=== PATIENT | male | born 1945 | race Caucasian/White ===

== ENCOUNTER 2025-05-03 19:25 | Inpatient (IN) | payer MEDICARE ==
--- NOTE | 2025-05-03 19:29 | ED ---
SOB HPI - General Stated Complaint: Respritory arrest Time Seen by Provider: 05/03/25 19:28 Source: RN notes reviewed, old records reviewed Mode of arrival: EMS Limitations: no limitations - History of Present Illness Initial Comments: This is a 79-year-old male to the ER for evaluation patient was today for evaluation of respiratory arrest, patient had cessation of respirations in the field comes in intubated, patient initially called EMS secondary to severe shortness of breath Long history of COPD with lung surgery as well MD Complaint: shortness of breath, cough, "asthma attack" (Respiratory arrest), anxiety -: hour(s) Severity: severe Severity scale (1-10): 10 Consistency: constant Improves With: nothing Worsens With: nothing Known History Of: COPD Context: anxiety, recent illness Associated Symptoms: chest pain, pain with inspiration, cough Treatments Prior to Arrival: none - Related Data Home Medications Medication Instructions Recorded Confirmed Anagrelide HCl [Agrylin] 1 mg PO BID 05/04/25 05/04/25 Escitalopram [Lexapro] 20 mg PO HS 05/04/25 05/04/25 Esomeprazole Magnesium 20 mg PO BID 05/04/25 05/04/25 Metoprolol Succinate (ER) [Toprol 100 mg PO HS 05/04/25 05/04/25 Xl] Multivitamin [Multivitamins Adult 1 tab PO DAILY 05/04/25 05/04/25 Gummies] Simvastatin 40 mg PO HS 05/04/25 05/04/25 amLODIPine [Norvasc] 5 mg PO HS 05/04/25 05/04/25 Allergies Allergy/AdvReac Type Severity Reaction Status Date / Time lisinopril Allergy Swelling Verified 05/04/25 12:19 Review of Systems ROS Statement: Those systems with pertinent positive or pertinent negative responses have been documented in the HPI. ROS Other: All systems not noted in ROS Statement are negative. General Exam Limitations: altered mental status, physical limitation General appearance: alert, lethargic, obtunded, in distress Head exam: Present: atraumatic, normocephalic, normal inspection Eye exam: Present: normal appearance, PERRL, EOMI. Absent: scleral icterus, conjunctival injection, periorbital swelling ENT exam: Present: normal exam, mucous membranes moist Neck exam: Present: normal inspection. Absent: tenderness, meningismus, lymphadenopathy Respiratory exam: Present: respiratory distress, wheezes, accessory muscle use, decreased breath sounds, prolonged expiratory. Absent: rales, rhonchi, stridor Cardiovascular Exam: Present: tachycardia, normal heart sounds. Absent: systolic murmur, diastolic murmur, rubs, gallop, clicks GI/Abdominal exam: Present: soft, normal bowel sounds. Absent: distended, tenderness, guarding, rebound, rigid Extremities exam: Present: normal inspection, full ROM, normal capillary refill. Absent: tenderness, pedal edema, joint swelling, calf tenderness Back exam: Present: normal inspection Neurological exam: Present: alert, oriented X3, CN II-XII intact Psychiatric exam: Present: normal affect, normal mood Skin exam: Present: warm, dry, intact, normal color. Absent: rash Course Vital Signs 05/03/25 05/03/25 05/03/25 19:34 19:39 19:44 Temperature 97.5 F L Pulse Rate 105 H 93 Respiratory 19 21 Rate Blood Pressure 168/95 113/83 O2 Sat by Pulse 98 100 Oximetry Fraction of 100 Inspired Oxygen (FIO2) 05/03/25 05/03/25 05/03/25 20:17 20:33 21:24 Temperature Pulse Rate 76 71 Respiratory 22 21 Rate Blood Pressure 88/65 109/70 O2 Sat by Pulse 100 98 Oximetry Fraction of 50 Inspired Oxygen (FIO2) 05/03/25 05/03/25 05/03/25 22:06 23:00 23:18 Temperature Pulse Rate 72 64 Respiratory 18 20 Rate Blood Pressure 113/75 90/58 O2 Sat by Pulse 96 100 Oximetry Fraction of 50 Inspired Oxygen (FIO2) 05/04/25 05/04/25 05/04/25 00:00 02:00 03:00 Temperature Pulse Rate 68 68 67 Respiratory 20 17 20 Rate Blood Pressure 102/70 109/71 101/66 O2 Sat by Pulse 100 100 98 Oximetry Fraction of Inspired Oxygen (FIO2) 05/04/25 05/04/25 05/04/25 03:22 04:36 05:00 Temperature Pulse Rate 74 65 Respiratory 20 20 Rate Blood Pressure 117/82 112/69 O2 Sat by Pulse 100 65 L Oximetry Fraction of 50 Inspired Oxygen (FIO2) 05/04/25 05/04/25 05/04/25 06:00 07:51 07:56 Temperature Pulse Rate 63 64 64 Respiratory 20 20 Rate Blood Pressure 104/63 108/66 O2 Sat by Pulse 98 99 Oximetry Fraction of 50 Inspired Oxygen (FIO2) 05/04/25 05/04/25 05/04/25 08:03 08:49 09:16 Temperature 97.9 F 96.8 F L Pulse Rate 72 73 78 Respiratory 20 20 Rate Blood Pressure 109/71 131/80 O2 Sat by Pulse 99 99 Oximetry Fraction of Inspired Oxygen (FIO2) - Reevaluation(s) Reevaluation #1: 05/03/25 22:35 Medical records reviewed Reevaluation #2: 05/03/25 22:35 Patient is significantly sedated vital signs improving Reevaluation #3: 05/03/25 22:35 Patient informed of results and questions answered Reevaluation #4: Was pt. sent in by a medical professional or institution (KADY Dudley, PROGRAMMING SPECIALIST, urgent care, hospital, or fci...) When possible be specific @ -no Did you speak to anyone other than the patient for history (EMS, parent, family, police, friend...)? What history was obtained from this source @ -no Did you review nursing and triage notes (agree or disagree)? Why? @ -agree Are old charts reviewed (outside hosp., previous admission, EMS record, old EKG, old radiological studies, urgent care reports/EKG's, fci records)? Report findings @ -yes Differential Diagnosis (chest pain, altered mental status, abdominal pain women, abdominal pain men, vaginal bleeding, weakness, fever, dyspnea, syncope, headache, dizziness, GI bleed, back pain, seizure, CVA, palpatations, mental health, musculoskeletal)? @ -prior EKG interpreted by me (3pts min.). @ -yes X-rays interpreted by me (1pt min.). @ -yes yes positive for pneumonia CT interpreted by me (1pt min.). @ -US negative for acute disease U/S interpreted by me (1pt. min.). @ -no What testing was considered but not performed or refused? (CT, X-rays, U/S, labs)? Why? @ -none What meds were considered but not given or refused? Why? @ -none Did you discuss the management of the patient with other professionals (professionals i.e. , PA, PROGRAMMING SPECIALIST, lab, RT, psych nurse, director social service, certified appliance service technician, teacher, airfield services officer, casey saw operator)? Give summary @ -no Was smoking cessation discussed for >3mins.? @ -no Was critical care preformed (if so, how long)? @ -yes31 Were there social determinants of health that impacted care today? How? (Homelessness, low income, unemployed, alcoholism, drug addiction, transportatio n, low edu. Level, literacy, decrease access to med. care, [place] [facility], rehab)? @ -none Was there de-escalation of care discussed even if they declined (Discuss DNR or withdrawal of care, Hospice)? DNR status @ -no What co-morbidities impacted this encounter? (DM, HTN, Smoking, COPD, CAD, Cancer, CVA, ARF, Chemo, Hep., AIDS, mental health diagnosis, sleep apnea, morbid obesity)? @ -none Was patient admitted / discharged? Hospital course, mention meds given and route, prescriptions, significant lab abnormalities, going to OR and other pertinent info. @ - 79 male will be admitted for respiratory arrest intubated pneumonia and admitted to the ICU Admitted Undiagnosed new problem with uncertain prognosis? @ -no Drug Therapy requiring intensive monitoring for toxicity (Heparin, Nitro, Insulin, Cardizem)? @ -no Were any procedures done? @ -no Diagnosis/symptom? @ -Respiratory arrest Acute, or Chronic, or Acute on Chronic? @ -Acute Uncomplicated (without systemic symptoms) or Complicated (systemic symptoms)? @ -Complicated Side effects of treatment? @ -no Exacerbation, Progression, or Severe Exacerbation? @ -exacerbation Poses a threat to life or bodily function? How? (Chest pain, [place], [place], pneumonia, PE, COPD, DKA, ARF, appy, cholecystitis, CVA, Diverticulitis, Homicidal, Suicidal, threat to staff... and all critical care pts) @ -yes with cardiorespiratory arrest Reevaluation #5: Differential Dyspnea: Coronary syndrome, arrhythmia, tamponade, asthma, COPD, pulmonary embolism, pneumonia, pneumothorax, pulmonary effusion, anaphylaxis, diabetic ketoacidosis, flailed chest, pulmonary contusion, diaphragmatic rupture, anemia, neuromuscular, this is not meant to be an all-inclusive list. - Consultations Consultation #1: Spoke with ICU they agreed to admit this patient to the ICU Consultation #2: Spoke with sound they agreed to admit this patient Medical Decision Making - Medical Decision Making 79 male will be admitted for respiratory arrest intubated pneumonia and admitted to the ICU - Lab Data Result diagrams: 05/10/25 05:02 05/10/25 05:02 Lab Results 05/03/25 05/03/25 05/03/25 Range/Units 19:38 19:38 19:38 WBC 19.15 H (4.50-10.00) 10*3/uL RBC 3.40 L (4.40-5.60) 10*6/uL Hgb 9.2 L (13.0-17.0) g/dL Hct 29.3 L (39.6-50.0) % MCV 86.2 (80.0-97.0) fL MCH 27.1 (27.0-32.0) pg MCHC 31.4 L (32.0-37.0) g/dL Plt Count 655 H (140-440) 10*3/uL MPV 9.6 (9.5-12.2) fL Immature Gran % (Auto) 0.8 % Neutrophils % 78.2 % Lymphocytes % 13.7 % Monocytes % 5.7 % Eosinophils % 1.3 % Basophils % 0.3 % Immature Gran # 0.15 H (0.00-0.04) 10*3/uL Neutrophils # 14.97 H (1.80-7.70) 10*3/uL Lymphocytes # 2.63 (0.90-5.00) 10*3/uL Monocytes # 1.10 H (0.20-1.00) 10*3/uL Eosinophils # 0.25 (0.04-0.35) 10*3/uL Basophils # 0.05 (0.00-0.10) 10*3/uL PT 13.5 H (10.0-12.5) sec INR 1.3 H (<1.2) APTT 22.4 (22.0-30.0) sec Sample Site ABG pH (7.35-7.45) ABG pCO2 (35-45) mmHg ABG pO2 (83-108) mmHg ABG HCO3 (21-25) mmol/L ABG Total CO2 (19-24) mmol/L ABG O2 Saturation (94-97) % ABG Base Excess mmol/L Hank Test Hemoglobin (13.0-17.5) gm/dL FiO2 % Sodium 142 (137-145) mmol/L Potassium 4.8 (3.5-5.1) mmol/L Chloride 107 (98-107) mmol/L Carbon Dioxide 20 L (22-30) mmol/L Anion Gap 15 mmol/L BUN 28 H (9-20) mg/dL Creatinine 1.88 H (0.66-1.25) mg/dL Est GFR (CKD-EPI)AfAm 39 (>60 ml/min/1.73 sqM) Est GFR (CKD-EPI)NonAf 34 (>60 ml/min/1.73 sqM) Glucose 256 H (74-99) mg/dL Lactic Ac Sepsis Rflx Plasma Lactic Acid Tk (0.7-2.0) mmol/L Calcium 9.0 (8.4-10.2) mg/dL Magnesium 2.2 (1.6-2.3) mg/dL Total Bilirubin 1.2 (0.2-1.3) mg/dL AST 22 (17-59) U/L ALT 12 (4-49) U/L Alkaline Phosphatase 91 (38-126) U/L Troponin I (0.000-0.034) ng/mL NT-Pro-B Natriuret Pep 14322 pg/mL Total Protein 6.8 (6.3-8.2) g/dL Albumin 3.6 (3.5-5.0) g/dL 05/03/25 05/03/25 05/03/25 Range/Units 19:38 19:38 20:08 WBC (4.50-10.00) 10*3/uL RBC (4.40-5.60) 10*6/uL Hgb (13.0-17.0) g/dL Hct (39.6-50.0) % MCV (80.0-97.0) fL MCH (27.0-32.0) pg MCHC (32.0-37.0) g/dL Plt Count (140-440) 10*3/uL MPV (9.5-12.2) fL Immature Gran % (Auto) % Neutrophils % % Lymphocytes % % Monocytes % % Eosinophils % % Basophils % % Immature Gran # (0.00-0.04) 10*3/uL Neutrophils # (1.80-7.70) 10*3/uL Lymphocytes # (0.90-5.00) 10*3/uL Monocytes # (0.20-1.00) 10*3/uL Eosinophils # (0.04-0.35) 10*3/uL Basophils # (0.00-0.10) 10*3/uL PT (10.0-12.5) sec INR (<1.2) APTT (22.0-30.0) sec Sample Site rbrac ABG pH 7.20 L (7.35-7.45) ABG pCO2 57 H (35-45) mmHg ABG pO2 315 H (83-108) mmHg ABG HCO3 22 (21-25) mmol/L ABG Total CO2 24 (19-24) mmol/L ABG O2 Saturation >100.0 H (94-97) % ABG Base Excess -5.8 mmol/L Hank Test Yes Hemoglobin 8.6 L (13.0-17.5) gm/dL FiO2 100 % Sodium (137-145) mmol/L Potassium (3.5-5.1) mmol/L Chloride (98-107) mmol/L Carbon Dioxide (22-30) mmol/L Anion Gap mmol/L BUN (9-20) mg/dL Creatinine (0.66-1.25) mg/dL Est GFR (CKD-EPI)AfAm (>60 ml/min/1.73 sqM) Est GFR (CKD-EPI)NonAf (>60 ml/min/1.73 sqM) Glucose (74-99) mg/dL Lactic Ac Sepsis Rflx Plasma Lactic Acid Tk 2.2 H* (0.7-2.0) mmol/L Calcium (8.4-10.2) mg/dL Magnesium (1.6-2.3) mg/dL Total Bilirubin (0.2-1.3) mg/dL AST (17-59) U/L ALT (4-49) U/L Alkaline Phosphatase (38-126) U/L Troponin I <0.012 (0.000-0.034) ng/mL NT-Pro-B Natriuret Pep pg/mL Total Protein (6.3-8.2) g/dL Albumin (3.5-5.0) g/dL 05/03/25 Range/Units 20:18 WBC (4.50-10.00) 10*3/uL RBC (4.40-5.60) 10*6/uL Hgb (13.0-17.0) g/dL Hct (39.6-50.0) % MCV (80.0-97.0) fL MCH (27.0-32.0) pg MCHC (32.0-37.0) g/dL Plt Count (140-440) 10*3/uL MPV (9.5-12.2) fL Immature Gran % (Auto) % Neutrophils % % Lymphocytes % % Monocytes % % Eosinophils % % Basophils % % Immature Gran # (0.00-0.04) 10*3/uL Neutrophils # (1.80-7.70) 10*3/uL Lymphocytes # (0.90-5.00) 10*3/uL Monocytes # (0.20-1.00) 10*3/uL Eosinophils # (0.04-0.35) 10*3/uL Basophils # (0.00-0.10) 10*3/uL PT (10.0-12.5) sec INR (<1.2) APTT (22.0-30.0) sec Sample Site ABG pH (7.35-7.45) ABG pCO2 (35-45) mmHg ABG pO2 (83-108) mmHg ABG HCO3 (21-25) mmol/L ABG Total CO2 (19-24) mmol/L ABG O2 Saturation (94-97) % ABG Base Excess mmol/L Hank Test Hemoglobin (13.0-17.5) gm/dL FiO2 % Sodium (137-145) mmol/L Potassium (3.5-5.1) mmol/L Chloride (98-107) mmol/L Carbon Dioxide (22-30) mmol/L Anion Gap mmol/L BUN (9-20) mg/dL Creatinine (0.66-1.25) mg/dL Est GFR (CKD-EPI)AfAm (>60 ml/min/1.73 sqM) Est GFR (CKD-EPI)NonAf (>60 ml/min/1.73 sqM) Glucose (74-99) mg/dL Lactic Ac Sepsis Rflx Y Plasma Lactic Acid Tk (0.7-2.0) mmol/L Calcium (8.4-10.2) mg/dL Magnesium (1.6-2.3) mg/dL Total Bilirubin (0.2-1.3) mg/dL AST (17-59) U/L ALT (4-49) U/L Alkaline Phosphatase (38-126) U/L Troponin I (0.000-0.034) ng/mL NT-Pro-B Natriuret Pep pg/mL Total Protein (6.3-8.2) g/dL Albumin (3.5-5.0) g/dL - EKG Data -: EKG Interpreted by Me (EKG is sinus tachycardia 104 [place] 158 QRS 103 QTc 437) - Radiology Data Radiology results: report reviewed (Chest x-ray positive for pneumonia), image reviewed Critical Care Time Critical Care Time: Yes Total Critical Care Time: 31 Disposition Clinical Impression: Acute exacerbation of chronic obstructive pulmonary disease, Acute pulmonary edema, Acute respiratory distress syndrome in adult, Respiratory failure Disposition: ADMITTED IP TO THIS HOSP Condition: Critical Is patient prescribed a controlled substance at d/c from ED?: No Time of Disposition: 21:25
[2025-05-03] MEDS: PROPOFOL 10 MG/ML 20 ML VIAL IV ONE (19:30)
[2025-05-03] MEDS: MIDAZOLAM 2 MG/2 ML VIAL IV ONE (19:34)
[2025-05-03 19:54] LABS: Basophils # (A) 0.05 10*3/uL (0.00-0.10); Basophils % (A) 0.3 %; Eosinophils # (A) 0.25 10*3/uL (0.04-0.35); Eosinophils % (A) 1.3 %; HCT 29.3 % (39.6-50.0); HGB 9.2 g/dL (13.0-17.0); Lymphocytes # (A) 2.63 10*3/uL (0.90-5.00); Lymphocytes % (A) 13.7 %; MCH 27.1 pg (27.0-32.0); MCHC 31.4 g/dL (32.0-37.0); MCV 86.2 fL (80.0-97.0); Monocytes # (A) 1.10 10*3/uL (0.20-1.00); Monocytes % (A) 5.7 %; Neutrophils # (A) 14.97 10*3/uL (1.80-7.70); Neutrophils % (A) 78.2 %; Platelet Count 655 10*3/uL (140-440); RBC 3.40 10*6/uL (4.40-5.60); RDW 19.3 % (11.5-14.5); WBC 19.15 10*3/uL (4.50-10.00)
--- NOTE | 2025-05-03 19:59 | XR ---
EXAMINATION TYPE: XR chest 1V portable DATE OF EXAM: 05/03/2025 7:54 PM COMPARISON: 05/03/2025 CLINICAL INDICATION: Male, 79 years old with history of sob, TECHNIQUE: XR chest 1V portable views of the chest are obtained. FINDINGS: Endotracheal tube is 6 cm from the yuni. NG tube is seen coursing into the stomach. Patchy basilar infiltrates and small effusions. No pneumothorax present. The heart is stable. Hilar and mediastinal structures are within normal limits. Degenerative changes are seen of the dorsal spine. IMPRESSION: Endotracheal tube is 6 cm from the yuni. NG tube is seen coursing into the stomach. Patchy basilar infiltrates and small effusions. [facility], , 05/03/2025 7:56 PM
[2025-05-03 20:10] LABS: INR 1.3 (<1.2); Partial Thromboplastin Time 22.4 sec (22.0-30.0); Prothrombin Time 13.5 sec (10.0-12.5)
[2025-05-03 20:11] LABS: ALT 12 U/L (4-49); AST 22 U/L (17-59); African American GFR (CKD) 39 (>60 ml/min/1.73 sqM); Albumin 3.6 g/dL (3.5-5.0); Alkaline Phosphatase 91 U/L (38-126); Anion Gap 15 mmol/L; Blood Urea Nitrogen 28 mg/dL (9-20); Calcium 9.0 mg/dL (8.4-10.2); Carbon Dioxide 20 mmol/L (22-30); Chloride 107 mmol/L (98-107); Glucose 256 mg/dL (74-99); Magnesium 2.2 mg/dL (1.6-2.3); Non-African American GFR(CKD) 34 (>60 ml/min/1.73 sqM); Potassium 4.8 mmol/L (3.5-5.1); Sodium 142 mmol/L (137-145); Total Protein 6.8 g/dL (6.3-8.2)
[2025-05-03 20:11] LABS: ABG HCO3 22 mmol/L (21-25); ABG PCO2 57 mmHg (35-45); ABG PH 7.20 (7.35-7.45); ABG PO2 315 mmHg (83-108); ABG TCO2 24 mmol/L (19-24); Allen Test Performed? Yes
[2025-05-03 20:19] LABS: NT-Pro-B-Type Natriuretic Pept 12100 pg/mL
[2025-05-03] MEDS: SODIUM CHLORIDE 0.9% 1,000 ML IV ONE ×2 (20:30→23:38)
[2025-05-03] MEDS ORDERED: NALOXONE 0.4 MG/ML 1 ML VIAL IV PRN (21:22)
[2025-05-03] MEDS: IPRATROPIUM-ALBUTEROL 3 ML NEB INHALATION STA (21:26)
[2025-05-03] MEDS ORDERED: PNEUMONIA PROTOCOL UTILIZED 1 EACH MISC PO PRN (21:27)
[2025-05-03] MEDS: AZITHROMYCIN 500 MG in SODIUM CHLORIDE 0.9% 250 ML IVPB STA (22:00)
[2025-05-03] MEDS: SODIUM CHLORIDE 0.9% 500 ML 500 ML IV ONE (23:39)
[2025-05-04] MEDS: SODIUM CHLORIDE 0.9% 1,000 ML IV SCH (00:32)
--- NOTE | 2025-05-04 03:52 | P.CNPUL ---
History of Present Illness Consult date: 05/04/25 Requesting physician: Judson Dunn Reason for consult: other (ICU management) History of present illness: Patient is a 79-year-old male, evaluated by EMS yesterday. Reportedly, having severe respiratory distress and apnea. He was intubated in the field. No previous records available to review from our facility. I did call the patient's , she states he was increasingly weak for the last several days. Associated shortness of breath with exertion. She thought it was related to his anemia. She was able to provide some past medical history including lung cancer and previous lung resection at [facility], essential thrombocythemia, and GAVE syndrome. Reportedly, requires frequent blood and iron infusions. He follows at [facility] for this. Reportedly, no history of COPD, asthma. No history of heart f ailure per the . His medication list is not available. Workup in the emergency department including a chest x-ray which shows endotracheal tube proximal, approximately 6 cm from the yuni. Orogastric tube coursing into the stomach. Patchy bibasilar infiltrates and small effusion on the right. Left costophrenic angle was excluded from the image. CBC including a WBC count of 19.15, hemoglobin 9.2, platelets 655. CMP included sodium 142, potassium 4.8, chloride 107, serum bicarb 20, BUN 28, creatinine 1.88, glucose 256. Lactic 2.6 and down to 1.6. EKG: Sinus tachycardia, rate 104 bpm, no acute ischemic changes. Troponin less than 0.012. NT proBNP significantly elevated at 12,100. Patient currently being evaluated in the emergency department, trauma bay 2. He is intubated to the mechanical ventilator. Previous ABGs including a PaO2 of 315, pCO2 57, pH of 7.2. Previous ventilator settings were assist-control, rate 16, tidal volume 450, FiO2 100%, PEEP of 5. Since then, his rate has been increased to 20 and his tidal volume dropped to 50%. The Peak pressure averaging 38 and static airway pressure measured at 17. His endotracheal tube is a size 7. There are thick tenacious white secretions coming from the endotracheal tube. Sputum sample to be collected. Currently, patient is synchronous with the mechanical ventilator. Sedated on propofol which is infusing at 45 mcg/kg/min. He was previously fluid resuscitated with a total of 2.5 L crystalloid fluid and LR continues at 150 mL/h. Blood pressure is normotensive. Not requiring any vasopressors. An indwelling urinary catheter was placed and there is small amount of concentrated yellow urine in the colle ction bag. Has remained afebrile. Previously started on empiric antibiotics in form azithromycin and Rocephin in the ED. Review of Systems ROS unobtainable: due to endotracheal tube Past Medical History Past Medical History: Unable to Obtain Past Surgical History: Unable to Obtain Smoking Status: Unknown if ever smoked Past Alcohol Use History: Unable to Obtain Past Drug Use History: Unable to Obtain Medications and Allergies Allergies Allergy/AdvReac Type Severity Reaction Status Date / Time lisinopril Allergy Swelling Verified 05/03/25 19:53 Physical Exam Vitals: Vital Signs Temp Pulse Resp BP Pulse Ox FiO2 05/04/25 02:00 68 17 109/71 100 05/04/25 00:00 68 20 102/70 100 05/03/25 23:18 50 05/03/25 23:00 64 20 90/58 100 05/03/25 22:06 72 18 113/75 96 05/03/25 21:24 71 21 109/70 98 05/03/25 20:33 76 22 88/65 100 05/03/25 20:17 50 05/03/25 19:44 93 21 113/83 100 05/03/25 19:39 100 05/03/25 19:34 97.5 F L 105 H 19 168/95 98 Intake and Output 05/03/25 05/03/25 05/04/25 14:59 22:59 06:59 Intake Total .707 29.212 Balance 707 . Intake: Intake, IV Titration .707 . Amount propofoL 1,000 mg In .7 .212 Empty Bag 1 bag @ 15 MCG/ KG/MIN 6.532 mls/hr IV . [id number] [facility] Rx#:[id number] Other: Weight 72.575 kg GENERAL EXAM: Sedated, 79-year-old male, does not follow commands, intubated to the mechanical ventilator. HEAD: Normocephalic and atraumatic EYES: Right pupil is round and reactive to light; left pupil misshapen and fixed. No nystagmus. Anicteric NOSE: Clear with pink turbinates. THROAT: No erythema or exudates. NECK: No masses, no JVD. CHEST: No chest wall deformity. LUNGS: Equal air entry with diffuse bilateral rhonchi. CVS: S1 and S2 normal with no audible murmur, regular rhythm. No extra heart sounds ABDOMEN: No hepatosplenomegaly, active bowel sounds, no guarding or rigidity. SPINE: No scoliosis or deformity SKIN: No rashes CENTRAL NERVOUS SYSTEM: Sedated, no obvious focal deficits, withdraws to pain in all 4 extremities. EXTREMITIES: There is no peripheral edema, clubbing, or cyanosis. Peripheral pulses are intact. Results - Laboratory Findings CBC and BMP: 05/03/25 19:38 05/03/25 19:38 ABG ABG pH 7.20 (7.35-7.45) L 05/03/25 20:08 ABG pCO2 57 mmHg (35-45) H 05/03/25 20:08 ABG pO2 315 mmHg (83-108) H 05/03/25 20:08 ABG O2 Saturation >100.0 % (94-97) H 05/03/25 20:08 PT/INR, D-dimer PT 13.5 sec (10.0-12.5) H 05/03/25 19:38 INR 1.3 (<1.2) H 05/03/25 19:38 Abnormal lab findings: Abnormal Labs 05/03/25 05/03/25 05/03/25 19:38 19:38 19:38 WBC 19.15 H RBC 3.40 L Hgb 9.2 L Hct 29.3 L MCHC 31.4 L Plt Count 655 H Immature Gran # 0.15 H Neutrophils # 14.97 H Monocytes # 1.10 H PT 13.5 H INR 1.3 H ABG pH ABG pCO2 ABG pO2 ABG O2 Saturation Hemoglobin Carbon Dioxide 20 L BUN 28 H Creatinine 1.88 H Glucose 256 H Plasma Lactic Acid Tk 05/03/25 05/03/25 19:38 20:08 WBC RBC Hgb Hct MCHC Plt Count Immature Gran # Neutrophils # Monocytes # PT INR ABG pH 7.20 L ABG pCO2 57 H ABG pO2 315 H ABG O2 Saturation >100.0 H Hemoglobin 8.6 L Carbon Dioxide BUN Creatinine Glucose Plasma Lactic Acid Tk 2.2 H* - Diagnostic Findings Chest x-ray: image reviewed Assessment and Plan Assessment: Acute hypoxemic and hypercapnic respiratory failure, patient was intubated in the field by EMS, chest x-ray showing bilateral patchy infiltrates, also small right-sided pleural effusion. NT-proBNP was elevated at 12,100. Suspect bilateral pneumonia/sepsis Possible exacerbation of congestive heart failure, with an unknown ejection fraction Acute leukocytosis Acute kidney injury versus chronic kidney disease History of GAVE syndrome and chronic anemia, reportedly receives outpatient PRBC and an iron infusions Essential thrombocythemia, reportedly on cytoreducative therapy History of lung cancer with previous lobectomy at outside facility Current tobacco smoker Plan: Medications, labs, chest x-ray reviewed Continue on mechanical ventilator with current ventilator settings Advance endotracheal tube 2 cm Continue propofol for sedation Repeat ABG in the morning Continue empiric antibiotics Obtain transthoracic echocardiogram Spent more than 10 minutes on the phone with patient and spouse and answered all her questions and updated her on his current condition. Update medication list once made available Case to be reviewed with my supervising physician, additional recommendations forthcoming. Patient will be admitted to the intensive care unit when bed available. I have personally seen and examined the patient, performed the documentation and the assessment and plan as written. Number of minutes spent on the visit:25 Time with Patient: Greater than 30
--- NOTE | 2025-05-04 04:30 | CT ---
EXAM: CT Head Without Intravenous Contrast CLINICAL HISTORY: ITS.REASON CT Reason: AMS TECHNIQUE: Axial computed tomography images of the head/brain without intravenous contrast. CTDI is 49.2 mGy and DLP is 1199.4 mGy-cm. This CT exam was performed using one or more of the following dose reduction techniques: automated exposure control, adjustment of the mA and/or kV according to patient size, and/or use of iterative reconstruction technique. COMPARISON: No relevant prior studies available. FINDINGS: Brain: No hemorrhage or mass effect. Ventricles: No hydrocephalus. Bones/joints: Unremarkable. Soft tissues: Unremarkable. Sinuses: No air fluid level. Mastoid air cells: Clear. IMPRESSION: No acute hemorrhage, hydrocephalus, or mass effect.
[2025-05-04 04:37] LABS: RSV Not Detected (Not Detectd)
[2025-05-04] MEDS: FUROSEMIDE 10 MG/ML 2 ML VIAL IV ONE (04:43)
[2025-05-04 05:25] LABS: ABG HCO3 19 mmol/L (21-25); ABG PCO2 37 mmHg (35-45); ABG PH 7.33 (7.35-7.45); ABG PO2 89 mmHg (83-108); ABG TCO2 21 mmol/L (19-24); Allen Test Performed? Yes
--- NOTE | 2025-05-04 06:21 | P.HPIM ---
History of Present Illness H&P Date: 05/03/25 Chief Complaint: Respiratory arrest Patient is a 79-year-old male with severe COPD and history of lung surgery who was brought to the hospital by EMS due to respiratory arrest. Patient was having severe shortness of breath and coughing, described as 'something like an asthma attack.' Patient notified EMS and subsequently had a respiratory arrest upon their arrival. Patient arrived at the hospital intubated. No further information is available about the onset or progression of symptoms prior to EMS arrival. Patient is currently sedated and on mechanical ventilation, unable to provide any meaningful history. review of systems Unable to obtain on exam General: Patient is sedated and intubated. Neurological: Right pupil 3 mm round, left pupil dilated. Otherwise unable to assess cardiovascular: Right radial pulse not detectable. Left radial artery palpable. Dorsalis pedis artery palpable bilaterally. Hands and legs warm to touch. Capillary refill immediate bilaterally. Respiratory: On mechanical ventilation. Audible breath sounds bilaterally with rhonchi and wheezing. Gastrointestinal: Abdomen soft. Positive bowel sounds. NG tube in place. No signs of bruising or trauma. Genitourinary: Hendrickson catheter in place. No leg edema bilaterally Past Medical History Past Medical History: Unable to Obtain Past Surgical History: Unable to Obtain Smoking Status: Unknown if ever smoked Past Alcohol Use History: Unable to Obtain Past Drug Use History: Unable to Obtain Medications and Allergies Allergies Allergy/AdvReac Type Severity Reaction Status Date / Time lisinopril Allergy Swelling Verified 05/03/25 19:53 Physical Exam Vitals: Vital Signs Temp Pulse Resp BP Pulse Ox FiO2 05/04/25 05:00 65 20 112/69 65 L 05/04/25 04:36 74 20 117/82 100 05/04/25 03:22 50 05/04/25 03:00 67 20 101/66 98 05/04/25 02:00 68 17 109/71 100 05/04/25 00:00 68 20 102/70 100 05/03/25 23:18 50 05/03/25 23:00 64 20 90/58 100 05/03/25 22:06 72 18 113/75 96 05/03/25 21:24 71 21 109/70 98 05/03/25 20:33 76 22 88/65 100 05/03/25 20:17 50 05/03/25 19:44 93 21 113/83 100 05/03/25 19:39 100 05/03/25 19:34 97.5 F L 105 H 19 168/95 98 Intake and Output 05/03/25 05/03/25 05/04/25 14:59 22:59 06:59 Intake Total 26.707 123.595 Balance 26.707 123.595 Intake: Intake, IV Titration 26.707 123.595 Amount propofoL 1,000 mg In 26.707 123.595 Empty Bag 1 bag @ 15 MCG/ KG/MIN 6.532 mls/hr IV . [id number] [facility] Rx#:[id number] Other: Weight 72.575 kg Results CBC & Chem 7: 05/03/25 19:38 05/03/25 19:38 Labs: Abnormal Lab Results - Last 24 Hours (Table) 05/03/25 05/03/25 05/03/25 Range/Units 19:38 19:38 19:38 WBC 19.15 H (4.50-10.00) 10*3/uL RBC 3.40 L (4.40-5.60) 10*6/uL Hgb 9.2 L (13.0-17.0) g/dL Hct 29.3 L (39.6-50.0) % MCHC 31.4 L (32.0-37.0) g/dL Plt Count 655 H (140-440) 10*3/uL Immature Gran # 0.15 H (0.00-0.04) 10*3/uL Neutrophils # 14.97 H (1.80-7.70) 10*3/uL Monocytes # 1.10 H (0.20-1.00) 10*3/uL PT 13.5 H (10.0-12.5) sec INR 1.3 H (<1.2) ABG pH (7.35-7.45) ABG pCO2 (35-45) mmHg ABG pO2 (83-108) mmHg ABG HCO3 (21-25) mmol/L ABG O2 Saturation (94-97) % Hemoglobin (13.0-17.5) gm/dL Carbon Dioxide 20 L (22-30) mmol/L BUN 28 H (9-20) mg/dL Creatinine 1.88 H (0.66-1.25) mg/dL Glucose 256 H (74-99) mg/dL Plasma Lactic Acid Tk (0.7-2.0) mmol/L 05/03/25 05/03/25 05/04/25 Range/Units 19:38 20:08 05:22 WBC (4.50-10.00) 10*3/uL RBC (4.40-5.60) 10*6/uL Hgb (13.0-17.0) g/dL Hct (39.6-50.0) % MCHC (32.0-37.0) g/dL Plt Count (140-440) 10*3/uL Immature Gran # (0.00-0.04) 10*3/uL Neutrophils # (1.80-7.70) 10*3/uL Monocytes # (0.20-1.00) 10*3/uL PT (10.0-12.5) sec INR (<1.2) ABG pH 7.20 L 7.33 L (7.35-7.45) ABG pCO2 57 H (35-45) mmHg ABG pO2 315 H (83-108) mmHg ABG HCO3 19 L (21-25) mmol/L ABG O2 Saturation >100.0 H 97.3 H (94-97) % Hemoglobin 8.6 L 7.8 L (13.0-17.5) gm/dL Carbon Dioxide (22-30) mmol/L BUN (9-20) mg/dL Creatinine (0.66-1.25) mg/dL Glucose (74-99) mg/dL Plasma Lactic Acid Tk 2.2 H* (0.7-2.0) mmol/L Assessment and Plan Assessment: Assessment: Patient presents with altered mental status requiring intubation and mechanical ventilation. Unequal pupils and absence of right radial pulse raise concern for possible neurological event or vascular compromise. 1. Acute hypoxic hypercapnic respiratory failure - Patient intubated and sedated, currently vent-dependent - Admitted to ICU - Plan: Vent care, monitor ABGs, pulmonary consult 2. Acute COPD exacerbation secondary to pneumonia - Plan: a) Follow up blood cultures b) Urine Legionella antigen c) Acute respiratory viral panel d) Start empiric antibiotics: Rocephin and azithromycin e) Breathing treatments around the clock and PRN 3. Fluid resuscitation - Plan: Maintain normal saline at 75 cc/hour 4. Anemia (Hemoglobin 9, unknown baseline) - Plan: Continue to monitor for any evidence of bleeding 5. Acute kidney injury (Creatinine 1.88, unknown baseline) - Plan: a) Avoid nephrotoxic medications b) Continue IV fluid hydration c) Monitor urine output 6. DVT prophylaxis - Plan: Heparin 5,000 units subcutaneously BID Plan: 1. Proceed with urgent CT brain without contrast to evaluate for intracranial bleeding or other acute pathology. 2. Continue current ventilator support and monitor respiratory status closely. 3. Obtain full set of vital signs and neurological checks q1h. 4. Once CT results are available, consider neurology and/or neurosurgery consultation based on findings. 5. Investigate cause of absent right radial pulse - consider vascular ultrasound if CT does not explain findings. 6. Attempt to obtain additional history from family or emergency medical services regarding onset of symptoms and past medical history. 7. Reassess sedation needs and consider weaning when appropriate, based on mata armstrong clinical picture and CT findings. 8. Monitor urine output via Hendrickson catheter and maintain fluid balance. 9. Continue NG tube for gastric decompression as needed. 10. Reassess after CT results for further management Blood work review Labs: - White blood cell count: 19 (elevated) - Hemoglobin: 9.2 anemia - Platelets: 655 - Arterial blood gas: pH 7.2, pCO2 57, pO2 315 - Sodium: 142 - Potassium: 4.8 - BUN: 28 - Creatinine: 1.88 - Lactic acid: 2.2 - Troponins: Negative - Liver enzymes: Unremarkable
--- NOTE | 2025-05-04 06:27 | XR ---
EXAMINATION TYPE: XR chest 1V DATE OF EXAM: 05/04/2025 4:32 AM COMPARISON: Chest radiographs from 05/03/2025 TECHNIQUE: XR chest 1V Portable AP radiograph of the chest. CLINICAL INDICATION:Male, 79 years old with history of intubation; FINDINGS: Lungs/Pleura: No pneumothorax. Small right pleural effusion.Diffuse interstitial prominence. Right ba silar airspace opacities. Heart/mediastinum: Cardiomediastinal silhouette is unremarkable. Atherosclerotic calcifications are seen in the aorta. Musculoskeletal: No acute osseous pathology. Other findings: None Lines/Tubes: Endotracheal tube with distal tip 8.4 cm above the yuni Nasogastric tube with its distal tip and side-port projecting under the diaphragm and projecting over the gastric lumen. IMPRESSION: 1. Overall similar examination with diffuse interstitial prominence and right basilar airspace opaci ties concerning for atelectasis versus pneumonia. 2. Similar small right pleural effusion. [facility], , 05/04/2025 6:25 AM
[2025-05-04 06:28] LABS: Basophils # (A) 0.04 10*3/uL (0.00-0.10); Basophils % (A) 0.2 %; Eosinophils # (A) 0.08 10*3/uL (0.04-0.35); Eosinophils % (A) 0.5 %; HCT 24.7 % (39.6-50.0); Lymphocytes # (A) 0.95 10*3/uL (0.90-5.00); Lymphocytes % (A) 5.6 %; MCH 26.5 pg (27.0-32.0); MCHC 30.8 g/dL (32.0-37.0); MCV 86.1 fL (80.0-97.0); Monocytes # (A) 1.67 10*3/uL (0.20-1.00); Monocytes % (A) 9.9 %; Neutrophils # (A) 14.05 10*3/uL (1.80-7.70); Neutrophils % (A) 83.3 %; Platelet Count 508 10*3/uL (140-440); RBC 2.87 10*6/uL (4.40-5.60); RDW 19.1 % (11.5-14.5); WBC 16.88 10*3/uL (4.50-10.00)
[2025-05-04 06:32] LABS: HGB 7.6 g/dL (13.0-17.0)
[2025-05-04 06:56] LABS: ALT 9 U/L (4-49); AST 20 U/L (17-59); African American GFR (CKD) 41 (>60 ml/min/1.73 sqM); Albumin 2.7 g/dL (3.5-5.0); Alkaline Phosphatase 80 U/L (38-126); Anion Gap 11 mmol/L; Blood Urea Nitrogen 27 mg/dL (9-20); Calcium 8.2 mg/dL (8.4-10.2); Carbon Dioxide 18 mmol/L (22-30); Chloride 114 mmol/L (98-107); Glucose 91 mg/dL (74-99); Magnesium 2.0 mg/dL (1.6-2.3); Non-African American GFR(CKD) 36 (>60 ml/min/1.73 sqM); Potassium 4.8 mmol/L (3.5-5.1); Sodium 143 mmol/L (137-145); Total Protein 5.5 g/dL (6.3-8.2)
[2025-05-04] MEDS: IPRATROPIUM-ALBUTEROL 3 ML NEB INHALATION SCH (07:52)
[2025-05-04] MEDS: PANTOPRAZOLE 40 MG/10 ML VIAL IV SCH ×2 (08:20→21:00)
[2025-05-04] MEDS: HEPARIN SODIUM,PORCINE 5,000 UNIT/ML 1 ML VIAL SQ SCH (08:23)
[2025-05-04 09:19] LABS: Glucose,Whole Blood 93 mg/dL (70-110)
[2025-05-04] MEDS: CISATRACURIUM 2 MG/ML 5 ML VIAL IV ONE (09:45)
--- NOTE | 2025-05-04 10:24 | XR ---
EXAMINATION TYPE: XR chest 1V portable DATE OF EXAM: 05/04/2025 10:15 AM COMPARISON: Chest radiographs from 05/04/2025 TECHNIQUE: XR chest 1V portable Portable AP radiograph of the chest. CLINICAL INDICATION:Male, 79 years old with history of ETT placement/line placement; FINDINGS: Lungs/Pleura: No pneumothorax or sizable pleural effusion. Diffuse interstitial prominence. Right bas ilar airspace opacities. Heart/mediastinum: Cardiomediastinal silhouette is unremarkable. Atherosclerotic calcifications are seen in the aorta. Musculoskeletal: No acute osseous pathology. Other findings: None Lines/Tubes: Endotracheal tube with distal tip 3.6 cm above the yuni Nasogastric tube with its distal tip and side-port projecting under the diaphragm and projecting over the gastric lumen. Interval placement of left subclavian approach central venous catheter with distal tip at the superio r cavoatrial junction. IMPRESSION: 1. Interval placement of left subclavian approach central venous catheter with distal tip at the sup erior cavoatrial junction. No pneumothorax. Remaining support tubes are stable. 2. Diffuse interstitial prominence and right basilar airspace opacities concerning for atelectasis v ersus pneumonia. [facility], , 05/04/2025 10:21 AM
--- NOTE | 2025-05-04 10:45 | OP ---
OPERATIVE REPORT DATE OF SERVICE : PROCEDURE: Re-intubation of the patient with an endotracheal tube that is too small. DESCRIPTION OF PROCEDURE: The patient was sedated with propofol and paralyzed with Nimbex, prior to the procedure. The patient was placed on 100% oxygen. The stylet was inserted through the old endotracheal tube to a distance of 40 cm. Next, with the stylet being held in place, the endotracheal tube was removed over the stylet. The new #8 endotracheal tube was inserted over the stylet. The stylet was then removed. The balloon on the new endotracheal tube was inflated. There were good return volumes on the ventilator. The tube was secured by respiratory therapy. There was no immediate complication and the patient tolerated the procedure well. We will get a chest x-ray to check placement of the central line and also the endotracheal tube. Again, the patient tolerated the procedure well, without difficulty. JORGE / RICA: [id number] / MTDD
--- NOTE | 2025-05-04 11:06 | OP ---
OPERATIVE REPORT DATE OF SERVICE : PROCEDURE: Right radial art line. PREOPERATIVE DIAGNOSIS: Frequent blood draws and blood gas monitoring. POSTOPERATIVE DIAGNOSIS: Frequent blood draws and blood gas monitoring. FIRST SECURE SOFTWARE ASSESSOR: Zenia Townsend There was informed consent and universal timeout. The patient's procedure took place in room 251. INDICATIONS: Hemodynamic monitoring. A time-out was completed verifying correct patient, procedure, site, positioning, and implant or special equipment if applicable. Hank's test was performed to ensure adequate perfusion. The patient's right wrist was prepped and draped in sterile fashion. 1% Lidocaine was used to anesthetize the area. An 18G Arrow arterial line was introduced into the radial artery. The catheter was threaded over the guide wire and the needle was removed with appropriate pulsatile blood return. Blood loss was minimal. The catheter was then sutured in place to the skin and a sterile dressing applied. Perfusion to the extremity distal to the point of catheter insertion was checked and found to be adequate. There was good blood return and waveform. The patient tolerated procedure well. The catheter was sutured in place and a sterile dressing was applied by the nurse. There was no immediate complication. MMODL / IJN: [id number] /
--- NOTE | 2025-05-04 11:06 | OP ---
OPERATIVE REPORT DATE OF SERVICE : PROCEDURE: Left subclavian triple-lumen catheter. PREOPERATIVE DIAGNOSIS: Administration of fluids and pressors. POSTOPERATIVE DIAGNOSIS: Administration of fluids and pressors. FIRST OIL HEATER INSTALLER: Zenia Townsend. There was informed consent and universal timeout. The patient's procedure took place in room 251. INDICATION: Hemodynamic monitoring/Intravenous access. DESCRIPTION OF PROCEDURE: A time-out was completed verifying correct patient, procedure, site, positioning, and implant or special equipment if applicable. The patient was placed in a dependent position appropriate for triple lumen catheter placement based on the vein to be cannulated. The patient's left shoulder was prepped and draped in sterile fashion. 1% Lidocaine was used to anesthetize the surrounding skin area. A triple lumen 9F Cordis catheter was introduced into the left subclavian vein using Seldinger technique. The catheter was threaded smoothly over the guide wire and appropriate blood return was obtained. Each lumen of the catheter was evacuated of air and flushed with sterile saline. The catheter was then sutured in place to the skin and a sterile dressing applied. Perfusion to the extremity distal to the point of catheter insertion was checked and found to be adequate. There was good blood return from all 3 ports. The catheter was sutured in place. Sterile dressing was applied by the nurse. The tip of the catheter was seen in the junction of superior vena cava, right atrium. There was no immediate complication. The patient tolerated the procedure well. MMODL / IJN: [id number] /
--- NOTE | 2025-05-04 11:59 | US ---
EXAMINATION TYPE: US kidneys/renal and bladder DATE OF EXAM: 05/04/2025 COMPARISON: NONE CLINICAL INDICATION: Male, 79 years old with history of meghna; TECHNIQUE: Grayscale imaging of the bilateral kidneys and urinary bladder: FINDINGS: EXAM MEASUREMENTS: Right Kidney: 10.2x4.8x4.3 cm Left Kidney: 9.0x4.4x3.4 cm slightly limited exam due to pt being vented Right Kidney: Multiple anechoic areas seen, Largest: 1. 2.4x2.8x2.8cm 2. 2.0x2.1x2.2cm Left Kidney: Multiple anechoic areas seen, Largest: 1. 2.7x2.7x2.6cm Bladder: wnl Bilateral Jets seen: not seen due to bladder not being full enough No hydronephrosis. No solid renal mass. Bilateral simple thin-walled cysts identified. Cortical medul yahaira differentiation is maintained bilaterally. No shadowing renal calculi identified. Urinary bladde r is underdistended. The visualized portions unremarkable. Bilateral ureteral jets are not identified . IMPRESSION: 1. No hydronephrosis or nephrolithiasis. 2. Simple bilateral renal cysts. [facility], , 05/04/2025 11:57 AM
[2025-05-04 12:18] LABS: Glucose,Whole Blood 97 mg/dL (70-110)
--- NOTE | 2025-05-04 14:03 | P.PN ---
Subjective Progress Note Date: 05/04/25 79 year old M with PMH of Lung CA status post lobectomy, GAVE syndrome requiring routine blood transfusions, heavy smoker presents to the ED intubated by EMS for respiratory distress. reports exertional SOB for the past few weeks prior to arrival. In the ED he underwent extensive evaluation. BP 168/95, HR 105, T 97.5F, RR 19, 98% mechanically ventilated. Labs significant for WBC 19.15, RBC 3.4, Hg 9.2, Hct 29.3, Plt 655, PT 13.5, INR 1.3, bicarb 20, BUN 28, Cr 1.88, glu 256. Trop < 0.012. BNP 06257. Mag 2.2. Lactic acid 2.2-1.6. COVID, RSV, Flu neg. EKG sinus tachycardia. CXR patchy basilar infiltrates and small effusions. Brain CT no acute process. Patient is admitted to ICU for further management. 05/04 Patient was seen and examined. Intubated. Antibiotics include Rocephin 2g IV QD + Azithromycin 500 mg IV QD. Sedated on Propofol at 45 mcg/kg/min. CBC, CMP significant for WBC 16.88, RBC 2.87, Hg 7.6, Hct 24.7, Plt 508, Cl 114, bicarb 18, BUN 27, Cr 1.79, Ca 8.2. Phos 4.9. Pro-jose elias 1.82. CXR shows diffuse interstitial prominence with right basilar airspace opacities. General: non toxic, no distress, Intubated Derm: warm, dry Head: atraumatic, normocephalic, symmetric Eyes: EOMI, no lid lag, anicteric sclera Mouth: no lip lesion, mucus membranes moist Cardiovascular: S1S2 reg, no murmur Lungs: Coarse BS bilateral, no rhonchi, no rales , no accessory muscle use Ext: no gross muscle atrophy, no edema, no contractures Neuro: Intubated Psych: Intubated Based on my assessment of this patient, this patient meets a high complexity level of care. Acute respiratory failure secondary to volume overload from blood transfusion +/- CHF +/- COPD exacerbation +/- PNA: Pro-jose elias elevated giving concerns for PNA. BNP elevated giving concerns for CHF possibly worsened with recent blood tr ansfusions. Pulmonary managing ventilator settings. Status post Lasix 20 mg IV. DuoNeb QID. Obtain Echo. Sepsis secondary to PNA: Rocephin 2g IV QD + Azithromycin 500 mg IV QD. Pro-jose elias 1.82. Obtain Sputum Cx + Legionella Ag + BCx. NS at 75 cc/hr. Aspiration precautions + elevate HOB. Normocytic anemia with thrombocytosis due to GAVE syndrome: Repeat CBC at 7PM. Transfuse if Hg < 7. Continue Anagrelide 1 mg PO BID. Protonix 40 mg IV QD to BID. Acute kidney injury: Renal US ordered. IV hydration as above. Nicotine dependence Dyslipidemia: Simvastatin 40 mg PO QHS. Depression: Lexapro 20 mg PO QHS. Hypertension: Hold Metoprolol and Amlodipine due to borderline hypotension. CODE STATUS: FULL CODE DVT Prophylaxis: Heparin SQ GI Prophylaxis: Protonix IV Designated medical POA if patient is not able to make medical decisions for themselves: . I have reviewed the following personal consultant notes: Pulmonary I have reviewed the results of the following tests: CBC, CMP, Phos, Pro-jose elias. I have ordered the following tests: CBC, CXR and BMP in the AM. CBC at 7PM. Renal US I have discussed the care of this patient with the following independent historian: Family. I have independently interpreted the following test below: CXR I have discussed the management of this patient with the following physician: Objective - Vital Signs Vital signs: Vital Signs Temp 96.8 F L 05/04/25 09:16 Pulse 76 05/04/25 12:04 Resp 20 05/04/25 11:00 BP 128/78 05/04/25 11:00 Pulse Ox 93 L 05/04/25 11:00 FiO2 50 05/04/25 12:03 Intake & Output 05/03/25 05/04/25 05/04/25 18:59 06:59 18:59 Intake Total 150.302 230.993 Output Total 650 Balance 150.302 -419.007 Weight 72.575 kg 72.575 kg Intake: Intake, IV Titration 150.302 230.993 Amount Sodium Chloride 0.9% 1, 150 000 ml @ 75 mls/hr IV . [id number] [facility] Rx#:[id number] propofoL 1,000 mg In 150.302 80.993 Empty Bag 1 bag @ 15 MCG/ KG/MIN 6.532 mls/hr IV . [id number] [facility] Rx#:[id number] Output: Urine 650 Uretheral (Hendrickson) 550 Other: Voiding Method Indwelling Catheter ABP, PAP, CO, CI - Last Documented Arterial Blood Pressure 128/58 - Labs CBC & Chem 7: 05/04/25 05:47 05/04/25 05:47 Labs: Abnormal Lab Results - Last 24 Hours (Table) 05/03/25 05/03/25 05/03/25 Range/Units 19:38 19:38 19:38 WBC 19.15 H (4.50-10.00) 10*3/uL RBC 3.40 L (4.40-5.60) 10*6/uL Hgb 9.2 L (13.0-17.0) g/dL Hct 29.3 L (39.6-50.0) % MCH (27.0-32.0) pg MCHC 31.4 L (32.0-37.0) g/dL Plt Count 655 H (140-440) 10*3/uL Immature Gran # 0.15 H (0.00-0.04) 10*3/uL Neutrophils # 14.97 H (1.80-7.70) 10*3/uL Monocytes # 1.10 H (0.20-1.00) 10*3/uL PT 13.5 H (10.0-12.5) sec INR 1.3 H (<1.2) ABG pH (7.35-7.45) ABG pCO2 (35-45) mmHg ABG pO2 (83-108) mmHg ABG HCO3 (21-25) mmol/L ABG O2 Saturation (94-97) % Hemoglobin (13.0-17.5) gm/dL Chloride (98-107) mmol/L Carbon Dioxide 20 L (22-30) mmol/L BUN 28 H (9-20) mg/dL Creatinine 1.88 H (0.66-1.25) mg/dL Glucose 256 H (74-99) mg/dL Plasma Lactic Acid Tk (0.7-2.0) mmol/L Calcium (8.4-10.2) mg/dL Phosphorus (2.5-4.5) mg/dL Total Protein (6.3-8.2) g/dL Albumin (3.5-5.0) g/dL Procalcitonin (0.02-0.50) ng/mL 05/03/25 05/03/25 05/04/25 Range/Units 19:38 20:08 05:22 WBC (4.50-10.00) 10*3/uL RBC (4.40-5.60) 10*6/uL Hgb (13.0-17.0) g/dL Hct (39.6-50.0) % MCH (27.0-32.0) pg MCHC (32.0-37.0) g/dL Plt Count (140-440) 10*3/uL Immature Gran # (0.00-0.04) 10*3/uL Neutrophils # (1.80-7.70) 10*3/uL Monocytes # (0.20-1.00) 10*3/uL PT (10.0-12.5) sec INR (<1.2) ABG pH 7.20 L 7.33 L (7.35-7.45) ABG pCO2 57 H (35-45) mmHg ABG pO2 315 H (83-108) mmHg ABG HCO3 19 L (21-25) mmol/L ABG O2 Saturation >100.0 H 97.3 H (94-97) % Hemoglobin 8.6 L 7.8 L (13.0-17.5) gm/dL Chloride (98-107) mmol/L Carbon Dioxide (22-30) mmol/L BUN (9-20) mg/dL Creatinine (0.66-1.25) mg/dL Glucose (74-99) mg/dL Plasma Lactic Acid Tk 2.2 H* (0.7-2.0) mmol/L Calcium (8.4-10.2) mg/dL Phosphorus (2.5-4.5) mg/dL Total Protein (6.3-8.2) g/dL Albumin (3.5-5.0) g/dL Procalcitonin (0.02-0.50) ng/mL 05/04/25 05/04/25 05/04/25 Range/Units 05:47 05:47 05:47 WBC 16.88 H (4.50-10.00) 10*3/uL RBC 2.87 L (4.40-5.60) 10*6/uL Hgb 7.6 L D (13.0-17.0) g/dL Hct 24.7 L (39.6-50.0) % MCH 26.5 L (27.0-32.0) pg MCHC 30.8 L (32.0-37.0) g/dL Plt Count 508 H (140-440) 10*3/uL Immature Gran # 0.09 H (0.00-0.04) 10*3/uL Neutrophils # 14.05 H (1.80-7.70) 10*3/uL Monocytes # 1.67 H (0.20-1.00) 10*3/uL PT (10.0-12.5) sec INR (<1.2) ABG pH (7.35-7.45) ABG pCO2 (35-45) mmHg ABG pO2 (83-108) mmHg ABG HCO3 (21-25) mmol/L ABG O2 Saturation (94-97) % Hemoglobin (13.0-17.5) gm/dL Chloride 114 H (98-107) mmol/L Carbon Dioxide 18 L (22-30) mmol/L BUN 27 H (9-20) mg/dL Creatinine 1.79 H (0.66-1.25) mg/dL Glucose (74-99) mg/dL Plasma Lactic Acid Tk (0.7-2.0) mmol/L Calcium 8.2 L (8.4-10.2) mg/dL Phosphorus 4.9 H (2.5-4.5) mg/dL Total Protein 5.5 L (6.3-8.2) g/dL Albumin 2.7 L (3.5-5.0) g/dL Procalcitonin 1.82 H (0.02-0.50) ng/mL
[2025-05-04] MEDS ORDERED: DEXTROSE 50% SYRINGE 50 ML IVP PRN ×2 (18:18)
[2025-05-04 18:30] LABS: Glucose,Whole Blood 101 mg/dL (70-110)
[2025-05-04 19:13] LABS: HCT 23.0 % (39.6-50.0); HGB 7.4 g/dL (13.0-17.0); MCH 27.6 pg (27.0-32.0); MCHC 32.2 g/dL (32.0-37.0); MCV 85.8 fL (80.0-97.0); Platelet Count 511 10*3/uL (140-440); RBC 2.68 10*6/uL (4.40-5.60); RDW 19.1 % (11.5-14.5); WBC 12.56 10*3/uL (4.50-10.00)
[2025-05-04] MEDS: ATORVASTATIN 20 MG TAB PO SCH (21:00)
[2025-05-04] MEDS: ANAGRELIDE 0.5 MG CAP PO SCH (21:00)
[2025-05-04] MEDS: ESCITALOPRAM 20 MG TAB PO SCH (21:00)
[2025-05-04] MEDS: AZITHROMYCIN 500 MG in SODIUM CHLORIDE 0.9% 250 ML IVPB SCH (21:00)
[2025-05-04 23:45] LABS: Glucose,Whole Blood 122 mg/dL (70-110)
[2025-05-05] MEDS: NOREPINEPHRINE 8 MG in SODIUM CHLORIDE 0.9% 250 ML IV SCH (01:00)
[2025-05-05] MEDS: SODIUM CHLORIDE 0.9% 500 ML 500 ML IV ONE (01:11)
[2025-05-05 04:12] LABS: Basophils # (A) 0.06 10*3/uL (0.00-0.10); Basophils % (A) 0.4 %; Eosinophils # (A) 0.32 10*3/uL (0.04-0.35); Eosinophils % (A) 2.2 %; HCT 24.2 % (39.6-50.0); HGB 7.6 g/dL (13.0-17.0); Lymphocytes # (A) 1.16 10*3/uL (0.90-5.00); Lymphocytes % (A) 7.9 %; MCH 27.1 pg (27.0-32.0); MCHC 31.4 g/dL (32.0-37.0); MCV 86.4 fL (80.0-97.0); Monocytes # (A) 1.61 10*3/uL (0.20-1.00); Monocytes % (A) 10.9 %; Neutrophils # (A) 11.51 10*3/uL (1.80-7.70); Neutrophils % (A) 78.0 %; Platelet Count 570 10*3/uL (140-440); RBC 2.80 10*6/uL (4.40-5.60); RDW 19.9 % (11.5-14.5); WBC 14.75 10*3/uL (4.50-10.00)
[2025-05-05 04:27] LABS: African American GFR (CKD) 42 (>60 ml/min/1.73 sqM); Anion Gap 14 mmol/L; Blood Urea Nitrogen 27 mg/dL (9-20); Calcium 8.1 mg/dL (8.4-10.2); Carbon Dioxide 16 mmol/L (22-30); Chloride 111 mmol/L (98-107); Glucose 124 mg/dL (74-99); Non-African American GFR(CKD) 36 (>60 ml/min/1.73 sqM); Potassium 4.2 mmol/L (3.5-5.1); Sodium 141 mmol/L (137-145)
[2025-05-05 05:03] LABS: ABG HCO3 19 mmol/L (21-25); ABG PCO2 38 mmHg (35-45); ABG PH 7.30 (7.35-7.45); ABG PO2 118 mmHg (83-108); ABG TCO2 20 mmol/L (19-24)
[2025-05-05 05:04] LABS: Allen Test Performed? no
[2025-05-05 05:29] LABS: Glucose,Whole Blood 135 mg/dL (70-110)
--- NOTE | 2025-05-05 07:08 | XR ---
EXAMINATION TYPE: XR chest 1V portable DATE OF EXAM: 05/05/2025 5:43 AM COMPARISON: Multiple radiographs, with the most recent on 05/04/2025 TECHNIQUE: XR chest 1V portable Portable AP radiograph of the chest. CLINICAL INDICATION:Male, 79 years old with history of mechanical ventilation; FINDINGS: Lungs/Pleura: No pneumothorax. Small right pleural effusion. Bibasilar patchy airspace opacities with left basilar linear atelectasis. Heart/mediastinum: Cardiomediastinal silhouette is unremarkable. Atherosclerotic calcifications are seen in the aorta. Musculoskeletal: No acute osseous pathology. Other findings: None Lines/Tubes: Endotracheal tube with distal tip 3.7 cm above the yuni Nasogastric tube with its distal tip and side-port projecting under the diaphragm and projecting over the gastric lumen. Interval placement of left subclavian approach central venous catheter with distal tip at the superio r cavoatrial junction. IMPRESSION: 1. Small right pleural effusion with bibasilar patchy airspace opacities concerning for pneumonia. 2. Stable support lines and tubes. [facility], , 05/05/2025 7:05 AM
--- NOTE | 2025-05-05 10:34 | CA ---
Transthoracic Echo Report Name: Calvin Borja Age: 79 Gender: M : 1945 Exam Date: 05/04/2025 13:37 Exam Location: [place] [address] [place] Echo Ht (in): 68 Wt (lb): 160 Ordering Physician: Manish Gooden Attending/Referring Phys: Creative Services Manager Racquel Bardales RDCS Procedure CPT: Indications: evaluate LV function Cardiac Hx: Technical Quality: Good Contrast 1: Total Dose (mL): Contrast 2: Total Dose (mL): MEASUREMENTS (Male / Female) Normal Values 2D ECHO LV Diastolic Diameter PLAX 5.4 cm 4.2 - 5.9 / 3.9 - 5.3 cm LV Systolic Diameter PLAX 3.8 cm IVS Diastolic Thickness 1.2 cm 0.6 - 1.0 / 0.6 - 0.9 cm LVPW Diastolic Thickness 1.1 cm 0.6 - 1.0 / 0.6 - 0.9 cm LV Relative Wall Thickness 0.4 RV Internal Dim ED PLAX 4.0 cm LA Systolic Diameter LX 3.6 cm 3.0 - 4.0 / 2.7 - 3.8 cm LV Diastolic Volume MOD 4C 101.0 cm??? LV Systolic Volume MOD 4C 38.9 cm??? LV Ejection Fraction MOD 4C 61.5 % LV Cardiac Index MOD 4C 2656.1 cm???/min???m??? LV Diastolic Length 4C 7.6 cm LV Systolic Length 4C 6.2 cm LV Diastolic Volume MOD 2C 85.0 cm??? LV Systolic Volume MOD 2C 40.9 cm??? LV Ejection Fraction MOD 2C 51.9 % LV Cardiac Index MOD 2C 1884.2 cm???/min???m??? LV Diastolic Length 2C 8.5 cm LV Systolic Length 2C 7.4 cm M-MODE Aortic Root Diameter MM 3.3 cm AV Cusp Separation MM 2.1 cm DOPPLER AV Peak Velocity 130.1 cm/s AV Peak Gradient 6.8 mmHg MV Peak Velocity 151.4 cm/s MV Peak Gradient 9.2 mmHg MV Mean Velocity 93.8 cm/s MV Mean Gradient 3.9 mmHg MV Velocity Time Integral 34.2 cm Mitral E Point Velocity 104.9 cm/s Mitral A Point Velocity 91.1 cm/s Mitral E to A Ratio 1.2 MV Deceleration Time 214.7 ms TR Peak Velocity 354.8 cm/s TR Peak Gradient 50.4 mmHg Right Ventricular Systolic Press 65.4 mmHg FINDINGS Left Ventricle Left ventricular ejection fraction is estimated at 50-55 %. Mildly increased septal wall thickness. Left ventricular cavity size normal. No obvious regional wall motion abnormalities. Right Ventricle Mild right ventricular dilatation. Severe pulmonary hypertension. Right ventricular systolic pressure estimated at 65 mm hg. Right Atrium Normal right atrial size. No right atrial thrombus or mass seen. Left Atrium Normal left atrial size. No left atrial thrombus or mass present. Mitral Valve Structurally normal mitral valve. Moderate mitral regurgitation. Aortic Valve Trileaflet aortic valve. No aortic valve stenosis or regurgitation. Tricuspid Valve Structurally normal tricuspid valve. [id number] tricuspid regurgitation. Pulmonic Valve Pulmonic valve not well visualized. Pericardium No pericardial effusion. Aorta Normal size aortic root and proximal ascending aorta. CONCLUSIONS Diagnosis: Shortness of breath, evaluate LV function LVH with preserved systolic function ejection fraction 55% RV enlargement with pulmonary hypertension elevated RVSP Moderate MR Mild to moderate TR Previewed by: Dr. Jayjay Gibbons MD (Electronically Signed) Final Date: 05 May 2025 10:33
[2025-05-05] MEDS: LACTATED RINGERS 1,000 ML IV SCH (11:13)
[2025-05-05 11:19] LABS: Glucose,Whole Blood 120 mg/dL (70-110)
[2025-05-05] MEDS: IPRATROPIUM-ALBUTEROL 3 ML NEB INHALATION SCH (11:22)
--- NOTE | 2025-05-05 11:50 | P.PN ---
Subjective Progress Note Date: 05/05/25 Principal diagnosis: Respiratory failure. Patient is a 79-year-old male, evaluated by EMS yesterday. Reportedly, having severe respiratory distress and apnea. He was intubated in the field. No previous records available to review from our facility. I did call the patient's , she states he was increasingly weak for the last several days. Associated shortness of breath with exertion. She thought it was related to his anemia. She was able to provide some past medical history including lung cancer and previous lung resection at [facility], essential thrombocythemia, and GAVE syndrome. Reportedly, requires frequent blood and iron infusions. He follows at [facility] for this. Reportedly, no history of COPD, asthma. No history of heart failure per the . His medication list is not available. Workup in the emergency department including a chest x-ray which shows endotracheal tube proximal, approximately 6 cm from the yuni. Orogastric tube coursing into the stomach. Patchy bibasilar infiltrates and small effusion on the right. Left costophrenic angle was excluded from the image. CBC including a WBC count of 19.15, hemoglobin 9.2, platelets 655. CMP included sodium 142, potassium 4.8, chloride 107, serum bicarb 20, BUN 28, creatinine 1.88, glucose 256. Lactic 2.6 and down to 1.6. EKG: Sinus tachycardia, rate 104 bpm, no acute ischemic changes. Troponin less than 0.012. NT proBNP significantly elevated at 12,100. Patient currently being evaluated in the emergency department, trauma bay 2. He is intubated to the mechanical ventilator. Previous ABGs including a PaO2 of 315, pCO2 57, pH of 7.2. Previous ventilator settings were assist-control, rate 16, tidal volume 450, FiO2 100%, PEEP of 5. Since then, his rate has been increased to 20 and his tidal volume dropped to 50%. The Peak pressure averaging 38 and static airway pressure measured at 17. His endotracheal tube is a size 7. There are thick tenacious white secretions coming from the endotracheal tube. Sputum sample to be collected. Currently, patient is synchronous with the mechanical ventilator. Sedated on propofol which is infusing at 45 mcg/kg/min. He was previously fluid resuscitated with a total of 2.5 L crystalloid fluid and LR continues at 150 mL/h. Blood pressure is normotensive. Not requiring any vasopressors. An indwelling urinary catheter was placed and there is small amount of concentrated yellow urine in the collection bag. Has remained afebrile. Previously started on empiric antibiotics in form azithromycin and Rocephin in the ED. Progress note dated May 05, 2025. This is a 79-year-old gentleman who was seen by my nurse practitioner yesterday. The patient came into the hospital with respiratory failure, thought to be secondary to pneumonia. The patient remains on volume assist-control, rate 20, tidal line 450, FiO2 40%, PEEP of 5. Blood gases this morning show pO2 118, pCO2 38, pH is 7.30. Both blood gases are consistent with mild metabolic acidosis. The patient is getting saline at 75 cc an hour, propofol at 50 mcg/kg/min, and norepinephrine at 3.7 mcg/min. The patient continues on azithromycin and Rocephin. We will attempt a daily interruption of sedation today, plus or minus a spontaneous breathing trial. The patient's saline IV, will be converted to lactated Ringer's at 75 cc an hour. Current laboratory data includes a white count of 14.8, hemoglobin 7.6, hematocrit 24.2, and a platelet count of 570,000. Sodium 141, potassium 4.2, chloride 111, CO2 16, anion gap 14, glucose 120, BUN and creatinine were 27 and 1.76. Calcium 8.1. Blood and sputum sampling is thus far negative. X-ray shows small right-sided pleural effusion, with some bibasilar patchy airspace opacities, concerning for possible pneumonia. Objective - Vital Signs Vital signs: Vital Signs Temp 98.0 F 05/05/25 08:00 Pulse 94 05/05/25 11:30 Resp 23 05/05/25 11:30 BP 132/70 05/05/25 11:30 Pulse Ox 97 05/05/25 11:30 FiO2 40 05/05/25 11:23 Intake & Output 05/04/25 05/05/25 05/05/25 18:59 06:59 18:59 Intake Total 176.267 5586.903 575.309 Output Total 980 340 195 Balance -38.729 1114.903 380.309 Weight 72.575 kg 83.6 kg 83.6 kg Intake: IV 1106 455 Arterial Line and CVP 51 30 Line Azithromycin 500 mg In 250 Sodium Chloride 0.9% 250 ml @ 250 mls/hr IVPB HS WHIT Rx#:[id number] Sodium Chloride 0.9% 1, 805 375 000 ml @ 75 mls/hr IV . [id number] WHIT Rx#:[id number] cefTRIAXone 2 gm In 50 Sodium Chloride 0.9% 50 ml @ 100 mls/hr IVPB Q24HR WHIT Rx#:[id number] Intake, IV Titration 941.271 348.903 120.309 Amount Norepinephrine 8 mg In 12.990 64.788 Sodium Chloride 0.9% 250 ml @ 0.03 MCG/KG/MIN 4. 213 mls/hr IV .Q24H HWIT Rx#:[id number] Sodium Chloride 0.9% 1, 675 75 000 ml @ 75 mls/hr IV . [id number] WHIT Rx#:[id number] propofoL 1,000 mg In 266.271 260.913 55.521 Empty Bag 1 bag @ 15 MCG/ KG/MIN 6.532 mls/hr IV . [id number] WHIT Rx#:[id number] Output: Urine 980 340 195 Uretheral (Hendrickson) 550 Other: Voiding Method Indwelling Catheter Indwelling Catheter ABP, PAP, CO, CI - Last Documented Arterial Blood Pressure 144/59 - Exam No acute distress, patient is sedated, with an orally placed endotracheal tube, and NG tube noted. HEENT examination is grossly unremarkable. Mucous membranes are moist. No oral lesions. Neck supple. Full range of motion. No adenopathy thyromegaly or neck vein distention. Cardiovascular examination reveals regular rhythm rate. S1-S2 normal. No S3 or S4. No discernible murmur noted. Lungs reveal scattered bilateral expiratory rhonchi. No wheezes. No crackles. Breath sounds are equal bilaterally. Abdomen soft bowel sounds are heard. No masses or tenderness. Extremities are intact. No cyanosis clubbing or edema. Skin is without rash or lesion. Neurologic examination cannot be adequately assessed at this time. - Labs CBC & Chem 7: 05/05/25 03:47 05/05/25 03:47 Labs: Abnormal Lab Results - Last 24 Hours (Table) 05/04/25 05/04/25 05/05/25 Range/Units 19:05 23:43 03:47 WBC 12.56 H 14.75 H (4.50-10.00) 10*3/uL RBC 2.68 L 2.80 L (4.40-5.60) 10*6/uL Hgb 7.4 L 7.6 L (13.0-17.0) g/dL Hct 23.0 L 24.2 L (39.6-50.0) % MCHC 31.4 L (32.0-37.0) g/dL Plt Count 511 H 570 H (140-440) 10*3/uL Immature Gran # 0.09 H (0.00-0.04) 10*3/uL Neutrophils # 11.51 H (1.80-7.70) 10*3/uL Monocytes # 1.61 H (0.20-1.00) 10*3/uL ABG pH (7.35-7.45) ABG pO2 (83-108) mmHg ABG HCO3 (21-25) mmol/L ABG O2 Saturation (94-97) % Hemoglobin (13.0-17.5) gm/dL Chloride (98-107) mmol/L Carbon Dioxide (22-30) mmol/L BUN (9-20) mg/dL Creatinine (0.66-1.25) mg/dL Glucose (74-99) mg/dL POC Glucose (mg/dL) 122 H (70-110) mg/dL Calcium (8.4-10.2) mg/dL 05/05/25 05/05/25 05/05/25 Range/Units 03:47 04:59 05:28 WBC (4.50-10.00) 10*3/uL RBC (4.40-5.60) 10*6/uL Hgb (13.0-17.0) g/dL Hct (39.6-50.0) % MCHC (32.0-37.0) g/dL Plt Count (140-440) 10*3/uL Immature Gran # (0.00-0.04) 10*3/uL Neutrophils # (1.80-7.70) 10*3/uL Monocytes # (0.20-1.00) 10*3/uL ABG pH 7.30 L (7.35-7.45) ABG pO2 118 H (83-108) mmHg ABG HCO3 19 L (21-25) mmol/L ABG O2 Saturation 99.0 H (94-97) % Hemoglobin 7.5 L (13.0-17.5) gm/dL Chloride 111 H (98-107) mmol/L Carbon Dioxide 16 L (22-30) mmol/L BUN 27 H (9-20) mg/dL Creatinine 1.76 H (0.66-1.25) mg/dL Glucose 124 H (74-99) mg/dL POC Glucose (mg/dL) 135 H (70-110) mg/dL Calcium 8.1 L (8.4-10.2) mg/dL 05/05/25 Range/Units 11:17 WBC (4.50-10.00) 10*3/uL RBC (4.40-5.60) 10*6/uL Hgb (13.0-17.0) g/dL Hct (39.6-50.0) % MCHC (32.0-37.0) g/dL Plt Count (140-440) 10*3/uL Immature Gran # (0.00-0.04) 10*3/uL Neutrophils # (1.80-7.70) 10*3/uL Monocytes # (0.20-1.00) 10*3/uL ABG pH (7.35-7.45) ABG pO2 (83-108) mmHg ABG HCO3 (21-25) mmol/L ABG O2 Saturation (94-97) % Hemoglobin (13.0-17.5) gm/dL Chloride (98-107) mmol/L Carbon Dioxide (22-30) mmol/L BUN (9-20) mg/dL Creatinine (0.66-1.25) mg/dL Glucose (74-99) mg/dL POC Glucose (mg/dL) 120 H (70-110) mg/dL Calcium (8.4-10.2) mg/dL Microbiology - Last 24 Hours (Table) 05/03/25 20:30 Blood Culture - Preliminary Blood 05/04/25 03:25 Gram Stain - Preliminary Sputum Assessment and Plan Assessment: Acute hypoxemic and hypercapnic respiratory failure, intubated by EMS in the field, and admitted with a diagnosis of either heart failure, and/or pneumonia. Suspect bilateral pneumonia/sepsis. Possible exacerbation of congestive heart failure. Acute leukocytosis. Acute kidney injury versus chronic kidney disease. History of GAVE syndrome and chronic anemia, reportedly receives outpatient PRBC and an iron infusions. Essential thrombocythemia, reportedly on cytoreducative therapy. History of lung cancer with previous lobectomy at outside facility. Current tobacco smoker. Plan: Plan dated May 05, 2025. The patient is seen today in room 251. The patient remains on the mechanical ventilator. He was intubated in the field by EMS. Blood gases show PO2 of 118, PCO2 of 38, pH of 7.30. His blood gases are consistent with a mild metabolic a cidosis. The patient sedated with propofol at 50 mcg/kg/min. He is receiving norepinephrine at 3.7 mcg/min, saline at 75 cc an hour. The patient continues on azithromycin and Rocephin. The patient will have a daily interruption of sedation. He may or may not benefit from a spontaneous breathing trial. The saline IV is converted to lactated Ringer's at the same rate. All labs, x-rays, and medications are reviewed. We will continue to follow with the patient, make recommendations. Prognosis is guarded. Dictation was produced using [employer] software. Please excuse any grammatical, word or spelling errors. Time with Patient: Greater than 30
--- NOTE | 2025-05-05 13:41 | P.PN ---
Subjective Progress Note Date: 05/05/25 79 year old M with PMH of Lung CA status post lobectomy, GAVE syndrome requiring routine blood transfusions, heavy smoker presents to the ED intubated by EMS for respiratory distress. reports exertional SOB for the past few weeks prior to arrival. In the ED he underwent extensive evaluation. BP 168/95, HR 105, T 97.5F, RR 19, 98% mechanically ventilated. Labs significant for WBC 19.15, RBC 3.4, Hg 9.2, Hct 29.3, Plt 655, PT 13.5, INR 1.3, bicarb 20, BUN 28, Cr 1.88, glu 256. Trop < 0.012. BNP 43593. Mag 2.2. Lactic acid 2.2-1.6. COVID, RSV, Flu neg. EKG sinus tachycardia. CXR patchy basilar infiltrates and small effusions. Brain CT no acute process. Patient is admitted to ICU for further management. 05/04 Patient was seen and examined. Intubated. Antibiotics include Rocephin 2g IV QD + Azithromycin 500 mg IV QD. Sedated on Propofol at 45 mcg/kg/min. CBC, CMP significant for WBC 16.88, RBC 2.87, Hg 7.6, Hct 24.7, Plt 508, Cl 114, bicarb 18, BUN 27, Cr 1.79, Ca 8.2. Phos 4.9. Pro-jose elias 1.82. CXR shows diffuse interstitial prominence with right basilar airspace opacities. 05/05 Patient was seen and examined. Intubated. Antibiotics include Rocephin 2g IV QD + Azithromycin 500 mg IV QD (D2). Sedated on Propofol at 50 mcg/kg/min. Requiring Levophed this morning currently at 0.05 mcg/kg/min. CBC, CMP significant for WBC 14.75, RBC 2.8, Hg 7.6, Hct 24.2, Plt 570, Cl 111, bicarb 16, BUN 27, Cr 1.76, Ca 8.1. A1c 5.7. CXR shows diffuse interstitial prominence with right basilar airspace opacities. Echo showed EF 50-55% severe pulmonary HTN, mod MR, mild-mod TR. Renal US shows no hydro. General: non toxic, no distress, Intubated Derm: warm, dry Head: atraumatic, normocephalic, symmetric Eyes: EOMI, no lid lag, anicteric sclera Mouth: no lip lesion, mucus membranes moist Cardiovascular: S1S2 tachy, no murmur Lungs: Coarse BS bilateral, no rhonchi, no rales , no accessory muscle use Ext: no gross muscle atrophy, no edema, no contractures Neuro: Intubated Psych: Intubated Based on my assessment of this patient, this patient meets a high complexity level of care. Acute respiratory failure secondary to volume overload from blood transfusion +/- CHF +/- COPD exacerbation +/- PNA: Pro-jose elias elevated giving concerns for PNA. BNP elevated giving concerns for volume overload with recent blood transfusions. Pulmonary managing ventilator settings. DuoNeb QID. Echo as above. Sepsis secondary to PNA: Rocephin 2g IV QD + Azithromycin 500 mg IV QD (D2). Pro-jose elias 1.82. Follow Sputum Cx + Legionella Ag + BCx. NS switched to LR at 75 cc/hr. Aspiration precautions + elevate HOB. Normocytic anemia with thrombocytosis due to GAVE syndrome: Transfuse if Hg < 7. Continue Anagrelide 1 mg PO BID. Protonix 40 mg IV QD to BID. Acute kidney injury: Renal US no hydro. IV hydration as above. Nicotine dependence Dyslipidemia: Simvastatin 40 mg PO QHS. Depression: Lexapro 20 mg PO QHS. Hypertension: Hold Metoprolol and Amlodipine due to borderline hypotension. CODE STATUS: FULL CODE DVT Prophylaxis: Heparin SQ GI Prophylaxis: Protonix IV Designated medical POA if patient is not able to make medical decisions for themselves: . I have reviewed the following change management consultant notes: Pulmonary I have reviewed the results of the following tests: CBC, CMP, A1c, Echo, renal US. I have ordered the following tests: CBC, CXR and BMP in the AM. I have discussed the care of this patient with the following independent historian: Family. I have independently interpreted the following test below: CXR I have discussed the management of this patient with the following physician: Objective - Vital Signs Vital signs: Vital Signs Temp 98.0 F 05/05/25 08:00 Pulse 96 05/05/25 11:47 Resp 23 05/05/25 11:30 BP 132/70 05/05/25 11:30 Pulse Ox 97 05/05/25 11:30 FiO2 40 05/05/25 11:23 Intake & Output 05/04/25 05/05/25 05/05/25 18:59 06:59 18:59 Intake Total 809.815 8092.903 575.309 Output Total 980 340 195 Balance -38.729 1114.903 380.309 Weight 72.575 kg 83.6 kg 83.6 kg Intake: IV 1106 455 Arterial Line and CVP 51 30 Line Azithromycin 500 mg In 250 Sodium Chloride 0.9% 250 ml @ 250 mls/hr IVPB HS WHIT Rx#:[id number] Sodium Chloride 0.9% 1, 805 375 000 ml @ 75 mls/hr IV . [id number] WHIT Rx#:[id number] cefTRIAXone 2 gm In 50 Sodium Chloride 0.9% 50 ml @ 100 mls/hr IVPB Q24HR WHIT Rx#:[id number] Intake, IV Titration 941.271 348.903 120.309 Amount Norepinephrine 8 mg In 12.990 64.788 Sodium Chloride 0.9% 250 ml @ 0.03 MCG/KG/MIN 4. 213 mls/hr IV .Q24H WHIT Rx#:[id number] Sodium Chloride 0.9% 1, 675 75 000 ml @ 75 mls/hr IV . [id number] WHIT Rx#:[id number] propofoL 1,000 mg In 266.271 260.913 55.521 Empty Bag 1 bag @ 15 MCG/ KG/MIN 6.532 mls/hr IV . [id number] WHIT Rx#:[id number] Output: Urine 980 340 195 Uretheral (Hendrickson) 550 Other: Voiding Method Indwelling Catheter Indwelling Catheter ABP, PAP, CO, CI - Last Documented Arterial Blood Pressure 144/59 - Labs CBC & Chem 7: 05/05/25 03:47 05/05/25 03:47 Labs: Abnormal Lab Results - Last 24 Hours (Table) 05/04/25 05/04/25 05/05/25 Range/Units 19:05 23:43 03:47 WBC 12.56 H 14.75 H (4.50-10.00) 10*3/uL RBC 2.68 L 2.80 L (4.40-5.60) 10*6/uL Hgb 7.4 L 7.6 L (13.0-17.0) g/dL Hct 23.0 L 24.2 L (39.6-50.0) % MCHC 31.4 L (32.0-37.0) g/dL Plt Count 511 H 570 H (140-440) 10*3/uL Immature Gran # 0.09 H (0.00-0.04) 10*3/uL Neutrophils # 11.51 H (1.80-7.70) 10*3/uL Monocytes # 1.61 H (0.20-1.00) 10*3/uL ABG pH (7.35-7.45) ABG pO2 (83-108) mmHg ABG HCO3 (21-25) mmol/L ABG O2 Saturation (94-97) % Hemoglobin (13.0-17.5) gm/dL Chloride (98-107) mmol/L Carbon Dioxide (22-30) mmol/L BUN (9-20) mg/dL Creatinine (0.66-1.25) mg/dL Glucose (74-99) mg/dL POC Glucose (mg/dL) 122 H (70-110) mg/dL Calcium (8.4-10.2) mg/dL 05/05/25 05/05/25 05/05/25 Range/Units 03:47 04:59 05:28 WBC (4.50-10.00) 10*3/uL RBC (4.40-5.60) 10*6/uL Hgb (13.0-17.0) g/dL Hct (39.6-50.0) % MCHC (32.0-37.0) g/dL Plt Count (140-440) 10*3/uL Immature Gran # (0.00-0.04) 10*3/uL Neutrophils # (1.80-7.70) 10*3/uL Monocytes # (0.20-1.00) 10*3/uL ABG pH 7.30 L (7.35-7.45) ABG pO2 118 H (83-108) mmHg ABG HCO3 19 L (21-25) mmol/L ABG O2 Saturation 99.0 H (94-97) % Hemoglobin 7.5 L (13.0-17.5) gm/dL Chloride 111 H (98-107) mmol/L Carbon Dioxide 16 L (22-30) mmol/L BUN 27 H (9-20) mg/dL Creatinine 1.76 H (0.66-1.25) mg/dL Glucose 124 H (74-99) mg/dL POC Glucose (mg/dL) 135 H (70-110) mg/dL Calcium 8.1 L (8.4-10.2) mg/dL 05/05/25 Range/Units 11:17 WBC (4.50-10.00) 10*3/uL RBC (4.40-5.60) 10*6/uL Hgb (13.0-17.0) g/dL Hct (39.6-50.0) % MCHC (32.0-37.0) g/dL Plt Count (140-440) 10*3/uL Immature Gran # (0.00-0.04) 10*3/uL Neutrophils # (1.80-7.70) 10*3/uL Monocytes # (0.20-1.00) 10*3/uL ABG pH (7.35-7.45) ABG pO2 (83-108) mmHg ABG HCO3 (21-25) mmol/L ABG O2 Saturation (94-97) % Hemoglobin (13.0-17.5) gm/dL Chloride (98-107) mmol/L Carbon Dioxide (22-30) mmol/L BUN (9-20) mg/dL Creatinine (0.66-1.25) mg/dL Glucose (74-99) mg/dL POC Glucose (mg/dL) 120 H (70-110) mg/dL Calcium (8.4-10.2) mg/dL Microbiology - Last 24 Hours (Table) 05/03/25 20:30 Blood Culture - Preliminary Blood 05/04/25 03:25 Gram Stain - Preliminary Sputum
[2025-05-05 18:13] LABS: Glucose,Whole Blood 99 mg/dL (70-110)
[2025-05-05] MEDS: CHLORHEXIDINE GLUCONATE 15 ML CUP MUCOUS MEM SCH (20:02)
[2025-05-06 00:29] LABS: Glucose,Whole Blood 116 mg/dL (70-110)
[2025-05-06] MEDS: HYDROmorphone 0.5 MG/0.5 ML SYRINGE IVP STA (00:43)
[2025-05-06 04:49] LABS: HCT 22.8 % (39.6-50.0); HGB 7.0 g/dL (13.0-17.0); MCH 27.0 pg (27.0-32.0); MCHC 30.7 g/dL (32.0-37.0); MCV 88.0 fL (80.0-97.0); Platelet Count 563 10*3/uL (140-440); RBC 2.59 10*6/uL (4.40-5.60); RDW 21.2 % (11.5-14.5); WBC 12.90 10*3/uL (4.50-10.00)
[2025-05-06 05:11] LABS: ABG HCO3 19 mmol/L (21-25); ABG PCO2 39 mmHg (35-45); ABG PH 7.30 (7.35-7.45); ABG PO2 97 mmHg (83-108); ABG TCO2 21 mmol/L (19-24)
[2025-05-06 05:12] LABS: Allen Test Performed? no
[2025-05-06 05:14] LABS: African American GFR (CKD) 50 (>60 ml/min/1.73 sqM); Anion Gap 12 mmol/L; Blood Urea Nitrogen 23 mg/dL (9-20); Calcium 8.4 mg/dL (8.4-10.2); Carbon Dioxide 17 mmol/L (22-30); Chloride 113 mmol/L (98-107); Glucose 98 mg/dL (74-99); Non-African American GFR(CKD) 44 (>60 ml/min/1.73 sqM); Potassium 4.1 mmol/L (3.5-5.1); Sodium 142 mmol/L (137-145)
[2025-05-06 06:05] LABS: Glucose,Whole Blood 125 mg/dL (70-110)
--- NOTE | 2025-05-06 07:15 | XR ---
EXAMINATION TYPE: XR chest 1V portable DATE OF EXAM: 05/06/2025 3:57 AM COMPARISON: Chest radiographs from 05/05/2025 TECHNIQUE: XR chest 1V portable Portable AP radiograph of the chest. CLINICAL INDICATION:Male, 79 years old with history of mechanical ventilation; FINDINGS: Lungs/Pleura: No definitive pneumothorax. The right scapula border appears to overlie the lateral asp ect of the right upper lung. Small right pleural effusion. Bibasilar patchy airspace opacities with l eft basilar linear atelectasis. Pulmonary vascular congestion. Heart/mediastinum: Cardiomediastinal silhouette is unremarkable. Atherosclerotic calcifications are seen in the aorta. Musculoskeletal: No acute osseous pathology. Other findings: None Lines/Tubes: Endotracheal tube with distal tip 2.2 cm above the yuni Nasogastric tube with its distal tip and side-port projecting under the diaphragm and projecting over the gastric lumen. Left subclavian approach central venous catheter with distal tip at the superior cavoatrial junction. IMPRESSION: 1. Small right pleural effusion with bibasilar patchy airspace opacities concerning for pneumonia. 2. Pulmonary vascular congestion. 3. Stable support lines and tubes. [facility], , 05/06/2025 7:13 AM
[2025-05-06 07:24] LABS: Anisocytosis (M) Present; Eosinophils # (M) 1.55 k/uL (0-0.7); Lymphocytes # (M) 0.90 k/uL (1.0-4.8); Monocytes # (M) 1.16 k/uL (0-1.0); Neutrophils # (M) 9.29 k/uL (1.3-7.7); Neutrophils % (M) 72 %; Total Cells Counted 100
[2025-05-06 07:25] LABS: Hypochromasia (M) Present; Polychromasia Present
[2025-05-06] MEDS: HYDROmorphone 0.5 MG/0.5 ML SYRINGE IVP PRN (09:22)
--- NOTE | 2025-05-06 11:29 | P.PN ---
Subjective Progress Note Date: 05/06/25 79 year old M with PMH of Lung CA status post lobectomy, GAVE syndrome requiring routine blood transfusions, heavy smoker presents to the ED intubated by EMS for respiratory distress. reports exertional SOB for the past few weeks prior to arrival. In the ED he underwent extensive evaluation. BP 168/95, HR 105, T 97.5F, RR 19, 98% mechanically ventilated. Labs significant for WBC 19.15, RBC 3.4, Hg 9.2, Hct 29.3, Plt 655, PT 13.5, INR 1.3, bicarb 20, BUN 28, Cr 1.88, glu 256. Trop < 0.012. BNP 67572. Mag 2.2. Lactic acid 2.2-1.6. COVID, RSV, Flu neg. EKG sinus tachycardia. CXR patchy basilar infiltrates and small effusions. Brain CT no acute process. Patient is admitted to ICU for further management. 05/04 Patient was seen and examined. Intubated. Antibiotics include Rocephin 2g IV QD + Azithromycin 500 mg IV QD. Sedated on Propofol at 45 mcg/kg/min. CBC, CMP significant for WBC 16.88, RBC 2.87, Hg 7.6, Hct 24.7, Plt 508, Cl 114, bicarb 18, BUN 27, Cr 1.79, Ca 8.2. Phos 4.9. Pro-jose elias 1.82. CXR shows diffuse interstitial prominence with right basilar airspace opacities. 05/05 Patient was seen and examined. Intubated. Antibiotics include Rocephin 2g IV QD + Azithromycin 500 mg IV QD (D2). Sedated on Propofol at 50 mcg/kg/min. Requiring Levophed this morning currently at 0.05 mcg/kg/min. CBC, CMP significant for WBC 14.75, RBC 2.8, Hg 7.6, Hct 24.2, Plt 570, Cl 111, bicarb 16, BUN 27, Cr 1.76, Ca 8.1. A1c 5.7. CXR shows diffuse interstitial prominence with right basilar airspace opacities. Echo showed EF 50-55% severe pulmonary HTN, mod MR, mild-mod TR. Renal US shows no hydro. 05/06 Patient was seen and examined. Intubated. Antibiotics include Rocephin 2g IV QD + Azithromycin 500 mg IV QD (D3). Sedated on Propofol at 50 mcg/kg/min. Weaned off Levophed. CBC, CMP significant for WBC 12.9, RBC 2.59, Hg 7, Hct 22.8, Plt 563, Cl 113, bicarb 17, BUN 23, Cr 1.52. CXR shows diffuse in terstitial prominence with right basilar airspace opacities. Sputum Cx many PMN with no organisms. BCx prelim neg at 48H. General: non toxic, no distress, Intubated Derm: warm, dry Head: atraumatic, normocephalic, symmetric Eyes: EOMI, no lid lag, anicteric sclera Mouth: no lip lesion, mucus membranes moist Cardiovascular: S1S2 tachy, no murmur Lungs: Coarse BS bilateral, no rhonchi, no rales , no accessory muscle use Ext: no gross muscle atrophy, no edema, no contractures Neuro: Intubated Psych: Intubated Based on my assessment of this patient, this patient meets a high complexity level of care. Acute respiratory failure secondary to volume overload from blood transfusion +/- CHF +/- COPD exacerbation +/- PNA: Pro-jose elias elevated giving concerns for PNA. BNP elevated giving concerns for volume overload with recent blood transfusions. Pulmonary managing ventilator settings. DuoNeb QID. Echo as above. Sepsis secondary to PNA: Rocephin 2g IV QD + Azithromycin 500 mg IV QD (D3). Pro-jose elias 1.82. Follow Sputum Cx + Legionella Ag + BCx. LR at 75 cc/hr. Aspiration precautions + elevate HOB. Normocytic anemia with thrombocytosis due to GAVE syndrome: Transfuse if Hg < 7. Continue Anagrelide 1 mg PO BID. Protonix 40 mg IV QD to BID. Repeat CBC at 5PM and in the AM. Acute kidney injury: Possible component of CKD. Renal US no hydro. IV hydration as above. Nicotine dependence Dyslipidemia: Simvastatin 40 mg PO QHS. Depression: Lexapro 20 mg PO QHS. Hypertension: Hold Metoprolol and Amlodipine due to hypotension. CODE STATUS: FULL CODE DVT Prophylaxis: Heparin SQ GI Prophylaxis: Protonix IV Designated medical POA if patient is not able to make medical decisions for themselves: . I have reviewed the following software consultant notes: Pulmonary I have reviewed the results of the following tests: CBC, BMP. I have ordered the following tests: CBC, CXR and BMP in the AM. CBC at 5PM. I have discussed the care of this patient with the following independent historian: I have independently interpreted the following test below: CXR I have discussed the management of this patient with the following physician: Objective - Vital Signs Vital signs: Vital Signs Temp 99.3 F 05/06/25 08:00 Pulse 112 H 05/06/25 08:33 Resp 20 05/06/25 08:00 BP 132/71 05/06/25 08:00 Pulse Ox 99 05/06/25 08:00 FiO2 40 05/06/25 08:17 Intake & Output 05/05/25 05/06/25 05/06/25 18:59 06:59 18:59 Intake Total 2562.280 2262.024 161 Output Total 590 555 30 Balance 218.989 0769.024 131 Weight 83.6 kg 85.4 kg Intake: IV 1022 1463 101 0.9 KVO x2 160 20 Arterial Line and CVP 72 78 6 Line Azithromycin 500 mg In 250 Sodium Chloride 0.9% 250 ml @ 250 mls/hr IVPB HS WHIT Rx#:[id number] Lactated Ringers 1,000 ml 525 975 75 @ 75 mls/hr IV .[id number] HWIT Rx#:[id number] Sodium Chloride 0.9% 1, 375 000 ml @ 75 mls/hr IV . [id number] WHIT Rx#:[id number] cefTRIAXone 2 gm In 50 Sodium Chloride 0.9% 50 ml @ 100 mls/hr IVPB Q24HR WHIT Rx#:[id number] Intake, IV Titration 353.686 164.024 Amount Norepinephrine 8 mg In 98.165 Sodium Chloride 0.9% 250 ml @ 0.03 MCG/KG/MIN 4. 213 mls/hr IV .Q24H WHIT Rx#:[id number] propofoL 1,000 mg In 255.521 164.024 Empty Bag 1 bag @ 15 MCG/ KG/MIN 6.532 mls/hr IV . [id number] WHIT Rx#:[id number] Tube Feeding 100 340 30 Other 30 90 30 Output: Urine 590 555 30 Other: Voiding Method Indwelling Catheter Indwelling Catheter ABP, PAP, CO, CI - Last Documented Arterial Blood Pressure 145/59 - Labs CBC & Chem 7: 05/06/25 04:30 05/06/25 04:30 Labs: Abnormal Lab Results - Last 24 Hours (Table) 05/05/25 05/06/25 05/06/25 Range/Units 11:17 00:27 04:30 WBC 12.90 H (4.50-10.00) 10*3/uL RBC 2.59 L (4.40-5.60) 10*6/uL Hgb 7.0 L (13.0-17.0) g/dL Hct 22.8 L (39.6-50.0) % MCHC 30.7 L (32.0-37.0) g/dL Plt Count 563 H (140-440) 10*3/uL Immature Gran # 0.15 H (0.00-0.04) 10*3/uL Neutrophils # (Manual) 9.29 H (1.3-7.7) k/uL Lymphocytes # (Manual) 0.90 L (1.0-4.8) k/uL Monocytes # (Manual) 1.16 H (0-1.0) k/uL Eosinophils # (Manual) 1.55 H (0-0.7) k/uL ABG pH (7.35-7.45) ABG HCO3 (21-25) mmol/L ABG O2 Saturation (94-97) % Hemoglobin (13.0-17.5) gm/dL Chloride (98-107) mmol/L Carbon Dioxide (22-30) mmol/L BUN (9-20) mg/dL Creatinine (0.66-1.25) mg/dL POC Glucose (mg/dL) 120 H 116 H (70-110) mg/dL 05/06/25 05/06/25 05/06/25 Range/Units 04:30 05:10 06:03 WBC (4.50-10.00) 10*3/uL RBC (4.40-5.60) 10*6/uL Hgb (13.0-17.0) g/dL Hct (39.6-50.0) % MCHC (32.0-37.0) g/dL Plt Count (140-440) 10*3/uL Immature Gran # (0.00-0.04) 10*3/uL Neutrophils # (Manual) (1.3-7.7) k/uL Lymphocytes # (Manual) (1.0-4.8) k/uL Monocytes # (Manual) (0-1.0) k/uL Eosinophils # (Manual) (0-0.7) k/uL ABG pH 7.30 L (7.35-7.45) ABG HCO3 19 L (21-25) mmol/L ABG O2 Saturation 98.0 H (94-97) % Hemoglobin 7.3 L (13.0-17.5) gm/dL Chloride 113 H (98-107) mmol/L Carbon Dioxide 17 L (22-30) mmol/L BUN 23 H (9-20) mg/dL Creatinine 1.52 H (0.66-1.25) mg/dL POC Glucose (mg/dL) 125 H (70-110) mg/dL Microbiology - Last 24 Hours (Table) 05/05/25 11:30 Gram Stain - Preliminary Sputum 05/03/25 20:30 Blood Culture - Preliminary Blood 05/04/25 03:25 Gram Stain - Preliminary Sputum Sputum Culture - Preliminary
--- NOTE | 2025-05-06 11:34 | P.PN ---
Subjective Progress Note Date: 05/06/25 Principal diagnosis: Respiratory failure. Patient is a 79-year-old male, evaluated by EMS yesterday. Reportedly, having severe respiratory distress and apnea. He was intubated in the field. No previous records available to review from our facility. I did call the patient's , she states he was increasingly weak for the last several days. Associated shortness of breath with exertion. She thought it was related to his anemia. She was able to provide some past medical history including lung cancer and previous lung resection at [facility], essential thrombocythemia, and GAVE syndrome. Reportedly, requires frequent blood and iron infusions. He follows at [facility] for this. Reportedly, no history of COPD, asthma. No history of heart failure per the . His medication list is not available. Workup in the emergency department including a chest x-ray which shows endotracheal tube proximal, approximately 6 cm from the yuni. Orogastric tube coursing into the stomach. Patchy bibasilar infiltrates and small effusion on the right. Left costophrenic angle was excluded from the image. CBC including a WBC count of 19.15, hemoglobin 9.2, platelets 655. CMP included sodium 142, potassium 4.8, chloride 107, serum bicarb 20, BUN 28, creatinine 1.88, glucose 256. Lactic 2.6 and down to 1.6. EKG: Sinus tachycardia, rate 104 bpm, no acute ischemic changes. Troponin less than 0.012. NT proBNP significantly elevated at 12,100. Patient currently being evaluated in the emergency department, trauma bay 2. He is intubated to the mechanical ventilator. Previous ABGs including a PaO2 of 315, pCO2 57, pH of 7.2. Previous ventilator settings were assist-control, rate 16, tidal volume 450, FiO2 100%, PEEP of 5. Since then, his rate has been increased to 20 and his tidal volume dropped to 50%. The Peak pressure averaging 38 and static airway pressure measured at 17. His endotracheal tube is a size 7. There are thick tenacious white secretions coming from the endotracheal tube. Sputum sample to be collected. Currently, patient is synchronous with the mechanical ventilator. Sedated on propofol which is infusing at 45 mcg/kg/min. He was previously fluid resuscitated with a total of 2.5 L crystalloid fluid and LR continues at 150 mL/h. Blood pressure is normotensive. Not requiring any vasopressors. An indwelling urinary catheter was placed and there is small amount of concentrated yellow urine in the collection bag. Has remained afebrile. Previously started on empiric antibiotics in form azithromycin and Rocephin in the ED. Progress note dated May 05, 2025. This is a 79-year-old gentleman who was seen by my nurse practitioner yesterday. The patient came into the hospital with respiratory failure, thought to be secondary to pneumonia. The patient remains on volume assist-control, rate 20, tidal line 450, FiO2 40%, PEEP of 5. Blood gases this morning show pO2 118, pCO2 38, pH is 7.30. Both blood gases are consistent with mild metabolic acidosis. The patient is getting saline at 75 cc an hour, propofol at 50 mcg/kg/min, and norepinephrine at 3.7 mcg/min. The patient continues on azithromycin and Rocephin. We will attempt a daily interruption of sedation today, plus or minus a spontaneous breathing trial. The patient's saline IV, will be converted to lactated Ringer's at 75 cc an hour. Current laboratory data includes a white count of 14.8, hemoglobin 7.6, hematocrit 24.2, and a platelet count of 570,000. Sodium 141, potassium 4.2, chloride 111, CO2 16, anion gap 14, glucose 120, BUN and creatinine were 27 and 1.76. Calcium 8.1. Blood and sputum sampling is thus far negative. X-ray shows small right-sided pleural effusion, with some bibasilar patchy airspace opacities, concerning for possible pneumonia. Progress note dated May 06, 2025. 79-year-old male seen in the intensive care unit. The patient was admitted with respiratory failure, and pneumonia. He remains on mechanical ventilation. He is on volume assist-control, rate 20, tidal volume 450, FiO2 40%, PEEP of 5. Blood gases show PO297, QYF911, pH is 7.30. The blood gas is consistent with a mild metabolic acidosis. He is on propofol at 50 mcg/kg/min, norepinephrine has been weaned off. He is on lactated Ringer's at 75 cc an hour, and saline at KVO. He is receiving vital high-protein at 40, with a goal of 45 cc an hour. He continues on azithromycin and Rocephin empirically. Will add some Solu- Medrol to his regimen. We also had some Dilaudid for pain control. White count 12.9, hemoglobin 7, hematocrit 22.8, platelet count 563,000. Sodium 142, potassium 4.1, chlorides 113, CO2 17, anion gap 12, BUN 23, creatinine 1.52. Glucose is 125. Calcium is 8.4. Sputum and blood sampling has been negative thus far. Chest x-ray shows small right pleural effusion with bibasilar patchy airspace opacities. There is evidence of pulmonary vascular congestion. Objective - Vital Signs Vital signs: Vital Signs Temp 99.3 F 05/06/25 08:00 Pulse 107 H 05/06/25 11:00 Resp 20 05/06/25 11:00 BP 109/52 05/06/25 11:00 Pulse Ox 95 05/06/25 11:00 FiO2 40 05/06/25 08:17 Intake & Output 05/05/25 05/06/25 05/06/25 18:59 06:59 18:59 Intake Total 6152.639 5204.024 744.56 Output Total 590 555 150 Balance 137.819 1270.024 594.56 Weight 83.6 kg 85.4 kg Intake: IV 1022 1463 404 0.9 KVO x2 160 80 Arterial Line and CVP 72 78 24 Line Azithromycin 500 mg In 250 Sodium Chloride 0.9% 250 ml @ 250 mls/hr IVPB HS WHIT Rx#:[id number] Lactated Ringers 1,000 ml 525 975 300 @ 75 mls/hr IV .[id number] WHIT Rx#:[id number] Sodium Chloride 0.9% 1, 375 000 ml @ 75 mls/hr IV . [id number] WHIT Rx#:[id number] cefTRIAXone 2 gm In 50 Sodium Chloride 0.9% 50 ml @ 100 mls/hr IVPB Q24HR WHIT Rx#:[id number] Intake, IV Titration 353.686 164.024 130.56 Amount Norepinephrine 8 mg In 98.165 Sodium Chloride 0.9% 250 ml @ 0.03 MCG/KG/MIN 4. 213 mls/hr IV .Q24H WHIT Rx#:[id number] cefTRIAXone 2 gm In 50 Sodium Chloride 0.9% 50 ml @ 100 mls/hr IVPB Q24HR WHIT Rx#:[id number] propofoL 1,000 mg In 255.521 164.024 80.56 Empty Bag 1 bag @ 15 MCG/ KG/MIN 6.532 mls/hr IV . [id number] WHIT Rx#:[id number] Tube Feeding 100 340 150 Other 30 90 60 Output: Urine 590 555 150 Other: Voiding Method Indwelling Catheter Indwelling Catheter Indwelling Catheter ABP, PAP, CO, CI - Last Documented Arterial Blood Pressure 117/45 - Exam No acute distress, patient is sedated, with an orally placed endotracheal tube, and NG tube noted. HEENT examination is grossly unremarkable. Mucous membranes are moist. No oral lesions. Neck supple. Full range of motion. No adenopathy thyromegaly or neck vein distention. Cardiovascular examination reveals regular rhythm rate. S1-S2 normal. No S3 or S4. No discernible murmur noted. Lungs reveal scattered bilateral expiratory rhonchi. No wheezes. No crackles. Breath sounds are equal bilaterally. Abdomen soft bowel sounds are heard. No masses or tenderness. Extremities are intact. No cyanosis clubbing or edema. Skin is without rash or lesion. Neurologic examination cannot be adequately assessed at this time. - Labs CBC & Chem 7: 05/06/25 04:30 05/06/25 04:30 Labs: Abnormal Lab Results - Last 24 Hours (Table) 05/06/25 05/06/25 05/06/25 Range/Units 00:27 04:30 04:30 WBC 12.90 H (4.50-10.00) 10*3/uL RBC 2.59 L (4.40-5.60) 10*6/uL Hgb 7.0 L (13.0-17.0) g/dL Hct 22.8 L (39.6-50.0) % MCHC 30.7 L (32.0-37.0) g/dL Plt Count 563 H (140-440) 10*3/uL Immature Gran # 0.15 H (0.00-0.04) 10*3/uL Neutrophils # (Manual) 9.29 H (1.3-7.7) k/uL Lymphocytes # (Manual) 0.90 L (1.0-4.8) k/uL Monocytes # (Manual) 1.16 H (0-1.0) k/uL Eosinophils # (Manual) 1.55 H (0-0.7) k/uL ABG pH (7.35-7.45) ABG HCO3 (21-25) mmol/L ABG O2 Saturation (94-97) % Hemoglobin (13.0-17.5) gm/dL Chloride 113 H (98-107) mmol/L Carbon Dioxide 17 L (22-30) mmol/L BUN 23 H (9-20) mg/dL Creatinine 1.52 H (0.66-1.25) mg/dL POC Glucose (mg/dL) 116 H (70-110) mg/dL 05/06/25 05/06/25 Range/Units 05:10 06:03 WBC (4.50-10.00) 10*3/uL RBC (4.40-5.60) 10*6/uL Hgb (13.0-17.0) g/dL Hct (39.6-50.0) % MCHC (32.0-37.0) g/dL Plt Count (140-440) 10*3/uL Immature Gran # (0.00-0.04) 10*3/uL Neutrophils # (Manual) (1.3-7.7) k/uL Lymphocytes # (Manual) (1.0-4.8) k/uL Monocytes # (Manual) (0-1.0) k/uL Eosinophils # (Manual) (0-0.7) k/uL ABG pH 7.30 L (7.35-7.45) ABG HCO3 19 L (21-25) mmol/L ABG O2 Saturation 98.0 H (94-97) % Hemoglobin 7.3 L (13.0-17.5) gm/dL Chloride (98-107) mmol/L Carbon Dioxide (22-30) mmol/L BUN (9-20) mg/dL Creatinine (0.66-1.25) mg/dL POC Glucose (mg/dL) 125 H (70-110) mg/dL Microbiology - Last 24 Hours (Table) 05/05/25 11:30 Gram Stain - Preliminary Sputum 05/03/25 20:30 Blood Culture - Preliminary Blood 05/04/25 03:25 Gram Stain - Preliminary Sputum Sputum Culture - Preliminary Assessment and Plan Assessment: Acute hypoxemic and hypercapnic respiratory failure, intubated by EMS in the field, and admitted with a diagnosis of either heart failure, and/or pneumonia. Suspect bilateral pneumonia/sepsis. Possible exacerbation of congestive heart failure. Acute leukocytosis. Acute kidney injury versus chronic kidney disease. History of GAVE syndrome and chronic anemia, reportedly receives outpatient PRBC and an iron infusions. Essential thrombocythemia, reportedly on cytoreducative therapy. History of lung cancer with previous lobectomy at outside facility. Current tobacco smoker. Plan: Plan dated May 05, 2025. The patient is seen today in room 251. The patient remains on the mechanical ventilator. He was intubated in the field by EMS. Blood gases show PO2 of 118, PCO2 of 38, pH of 7.30. His blood gases are consistent with a mild metabolic acidosis. The patient sedated with propofol at 50 mcg/kg/min. He is receiving norepinephrine at 3.7 mcg/min, saline at 75 cc an hour. The patient continues on azithromycin and Rocephin. The patient will have a daily interruption of sedation. He may or may not benefit from a spontaneous breathing trial. The saline IV is converted to lactated Ringer's at the same rate. All labs, x-rays, and medications are reviewed. We will continue to follow with the patient, make recommendations. Prognosis is guarded. Dictation was produced using [employer] software. Please excuse any grammatical, word or spelling errors. Plan dated May 06, 2025. The patient is seen today in room 251. The patient remains on mechanical ventilation. He was intubated in the field by EMS. He was admitted with a diagnosis of respiratory failure, multifactorial, part related to possible pneumonia, and also CHF. The patient's procalcitonin level was elevated at 1.82. He continues on azithromycin and Rocephin. Labs, x-rays, and medications are reviewed. Norepinephrine has been weaned off. He continues on propofol for sedation at 50 mcg/kg/min. The patient is getting lactated Ringer's at 75 cc an hour. We add Solu-Medrol because he is bronchospastic, and his airways resist ance is elevated. We also had some Dilaudid for pain control. We will continue to follow make recommendations along the way. Overall prognosis remains guarded. Dictation was produced using [employer] software. Please excuse any grammatical, word or spelling errors. Time with Patient: Greater than 30
[2025-05-06] MEDS: methylPREDNISolone SOD SUCCI 125 MG/2 ML VIAL IV SCH (12:17)
[2025-05-06 12:25] LABS: Glucose,Whole Blood 116 mg/dL (70-110)
[2025-05-06 18:00] LABS: Glucose,Whole Blood 173 mg/dL (70-110)
[2025-05-06 18:06] LABS: HCT 24.2 % (39.6-50.0); HGB 7.3 g/dL (13.0-17.0); MCH 26.9 pg (27.0-32.0); MCHC 30.2 g/dL (32.0-37.0); MCV 89.3 fL (80.0-97.0); Platelet Count 618 10*3/uL (140-440); RBC 2.71 10*6/uL (4.40-5.60); RDW 21.7 % (11.5-14.5); WBC 13.65 10*3/uL (4.50-10.00)
[2025-05-06 23:05] LABS: Glucose,Whole Blood 215 mg/dL (70-110)
[2025-05-07 05:00] LABS: Basophils # (A) 0.02 10*3/uL (0.00-0.10); Basophils % (A) 0.2 %; Eosinophils # (A) 0.00 10*3/uL (0.04-0.35); Eosinophils % (A) 0.0 %; HCT 23.6 % (39.6-50.0); HGB 7.1 g/dL (13.0-17.0); Lymphocytes # (A) 0.32 10*3/uL (0.90-5.00); Lymphocytes % (A) 3.0 %; MCH 26.5 pg (27.0-32.0); MCHC 30.1 g/dL (32.0-37.0); MCV 88.1 fL (80.0-97.0); Monocytes # (A) 0.10 10*3/uL (0.20-1.00); Monocytes % (A) 0.9 %; Neutrophils # (A) 10.04 10*3/uL (1.80-7.70); Neutrophils % (A) 95.2 %; Platelet Count 629 10*3/uL (140-440); RBC 2.68 10*6/uL (4.40-5.60); RDW 21.8 % (11.5-14.5); WBC 10.55 10*3/uL (4.50-10.00)
[2025-05-07 05:14] LABS: ABG HCO3 20 mmol/L (21-25); ABG PCO2 41 mmHg (35-45); ABG PH 7.30 (7.35-7.45); ABG PO2 114 mmHg (83-108); ABG TCO2 21 mmol/L (19-24); Allen Test Performed? Yes
[2025-05-07 05:19] LABS: African American GFR (CKD) 48 (>60 ml/min/1.73 sqM); Anion Gap 12 mmol/L; Blood Urea Nitrogen 28 mg/dL (9-20); Calcium 8.8 mg/dL (8.4-10.2); Carbon Dioxide 18 mmol/L (22-30); Chloride 111 mmol/L (98-107); Glucose 162 mg/dL (74-99); Non-African American GFR(CKD) 41 (>60 ml/min/1.73 sqM); Potassium 4.5 mmol/L (3.5-5.1); Sodium 141 mmol/L (137-145)
[2025-05-07 05:41] LABS: Glucose,Whole Blood 198 mg/dL (70-110)
[2025-05-07 06:37] LABS: RBC Morphology Normal
--- NOTE | 2025-05-07 07:09 | XR ---
EXAMINATION TYPE: XR chest 1V portable DATE OF EXAM: 05/07/2025 5:37 AM COMPARISON: Multiple radiographs, with the most recent on 05/06/2025 TECHNIQUE: XR chest 1V portable Portable AP radiograph of the chest. CLINICAL INDICATION:Male, 79 years old with history of mechanical ventilation; FINDINGS: Lungs/Pleura: No definitive pneumothorax. Small right pleural effusion. Similar right basilar opaciti es. Heart/mediastinum: Cardiomediastinal silhouette is unremarkable. Atherosclerotic calcifications are seen in the aorta. Musculoskeletal: No acute osseous pathology. Other findings: None Lines/Tubes: Endotracheal tube with distal tip 3.1 cm above the yuni Nasogastric tube with its distal tip and side-port projecting under the diaphragm. Left subclavian approach central venous catheter with distal tip at the superior cavoatrial junction. IMPRESSION: 1. Small right pleural effusion with similar right basilar opacities. 2. Stable support lines and tubes. [facility], , 05/07/2025 7:06 AM
[2025-05-07] MEDS: METOCLOPRAMIDE 5 MG/ML 2 ML VIAL IVP SCH (08:37)
--- NOTE | 2025-05-07 10:00 | P.PN ---
Subjective Progress Note Date: 05/07/25 Principal diagnosis: Respiratory failure. Patient is a 79-year-old male, evaluated by EMS yesterday. Reportedly, having severe respiratory distress and apnea. He was intubated in the field. No previous records available to review from our facility. I did call the patient's , she states he was increasingly weak for the last several days. Associated shortness of breath with exertion. She thought it was related to his anemia. She was able to provide some past medical history including lung cancer and previous lung resection at [facility], essential thrombocythemia, and GAVE syndrome. Reportedly, requires frequent blood and iron infusions. He follows at [facility] for this. Reportedly, no history of COPD, asthma. No history of heart failure per the . His medication list is not available. Workup in the emergency department including a chest x-ray which shows endotracheal tube proximal, approximately 6 cm from the yuni. Orogastric tube coursing into the stomach. Patchy bibasilar infiltrates and small effusion on the right. Left costophrenic angle was excluded from the image. CBC including a WBC count of 19.15, hemoglobin 9.2, platelets 655. CMP included sodium 142, potassium 4.8, chloride 107, serum bicarb 20, BUN 28, creatinine 1.88, glucose 256. Lactic 2.6 and down to 1.6. EKG: Sinus tachycardia, rate 104 bpm, no acute ischemic changes. Troponin less than 0.012. NT proBNP significantly elevated at 12,100. Patient currently being evaluated in the emergency department, trauma bay 2. He is intubated to the mechanical ventilator. Previous ABGs including a PaO2 of 315, pCO2 57, pH of 7.2. Previous ventilator settings were assist-control, rate 16, tidal volume 450, FiO2 100%, PEEP of 5. Since then, his rate has been increased to 20 and his tidal volume dropped to 50%. The Peak pressure averaging 38 and static airway pressure measured at 17. His endotracheal tube is a size 7. There are thick tenacious white secretions coming from the endotracheal tube. Sputum sample to be collected. Currently, patient is synchronous with the mechanical ventilator. Sedated on propofol which is infusing at 45 mcg/kg/min. He was previously fluid resuscitated with a total of 2.5 L crystalloid fluid and LR continues at 150 mL/h. Blood pressure is normotensive. Not requiring any vasopressors. An indwelling urinary catheter was placed and there is small amount of concentrated yellow urine in the collection bag. Has remained afebrile. Previously started on empiric antibiotics in form azithromycin and Rocephin in the ED. Progress note dated May 05, 2025. This is a 79-year-old gentleman who was seen by my nurse practitioner yesterday. The patient came into the hospital with respiratory failure, thought to be secondary to pneumonia. The patient remains on volume assist-control, rate 20, tidal line 450, FiO2 40%, PEEP of 5. Blood gases this morning show pO2 118, pCO2 38, pH is 7.30. Both blood gases are consistent with mild metabolic acidosis. The patient is getting saline at 75 cc an hour, propofol at 50 mcg/kg/min, and norepinephrine at 3.7 mcg/min. The patient continues on azithromycin and Rocephin. We will attempt a daily interruption of sedation today, plus or minus a spontaneous breathing trial. The patient's saline IV, will be converted to lactated Ringer's at 75 cc an hour. Current laboratory data includes a white count of 14.8, hemoglobin 7.6, hematocrit 24.2, and a platelet count of 570,000. Sodium 141, potassium 4.2, chloride 111, CO2 16, anion gap 14, glucose 120, BUN and creatinine were 27 and 1.76. Calcium 8.1. Blood and sputum sampling is thus far negative. X-ray shows small right-sided pleural effusion, with some bibasilar patchy airspace opacities, concerning for possible pneumonia. Progress note dated May 06, 2025. 79-year-old male seen in the intensive care unit. The patient was admitted with respiratory failure, and pneumonia. He remains on mechanical ventilation. He is on volume assist-control, rate 20, tidal volume 450, FiO2 40%, PEEP of 5. Blood gases show PO297, BGJ355, pH is 7.30. The blood gas is consistent with a mild metabolic acidosis. He is on propofol at 50 mcg/kg/min, norepinephrine has been weaned off. He is on lactated Ringer's at 75 cc an hour, and saline at KVO. He is receiving vital high-protein at 40, with a goal of 45 cc an hour. He continues on azithromycin and Rocephin empirically. Will add some Solu- Medrol to his regimen. We also had some Dilaudid for pain control. White count 12.9, hemoglobin 7, hematocrit 22.8, platelet count 563,000. Sodium 142, potassium 4.1, chlorides 113, CO2 17, anion gap 12, BUN 23, creatinine 1.52. Glucose is 125. Calcium is 8.4. Sputum and blood sampling has been negative thus far. Chest x-ray shows small right pleural effusion with bibasilar patchy airspace opacities. There is evidence of pulmonary vascular congestion. Progress note dated May 07, 2025. 79-year-old male seen in the intensive care unit, room 251. The patient has a history of respiratory failure, and pneumonia, he remains on mechanical ventilator. Current vent settings include volume assist-control, rate 20, tidal volume 450, FiO2 40%, PEEP of 5. Arterial blood gases show PO2 114, PCO2 of 41, pH is 7.30. The patient is getting lactated Ringer's at 75 cc an hour, propofol at 50 mcg/kg/min. The patient is also getting saline at 10 cc an hour, and vital high-protein at 10 cc an hour. Residuals are high, so we added Reglan 10 mg every 6. He continues on azithromycin and Rocephin, and microbiologic nisha pling, thus far is negative. In addition, his peak airway pressures 29, with a plateau pressure of 13. His airways resistance is 13 cm water per liter per second. We will attempt a daily interruption of sedation. White count was 10.6, hemoglobin 7.1, hematocrit 23.6, platelet count 629,000. Sodium 141, potassium 4.5, chlorides 111, CO2 18, anion gap 12, BUN 28, creatinine 1.59. These electrolyte profile is consistent with a nonanion gap metabolic acidosis. Glucose is 162. Calcium is 8.8. Chest x-ray is largely unchanged, with small right-sided pleural effusion, and right basilar infiltrate. Objective - Vital Signs Vital signs: Vital Signs Temp 98.4 F 05/07/25 04:00 Pulse 100 05/07/25 09:00 Resp 20 05/07/25 09:00 BP 140/76 05/07/25 09:00 Pulse Ox 98 05/07/25 09:00 FiO2 40 05/07/25 08:00 Intake & Output 05/06/25 05/07/25 05/07/25 18:59 06:59 18:59 Intake Total 5606.351 8828.120 311.694 Output Total 415 460 60 Balance 3458.090 3540.120 251.694 Weight 87.6 kg Intake: IV 1111 1563 202 0.9 KVO x2 220 260 40 Arterial Line and CVP 66 78 12 Line Azithromycin 500 mg In 250 Sodium Chloride 0.9% 250 ml @ 250 mls/hr IVPB HS WHIT Rx#:[id number] Lactated Ringers 1,000 ml 825 975 150 @ 75 mls/hr IV .[id number] WHIT Rx#:[id number] Intake, IV Titration 292.043 261.120 59.694 Amount cefTRIAXone 2 gm In 50 Sodium Chloride 0.9% 50 ml @ 100 mls/hr IVPB Q24HR WHIT Rx#:[id number] propofoL 1,000 mg In 242.043 261.120 59.694 Empty Bag 1 bag @ 15 MCG/ KG/MIN 6.532 mls/hr IV . [id number] WHIT Rx#:[id number] Tube Feeding 440 130 20 Other 120 120 30 Output: Urine 415 460 60 Other: Voiding Method Indwelling Catheter Indwelling Catheter ABP, PAP, CO, CI - Last Documented Arterial Blood Pressure 169/59 - Exam No acute distress, patient is sedated, with an orally placed endotracheal tube, and NG tube noted. HEENT examination is grossly unremarkable. Mucous membranes are moist. No oral lesions. Neck supple. Full range of motion. No adenopathy thyromegaly or neck vein distention. Cardiovascular examination reveals regular rhythm rate. S1-S2 normal. No S3 or S4. No discernible murmur noted. Lungs reveal scattered bilateral expiratory rhonchi. No wheezes. No crackles. Breath sounds are equal bilaterally. Abdomen soft bowel sounds are heard. No masses or tenderness. Extremities are intact. No cyanosis clubbing or edema. Skin is without rash or lesion. Neurologic examination cannot be adequately assessed at this time. - Labs CBC & Chem 7: 05/07/25 06:00 05/07/25 06:00 Labs: Abnormal Lab Results - Last 24 Hours (Table) 05/06/25 05/06/25 05/06/25 Range/Units 12:23 17:58 18:00 WBC 13.65 H (4.50-10.00) 10*3/uL RBC 2.71 L (4.40-5.60) 10*6/uL Hgb 7.3 L (13.0-17.0) g/dL Hct 24.2 L (39.6-50.0) % MCH 26.9 L (27.0-32.0) pg MCHC 30.2 L (32.0-37.0) g/dL Plt Count 618 H (140-440) 10*3/uL Immature Gran # (0.00-0.04) 10*3/uL Neutrophils # (1.80-7.70) 10*3/uL Lymphocytes # (0.90-5.00) 10*3/uL Monocytes # (0.20-1.00) 10*3/uL Eosinophils # (0.04-0.35) 10*3/uL ABG pH (7.35-7.45) ABG pO2 (83-108) mmHg ABG HCO3 (21-25) mmol/L ABG O2 Saturation (94-97) % Hemoglobin (13.0-17.5) gm/dL Chloride (98-107) mmol/L Carbon Dioxide (22-30) mmol/L BUN (9-20) mg/dL Creatinine (0.66-1.25) mg/dL Glucose (74-99) mg/dL POC Glucose (mg/dL) 116 H 173 H (70-110) mg/dL 05/06/25 05/07/25 05/07/25 Range/Units 23:04 05:10 05:39 WBC (4.50-10.00) 10*3/uL RBC (4.40-5.60) 10*6/uL Hgb (13.0-17.0) g/dL Hct (39.6-50.0) % MCH (27.0-32.0) pg MCHC (32.0-37.0) g/dL Plt Count (140-440) 10*3/uL Immature Gran # (0.00-0.04) 10*3/uL Neutrophils # (1.80-7.70) 10*3/uL Lymphocytes # (0.90-5.00) 10*3/uL Monocytes # (0.20-1.00) 10*3/uL Eosinophils # (0.04-0.35) 10*3/uL ABG pH 7.30 L (7.35-7.45) ABG pO2 114 H (83-108) mmHg ABG HCO3 20 L (21-25) mmol/L ABG O2 Saturation 98.8 H (94-97) % Hemoglobin 7.4 L (13.0-17.5) gm/dL Chloride (98-107) mmol/L Carbon Dioxide (22-30) mmol/L BUN (9-20) mg/dL Creatinine (0.66-1.25) mg/dL Glucose (74-99) mg/dL POC Glucose (mg/dL) 215 H 198 H (70-110) mg/dL 05/07/25 05/07/25 Range/Units 06:00 06:00 WBC 10.55 H (4.50-10.00) 10*3/uL RBC 2.68 L (4.40-5.60) 10*6/uL Hgb 7.1 L (13.0-17.0) g/dL Hct 23.6 L (39.6-50.0) % MCH 26.5 L (27.0-32.0) pg MCHC 30.1 L (32.0-37.0) g/dL Plt Count 629 H (140-440) 10*3/uL Immature Gran # 0.07 H (0.00-0.04) 10*3/uL Neutrophils # 10.04 H (1.80-7.70) 10*3/uL Lymphocytes # 0.32 L (0.90-5.00) 10*3/uL Monocytes # 0.10 L (0.20-1.00) 10*3/uL Eosinophils # 0.00 L (0.04-0.35) 10*3/uL ABG pH (7.35-7.45) ABG pO2 (83-108) mmHg ABG HCO3 (21-25) mmol/L ABG O2 Saturation (94-97) % Hemoglobin (13.0-17.5) gm/dL Chloride 111 H (98-107) mmol/L Carbon Dioxide 18 L (22-30) mmol/L BUN 28 H (9-20) mg/dL Creatinine 1.59 H (0.66-1.25) mg/dL Glucose 162 H (74-99) mg/dL POC Glucose (mg/dL) (70-110) mg/dL Microbiology - Last 24 Hours (Table) 05/03/25 20:30 Blood Culture - Preliminary Blood 05/05/25 11:30 Gram Stain - Preliminary Sputum Sputum Culture - Preliminary Assessment and Plan Assessment: Acute hypoxemic and hypercapnic respiratory failure, intubated by EMS in the field, and admitted with a diagnosis of either heart failure, and/or pneumonia. Suspect bilateral pneumonia/sepsis. Possible exacerbation of congestive heart failure. Acute leukocytosis. Acute kidney injury versus chronic kidney disease. 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 Essential thrombocythemia, reportedly on cytoreducative therapy. History of lung cancer with previous lobectomy at outside facility. Current tobacco smoker. Plan: Plan dated May 05, 2025. The patient is seen today in room 251. The patient remains on the mechanical ventilator. He was intubated in the field by EMS. Blood gases show PO2 of 118, PCO2 of 38, pH of 7.30. His blood gases are consistent with a mild metabolic acidosis. The patient sedated with propofol at 50 mcg/kg/min. He is receiving norepinephrine at 3.7 mcg/min, saline at 75 cc an hour. The patient continues on azithromycin and Rocephin. The patient will have a daily interruption of sedation. He may or may not benefit from a spontaneous breathing trial. The saline IV is converted to lactated Ringer's at the same rate. All labs, x-rays, and medications are reviewed. We will continue to follow with the patient, make recommendations. Prognosis is guarded. Dictation was produced using [employer] dictation software. Please excuse any grammatical, word or spelling errors. Plan dated May 06, 2025. The patient is seen today in room 251. The patient remains on mechanical ventilation. He was intubated in the field by EMS. He was admitted with a diagnosis of respiratory failure, multifactorial, part related to possible pneumonia, and also CHF. The patient's procalcitonin level was elevated at 1.82. He continues on azithromycin and Rocephin. Labs, x-rays, and medications are reviewed. Norepinephrine has been weaned off. He continues on propofol for sedation at 50 mcg/kg/min. The patient is getting lactated Ringer's at 75 cc an hour. We add Solu-Medrol because he is bronchospastic, and his airways resistance is elevated. We also had some Dilaudid for pain control. We will continue to follow make recommendations along the way. Overall prognosis remains guarded. Dictation was produced using [employer] software. Please excuse any grammatical, word or spelling errors. Plan dated May 07, 2025. The patient is seen today in room 251. Blood gases are reasonable. The patient continues on propofol at 50 mcg/kg/min. Did not tolerate the daily interruption of sedation yesterday. The patient will get Reglan 10 mg every 6 because of high residuals. After 2 doses, we will start increasing the tube feedings. The patient continues on azithromycin and Rocephin for right lower lobe pneumonia. Microbiologic sampling is thus far negative. The patient's peak lower pressures 29, with a plateau pressure of 13. Flow rate on the ventilator 60 L/min. Airways resistance is elevated at 16 cm water per liter per second. Labs, x- rays, and medications are reviewed. We will continue to follow make recommendations along the way. Overall prognosis remains guarded. We will attempt another daily interruption of sedation today. The patient candidate for weaning. Dictation was produced using [employer] software. Please excuse any grammatical, word or spelling errors. Time with Patient: Greater than 30
[2025-05-07 11:33] LABS: Glucose,Whole Blood 179 mg/dL (70-110)
--- NOTE | 2025-05-07 12:06 | P.PN ---
Subjective Progress Note Date: 05/07/25 Hospital course 79 year old M with PMH of Lung CA status post lobectomy, GAVE syndrome requiring routine blood transfusions, heavy smoker presents to the ED intubated by EMS for respiratory distress. reports exertional SOB for the past few weeks prior to arrival. In the ED he underwent extensive evaluation. BP 168/95, HR 105, T 97.5F, RR 19, 98% mechanically ventilated. Labs significant for WBC 19.15, RBC 3.4, Hg 9.2, Hct 29.3, Plt 655, PT 13.5, INR 1.3, bicarb 20, BUN 28, Cr 1.88, glu 256. Trop < 0.012. BNP 01739. Mag 2.2. Lactic acid 2.2-1.6. COVID, RSV, Flu neg. EKG sinus tachycardia. CXR patchy basilar infiltrates and small effusions. Brain CT no acute process. Patient is admitted to ICU for further management. Subjective Patient seen in the ICU. He remains intubated and sedated. Yesterday patient did not tolerate and off sedation. Having high residuals and was started on IV Reglan. 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 Patient started on regaln for high residuals. Normocytic anemia with thrombocytosis due to GAVE syndrome: Transfuse if Hg < 7. Continue Anagrelide 1 mg PO BID. Acute kidney injury: Possible component of CKD. Renal US no hydro. Creatinine today is stable at 1.59. Dyslipidemia: Simvastatin 40 mg PO QHS. Depression: Lexapro 20 mg PO QHS. Hypertension: Hold Metoprolol and Amlodipine due to hypotension. CODE STATUS: FULL CODE DVT Prophylaxis: Heparin SQ GI Prophylaxis: Protonix IV Designated medical POA if patient is not able to make medical decisions for themselves: . Poor prognosis Objective - Vital Signs Vital signs: Vital Signs Temp 98.4 F 05/07/25 04:00 Pulse 96 05/07/25 12:04 Resp 20 05/07/25 11:30 BP 107/58 05/07/25 11:00 Pulse Ox 98 05/07/25 11:30 FiO2 40 05/07/25 11:35 Intake & Output 05/06/25 05/07/25 05/07/25 18:59 06:59 18:59 Intake Total 1642.154 5987.120 661.112 Output Total 415 460 120 Balance 4560.560 4802.120 541.112 Weight 87.6 kg Intake: IV 1111 1563 384 0.9 KVO x2 220 260 60 Arterial Line and CVP 66 78 24 Line Azithromycin 500 mg In 250 Sodium Chloride 0.9% 250 ml @ 250 mls/hr IVPB HS WHIT Rx#:[id number] Lactated Ringers 1,000 ml 825 975 300 @ 75 mls/hr IV .[id number] WHIT Rx#:[id number] Intake, IV Titration 292.043 261.120 127.112 Amount cefTRIAXone 2 gm In 50 50 Sodium Chloride 0.9% 50 ml @ 100 mls/hr IVPB Q24HR WHIT Rx#:[id number] propofoL 1,000 mg In 242.043 261.120 77.112 Empty Bag 1 bag @ 15 MCG/ KG/MIN 6.532 mls/hr IV . [id number] WHIT Rx#:[id number] Tube Feeding 440 130 40 Other 120 120 110 Output: Urine 415 460 120 Other: Voiding Method Indwelling Catheter Indwelling Catheter Indwelling Catheter ABP, PAP, CO, CI - Last Documented Arterial Blood Pressure 143/51 - Labs CBC & Chem 7: 05/07/25 06:00 05/07/25 06:00 Labs: Abnormal Lab Results - Last 24 Hours (Table) 05/06/25 05/06/25 05/06/25 Range/Units 12:23 17:58 18:00 WBC 13.65 H (4.50-10.00) 10*3/uL RBC 2.71 L (4.40-5.60) 10*6/uL Hgb 7.3 L (13.0-17.0) g/dL Hct 24.2 L (39.6-50.0) % MCH 26.9 L (27.0-32.0) pg MCHC 30.2 L (32.0-37.0) g/dL Plt Count 618 H (140-440) 10*3/uL Immature Gran # (0.00-0.04) 10*3/uL Neutrophils # (1.80-7.70) 10*3/uL Lymphocytes # (0.90-5.00) 10*3/uL Monocytes # (0.20-1.00) 10*3/uL Eosinophils # (0.04-0.35) 10*3/uL ABG pH (7.35-7.45) ABG pO2 (83-108) mmHg ABG HCO3 (21-25) mmol/L ABG O2 Saturation (94-97) % Hemoglobin (13.0-17.5) gm/dL Chloride (98-107) mmol/L Carbon Dioxide (22-30) mmol/L BUN (9-20) mg/dL Creatinine (0.66-1.25) mg/dL Glucose (74-99) mg/dL POC Glucose (mg/dL) 116 H 173 H (70-110) mg/dL 05/06/25 05/07/25 05/07/25 Range/Units 23:04 05:10 05:39 WBC (4.50-10.00) 10*3/uL RBC (4.40-5.60) 10*6/uL Hgb (13.0-17.0) g/dL Hct (39.6-50.0) % MCH (27.0-32.0) pg MCHC (32.0-37.0) g/dL Plt Count (140-440) 10*3/uL Immature Gran # (0.00-0.04) 10*3/uL Neutrophils # (1.80-7.70) 10*3/uL Lymphocytes # (0.90-5.00) 10*3/uL Monocytes # (0.20-1.00) 10*3/uL Eosinophils # (0.04-0.35) 10*3/uL ABG pH 7.30 L (7.35-7.45) ABG pO2 114 H (83-108) mmHg ABG HCO3 20 L (21-25) mmol/L ABG O2 Saturation 98.8 H (94-97) % Hemoglobin 7.4 L (13.0-17.5) gm/dL Chloride (98-107) mmol/L Carbon Dioxide (22-30) mmol/L BUN (9-20) mg/dL Creatinine (0.66-1.25) mg/dL Glucose (74-99) mg/dL POC Glucose (mg/dL) 215 H 198 H (70-110) mg/dL 05/07/25 05/07/25 05/07/25 Range/Units 06:00 06:00 11:31 WBC 10.55 H (4.50-10.00) 10*3/uL RBC 2.68 L (4.40-5.60) 10*6/uL Hgb 7.1 L (13.0-17.0) g/dL Hct 23.6 L (39.6-50.0) % MCH 26.5 L (27.0-32.0) pg MCHC 30.1 L (32.0-37.0) g/dL Plt Count 629 H (140-440) 10*3/uL Immature Gran # 0.07 H (0.00-0.04) 10*3/uL Neutrophils # 10.04 H (1.80-7.70) 10*3/uL Lymphocytes # 0.32 L (0.90-5.00) 10*3/uL Monocytes # 0.10 L (0.20-1.00) 10*3/uL Eosinophils # 0.00 L (0.04-0.35) 10*3/uL ABG pH (7.35-7.45) ABG pO2 (83-108) mmHg ABG HCO3 (21-25) mmol/L ABG O2 Saturation (94-97) % Hemoglobin (13.0-17.5) gm/dL Chloride 111 H (98-107) mmol/L Carbon Dioxide 18 L (22-30) mmol/L BUN 28 H (9-20) mg/dL Creatinine 1.59 H (0.66-1.25) mg/dL Glucose 162 H (74-99) mg/dL POC Glucose (mg/dL) 179 H (70-110) mg/dL Microbiology - Last 24 Hours (Table) 05/04/25 03:25 Gram Stain - Final Sputum Sputum Culture - Final 05/05/25 11:30 Gram Stain - Final Sputum Sputum Culture - Final 05/03/25 20:30 Blood Culture - Preliminary Blood
[2025-05-07 17:12] LABS: Glucose,Whole Blood 148 mg/dL (70-110)
[2025-05-07] MEDS: FORMOTEROL FUMARATE 20 MCG/2 ML NEBU INHALATION SCH (19:55)
[2025-05-07] MEDS: BUDESONIDE 1 MG/2 ML NEBU INHALATION SCH (19:55)
[2025-05-08 01:20] LABS: Glucose,Whole Blood 150 mg/dL (70-110)
[2025-05-08 04:40] LABS: African American GFR (CKD) 46 (>60 ml/min/1.73 sqM); Anion Gap 10 mmol/L; Blood Urea Nitrogen 37 mg/dL (9-20); Calcium 8.8 mg/dL (8.4-10.2); Carbon Dioxide 18 mmol/L (22-30); Chloride 111 mmol/L (98-107); Glucose 154 mg/dL (74-99); Magnesium 2.2 mg/dL (1.6-2.3); Non-African American GFR(CKD) 40 (>60 ml/min/1.73 sqM); Potassium 4.9 mmol/L (3.5-5.1); Sodium 139 mmol/L (137-145)
[2025-05-08 04:47] LABS: Basophils # (A) 0.01 10*3/uL (0.00-0.10); Basophils % (A) 0.1 %; Eosinophils # (A) 0.00 10*3/uL (0.04-0.35); Eosinophils % (A) 0.0 %; HCT 23.1 % (39.6-50.0); HGB 7.0 g/dL (13.0-17.0); Lymphocytes # (A) 0.23 10*3/uL (0.90-5.00); Lymphocytes % (A) 1.5 %; MCH 26.7 pg (27.0-32.0); MCHC 30.3 g/dL (32.0-37.0); MCV 88.2 fL (80.0-97.0); Monocytes # (A) 0.31 10*3/uL (0.20-1.00); Monocytes % (A) 2.0 %; Neutrophils # (A) 14.88 10*3/uL (1.80-7.70); Neutrophils % (A) 95.8 %; Platelet Count 775 10*3/uL (140-440); RBC 2.62 10*6/uL (4.40-5.60); RDW 22.1 % (11.5-14.5); WBC 15.53 10*3/uL (4.50-10.00)
[2025-05-08 05:33] LABS: ABG HCO3 19 mmol/L (21-25); ABG PCO2 40 mmHg (35-45); ABG PH 7.28 (7.35-7.45); ABG PO2 102 mmHg (83-108); ABG TCO2 20 mmol/L (19-24)
[2025-05-08 05:36] LABS: Allen Test Performed? No
[2025-05-08 06:30] LABS: Glucose,Whole Blood 177 mg/dL (70-110)
--- NOTE | 2025-05-08 06:56 | XR ---
EXAMINATION TYPE: XR chest 1V portable DATE OF EXAM: 05/08/2025 5:59 AM COMPARISON: Multiple radiographs, with the most recent on 05/07/2025 TECHNIQUE: XR chest 1V portable Portable AP radiograph of the chest. CLINICAL INDICATION:Male, 79 years old with history of mechanical ventilated; FINDINGS: Lungs/Pleura: No sizable pneumothorax. Bibasilar patchy opacities with small right pleural effusion. Heart/mediastinum: Cardiomediastinal silhouette is unremarkable. Atherosclerotic calcifications are seen in the aorta. Musculoskeletal: No acute osseous pathology. Other findings: None Lines/Tubes: Endotracheal tube with distal tip 4.2 cm above the yuni Nasogastric tube with its distal tip and side-port projecting under the diaphragm and projecting over the gastric lumen. Left subclavian approach central venous catheter with distal tip at the superior cavoatrial junction. IMPRESSION: 1. Small right pleural effusion with bibasilar opacities which may represent atelectasis versus infi ltrates 2. Stable support lines and tubes. [facility], , 05/08/2025 6:54 AM
--- NOTE | 2025-05-08 10:28 | P.PN ---
Subjective Progress Note Date: 05/08/25 Hospital course 79 year old M with PMH of Lung CA status post lobectomy, GAVE syndrome requiring routine blood transfusions, heavy smoker presents to the ED intubated by EMS for respiratory distress. reports exertional SOB for the past few weeks prior to arrival. In the ED he underwent extensive evaluation. BP 168/95, HR 105, T 97.5F, RR 19, 98% mechanically ventilated. Labs significant for WBC 19.15, RBC 3.4, Hg 9.2, Hct 29.3, Plt 655, PT 13.5, INR 1.3, bicarb 20, BUN 28, Cr 1.88, glu 256. Trop < 0.012. BNP 60527. Mag 2.2. Lactic acid 2.2-1.6. COVID, RSV, Flu neg. EKG sinus tachycardia. CXR patchy basilar infiltrates and small effusions. Brain CT no acute process. Patient is admitted to ICU for further management. Subjective Patient seen in the ICU. He remains intubated and sedated. 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 Patient started on regaln for high residuals. This morning pH is 7.28. Normocytic anemia with thrombocytosis due to GAVE syndrome: Transfuse if Hg < 7. Continue Anagrelide 1 mg PO BID. Today hemoglobin is 7.0. Acute kidney injury: Possible component of CKD. Renal US no hydro. Creatinine today is stable at 1.62. Slightly worse today. Dyslipidemia: Simvastatin 40 mg PO QHS. Depression: Lexapro 20 mg PO QHS. Hypertension: Hold Metoprolol and Amlodipine due to hypotension. CODE STATUS: FULL CODE DVT Prophylaxis: Heparin SQ GI Prophylaxis: Protonix IV Designated medical POA if patient is not able to make medical decisions for themselves: . Poor prognosis Objective - Vital Signs Vital signs: Vital Signs Temp 97.8 F 05/08/25 08:15 Pulse 118 H 05/08/25 09:15 Resp 21 05/08/25 09:15 BP 158/93 05/08/25 09:15 Pulse Ox 96 05/08/25 09:15 FiO2 30 05/08/25 08:14 Intake & Output 05/07/25 05/08/25 05/08/25 18:59 06:59 18:59 Intake Total 9826.599 1570.774 310.766 Output Total 330 375 115 Balance 2985.187 9807.774 195.766 Weight 87.8 kg Intake: IV 1021 1092 182 0.9 KVO 130 120 20 Arterial Line and CVP 66 72 12 Line Lactated Ringers 1,000 ml 825 900 150 @ 75 mls/hr IV .[id number] WHIT Rx#:[id number] Intake, IV Titration 285.692 252.774 68.766 Amount cefTRIAXone 2 gm In 50 Sodium Chloride 0.9% 50 ml @ 100 mls/hr IVPB Q24HR WHIT Rx#:[id number] propofoL 1,000 mg In 235.692 252.774 68.766 Empty Bag 1 bag @ 15 MCG/ KG/MIN 6.532 mls/hr IV . [id number] WHIT Rx#:[id number] Tube Feeding 150 300 60 Other 140 150 Output: Urine 330 375 115 Other: Voiding Method Indwelling Catheter Indwelling Catheter ABP, PAP, CO, CI - Last Documented Arterial Blood Pressure 203/73 - Labs CBC & Chem 7: 05/08/25 04:00 05/08/25 04:00 Labs: Abnormal Lab Results - Last 24 Hours (Table) 05/07/25 05/07/25 05/08/25 Range/Units 11:31 17:11 01:18 WBC (4.50-10.00) 10*3/uL RBC (4.40-5.60) 10*6/uL Hgb (13.0-17.0) g/dL Hct (39.6-50.0) % MCH (27.0-32.0) pg MCHC (32.0-37.0) g/dL Plt Count (140-440) 10*3/uL Immature Gran # (0.00-0.04) 10*3/uL Neutrophils # (1.80-7.70) 10*3/uL Lymphocytes # (0.90-5.00) 10*3/uL Eosinophils # (0.04-0.35) 10*3/uL ABG pH (7.35-7.45) ABG HCO3 (21-25) mmol/L ABG O2 Saturation (94-97) % Hemoglobin (13.0-17.5) gm/dL Chloride (98-107) mmol/L Carbon Dioxide (22-30) mmol/L BUN (9-20) mg/dL Creatinine (0.66-1.25) mg/dL Glucose (74-99) mg/dL POC Glucose (mg/dL) 179 H 148 H 150 H (70-110) mg/dL 05/08/25 05/08/25 05/08/25 Range/Units 04:00 04:00 05:18 WBC 15.53 H (4.50-10.00) 10*3/uL RBC 2.62 L (4.40-5.60) 10*6/uL Hgb 7.0 L (13.0-17.0) g/dL Hct 23.1 L (39.6-50.0) % MCH 26.7 L (27.0-32.0) pg MCHC 30.3 L (32.0-37.0) g/dL Plt Count 775 H (140-440) 10*3/uL Immature Gran # 0.10 H (0.00-0.04) 10*3/uL Neutrophils # 14.88 H (1.80-7.70) 10*3/uL Lymphocytes # 0.23 L (0.90-5.00) 10*3/uL Eosinophils # 0.00 L (0.04-0.35) 10*3/uL ABG pH 7.28 L (7.35-7.45) ABG HCO3 19 L (21-25) mmol/L ABG O2 Saturation 98.3 H (94-97) % Hemoglobin 7.4 L (13.0-17.5) gm/dL Chloride 111 H (98-107) mmol/L Carbon Dioxide 18 L (22-30) mmol/L BUN 37 H (9-20) mg/dL Creatinine 1.62 H (0.66-1.25) mg/dL Glucose 154 H (74-99) mg/dL POC Glucose (mg/dL) (70-110) mg/dL 05/08/25 Range/Units 06:28 WBC (4.50-10.00) 10*3/uL RBC (4.40-5.60) 10*6/uL Hgb (13.0-17.0) g/dL Hct (39.6-50.0) % MCH (27.0-32.0) pg MCHC (32.0-37.0) g/dL Plt Count (140-440) 10*3/uL Immature Gran # (0.00-0.04) 10*3/uL Neutrophils # (1.80-7.70) 10*3/uL Lymphocytes # (0.90-5.00) 10*3/uL Eosinophils # (0.04-0.35) 10*3/uL ABG pH (7.35-7.45) ABG HCO3 (21-25) mmol/L ABG O2 Saturation (94-97) % Hemoglobin (13.0-17.5) gm/dL Chloride (98-107) mmol/L Carbon Dioxide (22-30) mmol/L BUN (9-20) mg/dL Creatinine (0.66-1.25) mg/dL Glucose (74-99) mg/dL POC Glucose (mg/dL) 177 H (70-110) mg/dL Microbiology - Last 24 Hours (Table) 05/04/25 03:25 Gram Stain - Final Sputum Sputum Culture - Final 05/05/25 11:30 Gram Stain - Final Sputum Sputum Culture - Final
--- NOTE | 2025-05-08 11:22 | P.PN ---
Subjective Progress Note Date: 05/08/25 Principal diagnosis: Respiratory failure. Patient is a 79-year-old male, evaluated by EMS yesterday. Reportedly, having severe respiratory distress and apnea. He was intubated in the field. No previous records available to review from our facility. I did call the patient's , she states he was increasingly weak for the last several days. Associated shortness of breath with exertion. She thought it was related to his anemia. She was able to provide some past medical history including lung cancer and previous lung resection at [facility], essential thrombocythemia, and GAVE syndrome. Reportedly, requires frequent blood and iron infusions. He follows at [facility] for this. Reportedly, no history of COPD, asthma. No history of heart failure per the . His medication list is not available. Workup in the emergency department including a chest x-ray which shows endotracheal tube proximal, approximately 6 cm from the yuni. Orogastric tube coursing into the stomach. Patchy bibasilar infiltrates and small effusion on the right. Left costophrenic angle was excluded from the image. CBC including a WBC count of 19.15, hemoglobin 9.2, platelets 655. CMP included sodium 142, potassium 4.8, chloride 107, serum bicarb 20, BUN 28, creatinine 1.88, glucose 256. Lactic 2.6 and down to 1.6. EKG: Sinus tachycardia, rate 104 bpm, no acute ischemic changes. Troponin less than 0.012. NT proBNP significantly elevated at 12,100. Patient currently being evaluated in the emergency department, trauma bay 2. He is intubated to the mechanical ventilator. Previous ABGs including a PaO2 of 315, pCO2 57, pH of 7.2. Previous ventilator settings were assist-control, rate 16, tidal volume 450, FiO2 100%, PEEP of 5. Since then, his rate has been increased to 20 and his tidal volume dropped to 50%. The Peak pressure averaging 38 and static airway pressure measured at 17. His endotracheal tube is a size 7. There are thick tenacious white secretions coming from the endotracheal tube. Sputum sample to be collected. Currently, patient is synchronous with the mechanical ventilator. Sedated on propofol which is infusing at 45 mcg/kg/min. He was previously fluid resuscitated with a total of 2.5 L crystalloid fluid and LR continues at 150 mL/h. Blood pressure is normotensive. Not requiring any vasopressors. An indwelling urinary catheter was placed and there is small amount of concentrated yellow urine in the collection bag. Has remained afebrile. Previously started on empiric antibiotics in form azithromycin and Rocephin in the ED. Progress note dated May 05, 2025. This is a 79-year-old gentleman who was seen by my nurse practitioner yesterday. The patient came into the hospital with respiratory failure, thought to be secondary to pneumonia. The patient remains on volume assist-control, rate 20, tidal line 450, FiO2 40%, PEEP of 5. Blood gases this morning show pO2 118, pCO2 38, pH is 7.30. Both blood gases are consistent with mild metabolic acidosis. The patient is getting saline at 75 cc an hour, propofol at 50 mcg/kg/min, and norepinephrine at 3.7 mcg/min. The patient continues on azithromycin and Rocephin. We will attempt a daily interruption of sedation today, plus or minus a spontaneous breathing trial. The patient's saline IV, will be converted to lactated Ringer's at 75 cc an hour. Current laboratory data includes a white count of 14.8, hemoglobin 7.6, hematocrit 24.2, and a platelet count of 570,000. Sodium 141, potassium 4.2, chloride 111, CO2 16, anion gap 14, glucose 120, BUN and creatinine were 27 and 1.76. Calcium 8.1. Blood and sputum sampling is thus far negative. X-ray shows small right-sided pleural effusion, with some bibasilar patchy airspace opacities, concerning for possible pneumonia. Progress note dated May 06, 2025. 79-year-old male seen in the intensive care unit. The patient was admitted with respiratory failure, and pneumonia. He remains on mechanical ventilation. He is on volume assist-control, rate 20, tidal volume 450, FiO2 40%, PEEP of 5. Blood gases show PO297, AML352, pH is 7.30. The blood gas is consistent with a mild metabolic acidosis. He is on propofol at 50 mcg/kg/min, norepinephrine has been weaned off. He is on lactated Ringer's at 75 cc an hour, and saline at KVO. He is receiving vital high-protein at 40, with a goal of 45 cc an hour. He continues on azithromycin and Rocephin empirically. Will add some Solu- Medrol to his regimen. We also had some Dilaudid for pain control. White count 12.9, hemoglobin 7, hematocrit 22.8, platelet count 563,000. Sodium 142, potassium 4.1, chlorides 113, CO2 17, anion gap 12, BUN 23, creatinine 1.52. Glucose is 125. Calcium is 8.4. Sputum and blood sampling has been negative thus far. Chest x-ray shows small right pleural effusion with bibasilar patchy airspace opacities. There is evidence of pulmonary vascular congestion. Progress note dated May 07, 2025. 79-year-old male seen in the intensive care unit, room 251. The patient has a history of respiratory failure, and pneumonia, he remains on mechanical ventilator. Current vent settings include volume assist-control, rate 20, tidal volume 450, FiO2 40%, PEEP of 5. Arterial blood gases show PO2 114, PCO2 of 41, pH is 7.30. The patient is getting lactated Ringer's at 75 cc an hour, propofol at 50 mcg/kg/min. The patient is also getting saline at 10 cc an hour, and vital high-protein at 10 cc an hour. Residuals are high, so we added Reglan 10 mg every 6. He continues on azithromycin and Rocephin, and microbiologic nisha pling, thus far is negative. In addition, his peak airway pressures 29, with a plateau pressure of 13. His airways resistance is 13 cm water per liter per second. We will attempt a daily interruption of sedation. White count was 10.6, hemoglobin 7.1, hematocrit 23.6, platelet count 629,000. Sodium 141, potassium 4.5, chlorides 111, CO2 18, anion gap 12, BUN 28, creatinine 1.59. These electrolyte profile is consistent with a nonanion gap metabolic acidosis. Glucose is 162. Calcium is 8.8. Chest x-ray is largely unchanged, with small right-sided pleural effusion, and right basilar infiltrate. Progress note dated May 08, 2025. 79-year-old male seen today in room 251. The patient has done poorly with his daily interruptions of sedation. He is on volume assist-control, rate 20, tidal volume 450, FiO2 30%, PEEP of 5. Blood gases show PO2 102, pCO2 40, pH is 7.28. The patient is getting LR at 75 cc an hour, propofol is currently off, saline at 10 cc an hour, and vital high-protein at 40, with a goal of 45 cc an hour. Because of his agitated state, and his poor response, the patient will have an EEG, and a neurology consultation. He is currently not on any antibiotics. W bay count is 15.5, hemoglobin 7, hematocrit 23.1, platelet count 775,000. Sodium 139, potassium 4.9, chlorides 111, CO2 is 18, anion gap 10, BUN 37, creatinine 1.62. Glucose of 177. Calcium 8.8. Magnesium 2.2. Blood and sputum analysis is negative. Chest x-ray shows a small right-sided pleural effusion, and some mild bibasilar opacities. Objective - Vital Signs Vital signs: Vital Signs Temp 97.8 F 05/08/25 08:15 Pulse 118 H 05/08/25 09:15 Resp 21 05/08/25 09:15 BP 158/93 05/08/25 09:15 Pulse Ox 96 05/08/25 09:15 FiO2 30 05/08/25 11:10 Intake & Output 05/07/25 05/08/25 05/08/25 18:59 06:59 18:59 Intake Total 3361.870 2033.774 310.766 Output Total 330 375 115 Balance 8881.552 3422.774 195.766 Weight 87.8 kg Intake: IV 1021 1092 182 0.9 KVO 130 120 20 Arterial Line and CVP 66 72 12 Line Lactated Ringers 1,000 ml 825 900 150 @ 75 mls/hr IV .[id number] WHIT Rx#:[id number] Intake, IV Titration 285.692 252.774 68.766 Amount cefTRIAXone 2 gm In 50 Sodium Chloride 0.9% 50 ml @ 100 mls/hr IVPB Q24HR WHIT Rx#:[id number] propofoL 1,000 mg In 235.692 252.774 68.766 Empty Bag 1 bag @ 15 MCG/ KG/MIN 6.532 mls/hr IV . [id number] WHIT Rx#:[id number] Tube Feeding 150 300 60 Other 140 150 Output: Urine 330 375 115 Other: Voiding Method Indwelling Catheter Indwelling Catheter ABP, PAP, CO, CI - Last Documented Arterial Blood Pressure 203/73 - Exam No acute distress, patient is sedated, with an orally placed endotracheal tube, and NG tube noted. HEENT examination is grossly unremarkable. Mucous membranes are moist. No oral lesions. Neck supple. Full range of motion. No adenopathy thyromegaly or neck vein distention. Cardiovascular examination reveals regular rhythm rate. S1-S2 normal. No S3 or S4. No discernible murmur noted. Lungs reveal scattered bilateral expiratory rhonchi. No wheezes. No crackles. Breath sounds are equal bilaterally. Abdomen soft bowel sounds are heard. No masses or tenderness. Extremities are intact. No cyanosis clubbing or edema. Skin is without rash or lesion. Neurologic examination reveals a poorly responsive patient, who was off of all sedation. - Labs CBC & Chem 7: 05/08/25 04:00 05/08/25 04:00 Labs: Abnormal Lab Results - Last 24 Hours (Table) 05/07/25 05/07/25 05/08/25 Range/Units 11:31 17:11 01:18 WBC (4.50-10.00) 10*3/uL RBC (4.40-5.60) 10*6/uL Hgb (13.0-17.0) g/dL Hct (39.6-50.0) % MCH (27.0-32.0) pg MCHC (32.0-37.0) g/dL Plt Count (140-440) 10*3/uL Immature Gran # (0.00-0.04) 10*3/uL Neutrophils # (1.80-7.70) 10*3/uL Lymphocytes # (0.90-5.00) 10*3/uL Eosinophils # (0.04-0.35) 10*3/uL ABG pH (7.35-7.45) ABG HCO3 (21-25) mmol/L ABG O2 Saturation (94-97) % Hemoglobin (13.0-17.5) gm/dL Chloride (98-107) mmol/L Carbon Dioxide (22-30) mmol/L BUN (9-20) mg/dL Creatinine (0.66-1.25) mg/dL Glucose (74-99) mg/dL POC Glucose (mg/dL) 179 H 148 H 150 H (70-110) mg/dL 05/08/25 05/08/25 05/08/25 Range/Units 04:00 04:00 05:18 WBC 15.53 H (4.50-10.00) 10*3/uL RBC 2.62 L (4.40-5.60) 10*6/uL Hgb 7.0 L (13.0-17.0) g/dL Hct 23.1 L (39.6-50.0) % MCH 26.7 L (27.0-32.0) pg MCHC 30.3 L (32.0-37.0) g/dL Plt Count 775 H (140-440) 10*3/uL Immature Gran # 0.10 H (0.00-0.04) 10*3/uL Neutrophils # 14.88 H (1.80-7.70) 10*3/uL Lymphocytes # 0.23 L (0.90-5.00) 10*3/uL Eosinophils # 0.00 L (0.04-0.35) 10*3/uL ABG pH 7.28 L (7.35-7.45) ABG HCO3 19 L (21-25) mmol/L ABG O2 Saturation 98.3 H (94-97) % Hemoglobin 7.4 L (13.0-17.5) gm/dL Chloride 111 H (98-107) mmol/L Carbon Dioxide 18 L (22-30) mmol/L BUN 37 H (9-20) mg/dL Creatinine 1.62 H (0.66-1.25) mg/dL Glucose 154 H (74-99) mg/dL POC Glucose (mg/dL) (70-110) mg/dL 05/08/25 Range/Units 06:28 WBC (4.50-10.00) 10*3/uL RBC (4.40-5.60) 10*6/uL Hgb (13.0-17.0) g/dL Hct (39.6-50.0) % MCH (27.0-32.0) pg MCHC (32.0-37.0) g/dL Plt Count (140-440) 10*3/uL Immature Gran # (0.00-0.04) 10*3/uL Neutrophils # (1.80-7.70) 10*3/uL Lymphocytes # (0.90-5.00) 10*3/uL Eosinophils # (0.04-0.35) 10*3/uL ABG pH (7.35-7.45) ABG HCO3 (21-25) mmol/L ABG O2 Saturation (94-97) % Hemoglobin (13.0-17.5) gm/dL Chloride (98-107) mmol/L Carbon Dioxide (22-30) mmol/L BUN (9-20) mg/dL Creatinine (0.66-1.25) mg/dL Glucose (74-99) mg/dL POC Glucose (mg/dL) 177 H (70-110) mg/dL Microbiology - Last 24 Hours (Table) 05/04/25 03:25 Gram Stain - Final Sputum Sputum Culture - Final 05/05/25 11:30 Gram Stain - Final Sputum Sputum Culture - Final Assessment and Plan Assessment: Acute hypoxemic and hypercapnic respiratory failure, intubated by EMS in the field, and admitted with a diagnosis of either heart failure, and/or pneumonia. Rule out anoxic brain injury. Suspect bilateral pneumonia/sepsis. Possible exacerbation of congestive heart failure. Acute leukocytosis. Acute kidney injury versus chronic kidney disease. 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 Essential thrombocythemia, reportedly on cytoreducative therapy. History of lung cancer with previous lobectomy at outside facility. Current tobacco smoker. Plan: Plan dated May 05, 2025. The patient is seen today in room 251. The patient remains on the mechanical ventilator. He was intubated in the field by EMS. Blood gases show PO2 of 118, PCO2 of 38, pH of 7.30. His blood gases are consistent with a mild metabolic acidosis. The patient sedated with propofol at 50 mcg/kg/min. He is receiving norepinephrine at 3.7 mcg/min, saline at 75 cc an hour. The patient continues on azithromycin and Rocephin. The patient will have a daily interruption of sedation. He may or may not benefit from a spontaneous breathing trial. The saline IV is converted to lactated Ringer's at the same rate. All labs, x-rays, and medications are reviewed. We will continue to follow with the patient, make recommendations. Prognosis is guarded. Dictation was produced using [email or web address] software. Please excuse any grammatical, word or spelling errors. Plan dated May 06, 2025. The patient is seen today in room 251. The patient remains on mechanical ventilation. He was intubated in the field by EMS. He was admitted with a diagnosis of respiratory failure, multifactorial, part related to possible pneumonia, and also CHF. The patient's procalcitonin level was elevated at 1.82. He continues on azithromycin and Rocephin. Labs, x-rays, and medications are reviewed. Norepinephrine has been weaned off. He continues on propofol for sedation at 50 mcg/kg/min. The patient is getting lactated Ringer's at 75 cc an hour. We add Solu-Medrol because he is bronchospastic, and his airways resis tance is elevated. We also had some Dilaudid for pain control. We will continue to follow make recommendations along the way. Overall prognosis remains guarded. Dictation was produced using [employer] software. Please excuse any grammatical, word or spelling errors. Plan dated May 07, 2025. The patient is seen today in room 251. Blood gases are reasonable. The patient continues on propofol at 50 mcg/kg/min. Did not tolerate the daily interruption of sedation yesterday. The patient will get Reglan 10 mg every 6 because of high residuals. After 2 doses, we will start increasing the tube feedings. The patient continues on azithromycin and Rocephin for right lower lobe pneumonia. Microbiologic sampling is thus far negative. The patient's peak lower pressures 29, with a plateau pressure of 13. Flow rate on the ventilator 60 L/min. Airways resistance is elevated at 16 cm water per liter per second. Labs, x- rays, and medications are reviewed. We will continue to follow make recommendations along the way. Overall prognosis remains guarded. We will attempt another daily interruption of sedation today. The patient candidate for weaning. Dictation was produced using [email or web address] software. Please excuse any grammatical, word or spelling errors. Plan dated May 08, 2025. The patient's procalcitonin level was normal. Antibiotics were discontinued. The patient was off of propofol, but was poorly responsive, so we will have neurology take a peek at the patient, and we will also go ahead and order an EEG. The patient is getting lactated Ringer's at 75 cc an hour, and vital high- protein at 40, with a goal of 45 cc an hour. Blood gases show pO2 of 102, pCO2 of 40, pH is 7.28. We will continue to follow the patient, make recommendations. Labs, x-rays, and all medications have been reviewed. Prognosis is guarded. Dictation was produced using [email or web address] software. Please excuse any grammatical, word or spelling errors. Time with Patient: Greater than 30
[2025-05-08 12:00] LABS: Glucose,Whole Blood 172 mg/dL (70-110)
[2025-05-08] MEDS ORDERED: DEXTROSE 50% SYRINGE 50 ML IVP PRN ×2 (12:35)
[2025-05-08] MEDS: INSULIN LISPRO (HumaLOG) 100 UNIT/ML 10 mL VL SQ SCH ×2 (13:40→17:37)
[2025-05-08 17:37] LABS: Glucose,Whole Blood 141 mg/dL (70-110)
[2025-05-09 00:46] LABS: Glucose,Whole Blood 163 mg/dL (70-110)
--- NOTE | 2025-05-09 01:18 | EEG ---
DATE OF SERVICE: 05/08/2025 ELECTROENCEPHALOGRAM REPORT PREAMBLE: This is a 79-year-old male, who has history of acute respiratory failure, requiring intubation and mechanical ventilation at the scene. The patient currently is on ventilator and on propofol 50 mcg/kg per minute. EEG FINDINGS: This is a 21-channel digital EEG recorded with video component, utilizing 10/20 international system with referential and bipolar montages. The background consists of moderate amplitude 4-6 hertz with moderate amplitude theta activity intermixed with some delta slowing, and some periods of generalized suppression lasting for a few seconds. Background does not seem to be reactive to eye opening or closing. Photic driving response was not seen. Different stages of sleep were not seen. No focal or generalized epileptiform activity was seen. IMPRESSION: This is an abnormal EEG due to background slowing of [id number] degree, along with some periods of generalized suppression. This is suggestive of generalized cerebral dysfunction as can be seen with toxic metabolic encephalopathy or due to diffuse structural brain abnormality or medication effect as well. Clinical correlation is recommended. Followup EEG recommended, as clinically indicated. No focal or generalized epileptiform activity was seen. MMODL / IJN: [id number] / MTDD
[2025-05-09 05:01] LABS: Glucose,Whole Blood 163 mg/dL (70-110)
[2025-05-09 05:29] LABS: Basophils # (A) 0.01 10*3/uL (0.00-0.10); Basophils % (A) 0.1 %; Eosinophils # (A) 0.00 10*3/uL (0.04-0.35); Eosinophils % (A) 0.0 %; HCT 24.7 % (39.6-50.0); HGB 7.4 g/dL (13.0-17.0); Lymphocytes # (A) 0.24 10*3/uL (0.90-5.00); Lymphocytes % (A) 1.6 %; MCH 26.4 pg (27.0-32.0); MCHC 30.0 g/dL (32.0-37.0); MCV 88.2 fL (80.0-97.0); Monocytes # (A) 0.21 10*3/uL (0.20-1.00); Monocytes % (A) 1.4 %; Neutrophils # (A) 14.39 10*3/uL (1.80-7.70); Neutrophils % (A) 94.8 %; Platelet Count 833 10*3/uL (140-440); RBC 2.80 10*6/uL (4.40-5.60); RDW 22.7 % (11.5-14.5); WBC 15.17 10*3/uL (4.50-10.00)
[2025-05-09 05:46] LABS: African American GFR (CKD) 41 (>60 ml/min/1.73 sqM); Anion Gap 11 mmol/L; Blood Urea Nitrogen 45 mg/dL (9-20); Calcium 8.7 mg/dL (8.4-10.2); Carbon Dioxide 16 mmol/L (22-30); Chloride 113 mmol/L (98-107); Glucose 148 mg/dL (74-99); Non-African American GFR(CKD) 36 (>60 ml/min/1.73 sqM); Potassium 5.4 mmol/L (3.5-5.1); Sodium 140 mmol/L (137-145)
[2025-05-09 05:51] LABS: Allen Test Performed? No
[2025-05-09 05:52] LABS: ABG HCO3 19 mmol/L (21-25); ABG PCO2 39 mmHg (35-45); ABG PH 7.31 (7.35-7.45); ABG PO2 90 mmHg (83-108); ABG TCO2 21 mmol/L (19-24)
--- NOTE | 2025-05-09 06:50 | P.CNNES ---
History of Present Illness Consult date: 05/08/25 Requesting physician: Walker Buitrago Reason for Consult: not appropriate during sedation holiday History of Present Illness: Patient is a 79-year-old male came to the hospital by ambulance on 05/03/2025 for respiratory distress. When EMS arrived patient was in respiratory distress, struggling to breathe with pulse oximeter of 60% and respiratory rate 30-40. Patient was spilled diaphoretic. Patient developed respiratory failure became cyanotic and developed sinus bradycardia in the 50s. Patient became unr esponsive with a mild gag reflex. Patient was intubated at the scene. His vitals at the scene was blood pressure 1:15/66, pulse rate 80 respiration 40 saturation 84%. Patient was diagnosed with acute hypoxemic and hypercapnic respiratory failure, suspected bilateral pneumonia/sepsis and possible exacerbation of CHF. There was also acute kidney injury. Patient has history of gave syndrome and requires repeated transfusions. Patient has received 4 doses of antibiotics, and he has been sedated with propofol. Apparently with sedation holiday, for one hour, patient becomes awake, looks around, but does not make any connection and does not follow directions. This prompted neurology consultation. Patient has had computed tomography scan of head done on 05/04/2025 which revealed no acute process. I personally reviewed CT and agree with the findings. Patient's most recent chest x-ray from today revealed small right pleural effusion with bibasilar opacities, which may represent atelectasis versus infiltrate. Patient currently not on any antibiotics. Patient's blood tests shows WBC 15.53, hemoglobin 7.0, platelets 775. ABG with pH 7.28, pCO2 40, saturation 98%. Electrolytes are normal, BUN 37 and creatinine 1.62. Patient's family members were present at this time. They mentioned that patient walks without any assistive device. Mentation is at baseline normal. 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 From Oct 2023 to present 43 PC transfusions and 10 Iron infusions. Bone marrow biopsy negative. Colonoscopy. diarrhea, possible copd/chf. Lung cancer with Rt upper lobe resection 2021, Prostate cancer and surgery 2009, anemia History of Any Multi-Drug Resistant Organisms: None Reported Past Surgical History: Ablation Additional Past Surgical History / Comment(s): EGD ablations Past Anesthesia/Blood Transfusion Reactions: No Reported Reaction Past Psychological History: Anxiety Smoking Status: Current every day smoker Past Alcohol Use History: None Reported Past Drug Use History: None Reported Medications and Allergies Home Medications Medication Instructions Recorded Confirmed Type Anagrelide HCl [Agrylin] 1 mg PO BID 05/04/25 05/04/25 History Escitalopram [Lexapro] 20 mg PO HS 05/04/25 05/04/25 History Esomeprazole Magnesium 20 mg PO BID 05/04/25 05/04/25 History Metoprolol Succinate (ER) [Toprol 100 mg PO HS 05/04/25 05/04/25 History Xl] Multivitamin [Multivitamins Adult 1 tab PO DAILY 05/04/25 05/04/25 History Gummies] Simvastatin 40 mg PO HS 05/04/25 05/04/25 History amLODIPine [Norvasc] 5 mg PO HS 05/04/25 05/04/25 History Allergies Allergy/AdvReac Type Severity Reaction Status Date / Time lisinopril Allergy Swelling Verified 05/04/25 12:19 Physical Examination - Vital Signs Vital Signs: Vital Signs Temp Pulse Resp BP Pulse Ox FiO2 05/08/25 13:30 93 20 108/49 97 05/08/25 13:00 89 20 96 30 05/08/25 12:30 93 20 96 05/08/25 12:15 96 20 120/58 96 05/08/25 12:00 104 H 20 96 05/08/25 11:45 105 H 20 97 05/08/25 11:30 101 H 20 95 05/08/25 11:15 98 20 96 05/08/25 11:10 30 05/08/25 11:00 99 20 115/56 96 30 05/08/25 10:45 100 20 95 05/08/25 10:30 100 20 97 05/08/25 10:15 102 H 20 115/56 96 05/08/25 10:00 102 H 20 96 30 05/08/25 09:45 104 H 20 96 05/08/25 09:30 102 H 20 97 05/08/25 09:15 118 H 21 158/93 96 05/08/25 09:00 111 H 28 H 96 05/08/25 08:45 103 H 26 H 97 05/08/25 08:37 102 H 05/08/25 08:30 99 21 96 05/08/25 08:26 100 05/08/25 08:15 97.8 F 95 20 98 05/08/25 08:14 30 05/08/25 08:13 95 05/08/25 08:00 90 20 114/73 98 05/08/25 07:30 94 20 114/73 96 05/08/25 07:00 105 H 20 123/59 05/08/25 06:30 101 H 20 123/59 98 05/08/25 06:00 102 H 20 107/51 98 05/08/25 05:30 101 H 20 107/51 97 05/08/25 05:00 93 20 114/55 97 05/08/25 04:30 96 20 114/55 97 05/08/25 04:11 95 05/08/25 04:05 30 05/08/25 04:01 100 05/08/25 04:00 98.5 F 92 20 104/48 95 30 05/08/25 03:30 93 20 104/48 96 05/08/25 03:00 94 20 113/52 97 05/08/25 02:30 98 0 L 113/52 96 05/08/25 02:00 100 20 96 05/08/25 01:30 101 H 6 L 114/56 98 05/08/25 01:00 97 20 97/47 94 L 05/08/25 00:30 92 2 L 102/47 95 05/08/25 00:28 94 05/08/25 00:19 30 05/08/25 00:18 96 05/08/25 00:00 94 20 102/48 94 L 30 05/07/25 23:30 100 20 102/48 95 05/07/25 23:00 98.4 F 100 20 132/62 96 30 05/07/25 22:30 109 H 20 132/62 99 05/07/25 22:00 96 20 107/56 95 05/07/25 21:41 93 20 107/56 96 05/07/25 21:30 93 20 107/56 97 05/07/25 21:00 89 20 120/63 96 05/07/25 20:30 90 20 120/63 96 05/07/25 20:19 95 05/07/25 20:07 95 05/07/25 20:06 95 05/07/25 20:00 97.8 F 93 20 110/55 98 30 05/07/25 19:59 30 05/07/25 19:56 93 30 05/07/25 19:30 86 20 110/55 96 05/07/25 19:00 86 20 96 05/07/25 18:30 87 20 96 05/07/25 18:00 87 20 97 05/07/25 17:30 87 20 102/50 96 05/07/25 17:00 88 20 95 05/07/25 16:30 91 20 107/50 95 05/07/25 16:00 97.4 F L 94 20 95 30 05/07/25 15:33 101 H 05/07/25 15:30 100 20 96 Intake and Output 05/08/25 05/08/25 05/08/25 06:59 14:59 22:59 Intake Total 1819.867 1378.725 Output Total 240 255 Balance 934.408 828.725 Intake: IV 728 637 0.9 KVO 80 70 Arterial Line and CVP 48 42 Line Lactated Ringers 1,000 ml 600 525 @ 75 mls/hr IV .[id number] WHIT Rx#:[id number] Intake, IV Titration 166.408 131.725 Amount propofoL 1,000 mg In 166.408 131.725 Empty Bag 1 bag @ 15 MCG/ KG/MIN 6.532 mls/hr IV . [id number] WHIT Rx#:[id number] Tube Feeding 220 285 Other 60 30 Output: Urine 240 255 Other: Voiding Method Indwelling Catheter Indwelling Catheter Weight 87.8 kg 87.8 kg ABP, PAP, CO, CI - Last 8 Hours Arterial Blood Pressure 120/44 Arterial Blood Pressure 103/41 Arterial Blood Pressure 99/40 Arterial Blood Pressure 101/40 Arterial Blood Pressure 127/48 Arterial Blood Pressure 141/48 Arterial Blood Pressure 132/47 Arterial Blood Pressure 117/44 Arterial Blood Pressure 117/39 Arterial Blood Pressure 120/44 Arterial Blood Pressure 110/42 Arterial Blood Pressure 116/43 Arterial Blood Pressure 115/44 Arterial Blood Pressure 127/46 Arterial Blood Pressure 132/48 Arterial Blood Pressure 203/73 Arterial Blood Pressure 179/62 Arterial Blood Pressure 152/52 Arterial Blood Pressure 143/55 Arterial Blood Pressure 129/50 Arterial Blood Pressure 105/45 Arterial Blood Pressure 110/45 Patient is an elderly male, who is intubated, sedated on propofol 50 mcg/kg/min. He also just received Dilaudid 0.5 mg IV half an hour ago. Patient did open his eyes to calling his name, but his gaze was somewhat upwards, and appeared severely encephalopathic. He was turning his head [id number] and did make slightly eye contact, but did not follow directions. Appears severely encephalopathic, medicated. No obvious seizure-like activity was noted. On cranial nerve examination, pupils are equal, round and reacting to light, vis ual moseley cannot be assessed. Patient not clearly blinking to visual threat. Oculocephalics are inhibited. Patient is moving head [id number]. Patient has a weak gag and cough. Other cranial nerves could not be assessed. On muscle strength testing, patient is not following any directions. He is not withdrawing to painful similar, however he is on heavy-duty sedation with propofol 50 g/kg/min and has just received Dilaudid. Per nursing report, with sedation holiday, he does slightly withdraw all reacts with grimacing. Does not follow commands. Deep tendon reflexes are symmetric 2+ at the biceps, 1 at the brachioradialis, absent in the lower limbs, and plantars are upgoing bilaterally. Sensory to touch cannot be assessed. Cerebellar function cannot be assessed. Tone and bulk of muscles normal. Gait deferred.. On general examination, there is no carotid bruit or murmur, S1-S2 audible. Chest is clear on consultation. Abdomen is soft nontender. No organomegaly, bowel sounds present. Peripheral pulses are present. There is mild peripheral edema. Results - Laboratory Findings CBC and BMP: 05/09/25 05:00 05/09/25 05:00 Abnormal Lab Findings: Abnormal Labs 05/03/25 05/03/25 05/03/25 19:38 19:38 19:38 WBC 19.15 H RBC 3.40 L Hgb 9.2 L Hct 29.3 L MCH MCHC 31.4 L Plt Count 655 H Immature Gran # 0.15 H Neutrophils # 14.97 H Neutrophils # (Manual) Lymphocytes # Lymphocytes # (Manual) Monocytes # 1.10 H Monocytes # (Manual) Eosinophils # Eosinophils # (Manual) PT 13.5 H INR 1.3 H ABG pH ABG pCO2 ABG pO2 ABG HCO3 ABG O2 Saturation Hemoglobin Chloride Carbon Dioxide 20 L BUN 28 H Creatinine 1.88 H Glucose 256 H POC Glucose (mg/dL) Plasma Lactic Acid Tk Calcium Phosphorus Total Protein Albumin Procalcitonin 05/03/25 05/03/25 05/04/25 19:38 20:08 05:22 WBC RBC Hgb Hct MCH MCHC Plt Count Immature Gran # Neutrophils # Neutrophils # (Manual) Lymphocytes # Lymphocytes # (Manual) Monocytes # Monocytes # (Manual) Eosinophils # Eosinophils # (Manual) PT INR ABG pH 7.20 L 7.33 L ABG pCO2 57 H ABG pO2 315 H ABG HCO3 19 L ABG O2 Saturation >100.0 H 97.3 H Hemoglobin 8.6 L 7.8 L Chloride Carbon Dioxide BUN Creatinine Glucose POC Glucose (mg/dL) Plasma Lactic Acid Tk 2.2 H* Calcium Phosphorus Total Protein Albumin Procalcitonin 05/04/25 05/04/25 05/04/25 05:47 05:47 05:47 WBC 16.88 H RBC 2.87 L Hgb 7.6 L D Hct 24.7 L MCH 26.5 L MCHC 30.8 L Plt Count 508 H Immature Gran # 0.09 H Neutrophils # 14.05 H Neutrophils # (Manual) Lymphocytes # Lymphocytes # (Manual) Monocytes # 1.67 H Monocytes # (Manual) Eosinophils # Eosinophils # (Manual) PT INR ABG pH ABG pCO2 ABG pO2 ABG HCO3 ABG O2 Saturation Hemoglobin Chloride 114 H Carbon Dioxide 18 L BUN 27 H Creatinine 1.79 H Glucose POC Glucose (mg/dL) Plasma Lactic Acid Tk Calcium 8.2 L Phosphorus 4.9 H Total Protein 5.5 L Albumin 2.7 L Procalcitonin 1.82 H 05/04/25 05/04/25 05/05/25 19:05 23:43 03:47 WBC 12.56 H 14.75 H RBC 2.68 L 2.80 L Hgb 7.4 L 7.6 L Hct 23.0 L 24.2 L MCH MCHC 31.4 L Plt Count 511 H 570 H Immature Gran # 0.09 H Neutrophils # 11.51 H Neutrophils # (Manual) Lymphocytes # Lymphocytes # (Manual) Monocytes # 1.61 H Monocytes # (Manual) Eosinophils # Eosinophils # (Manual) PT INR ABG pH ABG pCO2 ABG pO2 ABG HCO3 ABG O2 Saturation Hemoglobin Chloride Carbon Dioxide BUN Creatinine Glucose POC Glucose (mg/dL) 122 H Plasma Lactic Acid Tk Calcium Phosphorus Total Protein Albumin Procalcitonin 05/05/25 05/05/25 05/05/25 03:47 04:59 05:28 WBC RBC Hgb Hct MCH MCHC Plt Count Immature Gran # Neutrophils # Neutrophils # (Manual) Lymphocytes # Lymphocytes # (Manual) Monocytes # Monocytes # (Manual) Eosinophils # Eosinophils # (Manual) PT INR ABG pH 7.30 L ABG pCO2 ABG pO2 118 H ABG HCO3 19 L ABG O2 Saturation 99.0 H Hemoglobin 7.5 L Chloride 111 H Carbon Dioxide 16 L BUN 27 H Creatinine 1.76 H Glucose 124 H POC Glucose (mg/dL) 135 H Plasma Lactic Acid Tk Calcium 8.1 L Phosphorus Total Protein Albumin Procalcitonin 05/05/25 05/06/25 05/06/25 11:17 00:27 04:30 WBC 12.90 H RBC 2.59 L Hgb 7.0 L Hct 22.8 L MCH MCHC 30.7 L Plt Count 563 H Immature Gran # 0.15 H Neutrophils # Neutrophils # (Manual) 9.29 H Lymphocytes # Lymphocytes # (Manual) 0.90 L Monocytes # Monocytes # (Manual) 1.16 H Eosinophils # Eosinophils # (Manual) 1.55 H PT INR ABG pH ABG pCO2 ABG pO2 ABG HCO3 ABG O2 Saturation Hemoglobin Chloride Carbon Dioxide BUN Creatinine Glucose POC Glucose (mg/dL) 120 H 116 H Plasma Lactic Acid Tk Calcium Phosphorus Total Protein Albumin Procalcitonin 05/06/25 05/06/25 05/06/25 04:30 05:10 06:03 WBC RBC Hgb Hct MCH MCHC Plt Count Immature Gran # Neutrophils # Neutrophils # (Manual) Lymphocytes # Lymphocytes # (Manual) Monocytes # Monocytes # (Manual) Eosinophils # Eosinophils # (Manual) PT INR ABG pH 7.30 L ABG pCO2 ABG pO2 ABG HCO3 19 L ABG O2 Saturation 98.0 H Hemoglobin 7.3 L Chloride 113 H Carbon Dioxide 17 L BUN 23 H Creatinine 1.52 H Glucose POC Glucose (mg/dL) 125 H Plasma Lactic Acid Tk Calcium Phosphorus Total Protein Albumin Procalcitonin 05/06/25 05/06/25 05/06/25 12:23 17:58 18:00 WBC 13.65 H RBC 2.71 L Hgb 7.3 L Hct 24.2 L MCH 26.9 L MCHC 30.2 L Plt Count 618 H Immature Gran # Neutrophils # Neutrophils # (Manual) Lymphocytes # Lymphocytes # (Manual) Monocytes # Monocytes # (Manual) Eosinophils # Eosinophils # (Manual) PT INR ABG pH ABG pCO2 ABG pO2 ABG HCO3 ABG O2 Saturation Hemoglobin Chloride Carbon Dioxide BUN Creatinine Glucose POC Glucose (mg/dL) 116 H 173 H Plasma Lactic Acid Tk Calcium Phosphorus Total Protein Albumin Procalcitonin 05/06/25 05/07/25 05/07/25 23:04 05:10 05:39 WBC RBC Hgb Hct MCH MCHC Plt Count Immature Gran # Neutrophils # Neutrophils # (Manual) Lymphocytes # Lymphocytes # (Manual) Monocytes # Monocytes # (Manual) Eosinophils # Eosinophils # (Manual) PT INR ABG pH 7.30 L ABG pCO2 ABG pO2 114 H ABG HCO3 20 L ABG O2 Saturation 98.8 H Hemoglobin 7.4 L Chloride Carbon Dioxide BUN Creatinine Glucose POC Glucose (mg/dL) 215 H 198 H Plasma Lactic Acid Tk Calcium Phosphorus Total Protein Albumin Procalcitonin 05/07/25 05/07/25 05/07/25 06:00 06:00 11:31 WBC 10.55 H RBC 2.68 L Hgb 7.1 L Hct 23.6 L MCH 26.5 L MCHC 30.1 L Plt Count 629 H Immature Gran # 0.07 H Neutrophils # 10.04 H Neutrophils # (Manual) Lymphocytes # 0.32 L Lymphocytes # (Manual) Monocytes # 0.10 L Monocytes # (Manual) Eosinophils # 0.00 L Eosinophils # (Manual) PT INR ABG pH ABG pCO2 ABG pO2 ABG HCO3 ABG O2 Saturation Hemoglobin Chloride 111 H Carbon Dioxide 18 L BUN 28 H Creatinine 1.59 H Glucose 162 H POC Glucose (mg/dL) 179 H Plasma Lactic Acid Tk Calcium Phosphorus Total Protein Albumin Procalcitonin 05/07/25 05/08/25 05/08/25 17:11 01:18 04:00 WBC 15.53 H RBC 2.62 L Hgb 7.0 L Hct 23.1 L MCH 26.7 L MCHC 30.3 L Plt Count 775 H Immature Gran # 0.10 H Neutrophils # 14.88 H Neutrophils # (Manual) Lymphocytes # 0.23 L Lymphocytes # (Manual) Monocytes # Monocytes # (Manual) Eosinophils # 0.00 L Eosinophils # (Manual) PT INR ABG pH ABG pCO2 ABG pO2 ABG HCO3 ABG O2 Saturation Hemoglobin Chloride Carbon Dioxide BUN Creatinine Glucose POC Glucose (mg/dL) 148 H 150 H Plasma Lactic Acid Tk Calcium Phosphorus Total Protein Albumin Procalcitonin 05/08/25 05/08/25 05/08/25 04:00 05:18 06:28 WBC RBC Hgb Hct MCH MCHC Plt Count Immature Gran # Neutrophils # Neutrophils # (Manual) Lymphocytes # Lymphocytes # (Manual) Monocytes # Monocytes # (Manual) Eosinophils # Eosinophils # (Manual) PT INR ABG pH 7.28 L ABG pCO2 ABG pO2 ABG HCO3 19 L ABG O2 Saturation 98.3 H Hemoglobin 7.4 L Chloride 111 H Carbon Dioxide 18 L BUN 37 H Creatinine 1.62 H Glucose 154 H POC Glucose (mg/dL) 177 H Plasma Lactic Acid Tk Calcium Phosphorus Total Protein Albumin Procalcitonin 05/08/25 11:58 WBC RBC Hgb Hct MCH MCHC Plt Count Immature Gran # Neutrophils # Neutrophils # (Manual) Lymphocytes # Lymphocytes # (Manual) Monocytes # Monocytes # (Manual) Eosinophils # Eosinophils # (Manual) PT INR ABG pH ABG pCO2 ABG pO2 ABG HCO3 ABG O2 Saturation Hemoglobin Chloride Carbon Dioxide BUN Creatinine Glucose POC Glucose (mg/dL) 172 H Plasma Lactic Acid Tk Calcium Phosphorus Total Protein Albumin Procalcitonin Assessment and Plan Assessment: * Altered mental status, likely due to toxic metabolic encephalopathy. Probably additional effect of propofol/other sedative medications. 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 This is suggestive of generalized cerebral dysfunction as can be seen with toxic metabolic encephalopathy or due to diffuse structural brain abnormality or medication effect as well. Clinical correlation is recommended. This EEG was performed while patient was on propofol 50 mcg/kg per minute. * Suspect his mentation is probably due to toxic metabolic encephalopathy and medication effect. Patient never had a cardiac arrest. Hopefully mentation will improve once sedation is decreased, and other medical conditions comes under control. * Other management as per IM, critical care and other specialties. * 2-D echo revealed LVH with preserved systolic function with EF 55%. No obvious regional wall motion abnormalities. Moderate MR, [id number] TR normal left atrial size. * Neurology will follow. * Discussed with nursing staff and family members. * Thank you for the consult.
--- NOTE | 2025-05-09 07:41 | XR ---
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 FINDINGS: ET tube is unchanged in position and is 4.4 cm above the yuni. There is an NG tube within the stomach. There is no change in the left central venous catheter tip. There is no change in the bibasilar opacities and small effusions. There is no pneumothorax. IMPRESSION: 1. Stable acute cardiopulmonary process involving the lung bases. 2. No change in the ET tube, NG tube and left central venous catheter. [facility], , 05/09/2025 7:39 AM
[2025-05-09 08:33] LABS: Rouleaux Present
[2025-05-09 08:35] LABS: Anisocytosis (M) Present
[2025-05-09] MEDS: amLODIPine 10 MG TAB PO SCH (09:19)
--- NOTE | 2025-05-09 09:49 | P.PN ---
Subjective Progress Note Date: 05/09/25 Principal diagnosis: Respiratory failure. Patient is a 79-year-old male, evaluated by EMS yesterday. Reportedly, having severe respiratory distress and apnea. He was intubated in the field. No previous records available to review from our facility. I did call the patient's , she states he was increasingly weak for the last several days. Associated shortness of breath with exertion. She thought it was related to his anemia. She was able to provide some past medical history including lung cancer and previous lung resection at [facility], essential thrombocythemia, and GAVE syndrome. Reportedly, requires frequent blood and iron infusions. He follows at [facility] for this. Reportedly, no history of COPD, asthma. No history of heart failure per the . His medication list is not available. Workup in the emergency department including a chest x-ray which shows endotracheal tube proximal, approximately 6 cm from the yuni. Orogastric tube coursing into the stomach. Patchy bibasilar infiltrates and small effusion on the right. Left costophrenic angle was excluded from the image. CBC including a WBC count of 19.15, hemoglobin 9.2, platelets 655. CMP included sodium 142, potassium 4.8, chloride 107, serum bicarb 20, BUN 28, creatinine 1.88, glucose 256. Lactic 2.6 and down to 1.6. EKG: Sinus tachycardia, rate 104 bpm, no acute ischemic changes. Troponin less than 0.012. NT proBNP significantly elevated at 12,100. Patient currently being evaluated in the emergency department, trauma bay 2. He is intubated to the mechanical ventilator. Previous ABGs including a PaO2 of 315, pCO2 57, pH of 7.2. Previous ventilator settings were assist-control, rate 16, tidal volume 450, FiO2 100%, PEEP of 5. Since then, his rate has been increased to 20 and his tidal volume dropped to 50%. The Peak pressure averaging 38 and static airway pressure measured at 17. His endotracheal tube is a size 7. There are thick tenacious white secretions coming from the endotracheal tube. Sputum sample to be collected. Currently, patient is synchronous with the mechanical ventilator. Sedated on propofol which is infusing at 45 mcg/kg/min. He was previously fluid resuscitated with a total of 2.5 L crystalloid fluid and LR continues at 150 mL/h. Blood pressure is normotensive. Not requiring any vasopressors. An indwelling urinary catheter was placed and there is small amount of concentrated yellow urine in the collection bag. Has remained afebrile. Previously started on empiric antibiotics in form azithromycin and Rocephin in the ED. Progress note dated May 05, 2025. This is a 79-year-old gentleman who was seen by my nurse practitioner yesterday. The patient came into the hospital with respiratory failure, thought to be secondary to pneumonia. The patient remains on volume assist-control, rate 20, tidal line 450, FiO2 40%, PEEP of 5. Blood gases this morning show pO2 118, pCO2 38, pH is 7.30. Both blood gases are consistent with mild metabolic acidosis. The patient is getting saline at 75 cc an hour, propofol at 50 mcg/kg/min, and norepinephrine at 3.7 mcg/min. The patient continues on azithromycin and Rocephin. We will attempt a daily interruption of sedation today, plus or minus a spontaneous breathing trial. The patient's saline IV, will be converted to lactated Ringer's at 75 cc an hour. Current laboratory data includes a white count of 14.8, hemoglobin 7.6, hematocrit 24.2, and a platelet count of 570,000. Sodium 141, potassium 4.2, chloride 111, CO2 16, anion gap 14, glucose 120, BUN and creatinine were 27 and 1.76. Calcium 8.1. Blood and sputum sampling is thus far negative. X-ray shows small right-sided pleural effusion, with some bibasilar patchy airspace opacities, concerning for possible pneumonia. Progress note dated May 06, 2025. 79-year-old male seen in the intensive care unit. The patient was admitted with respiratory failure, and pneumonia. He remains on mechanical ventilation. He is on volume assist-control, rate 20, tidal volume 450, FiO2 40%, PEEP of 5. Blood gases show PO297, DHL625, pH is 7.30. The blood gas is consistent with a mild metabolic acidosis. He is on propofol at 50 mcg/kg/min, norepinephrine has been weaned off. He is on lactated Ringer's at 75 cc an hour, and saline at KVO. He is receiving vital high-protein at 40, with a goal of 45 cc an hour. He continues on azithromycin and Rocephin empirically. Will add some Solu- Medrol to his regimen. We also had some Dilaudid for pain control. White count 12.9, hemoglobin 7, hematocrit 22.8, platelet count 563,000. Sodium 142, potassium 4.1, chlorides 113, CO2 17, anion gap 12, BUN 23, creatinine 1.52. Glucose is 125. Calcium is 8.4. Sputum and blood sampling has been negative thus far. Chest x-ray shows small right pleural effusion with bibasilar patchy airspace opacities. There is evidence of pulmonary vascular congestion. Progress note dated May 07, 2025. 79-year-old male seen in the intensive care unit, room 251. The patient has a history of respiratory failure, and pneumonia, he remains on mechanical ventilator. Current vent settings include volume assist-control, rate 20, tidal volume 450, FiO2 40%, PEEP of 5. Arterial blood gases show PO2 114, PCO2 of 41, pH is 7.30. The patient is getting lactated Ringer's at 75 cc an hour, propofol at 50 mcg/kg/min. The patient is also getting saline at 10 cc an hour, and vital high-protein at 10 cc an hour. Residuals are high, so we added Reglan 10 mg every 6. He continues on azithromycin and Rocephin, and microbiologic nisha pling, thus far is negative. In addition, his peak airway pressures 29, with a plateau pressure of 13. His airways resistance is 13 cm water per liter per second. We will attempt a daily interruption of sedation. White count was 10.6, hemoglobin 7.1, hematocrit 23.6, platelet count 629,000. Sodium 141, potassium 4.5, chlorides 111, CO2 18, anion gap 12, BUN 28, creatinine 1.59. These electrolyte profile is consistent with a nonanion gap metabolic acidosis. Glucose is 162. Calcium is 8.8. Chest x-ray is largely unchanged, with small right-sided pleural effusion, and right basilar infiltrate. Progress note dated May 08, 2025. 79-year-old male seen today in room 251. The patient has done poorly with his daily interruptions of sedation. He is on volume assist-control, rate 20, tidal volume 450, FiO2 30%, PEEP of 5. Blood gases show PO2 102, pCO2 40, pH is 7.28. The patient is getting LR at 75 cc an hour, propofol is currently off, saline at 10 cc an hour, and vital high-protein at 40, with a goal of 45 cc an hour. Because of his agitated state, and his poor response, the patient will have an EEG, and a neurology consultation. He is currently not on any antibiotics. W bay count is 15.5, hemoglobin 7, hematocrit 23.1, platelet count 775,000. Sodium 139, potassium 4.9, chlorides 111, CO2 is 18, anion gap 10, BUN 37, creatinine 1.62. Glucose of 177. Calcium 8.8. Magnesium 2.2. Blood and sputum analysis is negative. Chest x-ray shows a small right-sided pleural effusion, and some mild bibasilar opacities. Progress note dated May 09, 2025. 79-year-old male seen today in room 251. He remains on the mechanical ventilator. He is on volume assist-control, rate 20, tidal volume 450, FiO2 30%, PEEP of 5. Blood gases show pO2 of 90, pCO2 of 39, pH is 7.31. The patient is getting lactated Ringer's at 75 cc an hour, propofol at 50 mcg/kg/min, vital high-protein at goal, which is 35 cc an hour. We asked neurology to see the patient yesterday. An EEG showed diffuse slowing consistent with metabolic/toxic encephalopathy. We also add some amlodipine to his regimen, for blood pressure control, at 10 mg. The patient may benefit from tracheostomy and PEG tube, if he does not improve neurologically. Will see how things go over the next few days. White count is 15.2, hemoglobin 7.4, hematocrit 24.7, platelet count 833,000. Sodium 140, potassium 5.4, chlorides 113, CO2 16, anion gap 11, BUN 45, creatinine 1.79. Glucose is 163. Calcium is 8.7. Microbiology is thus far negative. Chest x-ray is largely unchanged. Objective - Vital Signs Vital signs: Vital Signs Temp 97.8 F 05/09/25 08:00 Pulse 85 05/09/25 09:00 Resp 20 05/09/25 09:00 BP 114/53 05/09/25 06:00 Pulse Ox 97 05/09/25 09:00 FiO2 30 05/09/25 08:00 Intake & Output 05/08/25 05/09/25 05/09/25 18:59 06:59 18:59 Intake Total 2523.849 9308.680 438 Output Total 375 390 115 Balance 4799.544 5726.680 323 Weight 87.8 kg 90.7 kg Intake: IV 1001 1092 273 0.9 KVO 110 120 30 Arterial Line and CVP 66 72 18 Line Lactated Ringers 1,000 ml 825 900 225 @ 75 mls/hr IV .[id number] WHIT Rx#:[id number] Intake, IV Titration 195.955 241.680 Amount propofoL 1,000 mg In 195.955 241.680 Empty Bag 1 bag @ 15 MCG/ KG/MIN 6.532 mls/hr IV . [id number] WHIT Rx#:[id number] Tube Feeding 465 540 135 Other 33 120 30 Output: Urine 375 390 115 Other: Voiding Method Indwelling Catheter Indwelling Catheter Indwelling Catheter ABP, PAP, CO, CI - Last Documented Arterial Blood Pressure 170/59 - Exam No acute distress, patient is sedated, with an orally placed endotracheal tube, and NG tube noted. HEENT examination is grossly unremarkable. Mucous membranes are moist. No oral lesions. Neck supple. Full range of motion. No adenopathy thyromegaly or neck vein distention. Cardiovascular examination reveals regular rhythm rate. S1-S2 normal. No S3 or S4. No discernible murmur noted. Lungs reveal scattered bilateral expiratory rhonchi. No wheezes. No crackles. Breath sounds are equal bilaterally. Abdomen soft bowel sounds are heard. No masses or tenderness. Extremities are intact. No cyanosis clubbing or edema. Skin is without rash or lesion. Neurologic examination reveals a poorly responsive patient, who was off of all sedation. - Labs CBC & Chem 7: 05/09/25 05:00 05/09/25 05:00 Labs: Abnormal Lab Results - Last 24 Hours (Table) 05/08/25 05/08/25 05/09/25 Range/Units 11:58 17:36 00:44 WBC (4.50-10.00) 10*3/uL RBC (4.40-5.60) 10*6/uL Hgb (13.0-17.0) g/dL Hct (39.6-50.0) % MCH (27.0-32.0) pg MCHC (32.0-37.0) g/dL Plt Count (140-440) 10*3/uL Immature Gran # (0.00-0.04) 10*3/uL Neutrophils # (1.80-7.70) 10*3/uL Lymphocytes # (0.90-5.00) 10*3/uL Eosinophils # (0.04-0.35) 10*3/uL ABG pH (7.35-7.45) ABG HCO3 (21-25) mmol/L Potassium (3.5-5.1) mmol/L Chloride (98-107) mmol/L Carbon Dioxide (22-30) mmol/L BUN (9-20) mg/dL Creatinine (0.66-1.25) mg/dL Glucose (74-99) mg/dL POC Glucose (mg/dL) 172 H 141 H 163 H (70-110) mg/dL 05/09/25 05/09/25 05/09/25 Range/Units 05:00 05:00 05:00 WBC 15.17 H (4.50-10.00) 10*3/uL RBC 2.80 L (4.40-5.60) 10*6/uL Hgb 7.4 L (13.0-17.0) g/dL Hct 24.7 L (39.6-50.0) % MCH 26.4 L (27.0-32.0) pg MCHC 30.0 L (32.0-37.0) g/dL Plt Count 833 H (140-440) 10*3/uL Immature Gran # 0.32 H (0.00-0.04) 10*3/uL Neutrophils # 14.39 H (1.80-7.70) 10*3/uL Lymphocytes # 0.24 L (0.90-5.00) 10*3/uL Eosinophils # 0.00 L (0.04-0.35) 10*3/uL ABG pH (7.35-7.45) ABG HCO3 (21-25) mmol/L Potassium 5.4 H (3.5-5.1) mmol/L Chloride 113 H (98-107) mmol/L Carbon Dioxide 16 L (22-30) mmol/L BUN 45 H (9-20) mg/dL Creatinine 1.79 H (0.66-1.25) mg/dL Glucose 148 H (74-99) mg/dL POC Glucose (mg/dL) 163 H (70-110) mg/dL 05/09/25 Range/Units 05:18 WBC (4.50-10.00) 10*3/uL RBC (4.40-5.60) 10*6/uL Hgb (13.0-17.0) g/dL Hct (39.6-50.0) % MCH (27.0-32.0) pg MCHC (32.0-37.0) g/dL Plt Count (140-440) 10*3/uL Immature Gran # (0.00-0.04) 10*3/uL Neutrophils # (1.80-7.70) 10*3/uL Lymphocytes # (0.90-5.00) 10*3/uL Eosinophils # (0.04-0.35) 10*3/uL ABG pH 7.31 L (7.35-7.45) ABG HCO3 19 L (21-25) mmol/L Potassium (3.5-5.1) mmol/L Chloride (98-107) mmol/L Carbon Dioxide (22-30) mmol/L BUN (9-20) mg/dL Creatinine (0.66-1.25) mg/dL Glucose (74-99) mg/dL POC Glucose (mg/dL) (70-110) mg/dL Microbiology - Last 24 Hours (Table) 05/03/25 20:30 Blood Culture - Final Blood Assessment and Plan Assessment: Acute hypoxemic and hypercapnic respiratory failure, intubated by EMS in the field, and admitted with a diagnosis of either heart failure, and/or pneumonia. Rule out anoxic brain injury. Suspect bilateral pneumonia/sepsis. Possible exacerbation of congestive heart failure. Nonanion gap metabolic acidosis, secondary to renal failure. Acute leukocytosis. Acute kidney injury versus chronic kidney disease. 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 Essential thrombocythemia, reportedly on cytoreducative therapy. History of lung cancer with previous lobectomy at outside facility. Current tobacco smoker. Plan: Plan dated May 05, 2025. The patient is seen today in room 251. The patient remains on the mechanical ventilator. He was intubated in the field by EMS. Blood gases show PO2 of 118, PCO2 of 38, pH of 7.30. His blood gases are consistent with a mild metabolic acidosis. The patient sedated with propofol at 50 mcg/kg/min. He is receiving norepinephrine at 3.7 mcg/min, saline at 75 cc an hour. The patient continues on azithromycin and Rocephin. The patient will have a daily interruption of sedation. He may or may not benefit from a spontaneous breathing trial. The sa line IV is converted to lactated Ringer's at the same rate. All labs, x-rays, and medications are reviewed. We will continue to follow with the patient, make recommendations. Prognosis is guarded. Dictation was produced using [employer] software. Please excuse any grammatical, word or spelling errors. Plan dated May 06, 2025. The patient is seen today in room 251. The patient remains on mechanical ventilation. He was intubated in the field by EMS. He was admitted with a diagnosis of respiratory failure, multifactorial, part related to possible pneumonia, and also CHF. The patient's procalcitonin level was elevated at 1.82. He continues on azithromycin and Rocephin. Labs, x-rays, and medications are reviewed. Norepinephrine has been weaned off. He continues on propofol for sedation at 50 mcg/kg/min. The patient is getting lactated Ringer's at 75 cc an hour. We add Solu-Medrol because he is bronchospastic, and his airways resistance is elevated. We also had some Dilaudid for pain control. We will continue to follow make recommendations along the way. Overall prognosis remains guarded. Dictation was produced using [employer] software. Please excuse any grammatical, word or spelling errors. Plan dated May 07, 2025. The patient is seen today in room 251. Blood gases are reasonable. The patient continues on propofol at 50 mcg/kg/min. Did not tolerate the daily interruption of sedation yesterday. The patient will get Reglan 10 mg every 6 because of high residuals. After 2 doses, we will start increasing the tube feedings. The patient continues on azithromycin and Rocephin for right lower lobe pneumonia. Microbiologic sampling is thus far negative. The patient's peak lower pressures 29, with a plateau pressure of 13. Flow rate on the ventilator 60 L/min. Airways resistance is elevated at 16 cm water per liter per second. Labs, x- rays, and medications are reviewed. We will continue to follow make recommendations along the way. Overall prognosis remains guarded. We will attempt another daily interruption of sedation today. The patient candidate for weaning. Dictation was produced using [employer] software. Please excuse any grammatical, word or spelling errors. Plan dated May 08, 2025. The patient's procalcitonin level was normal. Antibiotics were discontinued. The patient was off of propofol, but was poorly responsive, so we will have neurology take a peek at the patient, and we will also go ahead and order an EEG. The patient is getting lactated Ringer's at 75 cc an hour, and vital high- protein at 40, with a goal of 45 cc an hour. Blood gases show pO2 of 102, pCO2 of 40, pH is 7.28. We will continue to follow the patient, make recommendations. Labs, x-rays, and all medications have been reviewed. Prognosis is guarded. Dictation was produced using [employer] software. Please excuse any grammatical, word or spelling errors. Plan dated May 09, 2025. The patient is seen today in room 251. The patient had an EEG done yesterday, showing diffuse slowing, consistent with toxic/metabolic/anoxic brain injury. The patient was seen by neurology. We appreciate their input. The patient continues on propofol at 50 mcg/kg/min. We will do a daily interruption of sedation. The patient is getting tube feedings at goal, i.e. vital high-protein at 35 cc an hour. PO2 was 90, PCO2 of 39, pH is 7.31. The patient does have a non-anion gap metabolic acidosis secondary to renal failure. We do add amlodipine 10 mg to his regimen, for better blood pressure control. We will continue to follow make recommendations were appropriate. All labs, x-rays, medications are reviewed. Prognosis is guarded. Dictation was produced using [employer] software. Please excuse any grammatical, word or spelling errors. Time with Patient: Greater than 30
--- NOTE | 2025-05-09 10:58 | P.PN ---
Subjective Progress Note Date: 05/09/25 Hospital course 79 year old M with PMH of Lung CA status post lobectomy, GAVE syndrome requiring routine blood transfusions, heavy smoker presents to the ED intubated by EMS for respiratory distress. reports exertional SOB for the past few weeks prior to arrival. In the ED he underwent extensive evaluation. BP 168/95, HR 105, T 97.5F, RR 19, 98% mechanically ventilated. Labs significant for WBC 19.15, RBC 3.4, Hg 9.2, Hct 29.3, Plt 655, PT 13.5, INR 1.3, bicarb 20, BUN 28, Cr 1.88, glu 256. Trop < 0.012. BNP 62584. Mag 2.2. Lactic acid 2.2-1.6. COVID, RSV, Flu neg. EKG sinus tachycardia. CXR patchy basilar infiltrates and small effusions. Brain CT no acute process. Patient is admitted to ICU for further management. Subjective Patient seen in the ICU. He remains intubated and sedated. 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 Patient started on regaln for high residuals. Acute toxic metabolic encephalopathy Plan sedation is weaned down patient is still not making purposeful neurological activity Patient had an EEG that was consistent with metabolic encephalopathy -> patient was on propofol drip. EEG Neurology following Will continue with sedation vacation trials. Normocytic anemia with thrombocytosis due to GAVE syndrome: Transfuse if Hg < 7. Continue Anagrelide 1 mg PO BID. Today hemoglobin is 7.4. Acute kidney injury: Possible component of CKD. Renal US no hydro. Creatinine today is stable at 1.79. Worsening Dyslipidemia: Simvastatin 40 mg PO QHS. Depression: Lexapro 20 mg PO QHS. Hypertension: Hold Metoprolol and Amlodipine due to hypotension. CODE STATUS: FULL CODE DVT Prophylaxis: Heparin SQ GI Prophylaxis: Protonix IV Designated medical POA if patient is not able to make medical decisions for themselves: . Poor prognosis Objective - Vital Signs Vital signs: Vital Signs Temp 97.8 F 05/09/25 08:00 Pulse 96 05/09/25 10:00 Resp 20 05/09/25 10:00 BP 114/53 05/09/25 06:00 Pulse Ox 98 05/09/25 10:00 FiO2 30 05/09/25 08:00 Intake & Output 05/08/25 05/09/25 05/09/25 18:59 06:59 18:59 Intake Total 3851.768 1951.680 634 Output Total 375 390 155 Balance 8898.239 3714.680 479 Weight 87.8 kg 90.7 kg Intake: IV 1001 1092 364 0.9 KVO 110 120 40 Arterial Line and CVP 66 72 24 Line Lactated Ringers 1,000 ml 825 900 300 @ 75 mls/hr IV .[id number] WHIT Rx#:[id number] Intake, IV Titration 195.955 241.680 Amount propofoL 1,000 mg In 195.955 241.680 Empty Bag 1 bag @ 15 MCG/ KG/MIN 6.532 mls/hr IV . [id number] WHIT Rx#:[id number] Oral 60 Tube Feeding 465 540 180 Other 33 120 30 Output: Urine 375 390 155 Other: Voiding Method Indwelling Catheter Indwelling Catheter Indwelling Catheter ABP, PAP, CO, CI - Last Documented Arterial Blood Pressure 182/60 - Labs CBC & Chem 7: 05/09/25 05:00 05/09/25 05:00 Labs: Abnormal Lab Results - Last 24 Hours (Table) 05/08/25 05/08/25 05/09/25 Range/Units 11:58 17:36 00:44 WBC (4.50-10.00) 10*3/uL RBC (4.40-5.60) 10*6/uL Hgb (13.0-17.0) g/dL Hct (39.6-50.0) % MCH (27.0-32.0) pg MCHC (32.0-37.0) g/dL Plt Count (140-440) 10*3/uL Immature Gran # (0.00-0.04) 10*3/uL Neutrophils # (1.80-7.70) 10*3/uL Lymphocytes # (0.90-5.00) 10*3/uL Eosinophils # (0.04-0.35) 10*3/uL ABG pH (7.35-7.45) ABG HCO3 (21-25) mmol/L Potassium (3.5-5.1) mmol/L Chloride (98-107) mmol/L Carbon Dioxide (22-30) mmol/L BUN (9-20) mg/dL Creatinine (0.66-1.25) mg/dL Glucose (74-99) mg/dL POC Glucose (mg/dL) 172 H 141 H 163 H (70-110) mg/dL 05/09/25 05/09/25 05/09/25 Range/Units 05:00 05:00 05:00 WBC 15.17 H (4.50-10.00) 10*3/uL RBC 2.80 L (4.40-5.60) 10*6/uL Hgb 7.4 L (13.0-17.0) g/dL Hct 24.7 L (39.6-50.0) % MCH 26.4 L (27.0-32.0) pg MCHC 30.0 L (32.0-37.0) g/dL Plt Count 833 H (140-440) 10*3/uL Immature Gran # 0.32 H (0.00-0.04) 10*3/uL Neutrophils # 14.39 H (1.80-7.70) 10*3/uL Lymphocytes # 0.24 L (0.90-5.00) 10*3/uL Eosinophils # 0.00 L (0.04-0.35) 10*3/uL ABG pH (7.35-7.45) ABG HCO3 (21-25) mmol/L Potassium 5.4 H (3.5-5.1) mmol/L Chloride 113 H (98-107) mmol/L Carbon Dioxide 16 L (22-30) mmol/L BUN 45 H (9-20) mg/dL Creatinine 1.79 H (0.66-1.25) mg/dL Glucose 148 H (74-99) mg/dL POC Glucose (mg/dL) 163 H (70-110) mg/dL 05/09/25 Range/Units 05:18 WBC (4.50-10.00) 10*3/uL RBC (4.40-5.60) 10*6/uL Hgb (13.0-17.0) g/dL Hct (39.6-50.0) % MCH (27.0-32.0) pg MCHC (32.0-37.0) g/dL Plt Count (140-440) 10*3/uL Immature Gran # (0.00-0.04) 10*3/uL Neutrophils # (1.80-7.70) 10*3/uL Lymphocytes # (0.90-5.00) 10*3/uL Eosinophils # (0.04-0.35) 10*3/uL ABG pH 7.31 L (7.35-7.45) ABG HCO3 19 L (21-25) mmol/L Potassium (3.5-5.1) mmol/L Chloride (98-107) mmol/L Carbon Dioxide (22-30) mmol/L BUN (9-20) mg/dL Creatinine (0.66-1.25) mg/dL Glucose (74-99) mg/dL POC Glucose (mg/dL) (70-110) mg/dL Microbiology - Last 24 Hours (Table) 05/03/25 20:30 Blood Culture - Final Blood
[2025-05-09 11:38] LABS: Glucose,Whole Blood 148 mg/dL (70-110)
[2025-05-09 12:42] LABS: Glucose,Whole Blood 173 mg/dL (70-110)
[2025-05-09] MEDS: DEXMEDETOMIDINE/0.9% NACL(PMX) 400 MCG in EMPTY BAG 1 BAG IV SCH (12:46)
[2025-05-09 17:26] LABS: Glucose,Whole Blood 150 mg/dL (70-110)
--- NOTE | 2025-05-09 17:42 | P.PN ---
Subjective Progress Note Date: 05/09/25 Patient was seen for follow-up. Patient's , and son were present by the bedside. Patient continues to be intubated on mechanical ventilation. Patient has been off propofol for last 15 to 20 minutes for my examination. Please refer to examination below. Objective - Vital Signs Vital signs: Vital Signs Temp 97.9 F 05/09/25 12:00 Pulse 86 05/09/25 12:00 Resp 20 05/09/25 12:00 BP 114/53 05/09/25 06:00 Pulse Ox 95 05/09/25 12:00 FiO2 30 05/09/25 12:00 Intake & Output 05/08/25 05/09/25 05/09/25 18:59 06:59 18:59 Intake Total 5645.681 5320.680 1043.766 Output Total 375 390 250 Balance 0342.587 6339.680 793.766 Weight 87.8 kg 90.7 kg Intake: IV 1001 1092 546 0.9 KVO 110 120 60 Arterial Line and CVP 66 72 36 Line Lactated Ringers 1,000 ml 825 900 450 @ 75 mls/hr IV .[id number] WHIT Rx#:[id number] Intake, IV Titration 195.955 241.680 107.766 Amount propofoL 1,000 mg In 195.955 241.680 107.766 Empty Bag 1 bag @ 15 MCG/ KG/MIN 6.532 mls/hr IV . [id number] WHIT Rx#:[id number] Oral 60 Tube Feeding 465 540 270 Other 33 120 60 Output: Urine 375 390 250 Other: Voiding Method Indwelling Catheter Indwelling Catheter Indwelling Catheter ABP, PAP, CO, CI - Last Documented Arterial Blood Pressure 150/46 - Exam Patient is very encephalopathic. His eyes are open quite widely, but he does not make any eye contact. Does not follow any directions. His pupils are equal, round and reacting to light. He is breathing over the ventilator. No obvious seizure-like activity noted. Patient is slightly withdrawing his arms and legs to noxious stimulus, equal bilaterally. He does not squeeze hands. Patient has bilateral Babinski. With holding sedation, patient became more restless, and his blood pressure starting going high as well as his pulse. He is already breathing rapid. Therefore he was put back on propofol 25 mcg/kg/min. - Labs CBC & Chem 7: 05/09/25 05:00 05/09/25 05:00 Labs: Abnormal Lab Results - Last 24 Hours (Table) 05/08/25 05/09/25 05/09/25 Range/Units 17:36 00:44 05:00 WBC 15.17 H (4.50-10.00) 10*3/uL RBC 2.80 L (4.40-5.60) 10*6/uL Hgb 7.4 L (13.0-17.0) g/dL Hct 24.7 L (39.6-50.0) % MCH 26.4 L (27.0-32.0) pg MCHC 30.0 L (32.0-37.0) g/dL Plt Count 833 H (140-440) 10*3/uL Immature Gran # 0.32 H (0.00-0.04) 10*3/uL Neutrophils # 14.39 H (1.80-7.70) 10*3/uL Lymphocytes # 0.24 L (0.90-5.00) 10*3/uL Eosinophils # 0.00 L (0.04-0.35) 10*3/uL ABG pH (7.35-7.45) ABG HCO3 (21-25) mmol/L Potassium (3.5-5.1) mmol/L Chloride (98-107) mmol/L Carbon Dioxide (22-30) mmol/L BUN (9-20) mg/dL Creatinine (0.66-1.25) mg/dL Glucose (74-99) mg/dL POC Glucose (mg/dL) 141 H 163 H (70-110) mg/dL 05/09/25 05/09/25 05/09/25 Range/Units 05:00 05:00 05:18 WBC (4.50-10.00) 10*3/uL RBC (4.40-5.60) 10*6/uL Hgb (13.0-17.0) g/dL Hct (39.6-50.0) % MCH (27.0-32.0) pg MCHC (32.0-37.0) g/dL Plt Count (140-440) 10*3/uL Immature Gran # (0.00-0.04) 10*3/uL Neutrophils # (1.80-7.70) 10*3/uL Lymphocytes # (0.90-5.00) 10*3/uL Eosinophils # (0.04-0.35) 10*3/uL ABG pH 7.31 L (7.35-7.45) ABG HCO3 19 L (21-25) mmol/L Potassium 5.4 H (3.5-5.1) mmol/L Chloride 113 H (98-107) mmol/L Carbon Dioxide 16 L (22-30) mmol/L BUN 45 H (9-20) mg/dL Creatinine 1.79 H (0.66-1.25) mg/dL Glucose 148 H (74-99) mg/dL POC Glucose (mg/dL) 163 H (70-110) mg/dL 05/09/25 Range/Units 11:36 WBC (4.50-10.00) 10*3/uL RBC (4.40-5.60) 10*6/uL Hgb (13.0-17.0) g/dL Hct (39.6-50.0) % MCH (27.0-32.0) pg MCHC (32.0-37.0) g/dL Plt Count (140-440) 10*3/uL Immature Gran # (0.00-0.04) 10*3/uL Neutrophils # (1.80-7.70) 10*3/uL Lymphocytes # (0.90-5.00) 10*3/uL Eosinophils # (0.04-0.35) 10*3/uL ABG pH (7.35-7.45) ABG HCO3 (21-25) mmol/L Potassium (3.5-5.1) mmol/L Chloride (98-107) mmol/L Carbon Dioxide (22-30) mmol/L BUN (9-20) mg/dL Creatinine (0.66-1.25) mg/dL Glucose (74-99) mg/dL POC Glucose (mg/dL) 148 H (70-110) mg/dL Microbiology - Last 24 Hours (Table) 05/03/25 20:30 Blood Culture - Final Blood Assessment and Plan Assessment: * Altered mental status, likely due to toxic metabolic encephalopathy. Probably additional effect of propofol/other sedative medications. 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 He appeared to be quite awake with eyes open more widely, but he does not make eye contact or follows directions. He probably still has quite metabolic encephalopathy and perhaps still effect of propofol. He was on propofol 50 mcg/kg/min prior to holding it on. * EEG was abnormal due to background slowing of moderate to severe degree, along with some periods of generalized suppression. This is suggestive of generalized cerebral dysfunction as can be seen with toxic metabolic ence phalopathy or due to diffuse structural brain abnormality or medication effect as well. Clinical correlation is recommended. This EEG was performed while patient was on propofol 50 mcg/kg per minute. * Suspect his mentation is probably due to toxic metabolic encephalopathy and medication effect. Patient never had a cardiac arrest. Hopefully mentation will improve once sedation is decreased, and other medical conditions comes under control. * Other management as per IM, critical care and other specialties. * 2-D echo revealed LVH with preserved systolic function with EF 55%. No obvious regional wall motion abnormalities. Moderate MR, [id number] TR normal left atrial size. * Repeat CT head, rule out any focal abnormalities. * Discussed with patient's family and nursing staff. May need a repeat EEG on Sunday, if mentation does not improve.
[2025-05-09 23:17] LABS: Glucose,Whole Blood 150 mg/dL (70-110)
[2025-05-10] MEDS: CLEVIDIPINE BUTYRATE 25 MG in EMPTY BAG 1 BAG IV SCH (00:35)
[2025-05-10 05:02] LABS: Glucose,Whole Blood 150 mg/dL (70-110)
[2025-05-10 05:15] LABS: HCT 26.5 % (39.6-50.0); HGB 8.2 g/dL (13.0-17.0); MCH 26.5 pg (27.0-32.0); MCHC 30.9 g/dL (32.0-37.0); MCV 85.5 fL (80.0-97.0); Platelet Count 925 10*3/uL (140-440); RBC 3.10 10*6/uL (4.40-5.60); RDW 22.5 % (11.5-14.5); WBC 13.25 10*3/uL (4.50-10.00)
[2025-05-10 05:25] LABS: African American GFR (CKD) 41 (>60 ml/min/1.73 sqM); Anion Gap 11 mmol/L; Blood Urea Nitrogen 54 mg/dL (9-20); Calcium 9.0 mg/dL (8.4-10.2); Carbon Dioxide 19 mmol/L (22-30); Chloride 110 mmol/L (98-107); Glucose 144 mg/dL (74-99); Non-African American GFR(CKD) 35 (>60 ml/min/1.73 sqM); Potassium 5.4 mmol/L (3.5-5.1); Sodium 140 mmol/L (137-145)
[2025-05-10 05:33] LABS: ABG HCO3 20 mmol/L (21-25); ABG PCO2 37 mmHg (35-45); ABG PH 7.35 (7.35-7.45); ABG PO2 72 mmHg (83-108); ABG TCO2 21 mmol/L (19-24)
[2025-05-10 06:00] LABS: Allen Test Performed? No
--- NOTE | 2025-05-10 06:51 | CT ---
EXAMINATION TYPE: CT brain wo con DATE OF EXAM: 05/10/2025 COMPARISON: 05/04/2025 CLINICAL INDICATION: Male, 79 years old with history of Mental Status Changes; PHH, Poor neuro evalua tion CT DLP: 77413.4 mGycm Automated exposure control for dose reduction was used. Findings: The ventricles, basal cisterns and sulci over convexities are mildly enlarged consistent with moderat e generalized atrophy. There is no mass effect or shift of midline structures. There is no acute intra or extra-axial hemorrhage. The posterior fossa including the brainstem, fourth ventricle and cerebellopontine angles appear philippe sly normal. The intraorbital contents appear normal symmetric There is a mucous retention cyst or polyp in the right maxillary sinus.. Calvarium is intact. IMPRESSION: 1. No acute bleed or mass effect. 2. Mild atrophy. 3. No interval change. [facility], Workstation: [email or web address], 05/10/2025 6:49 AM
--- NOTE | 2025-05-10 07:12 | XR ---
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 FINDINGS: The ET tube is 4.6 cm above the yuni. There is no change in the NG tube or left central venous cath eter tip position. Essentially no change in the bilateral pleural effusions and retrocardiac opacity. The heart size is normal and the pulmonary vasculature is not congested. There is no pneumothorax. IMPRESSION: 1. ET tube 4.6 cm above the yuni. No change in the central venous catheter or NG tube. 2. No change in the bilateral acute cardiopulmonary process. [facility], , 05/10/2025 7:09 AM
[2025-05-10 07:26] LABS: Anisocytosis (M) Present; Hypochromasia (M) Present; Lymphocytes # (M) 0.27 k/uL (1.0-4.8); Neutrophils # (M) 12.98 k/uL (1.3-7.7); Neutrophils % (M) 93 %; Poikilocytosis (M) Present; Polychromasia Present; Total Cells Counted 100
[2025-05-10] MEDS: FUROSEMIDE 10 MG/ML 4 ML VIAL IV STA (09:12)
--- NOTE | 2025-05-10 09:53 | P.PN ---
Subjective Progress Note Date: 05/10/25 Principal diagnosis: Respiratory failure. Patient is a 79-year-old male, evaluated by EMS yesterday. Reportedly, having severe respiratory distress and apnea. He was intubated in the field. No previous records available to review from our facility. I did call the patient's , she states he was increasingly weak for the last several days. Associated shortness of breath with exertion. She thought it was related to his anemia. She was able to provide some past medical history including lung cancer and previous lung resection at [facility], essential thrombocythemia, and GAVE syndrome. Reportedly, requires frequent blood and iron infusions. He follows at [facility] for this. Reportedly, no history of COPD, asthma. No history of heart failure per the . His medication list is not available. Workup in the emergency department including a chest x-ray which shows endotracheal tube proximal, approximately 6 cm from the yuni. Orogastric tube coursing into the stomach. Patchy bibasilar infiltrates and small effusion on the right. Left costophrenic angle was excluded from the image. CBC including a WBC count of 19.15, hemoglobin 9.2, platelets 655. CMP included sodium 142, potassium 4.8, chloride 107, serum bicarb 20, BUN 28, creatinine 1.88, glucose 256. Lactic 2.6 and down to 1.6. EKG: Sinus tachycardia, rate 104 bpm, no acute ischemic changes. Troponin less than 0.012. NT proBNP significantly elevated at 12,100. Patient currently being evaluated in the emergency department, trauma bay 2. He is intubated to the mechanical ventilator. Previous ABGs including a PaO2 of 315, pCO2 57, pH of 7.2. Previous ventilator settings were assist-control, rate 16, tidal volume 450, FiO2 100%, PEEP of 5. Since then, his rate has been increased to 20 and his tidal volume dropped to 50%. The Peak pressure averaging 38 and static airway pressure measured at 17. His endotracheal tube is a size 7. There are thick tenacious white secretions coming from the endotracheal tube. Sputum sample to be collected. Currently, patient is synchronous with the mechanical ventilator. Sedated on propofol which is infusing at 45 mcg/kg/min. He was previously fluid resuscitated with a total of 2.5 L crystalloid fluid and LR continues at 150 mL/h. Blood pressure is normotensive. Not requiring any vasopressors. An indwelling urinary catheter was placed and there is small amount of concentrated yellow urine in the collection bag. Has remained afebrile. Previously started on empiric antibiotics in form azithromycin and Rocephin in the ED. Progress note dated May 05, 2025. This is a 79-year-old gentleman who was seen by my nurse practitioner yesterday. The patient came into the hospital with respiratory failure, thought to be secondary to pneumonia. The patient remains on volume assist-control, rate 20, tidal line 450, FiO2 40%, PEEP of 5. Blood gases this morning show pO2 118, pCO2 38, pH is 7.30. Both blood gases are consistent with mild metabolic acidosis. The patient is getting saline at 75 cc an hour, propofol at 50 mcg/kg/min, and norepinephrine at 3.7 mcg/min. The patient continues on azithromycin and Rocephin. We will attempt a daily interruption of sedation today, plus or minus a spontaneous breathing trial. The patient's saline IV, will be converted to lactated Ringer's at 75 cc an hour. Current laboratory data includes a white count of 14.8, hemoglobin 7.6, hematocrit 24.2, and a platelet count of 570,000. Sodium 141, potassium 4.2, chloride 111, CO2 16, anion gap 14, glucose 120, BUN and creatinine were 27 and 1.76. Calcium 8.1. Blood and sputum sampling is thus far negative. X-ray shows small right-sided pleural effusion, with some bibasilar patchy airspace opacities, concerning for possible pneumonia. Progress note dated May 06, 2025. 79-year-old male seen in the intensive care unit. The patient was admitted with respiratory failure, and pneumonia. He remains on mechanical ventilation. He is on volume assist-control, rate 20, tidal volume 450, FiO2 40%, PEEP of 5. Blood gases show PO297, HRT395, pH is 7.30. The blood gas is consistent with a mild metabolic acidosis. He is on propofol at 50 mcg/kg/min, norepinephrine has been weaned off. He is on lactated Ringer's at 75 cc an hour, and saline at KVO. He is receiving vital high-protein at 40, with a goal of 45 cc an hour. He continues on azithromycin and Rocephin empirically. Will add some Solu- Medrol to his regimen. We also had some Dilaudid for pain control. White count 12.9, hemoglobin 7, hematocrit 22.8, platelet count 563,000. Sodium 142, potassium 4.1, chlorides 113, CO2 17, anion gap 12, BUN 23, creatinine 1.52. Glucose is 125. Calcium is 8.4. Sputum and blood sampling has been negative thus far. Chest x-ray shows small right pleural effusion with bibasilar patchy airspace opacities. There is evidence of pulmonary vascular congestion. Progress note dated May 07, 2025. 79-year-old male seen in the intensive care unit, room 251. The patient has a history of respiratory failure, and pneumonia, he remains on mechanical ventilator. Current vent settings include volume assist-control, rate 20, tidal volume 450, FiO2 40%, PEEP of 5. Arterial blood gases show PO2 114, PCO2 of 41, pH is 7.30. The patient is getting lactated Ringer's at 75 cc an hour, propofol at 50 mcg/kg/min. The patient is also getting saline at 10 cc an hour, and vital high-protein at 10 cc an hour. Residuals are high, so we added Reglan 10 mg every 6. He continues on azithromycin and Rocephin, and microbiologic nisha pling, thus far is negative. In addition, his peak airway pressures 29, with a plateau pressure of 13. His airways resistance is 13 cm water per liter per second. We will attempt a daily interruption of sedation. White count was 10.6, hemoglobin 7.1, hematocrit 23.6, platelet count 629,000. Sodium 141, potassium 4.5, chlorides 111, CO2 18, anion gap 12, BUN 28, creatinine 1.59. These electrolyte profile is consistent with a nonanion gap metabolic acidosis. Glucose is 162. Calcium is 8.8. Chest x-ray is largely unchanged, with small right-sided pleural effusion, and right basilar infiltrate. Progress note dated May 08, 2025. 79-year-old male seen today in room 251. The patient has done poorly with his daily interruptions of sedation. He is on volume assist-control, rate 20, tidal volume 450, FiO2 30%, PEEP of 5. Blood gases show PO2 102, pCO2 40, pH is 7.28. The patient is getting LR at 75 cc an hour, propofol is currently off, saline at 10 cc an hour, and vital high-protein at 40, with a goal of 45 cc an hour. Because of his agitated state, and his poor response, the patient will have an EEG, and a neurology consultation. He is currently not on any antibiotics. W bay count is 15.5, hemoglobin 7, hematocrit 23.1, platelet count 775,000. Sodium 139, potassium 4.9, chlorides 111, CO2 is 18, anion gap 10, BUN 37, creatinine 1.62. Glucose of 177. Calcium 8.8. Magnesium 2.2. Blood and sputum analysis is negative. Chest x-ray shows a small right-sided pleural effusion, and some mild bibasilar opacities. Progress note dated May 09, 2025. 79-year-old male seen today in room 251. He remains on the mechanical ventilator. He is on volume assist-control, rate 20, tidal volume 450, FiO2 30%, PEEP of 5. Blood gases show pO2 of 90, pCO2 of 39, pH is 7.31. The patient is getting lactated Ringer's at 75 cc an hour, propofol at 50 mcg/kg/min, vital high-protein at goal, which is 35 cc an hour. We asked neurology to see the patient yesterday. An EEG showed diffuse slowing consistent with metabolic/toxic encephalopathy. We also add some amlodipine to his regimen, for blood pressure control, at 10 mg. The patient may benefit from tracheostomy and PEG tube, if he does not improve neurologically. Will see how things go over the next few days. White count is 15.2, hemoglobin 7.4, hematocrit 24.7, platelet count 833,000. Sodium 140, potassium 5.4, chlorides 113, CO2 16, anion gap 11, BUN 45, creatinine 1.79. Glucose is 163. Calcium is 8.7. Microbiology is thus far negative. Chest x-ray is largely unchanged. Progress note dated May 10, 2025. 79-year-old male seen again in room 251. He remains on volume assist-control, rate 20, tidal volume 450, FiO2 30%, PEEP of 5. Blood gases show pO2 72, pCO2 37, pH is 7.35. He is currently on propofol at 10 mcg/kg/min, LR at 75 cc an hour, Precedex at 1.4 mcg/kg/h, Cleviprex at 3 mg an hour. The patient is also receiving vital high-protein, at goal. Current laboratory data includes a white count of 13.3, hemoglobin 8.2, hematocrit 26.5, and a platelet count of 925,000. Sodium 140, potassium 5.4, chloride 110, CO2 19, anion gap 11, BUN 54, creatinine 1.80. Calcium is 9.0. Microbiologic studies have all been negative. Chest x-ray is largely unchanged. The brain CT shows no acute bleed or mass effect, mild atrophy, and no interval change. The patient has been seen by neurology. The patient also had an EEG. Objective - Vital Signs Vital signs: Vital Signs Temp 97.6 F 05/10/25 08:00 Pulse 77 05/10/25 09:00 Resp 20 05/10/25 09:00 BP 114/53 05/09/25 06:00 Pulse Ox 94 L 05/10/25 09:00 FiO2 30 05/10/25 08:00 Intake & Output 05/09/25 05/10/25 05/10/25 18:59 06:59 18:59 Intake Total 2109.868 1751.114 319.786 Output Total 590 370 85 Balance 6129.844 1318.114 234.786 Weight 90.9 kg Intake: IV 1183 911 243 0.9 KVO 130 50 Arterial Line and CVP 78 36 18 Line Lactated Ringers 1,000 ml 975 825 225 @ 75 mls/hr IV .[id number] WHIT Rx#:[id number] Intake, IV Titration 191.868 555.114 6.786 Amount Clevidipine Butyrate 25 26.901 mg In Empty Bag 1 bag @ 1 MG/HR 2 mls/hr IV .Q24H WHIT Rx#:[id number] Dexmedetomidine/0.9% NaCl 64.325 390.473 (Pmx) 400 mcg In Empty Bag 1 bag @ 0.2 MCG/KG/HR 4.535 mls/hr IV .[id number] WHIT Rx#:[id number] propofoL 1,000 mg In 127.543 137.740 6.786 Empty Bag 1 bag @ 15 MCG/ KG/MIN 6.532 mls/hr IV . [id number] WHIT Rx#:[id number] Oral 60 70 Tube Feeding 585 225 Other 90 60 Output: Urine 590 370 85 Other: Voiding Method Indwelling Catheter Indwelling Catheter Indwelling Catheter ABP, PAP, CO, CI - Last Documented Arterial Blood Pressure 134/51 - Exam No acute distress, patient is sedated, with an orally placed endotracheal tube, and NG tube noted. HEENT examination is grossly unremarkable. Mucous membranes are moist. No oral lesions. Neck supple. Full range of motion. No adenopathy thyromegaly or neck vein distention. Cardiovascular examination reveals regular rhythm rate. S1-S2 normal. No S3 or S4. No discernible murmur noted. Lungs reveal scattered bilateral expiratory rhonchi. No wheezes. No crackles. Breath sounds are equal bilaterally. Abdomen soft bowel sounds are heard. No masses or tenderness. Extremities are intact. No cyanosis clubbing or edema. Skin is without rash or lesion. Neurologic examination reveals a poorly responsive patient, who was off of all sedation. - Labs CBC & Chem 7: 05/10/25 05:02 05/10/25 05:02 Labs: Abnormal Lab Results - Last 24 Hours (Table) 05/09/25 05/09/25 05/09/25 Range/Units 11:36 12:40 17:25 WBC (4.50-10.00) 10*3/uL RBC (4.40-5.60) 10*6/uL Hgb (13.0-17.0) g/dL Hct (39.6-50.0) % MCH (27.0-32.0) pg MCHC (32.0-37.0) g/dL Plt Count (140-440) 10*3/uL Immature Gran # (0.00-0.04) 10*3/uL Neutrophils # (Manual) (1.3-7.7) k/uL Lymphocytes # (Manual) (1.0-4.8) k/uL ABG pO2 (83-108) mmHg ABG HCO3 (21-25) mmol/L Hemoglobin (13.0-17.5) gm/dL Potassium (3.5-5.1) mmol/L Chloride (98-107) mmol/L Carbon Dioxide (22-30) mmol/L BUN (9-20) mg/dL Creatinine (0.66-1.25) mg/dL Glucose (74-99) mg/dL POC Glucose (mg/dL) 148 H 173 H 150 H (70-110) mg/dL 05/09/25 05/10/25 05/10/25 Range/Units 23:15 05:01 05:02 WBC 13.25 H (4.50-10.00) 10*3/uL RBC 3.10 L (4.40-5.60) 10*6/uL Hgb 8.2 L (13.0-17.0) g/dL Hct 26.5 L (39.6-50.0) % MCH 26.5 L (27.0-32.0) pg MCHC 30.9 L (32.0-37.0) g/dL Plt Count 925 H (140-440) 10*3/uL Immature Gran # 0.32 H (0.00-0.04) 10*3/uL Neutrophils # (Manual) 12.98 H (1.3-7.7) k/uL Lymphocytes # (Manual) 0.27 L (1.0-4.8) k/uL ABG pO2 (83-108) mmHg ABG HCO3 (21-25) mmol/L Hemoglobin (13.0-17.5) gm/dL Potassium (3.5-5.1) mmol/L Chloride (98-107) mmol/L Carbon Dioxide (22-30) mmol/L BUN (9-20) mg/dL Creatinine (0.66-1.25) mg/dL Glucose (74-99) mg/dL POC Glucose (mg/dL) 150 H 150 H (70-110) mg/dL 05/10/25 05/10/25 Range/Units 05:02 05:30 WBC (4.50-10.00) 10*3/uL RBC (4.40-5.60) 10*6/uL Hgb (13.0-17.0) g/dL Hct (39.6-50.0) % MCH (27.0-32.0) pg MCHC (32.0-37.0) g/dL Plt Count (140-440) 10*3/uL Immature Gran # (0.00-0.04) 10*3/uL Neutrophils # (Manual) (1.3-7.7) k/uL Lymphocytes # (Manual) (1.0-4.8) k/uL ABG pO2 72 L (83-108) mmHg ABG HCO3 20 L (21-25) mmol/L Hemoglobin 8.5 L (13.0-17.5) gm/dL Potassium 5.4 H (3.5-5.1) mmol/L Chloride 110 H (98-107) mmol/L Carbon Dioxide 19 L (22-30) mmol/L BUN 54 H (9-20) mg/dL Creatinine 1.80 H (0.66-1.25) mg/dL Glucose 144 H (74-99) mg/dL POC Glucose (mg/dL) (70-110) mg/dL Assessment and Plan Assessment: Acute hypoxemic and hypercapnic respiratory failure, intubated by EMS in the field, and admitted with a diagnosis of either heart failure, and/or pneumonia. Rule out anoxic brain injury, versus toxic/metabolic encephalopathy. Suspect bilateral pneumonia/sepsis, cultures negative, procalcitonin level was normal. Possible exacerbation of congestive heart failure. Nonanion gap metabolic acidosis, secondary to renal failure. Acute leukocytosis. Acute kidney injury versus chronic kidney disease. 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 Essential thrombocythemia, reportedly on cytoreducative therapy. History of lung cancer with previous lobectomy at outside facility. Current tobacco smoker. Plan: Plan dated May 05, 2025. The patient is seen today in room 251. The patient remains on the mechanical ventilator. He was intubated in the field by EMS. Blood gases show PO2 of 118, PCO2 of 38, pH of 7.30. His blood gases are consistent with a mild metabolic acidosis. The patient sedated with propofol at 50 mcg/kg/min. He is receiving norepinephrine at 3.7 mcg/min, saline at 75 cc an hour. The patient continues on azithromycin and Rocephin. The patient will have a daily interruption of sedation. He may or may not benefit from a spontaneous breathing trial. The saline IV is converted to lactated Ringer's at the same rate. All labs, x-rays, and medications are reviewed. We will continue to follow with the patient, make recommendations. Prognosis is guarded. Dictation was produced using [employer] software. Please excuse any grammatical, word or spelling errors. Plan dated May 06, 2025. The patient is seen today in room 251. The patient remains on mechanical ventilation. He was intubated in the field by EMS. He was admitted with a diagnosis of respiratory failure, multifactorial, part related to possible pneumonia, and also CHF. The patient's procalcitonin level was elevated at 1.82. He continues on azithromycin and Rocephin. Labs, x-rays, and medications are reviewed. Norepinephrine has been weaned off. He continues on propofol for sedation at 50 mcg/kg/min. The patient is getting lactated Ringer's at 75 cc an hour. We add Solu-Medrol because he is bronchospastic, and his airways resistance is elevated. We also had some Dilaudid for pain control. We will continue to follow make recommendations along the way. Overall prognosis remains guarded. Dictation was produced using [employer] software. Please excuse any grammatical, word or spelling errors. Plan dated May 07, 2025. The patient is seen today in room 251. Blood gases are reasonable. The patient continues on propofol at 50 mcg/kg/min. Did not tolerate the daily interruption of sedation yesterday. The patient will get Reglan 10 mg every 6 because of high residuals. After 2 doses, we will start increasing the tube feedings. The patient continues on azithromycin and Rocephin for right lower lobe pneumonia. Microbiologic sampling is thus far negative. The patient's peak lower pressures 29, with a plateau pressure of 13. Flow rate on the ventilator 60 L/min. Airways resistance is elevated at 16 cm water per liter per second. Labs, x- rays, and medications are reviewed. We will continue to follow make recommendations along the way. Overall prognosis remains guarded. We will attempt another daily interruption of sedation today. The patient candidate for weaning. Dictation was produced using [employer] software. Please excuse any grammatical, word or spelling errors. Plan dated May 08, 2025. The patient's procalcitonin level was normal. Antibiotics were discontinued. The patient was off of propofol, but was poorly responsive, so we will have neurology take a peek at the patient, and we will also go ahead and order an EEG. The patient is getting lactated Ringer's at 75 cc an hour, and vital high-protein at 40, with a goal of 45 cc an hour. Blood gases show pO2 of 102, pCO2 of 40, pH is 7.28. We will continue to follow the patient, make recommendations. Labs, x-rays, and all medications have been reviewed. Prognosis is guarded. Dictation was produced using [employer] software. Please excuse any grammatical, word or spelling errors. Plan dated May 09, 2025. The patient is seen today in room 251. The patient had an EEG done yesterday, showing diffuse slowing, consistent with toxic/metabolic/anoxic brain injury. The patient was seen by neurology. We appreciate their input. The patient continues on propofol at 50 mcg/kg/min. We will do a daily interruption of sedation. The patient is getting tube feedings at goal, i.e. vital high-protein at 35 cc an hour. PO2 was 90, PCO2 of 39, pH is 7.31. The patient does have a non-anion gap metabolic acidosis secondary to renal failure. We do add amlodipine 10 mg to his regimen, for better blood pressure control. We will continue to follow make recommendations were appropriate. All labs, x-rays, medications are reviewed. Prognosis is guarded. Dictation was produced using [employer] software. Please excuse any grammatical, word or spelling errors. Plan dated May 10, 2025. The patient is seen again in room 251. He had a pretty uneventful night. He did need Cleviprex for blood pressure control. The patient continues on tube feeds. He is on a small dose of propofol, at 10 mcg/kg/min, and Precedex, at 1.4 mcg/kg/h. He is getting LR at 75 cc an hour. Blood gases are reasonable with a PO272, pCO2 37, pH of 7.35. Neurology is seeing the patient for his poor mentation. EEG was consistent with diffuse slowing, either from anoxic, metabolic, or toxic encephalopathy. I had a long conversation with the Kizzy, the son Lewis today. I explained to them that I am not sure whether or not his neurologic issues, are transient, or more permanent. Time will tell. He may need a tracheostomy and feeding tube. I did discuss that with them. I told him that would be decided maybe mid to end of next week. All labs, x-rays, and medications are reviewed. All questions were answered. We will continue to follow the patient, make recommendations along the way. Dictation was produced using [employer] software. Please excuse any grammatical, word or spelling errors. Time with Patient: Greater than 30
--- NOTE | 2025-05-10 10:23 | P.PN ---
Subjective Progress Note Date: 05/10/25 Hospital course 79 year old M with PMH of Lung CA status post lobectomy, GAVE syndrome requiring routine blood transfusions, heavy smoker presents to the ED intubated by EMS for respiratory distress. reports exertional SOB for the past few weeks prior to arrival. In the ED he underwent extensive evaluation. BP 168/95, HR 105, T 97.5F, RR 19, 98% mechanically ventilated. Labs significant for WBC 19.15, RBC 3.4, Hg 9.2, Hct 29.3, Plt 655, PT 13.5, INR 1.3, bicarb 20, BUN 28, Cr 1.88, glu 256. Trop < 0.012. BNP 45037. Mag 2.2. Lactic acid 2.2-1.6. COVID, RSV, Flu neg. EKG sinus tachycardia. CXR patchy basilar infiltrates and small effusions. Brain CT no acute process. Patient is admitted to ICU for further management. Subjective Patient seen this morning. He is on Precedex drip. Patient still not making any purposeful neurological movements. Physical exam General examination -intubated and sedated Heart - + S1S2 no murmurs Lungs -diminished breath sounds sounds Abdomen soft NT ND +ve BS Extremities - No edema ELECTRICIAN SHIP - Moving all 4 extremities spontaneously Psych - Calm and cooperative Acute respiratory failure Ventilator dependent respiratory failure Acute on chronic heart failure exacerbated by blood transfusion COPD exacerbation Sepsis on admission Continue with IV Rocephin and azithromycin Defer diuretics to relay checker setting of acute kidney injury Continue with IV Solu-Medrol and DuoNeb Echocardiogram showed preserved ejection fraction Thermal Cutter Helper to manage the vent If patient's mentation does not improve he will likely need PEG and trach Acute toxic metabolic encephalopathy Patient is still not making purposeful neurological activity Patient had an EEG that was consistent with metabolic encephalopathy -> patient was on propofol drip. EEG Neurology following Will continue with sedation vacation trials. Normocytic anemia with thrombocytosis due to GAVE syndrome: Transfuse if Hg < 7. Continue Anagrelide 1 mg PO BID. Today hemoglobin is 8.2. Thrombocytosis Today platelets are 925. I suspect this is reactive to his acute illness. Continue to monitor [facility] Acute kidney injury: Possible component of CKD. Renal US no hydro. Creatinine today is stable at 1.80. Worsening Dyslipidemia: Simvastatin 40 mg PO QHS. Depression: Lexapro 20 mg PO QHS. Hypertension: Hold Metoprolol and Amlodipine due to hypotension. CODE STATUS: FULL CODE DVT Prophylaxis: Heparin SQ GI Prophylaxis: Protonix IV Designated medical POA if patient is not able to make medical decisions for themselves: . Poor prognosis Objective - Vital Signs Vital signs: Vital Signs Temp 97.6 F 05/10/25 08:00 Pulse 77 05/10/25 10:00 Resp 20 05/10/25 10:00 BP 114/53 05/09/25 06:00 Pulse Ox 91 L 05/10/25 10:00 FiO2 30 05/10/25 08:00 Intake & Output 05/09/25 05/10/25 05/10/25 18:59 06:59 18:59 Intake Total 2109.868 1751.114 400.786 Output Total 590 370 210 Balance 9018.971 1800.114 190.786 Weight 90.9 kg Intake: IV 1183 911 324 0.9 KVO 130 50 Arterial Line and CVP 78 36 24 Line Lactated Ringers 1,000 ml 975 825 300 @ 75 mls/hr IV .[id number] WHIT Rx#:[id number] Intake, IV Titration 191.868 555.114 6.786 Amount Clevidipine Butyrate 25 26.901 mg In Empty Bag 1 bag @ 1 MG/HR 2 mls/hr IV .Q24H WHIT Rx#:[id number] Dexmedetomidine/0.9% NaCl 64.325 390.473 (Pmx) 400 mcg In Empty Bag 1 bag @ 0.2 MCG/KG/HR 4.535 mls/hr IV .Q22H4M WHIT Rx#:[id number] propofoL 1,000 mg In 127.543 137.740 6.786 Empty Bag 1 bag @ 15 MCG/ KG/MIN 6.532 mls/hr IV . [id number] WHIT Rx#:[id number] Oral 60 70 Tube Feeding 585 225 Other 90 60 Output: Urine 590 370 210 Other: Voiding Method Indwelling Catheter Indwelling Catheter Indwelling Catheter ABP, PAP, CO, CI - Last Documented Arterial Blood Pressure 136/50 - Labs CBC & Chem 7: 05/10/25 05:02 05/10/25 05:02 Labs: Abnormal Lab Results - Last 24 Hours (Table) 05/09/25 05/09/25 05/09/25 Range/Units 11:36 12:40 17:25 WBC (4.50-10.00) 10*3/uL RBC (4.40-5.60) 10*6/uL Hgb (13.0-17.0) g/dL Hct (39.6-50.0) % MCH (27.0-32.0) pg MCHC (32.0-37.0) g/dL Plt Count (140-440) 10*3/uL Immature Gran # (0.00-0.04) 10*3/uL Neutrophils # (Manual) (1.3-7.7) k/uL Lymphocytes # (Manual) (1.0-4.8) k/uL ABG pO2 (83-108) mmHg ABG HCO3 (21-25) mmol/L Hemoglobin (13.0-17.5) gm/dL Potassium (3.5-5.1) mmol/L Chloride (98-107) mmol/L Carbon Dioxide (22-30) mmol/L BUN (9-20) mg/dL Creatinine (0.66-1.25) mg/dL Glucose (74-99) mg/dL POC Glucose (mg/dL) 148 H 173 H 150 H (70-110) mg/dL 05/09/25 05/10/25 05/10/25 Range/Units 23:15 05:01 05:02 WBC 13.25 H (4.50-10.00) 10*3/uL RBC 3.10 L (4.40-5.60) 10*6/uL Hgb 8.2 L (13.0-17.0) g/dL Hct 26.5 L (39.6-50.0) % MCH 26.5 L (27.0-32.0) pg MCHC 30.9 L (32.0-37.0) g/dL Plt Count 925 H (140-440) 10*3/uL Immature Gran # 0.32 H (0.00-0.04) 10*3/uL Neutrophils # (Manual) 12.98 H (1.3-7.7) k/uL Lymphocytes # (Manual) 0.27 L (1.0-4.8) k/uL ABG pO2 (83-108) mmHg ABG HCO3 (21-25) mmol/L Hemoglobin (13.0-17.5) gm/dL Potassium (3.5-5.1) mmol/L Chloride (98-107) mmol/L Carbon Dioxide (22-30) mmol/L BUN (9-20) mg/dL Creatinine (0.66-1.25) mg/dL Glucose (74-99) mg/dL POC Glucose (mg/dL) 150 H 150 H (70-110) mg/dL 05/10/25 05/10/25 Range/Units 05:02 05:30 WBC (4.50-10.00) 10*3/uL RBC (4.40-5.60) 10*6/uL Hgb (13.0-17.0) g/dL Hct (39.6-50.0) % MCH (27.0-32.0) pg MCHC (32.0-37.0) g/dL Plt Count (140-440) 10*3/uL Immature Gran # (0.00-0.04) 10*3/uL Neutrophils # (Manual) (1.3-7.7) k/uL Lymphocytes # (Manual) (1.0-4.8) k/uL ABG pO2 72 L (83-108) mmHg ABG HCO3 20 L (21-25) mmol/L Hemoglobin 8.5 L (13.0-17.5) gm/dL Potassium 5.4 H (3.5-5.1) mmol/L Chloride 110 H (98-107) mmol/L Carbon Dioxide 19 L (22-30) mmol/L BUN 54 H (9-20) mg/dL Creatinine 1.80 H (0.66-1.25) mg/dL Glucose 144 H (74-99) mg/dL POC Glucose (mg/dL) (70-110) mg/dL
[2025-05-10 11:29] LABS: Glucose,Whole Blood 145 mg/dL (70-110)
[2025-05-10] MEDS: methylPREDNISolone SOD SUCCI 40 MG/ML 1 ML VIAL IV SCH (16:19)
[2025-05-10 17:46] LABS: Glucose,Whole Blood 154 mg/dL (70-110)
[2025-05-10 23:06] LABS: Glucose,Whole Blood 123 mg/dL (70-110)
--- NOTE | 2025-05-11 00:11 | P.PN ---
Subjective Progress Note Date: 05/10/25 Patient was seen for follow-up. Patient's was present by the bedside. Patient continues to be intubated on mechanical ventilation. patient currently on propofol 30 mcg/kg per minute, Claviprex 3 mg per hour and Precedex 1.4 mcg/kg per hour. Patient is sedated. No seizure-like activity. Objective - Vital Signs Vital signs: Vital Signs Temp 97.9 F 05/10/25 12:00 Pulse 84 05/10/25 15:23 Resp 20 05/10/25 15:00 BP 114/53 05/09/25 06:00 Pulse Ox 94 L 05/10/25 15:00 FiO2 30 05/10/25 15:13 Intake & Output 05/09/25 05/10/25 05/10/25 18:59 06:59 18:59 Intake Total 2109.868 1751.114 772.597 Output Total 413 305 4544 Balance 2680.476 4970.114 -372.403 Weight 90.9 kg Intake: IV 1183 911 404 0.9 KVO 130 50 50 Arterial Line and CVP 78 36 54 Line Lactated Ringers 1,000 ml 975 825 300 @ 75 mls/hr IV .[id number] WHIT Rx#:[id number] Intake, IV Titration 191.868 555.114 298.597 Amount Clevidipine Butyrate 25 26.901 44.7 mg In Empty Bag 1 bag @ 1 MG/HR 2 mls/hr IV .Q24H WHIT Rx#:[id number] Dexmedetomidine/0.9% NaCl 64.325 390.473 195.764 (Pmx) 400 mcg In Empty Bag 1 bag @ 0.2 MCG/KG/HR 4.535 mls/hr IV .Q22H4M WHIT Rx#:[id number] propofoL 1,000 mg In 127.543 137.740 58.133 Empty Bag 1 bag @ 15 MCG/ KG/MIN 6.532 mls/hr IV . [id number] WHIT Rx#:[id number] Oral 60 70 Tube Feeding 585 225 Other 90 60 Output: Urine 168 334 3828 Other: Voiding Method Indwelling Catheter Indwelling Catheter Indwelling Catheter ABP, PAP, CO, CI - Last Documented Arterial Blood Pressure 142/53 - Exam Patient is sedated at this time with medications as mentioned above. examination deferred because patient on sedation. Per nursing report, with sedation holiday down to propofol 20 g/kg/min, patient starts waking up, but continues to be encephalopathic and becomes very restless and heart rate and blood pressure goes up. Therefore back on sedation. - Labs CBC & Chem 7: 05/10/25 05:02 05/10/25 05:02 Labs: Abnormal Lab Results - Last 24 Hours (Table) 05/09/25 05/09/25 05/10/25 Range/Units 17:25 23:15 05:01 WBC (4.50-10.00) 10*3/uL RBC (4.40-5.60) 10*6/uL Hgb (13.0-17.0) g/dL Hct (39.6-50.0) % MCH (27.0-32.0) pg MCHC (32.0-37.0) g/dL Plt Count (140-440) 10*3/uL Immature Gran # (0.00-0.04) 10*3/uL Neutrophils # (Manual) (1.3-7.7) k/uL Lymphocytes # (Manual) (1.0-4.8) k/uL ABG pO2 (83-108) mmHg ABG HCO3 (21-25) mmol/L Hemoglobin (13.0-17.5) gm/dL Potassium (3.5-5.1) mmol/L Chloride (98-107) mmol/L Carbon Dioxide (22-30) mmol/L BUN (9-20) mg/dL Creatinine (0.66-1.25) mg/dL Glucose (74-99) mg/dL POC Glucose (mg/dL) 150 H 150 H 150 H (70-110) mg/dL 05/10/25 05/10/25 05/10/25 Range/Units 05:02 05:02 05:30 WBC 13.25 H (4.50-10.00) 10*3/uL RBC 3.10 L (4.40-5.60) 10*6/uL Hgb 8.2 L (13.0-17.0) g/dL Hct 26.5 L (39.6-50.0) % MCH 26.5 L (27.0-32.0) pg MCHC 30.9 L (32.0-37.0) g/dL Plt Count 925 H (140-440) 10*3/uL Immature Gran # 0.32 H (0.00-0.04) 10*3/uL Neutrophils # (Manual) 12.98 H (1.3-7.7) k/uL Lymphocytes # (Manual) 0.27 L (1.0-4.8) k/uL ABG pO2 72 L (83-108) mmHg ABG HCO3 20 L (21-25) mmol/L Hemoglobin 8.5 L (13.0-17.5) gm/dL Potassium 5.4 H (3.5-5.1) mmol/L Chloride 110 H (98-107) mmol/L Carbon Dioxide 19 L (22-30) mmol/L BUN 54 H (9-20) mg/dL Creatinine 1.80 H (0.66-1.25) mg/dL Glucose 144 H (74-99) mg/dL POC Glucose (mg/dL) (70-110) mg/dL 05/10/25 Range/Units 11:26 WBC (4.50-10.00) 10*3/uL RBC (4.40-5.60) 10*6/uL Hgb (13.0-17.0) g/dL Hct (39.6-50.0) % MCH (27.0-32.0) pg MCHC (32.0-37.0) g/dL Plt Count (140-440) 10*3/uL Immature Gran # (0.00-0.04) 10*3/uL Neutrophils # (Manual) (1.3-7.7) k/uL Lymphocytes # (Manual) (1.0-4.8) k/uL ABG pO2 (83-108) mmHg ABG HCO3 (21-25) mmol/L Hemoglobin (13.0-17.5) gm/dL Potassium (3.5-5.1) mmol/L Chloride (98-107) mmol/L Carbon Dioxide (22-30) mmol/L BUN (9-20) mg/dL Creatinine (0.66-1.25) mg/dL Glucose (74-99) mg/dL POC Glucose (mg/dL) 145 H (70-110) mg/dL Assessment and Plan Assessment: * Altered mental status, likely due to toxic metabolic encephalopathy. Probably additional effect of propofol/other sedative medications. 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 Patient currently on propofol 30 mcg/kg/min. Also on Precedex. * Repeat EEG in the morning. We will try to hold off on sedation prior to the EEG. * EEG was abnormal due to background slowing of moderate to severe degree, along with some periods of generalized suppression. This is suggestive of generalized cerebral dysfunction as can be seen with toxic metabolic encephalopathy or due to diffuse structural brain abnormality or medication effect as well. Clinical correlation is recommended. This EEG was performed while patient was on propofol 50 mcg/kg per minute. * Suspect his mentation is probably due to toxic metabolic encephalopathy and medication effect. Patient never had a cardiac arrest. Hopefully mentation will improve once sedation is decreased, and other medical conditions comes under control. * Other management as per IM, critical care and other specialties. * 2-D echo revealed LVH with preserved systolic function with EF 55%. No obvious regional wall motion abnormalities. Moderate MR, [id number] TR normal left atrial size. * Repeat CT head, 05/10/2025 showed no acute bleed or mass effect. Mild atrophy. No interval change. I personally reviewed CT head again with the findings. * Discussed with patient's family and nursing staff. * Dr. Lexa Buitrago to start neurology service on the morning.
[2025-05-11] MEDS: LORazepam 1 MG/0.5 ML VIAL IV STA (02:01)
[2025-05-11 05:07] LABS: ABG HCO3 22 mmol/L (21-25); ABG PCO2 38 mmHg (35-45); ABG PH 7.37 (7.35-7.45); ABG TCO2 23 mmol/L (19-24)
[2025-05-11 05:09] LABS: ABG PO2 53 mmHg (83-108); Allen Test Performed? no
[2025-05-11 05:10] LABS: Glucose,Whole Blood 131 mg/dL (70-110)
[2025-05-11 05:58] LABS: African American GFR (CKD) 40 (>60 ml/min/1.73 sqM); Anion Gap 10 mmol/L; Blood Urea Nitrogen 58 mg/dL (9-20); Calcium 8.8 mg/dL (8.4-10.2); Carbon Dioxide 19 mmol/L (22-30); Chloride 113 mmol/L (98-107); Glucose 115 mg/dL (74-99); Non-African American GFR(CKD) 35 (>60 ml/min/1.73 sqM); Potassium 5.1 mmol/L (3.5-5.1); Sodium 142 mmol/L (137-145)
[2025-05-11 06:10] LABS: Basophils # (A) 0.01 10*3/uL (0.00-0.10); Basophils % (A) 0.1 %; Eosinophils # (A) 0.00 10*3/uL (0.04-0.35); Eosinophils % (A) 0.0 %; HCT 27.3 % (39.6-50.0); HGB 8.5 g/dL (13.0-17.0); Lymphocytes # (A) 0.26 10*3/uL (0.90-5.00); Lymphocytes % (A) 1.9 %; MCH 26.5 pg (27.0-32.0); MCHC 31.1 g/dL (32.0-37.0); MCV 85.0 fL (80.0-97.0); Monocytes # (A) 0.66 10*3/uL (0.20-1.00); Monocytes % (A) 4.9 %; Neutrophils # (A) 12.28 10*3/uL (1.80-7.70); Neutrophils % (A) 90.9 %; Platelet Count 872 10*3/uL (140-440); RBC 3.21 10*6/uL (4.40-5.60); RDW 22.6 % (11.5-14.5); WBC 13.51 10*3/uL (4.50-10.00)
--- NOTE | 2025-05-11 06:58 | XR ---
EXAMINATION TYPE: XR chest 1V portable DATE OF EXAM: 05/11/2025 5:34 AM COMPARISON: Chest radiographs from 05/10/2025 CLINICAL INDICATION: Male, 79 years old with history of Tube Placement; [facility] TECHNIQUE: XR chest 1V portable Frontal view of the chest. FINDINGS: Lungs/Pleura: Blunting of the right costophrenic angle. There is no evidence of left pleural effusio n, focal consolidation, or pneumothorax Pulmonary vascularity: Unremarkable. Heart/mediastinum: Cardiomediastinal silhouette is unremarkable. Musculoskeletal: No acute osseous pathology. Other findings: None Lines/Tubes: Endotracheal tube with distal tip 4.5 cm above the yuni. Nasogastric tube with its distal tip and side-port projecting under the diaphragm. Left central venous catheter with distal tip at the cavoatrial junction. IMPRESSION: Stable exam with moderate right pleural effusion. [facility], , 05/11/2025 6:55 AM
[2025-05-11 09:02] LABS: Anisocytosis (M) Present; Polychromasia Present
--- NOTE | 2025-05-11 12:03 | P.PN ---
Subjective Progress Note Date: 05/11/25 Hospital course 79 year old M with PMH of Lung CA status post lobectomy, GAVE syndrome requiring routine blood transfusions, heavy smoker presents to the ED intubated by EMS for respiratory distress. reports exertional SOB for the past few weeks prior to arrival. In the ED he underwent extensive evaluation. BP 168/95, HR 105, T 97.5F, RR 19, 98% mechanically ventilated. Labs significant for WBC 19.15, RBC 3.4, Hg 9.2, Hct 29.3, Plt 655, PT 13.5, INR 1.3, bicarb 20, BUN 28, Cr 1.88, glu 256. Trop < 0.012. BNP 21729. Mag 2.2. Lactic acid 2.2-1.6. COVID, RSV, Flu neg. EKG sinus tachycardia. CXR patchy basilar infiltrates and small effusions. Brain CT no acute process. Patient is admitted to ICU for further management. Subjective Last night when patient was being weaned off of the Precedex and propofol he became anxious and started desaturating. Patient still has no meaningful neurological activity. Physical exam General examination -intubated and sedated Heart - + S1S2 no murmurs Lungs -diminished breath sounds sounds Abdomen soft NT ND +ve BS Extremities - No edema MANAGER NEONATAL - Moving all 4 extremities spontaneously Psych - Calm and cooperative Acute respiratory failure Ventilator dependent respiratory failure Acute on chronic heart failure exacerbated by blood transfusion COPD exacerbation Sepsis on admission Patient completed antibiotic course Continue with IV Solu-Medrol and DuoNeb Echocardiogram showed preserved ejection fraction Defer diuretics to batch room technician setting of acute kidney injury Patient given one-time dose of IV Lasix 40 mg yesterday by batch room technician. Supersonic Engineer to manage the vent If patient's mentation does not improve he will likely need PEG and trach History of lung cancer status post lobectomy Supersonic Engineer ordered CT chest and abdomen to rule out possible metastasis Acute toxic metabolic encephalopathy Patient is still not making purposeful neurological activity Patient had an EEG that was consistent with metabolic encephalopathy -> patient was on propofol drip. Neurology recommending repeat EEG once patient is off sedation Will continue with sedation vacation trials. Normocytic anemia with thrombocytosis due to GAVE syndrome: Transfuse if Hg < 7. Continue Anagrelide 1 mg PO BID. Today hemoglobin is 8.5. Stable Will consult hematology Thrombocytosis likely due to acute illness This morning platelets are 872. Improving Acute kidney injury: Possible component of CKD. Renal US no hydro. Creatinine today is stable at 1.83. Worsening Dyslipidemia: Simvastatin 40 mg PO QHS. Depression: Lexapro 20 mg PO QHS. Hypertension: Hold Metoprolol and Amlodipine due to hypotension. CODE STATUS: FULL CODE DVT Prophylaxis: Heparin SQ GI Prophylaxis: Protonix IV Designated medical POA if patient is not able to make medical decisions for them selves: . Poor prognosis Objective - Vital Signs Vital signs: Vital Signs Temp 97.9 F 05/11/25 00:00 Pulse 112 H 05/11/25 11:30 Resp 20 05/11/25 11:30 BP 155/68 05/11/25 11:30 Pulse Ox 99 05/11/25 11:30 FiO2 40 05/11/25 11:30 Intake & Output 05/10/25 05/11/25 05/11/25 18:59 06:59 18:59 Intake Total 980.322 626.975 213.533 Output Total 2095 825 210 Balance -1114.678 -198.025 3.533 Weight 92.5 kg 92.5 kg Intake: IV 468 176 64 0.9 KVO 90 110 40 Arterial Line and CVP 78 66 24 Line Lactated Ringers 1,000 ml 300 @ 75 mls/hr IV .[id number] WHIT Rx#:[id number] Intake, IV Titration 442.322 450.975 149.533 Amount Clevidipine Butyrate 25 44.7 78.233 mg In Empty Bag 1 bag @ 1 MG/HR 2 mls/hr IV .Q24H WHIT Rx#:[id number] Dexmedetomidine/0.9% NaCl 295.764 178.794 (Pmx) 400 mcg In Empty Bag 1 bag @ 0.2 MCG/KG/HR 4.535 mls/hr IV .Q22H4M WHIT Rx#:[id number] propofoL 1,000 mg In 101.858 193.948 149.533 Empty Bag 1 bag @ 15 MCG/ KG/MIN 6.532 mls/hr IV . [id number] WHIT Rx#:[id number] Oral 70 Output: Urine 2095 825 210 Other: Voiding Method Indwelling Catheter Indwelling Catheter Indwelling Catheter ABP, PAP, CO, CI - Last Documented Arterial Blood Pressure 131/55 - Labs CBC & Chem 7: 05/11/25 05:12 05/11/25 05:12 Labs: Abnormal Lab Results - Last 24 Hours (Table) 05/10/25 05/10/25 05/11/25 Range/Units 17:44 23:04 05:03 WBC (4.50-10.00) 10*3/uL RBC (4.40-5.60) 10*6/uL Hgb (13.0-17.0) g/dL Hct (39.6-50.0) % MCH (27.0-32.0) pg MCHC (32.0-37.0) g/dL Plt Count (140-440) 10*3/uL Immature Gran # (0.00-0.04) 10*3/uL Neutrophils # (1.80-7.70) 10*3/uL Lymphocytes # (0.90-5.00) 10*3/uL Eosinophils # (0.04-0.35) 10*3/uL ABG pO2 53 L* (83-108) mmHg ABG O2 Saturation 85.2 L (94-97) % Hemoglobin 8.5 L (13.0-17.5) gm/dL Chloride (98-107) mmol/L Carbon Dioxide (22-30) mmol/L BUN (9-20) mg/dL Creatinine (0.66-1.25) mg/dL Glucose (74-99) mg/dL POC Glucose (mg/dL) 154 H 123 H (70-110) mg/dL 05/11/25 05/11/25 05/11/25 Range/Units 05:09 05:12 05:12 WBC 13.51 H (4.50-10.00) 10*3/uL RBC 3.21 L (4.40-5.60) 10*6/uL Hgb 8.5 L (13.0-17.0) g/dL Hct 27.3 L (39.6-50.0) % MCH 26.5 L (27.0-32.0) pg MCHC 31.1 L (32.0-37.0) g/dL Plt Count 872 H (140-440) 10*3/uL Immature Gran # 0.30 H (0.00-0.04) 10*3/uL Neutrophils # 12.28 H (1.80-7.70) 10*3/uL Lymphocytes # 0.26 L (0.90-5.00) 10*3/uL Eosinophils # 0.00 L (0.04-0.35) 10*3/uL ABG pO2 (83-108) mmHg ABG O2 Saturation (94-97) % Hemoglobin (13.0-17.5) gm/dL Chloride 113 H (98-107) mmol/L Carbon Dioxide 19 L (22-30) mmol/L BUN 58 H (9-20) mg/dL Creatinine 1.83 H (0.66-1.25) mg/dL Glucose 115 H (74-99) mg/dL POC Glucose (mg/dL) 131 H (70-110) mg/dL
[2025-05-11 12:53] LABS: Glucose,Whole Blood 145 mg/dL (70-110)
[2025-05-11] MEDS: LORazepam 1 MG/0.5 ML VIAL IV PRN ×2 (13:01→21:28)
[2025-05-11] MEDS: IOPAMIDOL CONTRAST (ORAL USE) VIAL PO PRN (14:55)
--- NOTE | 2025-05-11 15:00 | P.PN ---
Subjective Progress Note Date: 05/11/25 Patient is a 79-year-old male, evaluated by EMS yesterday. Reportedly, having severe respiratory distress and apnea. He was intubated in the field. No previous records available to review from our facility. I did call the patient's , she states he was increasingly weak for the last several days. Associated shortness of breath with exertion. She thought it was related to his anemia. She was able to provide some past medical history including lung cancer and previous lung resection at [facility], essential thrombocythemia, and GAVE syndrome. Reportedly, requires frequent blood and iron infusions. He follows at [facility] for this. Reportedly, no history of COPD, asthma. No history of heart failure per the . His medication list is not available. Workup in the emergency department including a chest x-ray which shows endotracheal tube proximal, approximately 6 cm from the yuni. Orogastric tube coursing into the stomach. Patchy bibasilar infiltrates and small effusion on the right. Left costophrenic angle was excluded from the image. CBC including a WBC count of 19.15, hemoglobin 9.2, platelets 655. CMP included sodium 142, potassium 4.8, chloride 107, serum bicarb 20, BUN 28, creatinine 1.88, glucose 256. Lactic 2.6 and down to 1.6. EKG: Sinus tachycardia, rate 104 bpm, no acute ischemic changes. Troponin less than 0.012. NT proBNP significantly elevated at 12,100. Patient currently being evaluated in the emergency department, trauma bay 2. He is intubated to the mechanical ventilator. Previous ABGs including a PaO2 of 315, pCO2 57, pH of 7.2. Previous ventilator settings were assist-control, rate 16, tidal volume 450, FiO2 100%, PEEP of 5. Since then, his rate has been increased to 20 and his tidal volume dropped to 50%. The Peak pressure averaging 38 and static airway pressure measured at 17. His endotracheal tube is a size 7. There are thick tenacious white secretions coming from the endotracheal tube. Sputum sample to be collected. Currently, patient is synchronous with the mechanical ventilator. Sedated on propofol which is infusing at 45 mcg/kg/min. He was previously fluid resuscitated with a total of 2.5 L crystalloid fluid and LR continues at 150 mL/h. Blood pressure is normotensive. Not requiring any vasopressors. An indwelling urinary catheter was placed and there is small amount of concentrated yellow urine in the col lection bag. Has remained afebrile. Previously started on empiric antibiotics in form azithromycin and Rocephin in the ED. Progress note dated May 05, 2025. This is a 79-year-old gentleman who was seen by my nurse practitioner yesterday. The patient came into the hospital with respiratory failure, thought to be secondary to pneumonia. The patient remains on volume assist-control, rate 20, tidal line 450, FiO2 40%, PEEP of 5. Blood gases this morning show pO2 118, pCO2 38, pH is 7.30. Both blood gases are consistent with mild metabolic acidosis. The patient is getting saline at 75 cc an hour, propofol at 50 mcg/kg/min, and norepinephrine at 3.7 mcg/min. The patient continues on azit hromycin and Rocephin. We will attempt a daily interruption of sedation today, plus or minus a spontaneous breathing trial. The patient's saline IV, will be converted to lactated Ringer's at 75 cc an hour. Current laboratory data includes a white count of 14.8, hemoglobin 7.6, hematocrit 24.2, and a platelet count of 570,000. Sodium 141, potassium 4.2, chloride 111, CO2 16, anion gap 14, glucose 120, BUN and creatinine were 27 and 1.76. Calcium 8.1. Blood and sputum sampling is thus far negative. X-ray shows small right-sided pleural effusion, with some bibasilar patchy airspace opacities, concerning for possible pneumonia. Progress note dated May 06, 2025. 79-year-old male seen in the intensive care unit. The patient was admitted with respiratory failure, and pneumonia. He remains on mechanical ventilation. He is on volume assist-control, rate 20, tidal volume 450, FiO2 40%, PEEP of 5. Blood gases show PO297, WXM585, pH is 7.30. The blood gas is consistent with a mild metabolic acidosis. He is on propofol at 50 mcg/kg/min, norepinephrine has been weaned off. He is on lactated Ringer's at 75 cc an hour, and saline at KVO. He is receiving vital high-protein at 40, with a goal of 45 cc an hour. He continues on azithromycin and Rocephin empirically. Will add some Solu- Medrol to his regimen. We also had some Dilaudid for pain control. White count 12.9, hemoglobin 7, hematocrit 22.8, platelet count 563,000. Sodium 142, potassium 4.1, chlorides 113, CO2 17, anion gap 12, BUN 23, creatinine 1.52. Glucose is 125. Calcium is 8.4. Sputum and blood sampling has been negative thus far. Chest x-ray shows small right pleural effusion with bibasilar patchy airspace opacities. There is evidence of pulmonary vascular congestion. Progress note dated May 07, 2025. 79-year-old male seen in the intensive care unit, room 251. The patient has a history of respiratory failure, and pneumonia, he remains on mechanical ventilator. Current vent settings include volume assist-control, rate 20, tidal volume 450, FiO2 40%, PEEP of 5. Arterial blood gases show PO2 114, PCO2 of 41, pH is 7.30. The patient is getting lactated Ringer's at 75 cc an hour, propofol at 50 mcg/kg/min. The patient is also getting saline at 10 cc an hour, and vital high-protein at 10 cc an hour. Residuals are high, so we added Reglan 10 mg every 6. He continues on azithromycin and Rocephin, and microbiologic sampling, thus far is negative. In addition, his peak airway pressures 29, with a plateau pressure of 13. His airways resistance is 13 cm water per liter per second. We will attempt a daily interruption of sedation. White count was 10.6, hemoglobin 7.1, hematocrit 23.6, platelet count 629,000. Sodium 141, potassium 4.5, chlorides 111, CO2 18, anion gap 12, BUN 28, creatinine 1.59. These electrolyte profile is consistent with a nonanion gap metabolic acidosis. Glucose is 162. Calcium is 8.8. Chest x-ray is largely unchanged, with small right-sided pleural effusion, and right basilar infiltrate. Progress note dated May 08, 2025. 79-year-old male seen today in room 251. The patient has done poorly with his daily interruptions of sedation. He is on volume assist-control, rate 20, tidal volume 450, FiO2 30%, PEEP of 5. Blood gases show PO2 102, pCO2 40, pH is 7.28. The patient is getting LR at 75 cc an hour, propofol is currently off, saline at 10 cc an hour, and vital high-protein at 40, with a goal of 45 cc an hour. Because of his agitated state, and his poor response, the patient will have an EEG, and a neurology consultation. He is currently not on any antibiotics. White count is 15.5, hemoglobin 7, hematocrit 23.1, platelet count 775,000. Sodium 139, potassium 4.9, chlorides 111, CO2 is 18, anion gap 10, BUN 37, creatinine 1.62. Glucose of 177. Calcium 8.8. Magnesium 2.2. Blood and sputum analysis is negative. Chest x-ray shows a small right-sided pleural effusion, and some mild bibasilar opacities. Progress note dated May 09, 2025. 79-year-old male seen today in room 251. He remains on the mechanical ventilator. He is on volume assist-control, rate 20, tidal volume 450, FiO2 30%, PEEP of 5. Blood gases show pO2 of 90, pCO2 of 39, pH is 7.31. The patient is getting lactated Ringer's at 75 cc an hour, propofol at 50 mcg/kg/min, vital high-protein at goal, which is 35 cc an hour. We asked neurology to see the patient yesterday. An EEG showed diffuse slowing consistent with metabolic/toxic encephalopathy. We also add some amlodipine to his regimen, for blood pressure control, at 10 mg. The patient may benefit from tracheostomy and PEG tube, if he does not improve neurologically. Will see how things go over the next few days. White count is 15.2, hemoglobin 7.4, hematocrit 24.7, platelet count 833,000. Sodium 140, potassium 5.4, chlorides 113, CO2 16, anion gap 11, BUN 45, creatinine 1.79. Glucose is 163. Calcium is 8.7. Microbiology is thus far negative. Chest x-ray is largely unchanged. Progress note dated May 10, 2025. 79-year-old male seen again in room 251. He remains on volume assist-control, rate 20, tidal volume 450, FiO2 30%, PEEP of 5. Blood gases show pO2 72, pCO2 37, pH is 7.35. He is currently on propofol at 10 mcg/kg/min, LR at 75 cc an hour, Precedex at 1.4 mcg/kg/h, Cleviprex at 3 mg an hour. The patient is also receiving vital high-protein, at goal. Current laboratory data includes a white count of 13.3, hemoglobin 8.2, hematocrit 26.5, and a platelet count of 925,000. Sodium 140, potassium 5.4, chloride 110, CO2 19, anion gap 11, BUN 54, creatinine 1.80. Calcium is 9.0. Microbiologic studies have all been negative. Chest x-ray is largely unchanged. The brain CT shows no acute bleed or mass effect, mild atrophy, and no interval change. The patient has been seen by neurology. The patient also had an EEG. On 05/11/2025, the patient is being seen in follow-up. Remains intubated and on mechanical ventilator. This morning, he is on propofol running at 75 mcg/kg/min and Precedex running at 1 mcg/kg/h. He is on assist-control mode of mechanical ventilation at rate of 20, tidal volume of 450, FiO2 40% with a PEEP of 5. Blood gas showed a pH of 7.37 and the patient has a PCO2 of 38 and PO2 of 53. Chest x-ray from today showing bilateral pleural effusion right more than left. Orotracheal tube with distal tip being at 4.5 cm above the yuni. The patient has also areas of consolidation bilaterally. Note that, the sputum sample that was collected at time of admission was negative. The patient has no fever or chills. He is not receiving any antibiotic coverage at this point. He remains on bronchodilators. He remains on IV Solu-Medrol. IV fluids are currently at KVO. Fluid balance is -1.3 L over the past 24 hours. The patient is at the subclavian left sided triple-lumen catheter. The white seconds at 13.5 with a heme of 8.5 and a platelet count of 872. BUN is 15 with a creatinine of 1.8 and a sodium levels at 142 and a potassium level is at 5.1. Serum bicarb is at 19. Anion gap is at 10. Hemodynamically stable. No pressors for now. Is known to have COPD. He is also known to haveThe patient is known to have COPD. 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 He has been treated through [facility]. Furthermore, he has undergone a lobectomy on the right for a non-small cell lung cancer and this was done approximately 2 years ago at [facility] in [place]. He has required transfusions almost every 3 we eks. He was having increased residuals. The patient will was started on IV Reglan and the patient will be started back on vital HP at a low rate. Will monitor his residuals. Objective - Vital Signs Vital signs: Vital Signs Temp 97.9 F 05/11/25 00:00 Pulse 92 05/11/25 08:13 Resp 20 05/11/25 07:00 BP 134/65 05/11/25 07:00 Pulse Ox 98 05/11/25 07:00 FiO2 40 05/11/25 07:46 Intake & Output 05/10/25 05/11/25 05/11/25 18:59 06:59 18:59 Intake Total 980.322 626.975 16 Output Total 2095 825 35 Balance -1114.678 -198.025 -19 Weight 92.5 kg Intake: IV 468 176 16 0.9 KVO 90 110 10 Arterial Line and CVP 78 66 6 Line Lactated Ringers 1,000 ml 300 @ 75 mls/hr IV .[id number] WHIT Rx#:[id number] Intake, IV Titration 442.322 450.975 Amount Clevidipine Butyrate 25 44.7 78.233 mg In Empty Bag 1 bag @ 1 MG/HR 2 mls/hr IV .Q24H WHIT Rx#:[id number] Dexmedetomidine/0.9% NaCl 295.764 178.794 (Pmx) 400 mcg In Empty Bag 1 bag @ 0.2 MCG/KG/HR 4.535 mls/hr IV .Q22H4M WHIT Rx#:[id number] propofoL 1,000 mg In 101.858 193.948 Empty Bag 1 bag @ 15 MCG/ KG/MIN 6.532 mls/hr IV . [id number] WHIT Rx#:[id number] Oral 70 Output: Urine 2095 825 35 Other: Voiding Method Indwelling Catheter Indwelling Catheter ABP, PAP, CO, CI - Last Documented Arterial Blood Pressure 125/51 - Exam Intubated, calm and comfortable, currently on sedation with a combination of propofol and Precedex. Orotracheal and gastric tube are both in place. HEENT examination is grossly unremarkable. Mucous membranes are moist. No oral lesions. The patient has a subclavian left-sided triple-lumen catheter. Neck supple. Full range of motion. No adenopathy thyromegaly or neck vein distention. Cardiovascular examination reveals regular rhythm rate. S1-S2 normal. No S3 or S4. No discernible murmur noted. Lungs reveal scattered bilateral expiratory rhonchi. No wheezes. No crackles. Breath sounds are equal bilaterally. There is diminished breath sound the lung bases bilaterally. Abdomen soft bowel sounds are heard. No masses or tenderness. Extremities are intact. No cyanosis clubbing or edema. Skin is without rash or lesion. Neurologic examination reveals a grimaces to painful stimulation in all 4 extremities. A sedation holiday was done during the past few days and the patient was not appropriate and he was not following any commands. - Labs CBC & Chem 7: 05/11/25 05:12 05/11/25 05:12 Labs: Abnormal Lab Results - Last 24 Hours (Table) 05/10/25 05/10/25 05/10/25 Range/Units 11:26 17:44 23:04 WBC (4.50-10.00) 10*3/uL RBC (4.40-5.60) 10*6/uL Hgb (13.0-17.0) g/dL Hct (39.6-50.0) % MCH (27.0-32.0) pg MCHC (32.0-37.0) g/dL Plt Count (140-440) 10*3/uL Immature Gran # (0.00-0.04) 10*3/uL ABG pO2 (83-108) mmHg ABG O2 Saturation (94-97) % Hemoglobin (13.0-17.5) gm/dL Chloride (98-107) mmol/L Carbon Dioxide (22-30) mmol/L BUN (9-20) mg/dL Creatinine (0.66-1.25) mg/dL Glucose (74-99) mg/dL POC Glucose (mg/dL) 145 H 154 H 123 H (70-110) mg/dL 05/11/25 05/11/25 05/11/25 Range/Units 05:03 05:09 05:12 WBC 13.51 H (4.50-10.00) 10*3/uL RBC 3.21 L (4.40-5.60) 10*6/uL Hgb 8.5 L (13.0-17.0) g/dL Hct 27.3 L (39.6-50.0) % MCH 26.5 L (27.0-32.0) pg MCHC 31.1 L (32.0-37.0) g/dL Plt Count 872 H (140-440) 10*3/uL Immature Gran # 0.30 H (0.00-0.04) 10*3/uL ABG pO2 53 L* (83-108) mmHg ABG O2 Saturation 85.2 L (94-97) % Hemoglobin 8.5 L (13.0-17.5) gm/dL Chloride (98-107) mmol/L Carbon Dioxide (22-30) mmol/L BUN (9-20) mg/dL Creatinine (0.66-1.25) mg/dL Glucose (74-99) mg/dL POC Glucose (mg/dL) 131 H (70-110) mg/dL 05/11/25 Range/Units 05:12 WBC (4.50-10.00) 10*3/uL RBC (4.40-5.60) 10*6/uL Hgb (13.0-17.0) g/dL Hct (39.6-50.0) % MCH (27.0-32.0) pg MCHC (32.0-37.0) g/dL Plt Count (140-440) 10*3/uL Immature Gran # (0.00-0.04) 10*3/uL ABG pO2 (83-108) mmHg ABG O2 Saturation (94-97) % Hemoglobin (13.0-17.5) gm/dL Chloride 113 H (98-107) mmol/L Carbon Dioxide 19 L (22-30) mmol/L BUN 58 H (9-20) mg/dL Creatinine 1.83 H (0.66-1.25) mg/dL Glucose 115 H (74-99) mg/dL POC Glucose (mg/dL) (70-110) mg/dL Assessment and Plan Plan: Acute hypoxemic and hypercapnic respiratory failure, remains intubated on mechanical ventilator. Reviewed the chest x-ray and the patient has bilateral consolidation and bilateral pleural effusions right more than left. Echocardiogram done on 05/04/2025 showed preserved LV function with an ejection fraction of 55% and the patient has a moderate degree of mitral regurgitation. No significant respiratory secretions. Underlying pneumonia cannot be completely ruled out. Hemodynamically stable at this point. Encephalopathy, suboptimal recovery from sedation the patient was not following any commands upon receiving sedation holiday. Neurologic exam remains nonfocal. Meanwhile, CAT scan of the brain that was done on 05/10/2025 showed mild cerebral atrophy without any acute abnormalities. CAT scan of the brain that was done at time of admission on 05/04/2025 showed no acute abnormalities. EEG done on 05/08/2025 showed moderate to severe degree of slowing in the background. No evidence of any seizure activity. Chronic kidney disease, stage III Preserved LV function with a normal ejection fraction and moderate mitral regurgitation and mild to moderate tricuspid regurgitation, based on echo on . Nonanion gap metabolic acidosis, secondary to renal failure. 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 Essential thrombocythemia, reportedly on cytoreducative therapy. lung cancer with previous lobectomy at outside facility. The patient underwent a right-sided lobectomy, probably the right upper lobe and this was done 2 years ago at [facility]. Current tobacco smoker. Plan: Continue ventilator support No change in mechanical ventilator for today Obtain a CAT scan of the chest and abdomen with p.o. contrast. No IV contrast will be given based on his underlying renal failure. Continue bronchodilators Continue steroids The patient is on no antibiotics for now Restart vital high-protein at rate of 10 cc an hour and continue the Reglan Will give a sedation holiday at a later stage today and assess his underlying mental status Rest of the medications are essentially unchanged. Will continue the treatment and will make further recommendations based on his progress. Case was discussed with the family and the was at the bedside. Evaluation was done more than 30 minutes. Working progress. Time with Patient: Greater than 30
--- NOTE | 2025-05-11 16:25 | P.PN ---
Subjective Progress Note Date: 05/11/25 I am seeing the patient for the first time during this hospital admission. Please refer to Dr. Kerr's note for further details. It seems that the patient has altered mental status due to multifactorial toxic metabolic encephalopathy additional due to sedation. Yesterday the patient was on Precedex and he desat so therefore was started on IV Propofol and is on 75mcg/kg/min. Continues to be intubated on a ventilator. He is moving the head [id number] and moving upper extremities spontaneously. Objective - Vital Signs Vital signs: Vital Signs Temp 97.9 F 05/11/25 00:00 Pulse 97 05/11/25 15:08 Resp 20 05/11/25 15:00 BP 112/52 05/11/25 15:00 Pulse Ox 98 05/11/25 15:00 FiO2 40 05/11/25 15:00 Intake & Output 05/10/25 05/11/25 05/11/25 18:59 06:59 18:59 Intake Total 980.322 626.975 493.764 Output Total 2095 825 370 Balance -1114.678 -198.025 123.764 Weight 92.5 kg 92.5 kg Intake: IV 468 176 144 0.9 KVO 90 110 90 Arterial Line and CVP 78 66 54 Line Lactated Ringers 1,000 ml 300 @ 75 mls/hr IV .[id number] WHIT Rx#:[id number] Intake, IV Titration 442.322 450.975 349.764 Amount Clevidipine Butyrate 25 44.7 78.233 50.000 mg In Empty Bag 1 bag @ 1 MG/HR 2 mls/hr IV .Q24H WHIT Rx#:[id number] Dexmedetomidine/0.9% NaCl 295.764 178.794 (Pmx) 400 mcg In Empty Bag 1 bag @ 0.2 MCG/KG/HR 4.535 mls/hr IV .Q22H4M WHIT Rx#:[id number] propofoL 1,000 mg In 101.858 193.948 299.764 Empty Bag 1 bag @ 15 MCG/ KG/MIN 6.532 mls/hr IV . [id number] WHIT Rx#:[id number] Oral 70 Output: Urine 2095 825 370 Other: Voiding Method Indwelling Catheter Indwelling Catheter Indwelling Catheter ABP, PAP, CO, CI - Last Documented Arterial Blood Pressure 135/51 - Exam General: Laying in bed and does not appear in acute distress. Lung: Intubated on a ventilator. Neuro: Limited is on Sedation (IV Propofol 75mcg/kg/min). Would move head side to side and lifts bilateral arms spontaneously. Upon opening eyes, initially was resisting. The primary gaze is midline, pupils are 3mm and reactive to light. - Labs CBC & Chem 7: 05/11/25 05:12 05/11/25 05:12 Labs: Abnormal Lab Results - Last 24 Hours (Table) 05/10/25 05/10/25 05/11/25 Range/Units 17:44 23:04 05:03 WBC (4.50-10.00) 10*3/uL RBC (4.40-5.60) 10*6/uL Hgb (13.0-17.0) g/dL Hct (39.6-50.0) % MCH (27.0-32.0) pg MCHC (32.0-37.0) g/dL Plt Count (140-440) 10*3/uL Immature Gran # (0.00-0.04) 10*3/uL Neutrophils # (1.80-7.70) 10*3/uL Lymphocytes # (0.90-5.00) 10*3/uL Eosinophils # (0.04-0.35) 10*3/uL ABG pO2 53 L* (83-108) mmHg ABG O2 Saturation 85.2 L (94-97) % Hemoglobin 8.5 L (13.0-17.5) gm/dL Chloride (98-107) mmol/L Carbon Dioxide (22-30) mmol/L BUN (9-20) mg/dL Creatinine (0.66-1.25) mg/dL Glucose (74-99) mg/dL POC Glucose (mg/dL) 154 H 123 H (70-110) mg/dL 05/11/25 05/11/25 05/11/25 Range/Units 05:09 05:12 05:12 WBC 13.51 H (4.50-10.00) 10*3/uL RBC 3.21 L (4.40-5.60) 10*6/uL Hgb 8.5 L (13.0-17.0) g/dL Hct 27.3 L (39.6-50.0) % MCH 26.5 L (27.0-32.0) pg MCHC 31.1 L (32.0-37.0) g/dL Plt Count 872 H (140-440) 10*3/uL Immature Gran # 0.30 H (0.00-0.04) 10*3/uL Neutrophils # 12.28 H (1.80-7.70) 10*3/uL Lymphocytes # 0.26 L (0.90-5.00) 10*3/uL Eosinophils # 0.00 L (0.04-0.35) 10*3/uL ABG pO2 (83-108) mmHg ABG O2 Saturation (94-97) % Hemoglobin (13.0-17.5) gm/dL Chloride 113 H (98-107) mmol/L Carbon Dioxide 19 L (22-30) mmol/L BUN 58 H (9-20) mg/dL Creatinine 1.83 H (0.66-1.25) mg/dL Glucose 115 H (74-99) mg/dL POC Glucose (mg/dL) 131 H (70-110) mg/dL 05/11/25 Range/Units 12:51 WBC (4.50-10.00) 10*3/uL RBC (4.40-5.60) 10*6/uL Hgb (13.0-17.0) g/dL Hct (39.6-50.0) % MCH (27.0-32.0) pg MCHC (32.0-37.0) g/dL Plt Count (140-440) 10*3/uL Immature Gran # (0.00-0.04) 10*3/uL Neutrophils # (1.80-7.70) 10*3/uL Lymphocytes # (0.90-5.00) 10*3/uL Eosinophils # (0.04-0.35) 10*3/uL ABG pO2 (83-108) mmHg ABG O2 Saturation (94-97) % Hemoglobin (13.0-17.5) gm/dL Chloride (98-107) mmol/L Carbon Dioxide (22-30) mmol/L BUN (9-20) mg/dL Creatinine (0.66-1.25) mg/dL Glucose (74-99) mg/dL POC Glucose (mg/dL) 145 H (70-110) mg/dL Assessment and Plan Assessment: * Altered mental status, likely due to toxic metabolic encephalopathy. Probably additional effect of propofol. Had two CT head which is negative for acute process. * Acute respiratory failure, on mechanical ventilation * Suspected bilateral Pneumonia, but patient is not on antibiotics at this time * Possible exacerbation of CHF * acute kidney injury * History of GAVE syndrome with chronic anemia and thrombocythemia * history of lung cancer with previous lobectomy * Tobacco use Plan: * Preliminary EEG is negative for seizure * EEG was abnormal due to background slowing of moderate to severe degree, along with some periods of generalized suppression. This is suggestive of generalized cerebral dysfunction as can be seen with toxic metabolic en cephalopathy or due to diffuse structural brain abnormality or medication effect as well. Clinical correlation is recommended. This EEG was performed while patient was on propofol 50 mcg/kg per minute. * Recommend holding sedation for at least 24 hours for better neurological exam once patient is more stable. * Other management as per IM, critical care and other specialties. * 2-D echo revealed LVH with preserved systolic function with EF 55%. No obvious regional wall motion abnormalities. Moderate MR, [id number] TR normal left atrial size. * Repeat CT head, 05/10/2025 showed no acute bleed or mass effect. Mild atrophy. No interval change. I personally reviewed CT head again with the findings. * Discussed with patient's family and nursing staff. Time with Patient: Less than 30
--- NOTE | 2025-05-11 16:41 | CT ---
EXAMINATION TYPE: CT chest abdomen wo con CT DLP: 709.3 mGycm, Automated exposure control for dose reduction was used. DATE OF EXAM: 05/11/2025 4:23 PM COMPARISON: Chest radiograph 05/11/2025, renal ultrasound 05/04/2025 CLINICAL INDICATION:Male, 79 years old with history of R/O mass; PHH, r/o mass, pain Technique: Multiple axial images of the chest and abdomen were obtained without intravenous contrast. Oral contrast was administered. Evaluation is limited due to lack of intravenous contrast. Two-dimen sional coronal and sagittal reconstructions were obtained. Findings: CHEST: LUNGS/ PLEURA: No pneumothorax. Moderate right and small left pleural effusions with complete atelect asis of the bilateral lower lobes. Fluid is identified tracking within the right minor fissure. No fo jose elias consolidation, or suspicious pulmonary nodule/mass. AIRWAY: Endotracheal tube identified terminating approximately 3 cm above the yuni. HEART: Mildly enlarged. . No pericardial effusion. Minimal coronary artery calcifications present. MEDIASTINUM: Multiple mildly prominent mediastinal lymph nodes. Evaluation is limited due to lack of intravenous contrast. VASCULATURE: No aortic aneurysm. Left subclavian approach central venous catheter with distal tip te rminating at the superior cavoatrial junction. Mildly dilated main pulmonary artery suggesting pulmon freddy arterial hypertension. MUSCULOSKELETAL: No acute osseous abnormalities.. No aggressive osseous lesion. SOFT TISSUES/LYMPH NODES: Mild bilateral gynecomastia. Mild anasarca. LOWER NECK: No significant findings. ABDOMEN: ABDOMEN LIVER: Unremarkable noncontrast appearance. GALLBLADDER AND BILE DUCTS: Gallstones are identified measuring 0.8 cm. No biliary duct dilatation. PANCREAS: Unremarkable noncontrast appearance. SPLEEN: Unremarkable noncontrast appearance. ADRENAL GLANDS: Thickening of the left adrenal gland without nodularity. Probably represents hyperpla cheryl. KIDNEYS AND URETERS: No evidence of hydronephrosis or renal calculus. Right renal simple appearing cy sts measuring up to 2.6 cm with additional left renal cysts within an exophytic 3 cm cyst. These appe ars simple. No follow up recommended. STOMACH AND BOWEL: Enteric tube terminates within the stomach in appropriate position.Contrast reache s the proximal small bowel. No distinct focal bowel wall thickening. No evidence of bowel obstruction . PERITONEUM: No evidence of pneumoperitoneum or free fluid. VASCULATURE: Mild atherosclerotic calcifications are present throughout the abdominal aorta and its b ranches. No visualized abdominal aortic aneurysm. MUSCULOSKELETAL: No acute osseous abnormalities. No aggressive osseous lesion. Multilevel degenerativ e disc disease of the lower lumbar spine. LYMPH NODES: No gross evidence for lymphadenopathy. SOFT TISSUE/ABDOMINAL WALL: Diffuse anasarca. IMPRESSION: Evaluation is limited due to lack of intravenous contrast. 1. Moderate right and small left pleural effusions with compressive atelectasis of the bilateral low er lobes. 2. Mildly prominent mediastinal lymph nodes which are probably reactive. 3. Cholelithiasis. 4. Diffuse anasarca. 5. Appropriate position of support lines and tubes. [facility], , 05/11/2025 4:39 PM
[2025-05-11 17:49] LABS: Glucose,Whole Blood 161 mg/dL (70-110)
--- NOTE | 2025-05-11 18:23 | P.CONS ---
History of Present Illness - Reason for Consult Consult date: 05/11/25 thrombocythemia Requesting physician: Radha Ervin - Chief Complaint elevated platelets - History of Present Illness We are consulted for essential thrombocythemia. Patient was admitted 8 days ago for respiratory arrest, EMS contacted for severe SOB at home, he was intubated prior to arrival. Family reports blood transfusion prior to this episode. Patient has been sedated and mechanically ventilated since that time. There are discussions regarding tracheostomy and PEG tube placement. Patient has a history of GAVE syndrome, requiring transfusions and essential thrombocythemia for which he follows with clinical informatics manager, on Agrylin. 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 From Oct 2023 to present 43 PC transfusions and 10 Iron infusions. Bone marrow biopsy negative. Colonoscopy. diarrhea, possible copd/chf. Lung cancer with Rt upper lobe resection 2021, Prostate cancer and surgery 2009, anemia History of Any Multi-Drug Resistant Organisms: None Reported Past Surgical History: Ablation Additional Past Surgical History / Comment(s): EGD ablations Past Anesthesia/Blood Transfusion Reactions: No Reported Reaction Past Psychological History: Anxiety Smoking Status: Current every day smoker Past Alcohol Use History: None Reported Past Drug Use History: None Reported Medications and Allergies Home Medications Medication Instructions Recorded Confirmed Type Anagrelide HCl [Agrylin] 1 mg PO BID 05/04/25 05/04/25 History Escitalopram [Lexapro] 20 mg PO HS 05/04/25 05/04/25 History Esomeprazole Magnesium 20 mg PO BID 05/04/25 05/04/25 History Metoprolol Succinate (ER) [Toprol 100 mg PO HS 05/04/25 05/04/25 History Xl] Multivitamin [Multivitamins Adult 1 tab PO DAILY 05/04/25 05/04/25 History Gummies] Simvastatin 40 mg PO HS 05/04/25 05/04/25 History amLODIPine [Norvasc] 5 mg PO HS 05/04/25 05/04/25 History Allergies Allergy/AdvReac Type Severity Reaction Status Date / Time lisinopril Allergy Swelling Verified 05/04/25 12:19 Physical Exam Vitals: Vital Signs Temp Pulse Resp BP Pulse Ox FiO2 05/11/25 11:30 112 H 20 155/68 99 40 05/11/25 11:26 113 H 05/11/25 11:17 116 H 40 05/11/25 11:15 121 H 20 150/67 99 40 05/11/25 11:00 113 H 21 152/68 97 40 05/11/25 10:45 108 H 20 137/84 98 40 05/11/25 10:30 107 H 20 150/70 98 40 05/11/25 10:15 106 H 8 L 152/68 99 05/11/25 10:00 101 H 10 L 145/66 100 05/11/25 09:45 93 7 L 143/68 100 05/11/25 09:30 93 0 L 144/70 100 05/11/25 09:15 95 17 145/67 100 05/11/25 09:00 91 5 L 144/68 100 05/11/25 08:45 91 0 L 148/71 100 05/11/25 08:30 93 20 144/71 100 40 05/11/25 08:15 91 20 146/69 100 40 05/11/25 08:13 92 05/11/25 08:03 90 05/11/25 08:00 92 20 146/77 100 40 05/11/25 07:53 92 05/11/25 07:46 40 05/11/25 07:45 93 20 140/63 99 40 05/11/25 07:30 80 20 140/62 99 40 05/11/25 07:15 80 20 135/61 99 40 05/11/25 07:00 83 20 134/65 98 05/11/25 06:45 85 20 138/60 98 05/11/25 06:30 84 20 138/63 99 05/11/25 06:15 86 20 158/71 99 05/11/25 06:00 100 20 148/71 87 L 05/11/25 05:45 96 20 148/68 94 L 05/11/25 05:30 98 20 153/76 95 05/11/25 05:20 40 05/11/25 05:15 96 20 140/66 96 05/11/25 05:00 100 20 124/57 100 05/11/25 04:45 86 20 125/54 98 07/14/25 04:30 85 20 123/54 98 05/11/25 04:22 30 05/11/25 04:21 86 20 05/11/25 04:15 84 20 124/59 100 05/11/25 04:00 87 20 144/69 100 30 05/11/25 03:45 91 20 133/61 99 05/11/25 03:30 96 18 138/68 99 05/11/25 03:15 103 H 20 159/90 93 L 05/11/25 03:00 106 H 16 146/67 05/11/25 02:45 99 20 146/67 86 L 05/11/25 02:30 98 20 145/68 05/11/25 02:15 20 139/67 96 05/11/25 02:00 94 20 137/69 96 05/11/25 01:45 94 20 140/67 94 L 05/11/25 01:30 94 20 139/67 05/11/25 01:15 96 20 140/71 94 L 05/11/25 01:00 88 20 137/65 96 05/11/25 00:45 93 20 131/66 05/11/25 00:30 85 20 134/68 94 L 05/11/25 00:15 81 20 128/60 97 05/11/25 00:08 30 05/11/25 00:07 86 20 05/11/25 00:00 97.9 F 83 20 135/66 95 30 05/10/25 23:45 89 20 126/61 95 05/10/25 23:30 79 20 123/59 96 05/10/25 23:15 79 20 126/61 91 L 05/10/25 23:00 78 20 129/62 94 L 05/10/25 22:45 79 20 131/65 93 L 05/10/25 22:30 78 20 138/67 94 L 05/10/25 22:15 80 20 140/69 95 05/10/25 22:00 80 20 137/69 94 L 05/10/25 21:45 79 20 142/91 94 L 05/10/25 21:30 81 20 138/69 92 L 05/10/25 21:15 75 20 95 05/10/25 21:00 83 11 L 135/67 93 L 05/10/25 20:45 82 0 L 93 L 05/10/25 20:30 83 20 92 L 05/10/25 20:15 77 20 95 05/10/25 20:01 80 20 05/10/25 20:00 98.0 F 77 20 95 30 05/10/25 19:53 78 20 05/10/25 19:48 30 05/10/25 19:47 78 20 05/10/25 19:45 75 20 93 L 05/10/25 19:40 30 05/10/25 19:30 77 20 94 L 05/10/25 19:15 79 20 93 L 05/10/25 19:00 77 20 94 L 05/10/25 18:45 84 20 93 L 05/10/25 18:30 84 20 92 L 05/10/25 18:15 82 20 94 L 05/10/25 18:00 79 20 94 L 05/10/25 17:45 80 20 93 L 05/10/25 17:30 78 20 93 L 05/10/25 17:15 80 20 94 L 05/10/25 17:00 81 20 94 L 05/10/25 16:45 85 20 94 L 05/10/25 16:30 84 21 93 L 05/10/25 16:15 78 20 94 L 05/10/25 16:00 97.8 F 78 20 94 L 30 05/10/25 15:45 78 20 94 L 05/10/25 15:30 78 20 94 L 05/10/25 15:23 84 05/10/25 15:15 79 20 93 L 05/10/25 15:13 80 30 05/10/25 15:00 79 20 94 L 05/10/25 14:45 80 20 94 L 05/10/25 14:30 84 20 94 L 05/10/25 14:15 84 20 94 L 05/10/25 14:00 87 20 93 L 05/10/25 13:45 81 20 93 L 05/10/25 13:30 80 20 94 L Intake and Output 05/10/25 05/11/25 05/11/25 22:59 06:59 14:59 Intake Total 440.889 409.811 312.237 Output Total 1245 730 210 Balance -804.111 -320.189 102.237 Intake: IV 128 128 64 0.9 KVO 80 80 40 Arterial Line and CVP 48 48 24 Line Intake, IV Titration 312.889 281.811 248.237 Amount Clevidipine Butyrate 25 29.4 48.833 22.500 mg In Empty Bag 1 bag @ 1 MG/HR 2 mls/hr IV .Q24H WHIT Rx#:[id number] Dexmedetomidine/0.9% NaCl 186.241 92.553 (Pmx) 400 mcg In Empty Bag 1 bag @ 0.2 MCG/KG/HR 4.535 mls/hr IV .Q22H4M WHIT Rx#:[id number] propofoL 1,000 mg In 97.248 140.425 225.737 Empty Bag 1 bag @ 15 MCG/ KG/MIN 6.532 mls/hr IV . [id number] WHIT Rx#:[id number] Output: Urine 1245 730 210 Other: Voiding Method Indwelling Catheter Indwelling Catheter Indwelling Catheter Weight 92.5 kg 92.5 kg ABP, PAP, CO, CI - Last 8 Hours Arterial Blood Pressure 131/55 Arterial Blood Pressure 128/62 Arterial Blood Pressure 169/73 Arterial Blood Pressure 124/53 Arterial Blood Pressure 132/55 Arterial Blood Pressure 156/54 Arterial Blood Pressure 151/53 Arterial Blood Pressure 149/54 Arterial Blood Pressure 145/53 Arterial Blood Pressure 147/54 Arterial Blood Pressure 144/53 Arterial Blood Pressure 137/53 Arterial Blood Pressure 141/54 Arterial Blood Pressure 131/57 Arterial Blood Pressure 140/59 Arterial Blood Pressure 126/58 Arterial Blood Pressure 116/53 Arterial Blood Pressure 112/56 - Constitutional General appearance: average body habitus, no acute distress - Respiratory ventilated - Cardiovascular Rhythm: irregularly irregular leg Peripheral Edema: bilateral: Trace - Musculoskeletal Musculoskeletal: no gait normal, no generalized weakness, no strength equal bilaterally, no right sided weakness, no left sided weakness - Psychiatric Psychiatric: no A&O x's 3, no appropriate affect, no intact judgment & insight Results CBC & Chem 7: 05/11/25 05:12 05/11/25 05:12 Labs: Abnormal Lab Results - Last 24 Hours (Table) 05/10/25 05/10/25 05/11/25 Range/Units 17:44 23:04 05:03 WBC (4.50-10.00) 10*3/uL RBC (4.40-5.60) 10*6/uL Hgb (13.0-17.0) g/dL Hct (39.6-50.0) % MCH (27.0-32.0) pg MCHC (32.0-37.0) g/dL Plt Count (140-440) 10*3/uL Immature Gran # (0.00-0.04) 10*3/uL Neutrophils # (1.80-7.70) 10*3/uL Lymphocytes # (0.90-5.00) 10*3/uL Eosinophils # (0.04-0.35) 10*3/uL ABG pO2 53 L* (83-108) mmHg ABG O2 Saturation 85.2 L (94-97) % Hemoglobin 8.5 L (13.0-17.5) gm/dL Chloride (98-107) mmol/L Carbon Dioxide (22-30) mmol/L BUN (9-20) mg/dL Creatinine (0.66-1.25) mg/dL Glucose (74-99) mg/dL POC Glucose (mg/dL) 154 H 123 H (70-110) mg/dL 05/11/25 05/11/25 05/11/25 Range/Units 05:09 05:12 05:12 WBC 13.51 H (4.50-10.00) 10*3/uL RBC 3.21 L (4.40-5.60) 10*6/uL Hgb 8.5 L (13.0-17.0) g/dL Hct 27.3 L (39.6-50.0) % MCH 26.5 L (27.0-32.0) pg MCHC 31.1 L (32.0-37.0) g/dL Plt Count 872 H (140-440) 10*3/uL Immature Gran # 0.30 H (0.00-0.04) 10*3/uL Neutrophils # 12.28 H (1.80-7.70) 10*3/uL Lymphocytes # 0.26 L (0.90-5.00) 10*3/uL Eosinophils # 0.00 L (0.04-0.35) 10*3/uL ABG pO2 (83-108) mmHg ABG O2 Saturation (94-97) % Hemoglobin (13.0-17.5) gm/dL Chloride 113 H (98-107) mmol/L Carbon Dioxide 19 L (22-30) mmol/L BUN 58 H (9-20) mg/dL Creatinine 1.83 H (0.66-1.25) mg/dL Glucose 115 H (74-99) mg/dL POC Glucose (mg/dL) 131 H (70-110) mg/dL 05/11/25 Range/Units 12:51 WBC (4.50-10.00) 10*3/uL RBC (4.40-5.60) 10*6/uL Hgb (13.0-17.0) g/dL Hct (39.6-50.0) % MCH (27.0-32.0) pg MCHC (32.0-37.0) g/dL Plt Count (140-440) 10*3/uL Immature Gran # (0.00-0.04) 10*3/uL Neutrophils # (1.80-7.70) 10*3/uL Lymphocytes # (0.90-5.00) 10*3/uL Eosinophils # (0.04-0.35) 10*3/uL ABG pO2 (83-108) mmHg ABG O2 Saturation (94-97) % Hemoglobin (13.0-17.5) gm/dL Chloride (98-107) mmol/L Carbon Dioxide (22-30) mmol/L BUN (9-20) mg/dL Creatinine (0.66-1.25) mg/dL Glucose (74-99) mg/dL POC Glucose (mg/dL) 145 H (70-110) mg/dL Chest x-ray: report reviewed CT Scan - head: report reviewed Assessment and Plan (1) Thrombocythemia Current Visit: Yes Status: Chronic Priority: Medium Code(s): D75.839 - THROMBOCYTOSIS, UNSPECIFIED SNOMED Code(s): 5536795 (2) GAVE (gastric antral vascular ectasia) Current Visit: No Status: Chronic Priority: Medium Code(s): K31.819 - ANGIODYSPLASIA OF STOMACH AND DUODENUM WITHOUT BLEEDING SNOMED Code(s): 48585829 Plan: Thrombocythemia -Patient treats with Dr. Stone. - Patient is on treatment for the same with Agrylin - Acute condition likely exacerbating thrombocytopenia, reactive. - Patient is on DVT prophylaxis -Cont to follow plt counts GAVE syndrome -supportive care -aggressive iron supplementation when bleeding Severe reaction post transfusion -? TRALI -Supportive care to treat the same. -ICU care, Critical Care team following closely Doctor attests: I performed a history and physical examination of this patient, developed impression and plan of care. Discussed with dictator. I agree with dictators note, documented as a scribe.
[2025-05-11 23:35] LABS: Glucose,Whole Blood 139 mg/dL (70-110)
--- NOTE | 2025-05-12 03:54 | EEG ---
ELECTROENCEPHALOGRAM REPORT CLINICAL HISTORY: This is a 79-year-old gentleman with altered mental status. The video EEG is obtained to evaluate for seizure epileptiform activity. RELEVANT MEDICATION: IV propofol. EEG TYPE: This is a routine 21-channel EEG with video using the 10/20 electrode placement system. DESCRIPTION: The patient is intubated on ventilator. The background consists of qtb-op-[id number] voltage of 5 to 6 hertz intermixed with delta activity. There was no physiological stage 2 sleep architecture. There is no focal slowing. Interictal and ictal is none. ACTIVATION PROCEDURE: Photic stimulation did not evoke a posterior driving response. There is no abnormality during the photic stimulation. Hyperventilation is not performed. CLINICAL INTERPRETATION: This is an abnormal routine EEG. The background slowing is suggestive of moderate-to- severe encephalopathy. There is no focal slowing, epileptiform discharge, or seizure on the EEG. Lack of epileptiform discharge does not rule out underlying epilepsy. Clinical correlation is recommended. [email or web address] / RICA: [id number] /
[2025-05-12 05:20] LABS: ABG HCO3 22 mmol/L (21-25); ABG PCO2 38 mmHg (35-45); ABG PH 7.37 (7.35-7.45); ABG PO2 95 mmHg (83-108); ABG TCO2 23 mmol/L (19-24)
[2025-05-12 05:23] LABS: Allen Test Performed? no
[2025-05-12 05:40] LABS: Glucose,Whole Blood 142 mg/dL (70-110)
[2025-05-12 06:12] LABS: Basophils # (A) 0.01 10*3/uL (0.00-0.10); Basophils % (A) 0.1 %; Eosinophils # (A) 0.00 10*3/uL (0.04-0.35); Eosinophils % (A) 0.0 %; HCT 26.0 % (39.6-50.0); HGB 8.2 g/dL (13.0-17.0); Lymphocytes # (A) 0.33 10*3/uL (0.90-5.00); Lymphocytes % (A) 2.4 %; MCH 26.8 pg (27.0-32.0); MCHC 31.5 g/dL (32.0-37.0); MCV 85.0 fL (80.0-97.0); Monocytes # (A) 0.45 10*3/uL (0.20-1.00); Monocytes % (A) 3.3 %; Neutrophils # (A) 12.35 10*3/uL (1.80-7.70); Neutrophils % (A) 91.7 %; Platelet Count 848 10*3/uL (140-440); RBC 3.06 10*6/uL (4.40-5.60); RDW 22.8 % (11.5-14.5); WBC 13.48 10*3/uL (4.50-10.00)
[2025-05-12 06:28] LABS: African American GFR (CKD) 42 (>60 ml/min/1.73 sqM); Anion Gap 10 mmol/L; Blood Urea Nitrogen 61 mg/dL (9-20); Calcium 9.0 mg/dL (8.4-10.2); Carbon Dioxide 18 mmol/L (22-30); Chloride 113 mmol/L (98-107); Glucose 124 mg/dL (74-99); Non-African American GFR(CKD) 37 (>60 ml/min/1.73 sqM); Potassium 5.2 mmol/L (3.5-5.1); Sodium 141 mmol/L (137-145)
--- NOTE | 2025-05-12 07:19 | XR ---
EXAMINATION TYPE: XR chest 1V portable DATE OF EXAM: 05/12/2025 5:40 AM COMPARISON: Chest radiograph from one day prior. CLINICAL INDICATION: Male, 79 years old with history of Tube Placement; [facility] TECHNIQUE: XR chest 1V portable Frontal view of the chest. FINDINGS: Lungs/Pleura: Blunting of the right costophrenic angle. There is no evidence of left pleural effusio n, focal consolidation, or pneumothorax Pulmonary vascularity: Unremarkable. Heart/mediastinum: Cardiomediastinal silhouette is unremarkable. Musculoskeletal: No acute osseous pathology. Other findings: None Lines/Tubes: Endotracheal tube with distal tip 5.7 cm above the yuni. Nasogastric tube with its distal tip and side-port projecting under the diaphragm. Left central venous catheter with distal tip at the cavoatrial junction. IMPRESSION: Stable exam with moderate right pleural effusion. [facility], , 05/12/2025 7:17 AM
[2025-05-12 08:03] LABS: Anisocytosis (M) Present; Poikilocytosis (M) Present
[2025-05-12] MEDS: FUROSEMIDE 10 MG/ML 4 ML VIAL IV SCH (08:42)
[2025-05-12] MEDS: DEXMEDETOMIDINE/0.9% NACL(PMX) 400 MCG in EMPTY BAG 1 BAG IV SCH (09:32)
[2025-05-12 11:24] LABS: Glucose,Whole Blood 139 mg/dL (70-110)
--- NOTE | 2025-05-12 11:39 | P.PN ---
Subjective Progress Note Date: 05/12/25 Patient is a 79-year-old male, evaluated by EMS yesterday. Reportedly, having severe respiratory distress and apnea. He was intubated in the field. No previous records available to review from our facility. I did call the patient's , she states he was increasingly weak for the last several days. Associated shortness of breath with exertion. She thought it was related to his anemia. She was able to provide some past medical history including lung cancer and previous lung resection at [facility], essential thrombocythemia, and GAVE syndrome. Reportedly, requires frequent blood and iron infusions. He follows at [facility] for this. Reportedly, no history of COPD, asthma. No history of heart failure per the . His medication list is not available. Workup in the emergency department including a chest x-ray which shows endotracheal tube proximal, approximately 6 cm from the yuni. Orogastric tube coursing into the stomach. Patchy bibasilar infiltrates and small effusion on the right. Left costophrenic angle was excluded from the image. CBC including a WBC count of 19.15, hemoglobin 9.2, platelets 655. CMP included sodium 142, potassium 4.8, chloride 107, serum bicarb 20, BUN 28, creatinine 1.88, glucose 256. Lactic 2.6 and down to 1.6. EKG: Sinus tachycardia, rate 104 bpm, no acute ischemic changes. Troponin less than 0.012. NT proBNP significantly elevated at 12,100. Patient currently being evaluated in the emergency department, trauma bay 2. He is intubated to the mechanical ventilator. Previous ABGs including a PaO2 of 315, pCO2 57, pH of 7.2. Previous ventilator settings were assist-control, rate 16, tidal volume 450, FiO2 100%, PEEP of 5. Since then, his rate has been increased to 20 and his tidal volume dropped to 50%. The Peak pressure averaging 38 and static airway pressure measured at 17. His endotracheal tube is a size 7. There are thick tenacious white secretions coming from the endotracheal tube. Sputum sample to be collected. Currently, patient is synchronous with the mechanical ventilator. Sedated on propofol which is infusing at 45 mcg/kg/min. He was previously fluid resuscitated with a total of 2.5 L crystalloid fluid and LR continues at 150 mL/h. Blood pressure is normotensive. Not requiring any vasopressors. An indwelling urinary catheter was placed and there is small amount of concentrated yellow urine in the col lection bag. Has remained afebrile. Previously started on empiric antibiotics in form azithromycin and Rocephin in the ED. Progress note dated May 05, 2025. This is a 79-year-old gentleman who was seen by my nurse practitioner yesterday. The patient came into the hospital with respiratory failure, thought to be secondary to pneumonia. The patient remains on volume assist-control, rate 20, tidal line 450, FiO2 40%, PEEP of 5. Blood gases this morning show pO2 118, pCO2 38, pH is 7.30. Both blood gases are consistent with mild metabolic acidosis. The patient is getting saline at 75 cc an hour, propofol at 50 mcg/kg/min, and norepinephrine at 3.7 mcg/min. The patient continues on azit hromycin and Rocephin. We will attempt a daily interruption of sedation today, plus or minus a spontaneous breathing trial. The patient's saline IV, will be converted to lactated Ringer's at 75 cc an hour. Current laboratory data includes a white count of 14.8, hemoglobin 7.6, hematocrit 24.2, and a platelet count of 570,000. Sodium 141, potassium 4.2, chloride 111, CO2 16, anion gap 14, glucose 120, BUN and creatinine were 27 and 1.76. Calcium 8.1. Blood and sputum sampling is thus far negative. X-ray shows small right-sided pleural effusion, with some bibasilar patchy airspace opacities, concerning for possible pneumonia. Progress note dated May 06, 2025. 79-year-old male seen in the intensive care unit. The patient was admitted with respiratory failure, and pneumonia. He remains on mechanical ventilation. He is on volume assist-control, rate 20, tidal volume 450, FiO2 40%, PEEP of 5. Blood gases show PO297, OAV584, pH is 7.30. The blood gas is consistent with a mild metabolic acidosis. He is on propofol at 50 mcg/kg/min, norepinephrine has been weaned off. He is on lactated Ringer's at 75 cc an hour, and saline at KVO. He is receiving vital high-protein at 40, with a goal of 45 cc an hour. He continues on azithromycin and Rocephin empirically. Will add some Solu- Medrol to his regimen. We also had some Dilaudid for pain control. White count 12.9, hemoglobin 7, hematocrit 22.8, platelet count 563,000. Sodium 142, potassium 4.1, chlorides 113, CO2 17, anion gap 12, BUN 23, creatinine 1.52. Glucose is 125. Calcium is 8.4. Sputum and blood sampling has been negative thus far. Chest x-ray shows small right pleural effusion with bibasilar patchy airspace opacities. There is evidence of pulmonary vascular congestion. Progress note dated May 07, 2025. 79-year-old male seen in the intensive care unit, room 251. The patient has a history of respiratory failure, and pneumonia, he remains on mechanical ventilator. Current vent settings include volume assist-control, rate 20, tidal volume 450, FiO2 40%, PEEP of 5. Arterial blood gases show PO2 114, PCO2 of 41, pH is 7.30. The patient is getting lactated Ringer's at 75 cc an hour, propofol at 50 mcg/kg/min. The patient is also getting saline at 10 cc an hour, and vital high-protein at 10 cc an hour. Residuals are high, so we added Reglan 10 mg every 6. He continues on azithromycin and Rocephin, and microbiologic sampling, thus far is negative. In addition, his peak airway pressures 29, with a plateau pressure of 13. His airways resistance is 13 cm water per liter per second. We will attempt a daily interruption of sedation. White count was 10.6, hemoglobin 7.1, hematocrit 23.6, platelet count 629,000. Sodium 141, potassium 4.5, chlorides 111, CO2 18, anion gap 12, BUN 28, creatinine 1.59. These electrolyte profile is consistent with a nonanion gap metabolic acidosis. Glucose is 162. Calcium is 8.8. Chest x-ray is largely unchanged, with small right-sided pleural effusion, and right basilar infiltrate. Progress note dated May 08, 2025. 79-year-old male seen today in room 251. The patient has done poorly with his daily interruptions of sedation. He is on volume assist-control, rate 20, tidal volume 450, FiO2 30%, PEEP of 5. Blood gases show PO2 102, pCO2 40, pH is 7.28. The patient is getting LR at 75 cc an hour, propofol is currently off, saline at 10 cc an hour, and vital high-protein at 40, with a goal of 45 cc an hour. Because of his agitated state, and his poor response, the patient will have an EEG, and a neurology consultation. He is currently not on any antibiotics. White count is 15.5, hemoglobin 7, hematocrit 23.1, platelet count 775,000. Sodium 139, potassium 4.9, chlorides 111, CO2 is 18, anion gap 10, BUN 37, creatinine 1.62. Glucose of 177. Calcium 8.8. Magnesium 2.2. Blood and sputum analysis is negative. Chest x-ray shows a small right-sided pleural effusion, and some mild bibasilar opacities. Progress note dated May 09, 2025. 79-year-old male seen today in room 251. He remains on the mechanical ventilator. He is on volume assist-control, rate 20, tidal volume 450, FiO2 30%, PEEP of 5. Blood gases show pO2 of 90, pCO2 of 39, pH is 7.31. The patient is getting lactated Ringer's at 75 cc an hour, propofol at 50 mcg/kg/min, vital high-protein at goal, which is 35 cc an hour. We asked neurology to see the patient yesterday. An EEG showed diffuse slowing consistent with metabolic/toxic encephalopathy. We also add some amlodipine to his regimen, for blood pressure control, at 10 mg. The patient may benefit from tracheostomy and PEG tube, if he does not improve neurologically. Will see how things go over the next few days. White count is 15.2, hemoglobin 7.4, hematocrit 24.7, platelet count 833,000. Sodium 140, potassium 5.4, chlorides 113, CO2 16, anion gap 11, BUN 45, creatinine 1.79. Glucose is 163. Calcium is 8.7. Microbiology is thus far negative. Chest x-ray is largely unchanged. Progress note dated May 10, 2025. 79-year-old male seen again in room 251. He remains on volume assist-control, rate 20, tidal volume 450, FiO2 30%, PEEP of 5. Blood gases show pO2 72, pCO2 37, pH is 7.35. He is currently on propofol at 10 mcg/kg/min, LR at 75 cc an hour, Precedex at 1.4 mcg/kg/h, Cleviprex at 3 mg an hour. The patient is also receiving vital high-protein, at goal. Current laboratory data includes a white count of 13.3, hemoglobin 8.2, hematocrit 26.5, and a platelet count of 925,000. Sodium 140, potassium 5.4, chloride 110, CO2 19, anion gap 11, BUN 54, creatinine 1.80. Calcium is 9.0. Microbiologic studies have all been negative. Chest x-ray is largely unchanged. The brain CT shows no acute bleed or mass effect, mild atrophy, and no interval change. The patient has been seen by neurology. The patient also had an EEG. On 05/11/2025, the patient is being seen in follow-up. Remains intubated and on mechanical ventilator. This morning, he is on propofol running at 75 mcg/kg/min and Precedex running at 1 mcg/kg/h. He is on assist-control mode of mechanical ventilation at rate of 20, tidal volume of 450, FiO2 40% with a PEEP of 5. Blood gas showed a pH of 7.37 and the patient has a PCO2 of 38 and PO2 of 53. Chest x-ray from today showing bilateral pleural effusion right more than left. Orotracheal tube with distal tip being at 4.5 cm above the yuni. The patient has also areas of consolidation bilaterally. Note that, the sputum sample that was collected at time of admission was negative. The patient has no fever or chills. He is not receiving any antibiotic coverage at this point. He remains on bronchodilators. He remains on IV Solu-Medrol. IV fluids are currently at KVO. Fluid balance is -1.3 L over the past 24 hours. The patient is at the subclavian left sided triple-lumen catheter. The white seconds at 13.5 with a heme of 8.5 and a platelet count of 872. BUN is 15 with a creatinine of 1.8 and a sodium levels at 142 and a potassium level is at 5.1. Serum bicarb is at 19. Anion gap is at 10. Hemodynamically stable. No pressors for now. Is known to have COPD. He is also known to haveThe patient is known to have COPD. 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 He has been treated through [facility]. Furthermore, he has undergone a lobectomy on the right for a non-small cell lung cancer and this was done approximately 2 years ago at [facility] in [place]. He has required transfusions almost every 3 we eks. He was having increased residuals. The patient will was started on IV Reglan and the patient will be started back on vital HP at a low rate. Will monitor his residuals. 05/12/2025, patient is being seen for a follow-up. The patient was given a prolonged sedation holiday. He opens his eyes and he was thrashing and he was not following any commands. He was getting progressive more asynchronous with the mechanical ventilator. Earlier this morning, the patient was on propofol at 40 mcg. This was discontinued and to restart sedation, I recommended Precedex. He is on assist-control mode of mechanical ventilation at a rate of 20, tidal volume of 450, FiO2 40% with a PEEP of 5. Blood gas showed a pH of 7.33 [id number] and PO2 of 95. He is on Cleviprex for blood pressure control running at 3 mg/h. CT scan of the abdomen and pelvis was done yesterday and the CAT scan of the chest showed a moderate-sized and small left-sided pleural effusion along with compressive atelectatic changes lung bases. Prominent mild lymph nodes within the mediastinum, probably benign, cholelithiasis, diffuse anasarca and no other intra-abdominal abnormalities. The patient is currently on vital HP at rate of 20 cc an hour. Tolerating stream reasonably well. Blood work was noted. The white cell count 13.4, hemoglobin 8.2 and platelet count of 848. BUN 61 with a creatinine of 1.7 and sodium levels at 141 and a potassium level is at 5.2. Hemoglobin has remained stable and there is no evidence of any GI bleeding. Objective - Vital Signs Vital signs: Vital Signs Temp 99.0 F 05/12/25 00:00 Pulse 102 H 05/12/25 08:17 Resp 20 05/12/25 07:15 BP 139/62 05/12/25 07:15 Pulse Ox 97 05/12/25 07:15 FiO2 40 05/12/25 07:46 Intake & Output 05/11/25 05/12/25 05/12/25 18:59 06:59 18:59 Intake Total 641.629 695.381 36 Output Total 520 460 30 Balance 121.629 235.381 6 Weight 92.5 kg 92.6 kg Intake: IV 192 192 16 0.9 KVO 120 120 10 Arterial Line and CVP 72 72 6 Line Intake, IV Titration 449.629 283.381 Amount Clevidipine Butyrate 25 50.000 14.233 mg In Empty Bag 1 bag @ 1 MG/HR 2 mls/hr IV .Q24H HWIT Rx#:[id number] propofoL 1,000 mg In 399.629 269.148 Empty Bag 1 bag @ 15 MCG/ KG/MIN 6.532 mls/hr IV . [id number] WHIT Rx#:[id number] Tube Feeding 130 20 Other 90 Output: Urine 520 460 30 Other: Voiding Method Indwelling Catheter Indwelling Catheter # Bowel Movements 1 ABP, PAP, CO, CI - Last Documented Arterial Blood Pressure 145/46 - Exam Intubated, calm and comfortable, currently on undergoing a sedation holiday. Orotracheal and gastric tube are both in place. HEENT examination is grossly unremarkable. Mucous membranes are moist. No oral lesions. The patient has a subclavian left-sided triple-lumen catheter. Neck supple. Full range of motion. No adenopathy thyromegaly or neck vein distention. Cardiovascular examination reveals regular rhythm rate. S1-S2 normal. No S3 or S4. No discernible murmur noted. Lungs reveal scattered bilateral expiratory rhonchi. No wheezes. No crackles. Breath sounds are equal bilaterally. There is diminished breath sound the lung bases bilaterally. Abdomen soft bowel sounds are heard. No masses or tenderness. Extremities are intact. No cyanosis clubbing or edema. Skin is without rash or lesion. Neurologic examination reveals a grimaces to painful stimulation in all 4 extremities. Patient off sedation and not following any commands. Opens his eyes. Grimaces, moves his head and withdraws to painful stimulation all 4 extremities. - Labs CBC & Chem 7: 05/12/25 05:40 05/12/25 05:40 Labs: Abnormal Lab Results - Last 24 Hours (Table) 05/11/25 05/11/25 05/11/25 Range/Units 05:12 05:12 12:51 WBC 13.51 H (4.50-10.00) 10*3/uL RBC 3.21 L (4.40-5.60) 10*6/uL Hgb 8.5 L (13.0-17.0) g/dL Hct 27.3 L (39.6-50.0) % MCH 26.5 L (27.0-32.0) pg MCHC 31.1 L (32.0-37.0) g/dL Plt Count 872 H (140-440) 10*3/uL Immature Gran # 0.30 H (0.00-0.04) 10*3/uL Neutrophils # 12.28 H (1.80-7.70) 10*3/uL Lymphocytes # 0.26 L (0.90-5.00) 10*3/uL Eosinophils # 0.00 L (0.04-0.35) 10*3/uL ABG O2 Saturation (94-97) % Hemoglobin (13.0-17.5) gm/dL Potassium (3.5-5.1) mmol/L Chloride 113 H (98-107) mmol/L Carbon Dioxide 19 L (22-30) mmol/L BUN 58 H (9-20) mg/dL Creatinine 1.83 H (0.66-1.25) mg/dL Glucose 115 H (74-99) mg/dL POC Glucose (mg/dL) 145 H (70-110) mg/dL 05/11/25 05/11/25 05/12/25 Range/Units 17:47 23:33 05:16 WBC (4.50-10.00) 10*3/uL RBC (4.40-5.60) 10*6/uL Hgb (13.0-17.0) g/dL Hct (39.6-50.0) % MCH (27.0-32.0) pg MCHC (32.0-37.0) g/dL Plt Count (140-440) 10*3/uL Immature Gran # (0.00-0.04) 10*3/uL Neutrophils # (1.80-7.70) 10*3/uL Lymphocytes # (0.90-5.00) 10*3/uL Eosinophils # (0.04-0.35) 10*3/uL ABG O2 Saturation 97.7 H (94-97) % Hemoglobin 8.4 L (13.0-17.5) gm/dL Potassium (3.5-5.1) mmol/L Chloride (98-107) mmol/L Carbon Dioxide (22-30) mmol/L BUN (9-20) mg/dL Creatinine (0.66-1.25) mg/dL Glucose (74-99) mg/dL POC Glucose (mg/dL) 161 H 139 H (70-110) mg/dL 05/12/25 05/12/25 05/12/25 Range/Units 05:39 05:40 05:40 WBC 13.48 H (4.50-10.00) 10*3/uL RBC 3.06 L (4.40-5.60) 10*6/uL Hgb 8.2 L (13.0-17.0) g/dL Hct 26.0 L (39.6-50.0) % MCH 26.8 L (27.0-32.0) pg MCHC 31.5 L (32.0-37.0) g/dL Plt Count 848 H (140-440) 10*3/uL Immature Gran # 0.34 H (0.00-0.04) 10*3/uL Neutrophils # 12.35 H (1.80-7.70) 10*3/uL Lymphocytes # 0.33 L (0.90-5.00) 10*3/uL Eosinophils # 0.00 L (0.04-0.35) 10*3/uL ABG O2 Saturation (94-97) % Hemoglobin (13.0-17.5) gm/dL Potassium 5.2 H (3.5-5.1) mmol/L Chloride 113 H (98-107) mmol/L Carbon Dioxide 18 L (22-30) mmol/L BUN 61 H (9-20) mg/dL Creatinine 1.75 H (0.66-1.25) mg/dL Glucose 124 H (74-99) mg/dL POC Glucose (mg/dL) 142 H (70-110) mg/dL Assessment and Plan Plan: Acute hypoxemic and hypercapnic respiratory failure, remains intubated on mechanical ventilator. Reviewed the chest x-ray and the patient has bilateral consolidation and bilateral pleural effusions right more than left. Echocardiogram done on 05/04/2025 showed preserved LV function with an ejection fraction of 55% and the patient has a moderate degree of mitral regurgitation. No significant respiratory secretions. CT scan of the chest done on 05/11/2025 shows a moderate-sized and a small size this right and left-sided pleural effusion respectively. Sechrist on mechanical ventilator and repeat chest x-ray from today shows no major interval change. Currently on no antibiotics. Encephalopathy, suboptimal recovery from sedation the patient was not following any commands upon receiving sedation holiday. Neurologic exam remains nonfocal. Meanwhile, CAT scan of the brain that was done on 05/10/2025 showed mild cerebral atrophy without any acute abnormalities. CAT scan of the brain that was done at time of admission on 05/04/2025 showed no acute abnormalities. EEG done on 05/08/2025 showed moderate to severe degree of slowing in the background. No evidence of any seizure activity. The patient was taken off the propofol. Will use Precedex alone if needed. Chronic kidney disease, stage III, creatinine is stable Preserved LV function with a normal ejection fraction and moderate mitral regurgitation and mild to moderate tricuspid regurgitation, based on echo on 05/04/2025. Nonanion gap metabolic acidosis, secondary to renal failure. 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 Essential thrombocythemia, reportedly on cytoreducative therapy. lung cancer with previous lobectomy at outside facility. The patient underwent a right-sided lobectomy, probably the right upper lobe and this was done 2 years ago at [facility]. Current tobacco smoker. Plan: Continue ventilator support No change in mechanical ventilator for today CAT scan of the chest and abdomen was noted Continue bronchodilators Continue steroids The patient is on no antibiotics for now Enteral feeding with vital HP at rate of 20 cc an hour and continue the Reglan Continue with sedation holiday and utilize Precedex for synchrony with the mechanical ventilator. Rest of the medications are essentially unchanged. Will continue the treatment and will make further recommendations based on his progress. Consider PEG and trach if the patient continues to have ongoing encephalopathy. Case was discussed with the family and the was at the bedside. Evaluation was done more than 30 minutes. Time with Patient: Greater than 30
--- NOTE | 2025-05-12 12:37 | P.PN ---
Subjective Progress Note Date: 05/12/25 Hospital Course: A 79-year-old male with past medical history of lung cancer status post lobect leonie, essential thrombocythemia, GAVE syndrome, [facility] , reported history of COPD, asthma, dyslipidemia, hypertension, depression, who presented for respiratory distress. reports exertional SOB for the past few weeks prior to arrival. In the ED he underwent extensive evaluation. BP 168/95, HR 105, T 97.5F, RR 19, 98% mechanically ventilated. Labs significant for WBC 19.15, RBC 3.4, Hg 9.2, Hct 29.3, Plt 655, PT 13.5, INR 1.3, bicarb 20, BUN 28, Cr 1.88, glu 256. Trop < 0.012. BNP 85291. Mag 2.2. Lactic acid 2.2-1.6. COVID, RSV, Flu neg. EKG sinus tachycardia. CXR patchy basilar infiltrates and small effusions. Brain CT no acute process. Patient is admitted to ICU for further man agement. Patient was intubated and sedated on 05/04, started on broad-spectrum antibiotics for sepsis present on admission. Patient completed antibiotics, sputum cultures showed no growth. He is continued on steroids. His hospital course complicated by acute metabolic encephalopathy, neurology consulted, patient had an EEG done that showed moderate to severe background slowing, that was done on propofol 50 mcg/kg/min. CT head was done twice and showed no acute bleed or mass effect. TTE showed EF of 55% with no obvious regional wall motion abnormalities, moderate MR, mild to moderate TR. Patient did have a sedation holiday on 05/11, did not tolerate well, was not following commands during. CT chest abdomen pelvis with oral contrast was done to evaluate for mts: moderate R and small L pleural effusions with compressive atelectasis, mildly prominent mediastinal lymph nodes, likely reactive, chlelithiasis, diffuse anasarca. 05/13: Seen and examined at bedside, intubated, sedated on Precedex. Discussed with RN, propofol hold, plan to sedate with Precedex and hopefully repeat another EEG 24 hours after propofol had been stopped. On my exam patient is opening eyes, moving head, no purposeful movements, does not follow command. She is afebrile, heart rate in 70s, BP 126/52, on VC AC FiO2 40%, PEEP of 5. Morning lab work showed WBC of 13.8 stable, stable hemoglobin of 8.2, platelet count improved to 848, ABG with normal pH, PO2 NPC, sodium 141, potassium mildly elevated 5.2, creatinine improved 1.75, glucose is controlled. Pertinent positives and negatives as discussed above, a complete review of systems was performed and all other systems are negative. Vitals Signs Reviewed. General: [Intubated and sedated Derm: [warm], [dry] Head: [atraumatic], [normocephalic], [symmetric] Eyes: [EOMI], [no lid lag], [anicteric sclera] Mouth: [no lip lesion], [mucus membranes moist] Cardiovascular: [S1S2 reg], [no murmur] Lungs: [CTA bilateral], bilateral rhonchi, diminished bibasilar breath sounds, [no accessory muscle use] Abdominal: [soft], [ nontender to palpation], [no guarding], [no appreciable organomegaly] Ext: [no gross muscle atrophy], [lower extremity edema], [no contractures] Neuro: Pupils are equal and reactive, does not follow commands Psych: [Intubated, on Precedex Assessment and Plan: Hypoxic respiratory failure requiring intubation COPD exacerbation Bilateral pleural effusion Sepsis present on admission History of lung cancer status post lobectomy Tobacco use disorder -Continue ICU care, vent management per security installation technician -IV Lasix 40 twice daily -Plan for sedation holiday as above -Continue formoterol 20 mcg twice daily, DuoNeb scheduled every 4 hour, Solu- Medrol 40 mg IV every 8 hours Acute multifactorial encephalopathy - Neurology following, appreciate recommendations -EEG CT head as above -Plan to repeat EEG, propofol stopped on 7/5 AM MYNOR on CKD stage III - Monitor BMP daily, currently on IV Lasix -Strict I's and O's -Renal ultrasound showed no hydronephrosis GAVE syndrome Essential thrombocythemia Normocytic anemia, chronic -Continue anagrelide 1 mg p.o. twice daily, Reglan 10 mg IV every 6 hours scheduled -CBC daily Depression: Continue home Lexapro 20 mg nightly Hypertension: Continue home amlodipine 10 mg daily Hyperlipidemia: Continue home atorvastatin 20 mg nightly DVT ppx: Heparin Code status: Full code Anticipated discharge place: TBD Anticipated discharge time: TBD Objective - Vital Signs Vital signs: Vital Signs Temp 98.2 F 05/12/25 08:00 Pulse 80 05/12/25 11:47 Resp 24 05/12/25 10:00 BP 153/68 05/12/25 10:00 Pulse Ox 94 L 05/12/25 10:00 FiO2 40 05/12/25 11:32 Intake & Output 05/11/25 05/12/25 05/12/25 18:59 06:59 18:59 Intake Total 641.629 695.381 292.881 Output Total 520 460 625 Balance 121.629 235.381 -332.119 Weight 92.5 kg 92.6 kg 92.6 kg Intake: IV 192 192 80 0.9 KVO 120 120 50 Arterial Line and CVP 72 72 30 Line Intake, IV Titration 449.629 283.381 72.881 Amount Clevidipine Butyrate 25 50.000 14.233 37.5 mg In Empty Bag 1 bag @ 1 MG/HR 2 mls/hr IV .Q24H [facility] Rx#:[id number] Dexmedetomidine/0.9% NaCl 4.900 (Pmx) 400 mcg In Empty Bag 1 bag @ 0.2 MCG/KG/HR 4.63 mls/hr IV .[id number] [facility] Rx#:[id number] propofoL 1,000 mg In 399.629 269.148 30.481 Empty Bag 1 bag @ 15 MCG/ KG/MIN 6.532 mls/hr IV . [id number] [facility] Rx#:[id number] Oral 100 Tube Feeding 130 40 Other 90 Output: Urine 520 460 625 Other: Voiding Method Indwelling Catheter Indwelling Catheter # Bowel Movements 1 ABP, PAP, CO, CI - Last Documented Arterial Blood Pressure 126/52 - Labs CBC & Chem 7: 05/12/25 05:40 05/12/25 05:40 Labs: Abnormal Lab Results - Last 24 Hours (Table) 05/11/25 05/11/25 05/11/25 Range/Units 12:51 17:47 23:33 WBC (4.50-10.00) 10*3/uL RBC (4.40-5.60) 10*6/uL Hgb (13.0-17.0) g/dL Hct (39.6-50.0) % MCH (27.0-32.0) pg MCHC (32.0-37.0) g/dL Plt Count (140-440) 10*3/uL Immature Gran # (0.00-0.04) 10*3/uL Neutrophils # (1.80-7.70) 10*3/uL Lymphocytes # (0.90-5.00) 10*3/uL Eosinophils # (0.04-0.35) 10*3/uL ABG O2 Saturation (94-97) % Hemoglobin (13.0-17.5) gm/dL Potassium (3.5-5.1) mmol/L Chloride (98-107) mmol/L Carbon Dioxide (22-30) mmol/L BUN (9-20) mg/dL Creatinine (0.66-1.25) mg/dL Glucose (74-99) mg/dL POC Glucose (mg/dL) 145 H 161 H 139 H (70-110) mg/dL 05/12/25 05/12/25 05/12/25 Range/Units 05:16 05:39 05:40 WBC 13.48 H (4.50-10.00) 10*3/uL RBC 3.06 L (4.40-5.60) 10*6/uL Hgb 8.2 L (13.0-17.0) g/dL Hct 26.0 L (39.6-50.0) % MCH 26.8 L (27.0-32.0) pg MCHC 31.5 L (32.0-37.0) g/dL Plt Count 848 H (140-440) 10*3/uL Immature Gran # 0.34 H (0.00-0.04) 10*3/uL Neutrophils # 12.35 H (1.80-7.70) 10*3/uL Lymphocytes # 0.33 L (0.90-5.00) 10*3/uL Eosinophils # 0.00 L (0.04-0.35) 10*3/uL ABG O2 Saturation 97.7 H (94-97) % Hemoglobin 8.4 L (13.0-17.5) gm/dL Potassium (3.5-5.1) mmol/L Chloride (98-107) mmol/L Carbon Dioxide (22-30) mmol/L BUN (9-20) mg/dL Creatinine (0.66-1.25) mg/dL Glucose (74-99) mg/dL POC Glucose (mg/dL) 142 H (70-110) mg/dL 05/12/25 05/12/25 Range/Units 05:40 11:22 WBC (4.50-10.00) 10*3/uL RBC (4.40-5.60) 10*6/uL Hgb (13.0-17.0) g/dL Hct (39.6-50.0) % MCH (27.0-32.0) pg MCHC (32.0-37.0) g/dL Plt Count (140-440) 10*3/uL Immature Gran # (0.00-0.04) 10*3/uL Neutrophils # (1.80-7.70) 10*3/uL Lymphocytes # (0.90-5.00) 10*3/uL Eosinophils # (0.04-0.35) 10*3/uL ABG O2 Saturation (94-97) % Hemoglobin (13.0-17.5) gm/dL Potassium 5.2 H (3.5-5.1) mmol/L Chloride 113 H (98-107) mmol/L Carbon Dioxide 18 L (22-30) mmol/L BUN 61 H (9-20) mg/dL Creatinine 1.75 H (0.66-1.25) mg/dL Glucose 124 H (74-99) mg/dL POC Glucose (mg/dL) 139 H (70-110) mg/dL
--- NOTE | 2025-05-12 12:57 | P.PN ---
Subjective Progress Note Date: 05/12/25 I am following-up with the patient, and per the nurse the IV Propofol has been held for 3 hrs and 20 minutes and is on IV Precedex 0.4mcg/kg/hr. He continues to be about the same and not following commands or verbalizing. Objective - Vital Signs Vital signs: Vital Signs Temp 98.3 F 05/12/25 12:00 Pulse 86 05/12/25 12:30 Resp 20 05/12/25 12:30 BP 134/69 05/12/25 12:30 Pulse Ox 97 05/12/25 12:30 FiO2 40 05/12/25 12:00 Intake & Output 05/11/25 05/12/25 05/12/25 18:59 06:59 18:59 Intake Total 641.629 695.381 305.806 Output Total 520 460 625 Balance 121.629 235.381 -319.194 Weight 92.5 kg 92.6 kg 92.6 kg Intake: IV 192 192 80 0.9 KVO 120 120 50 Arterial Line and CVP 72 72 30 Line Intake, IV Titration 449.629 283.381 85.806 Amount Clevidipine Butyrate 25 50.000 14.233 37.5 mg In Empty Bag 1 bag @ 1 MG/HR 2 mls/hr IV .Q24H [facility] Rx#:[id number] Dexmedetomidine/0.9% NaCl 17.825 (Pmx) 400 mcg In Empty Bag 1 bag @ 0.2 MCG/KG/HR 4.63 mls/hr IV .[id number] [facility] Rx#:[id number] propofoL 1,000 mg In 399.629 269.148 30.481 Empty Bag 1 bag @ 15 MCG/ KG/MIN 6.532 mls/hr IV . [id number] [facility] Rx#:[id number] Oral 100 Tube Feeding 130 40 Other 90 Output: Urine 520 460 625 Other: Voiding Method Indwelling Catheter Indwelling Catheter # Bowel Movements 1 ABP, PAP, CO, CI - Last Documented Arterial Blood Pressure 155/54 - Exam General: Laying in bed and does not appear in acute distress. Lung: Intubated on a ventilator. Neuro: Limited. IV Propofol has been held for 3 hrs and 20 minutes and is on IV Precedex 0.4mcg/kg/hr. He continues to be about the same and not following commands or verbalizing. Is severely encephalopathic He is not verbalizing or following commands. He would grimaces face to pain and would withdrawal to painful stimuli. - Labs CBC & Chem 7: 05/12/25 05:40 05/12/25 05:40 Labs: Abnormal Lab Results - Last 24 Hours (Table) 05/11/25 05/11/25 05/11/25 Range/Units 12:51 17:47 23:33 WBC (4.50-10.00) 10*3/uL RBC (4.40-5.60) 10*6/uL Hgb (13.0-17.0) g/dL Hct (39.6-50.0) % MCH (27.0-32.0) pg MCHC (32.0-37.0) g/dL Plt Count (140-440) 10*3/uL Immature Gran # (0.00-0.04) 10*3/uL Neutrophils # (1.80-7.70) 10*3/uL Lymphocytes # (0.90-5.00) 10*3/uL Eosinophils # (0.04-0.35) 10*3/uL ABG O2 Saturation (94-97) % Hemoglobin (13.0-17.5) gm/dL Potassium (3.5-5.1) mmol/L Chloride (98-107) mmol/L Carbon Dioxide (22-30) mmol/L BUN (9-20) mg/dL Creatinine (0.66-1.25) mg/dL Glucose (74-99) mg/dL POC Glucose (mg/dL) 145 H 161 H 139 H (70-110) mg/dL 05/12/25 05/12/25 05/12/25 Range/Units 05:16 05:39 05:40 WBC 13.48 H (4.50-10.00) 10*3/uL RBC 3.06 L (4.40-5.60) 10*6/uL Hgb 8.2 L (13.0-17.0) g/dL Hct 26.0 L (39.6-50.0) % MCH 26.8 L (27.0-32.0) pg MCHC 31.5 L (32.0-37.0) g/dL Plt Count 848 H (140-440) 10*3/uL Immature Gran # 0.34 H (0.00-0.04) 10*3/uL Neutrophils # 12.35 H (1.80-7.70) 10*3/uL Lymphocytes # 0.33 L (0.90-5.00) 10*3/uL Eosinophils # 0.00 L (0.04-0.35) 10*3/uL ABG O2 Saturation 97.7 H (94-97) % Hemoglobin 8.4 L (13.0-17.5) gm/dL Potassium (3.5-5.1) mmol/L Chloride (98-107) mmol/L Carbon Dioxide (22-30) mmol/L BUN (9-20) mg/dL Creatinine (0.66-1.25) mg/dL Glucose (74-99) mg/dL POC Glucose (mg/dL) 142 H (70-110) mg/dL 05/12/25 05/12/25 Range/Units 05:40 11:22 WBC (4.50-10.00) 10*3/uL RBC (4.40-5.60) 10*6/uL Hgb (13.0-17.0) g/dL Hct (39.6-50.0) % MCH (27.0-32.0) pg MCHC (32.0-37.0) g/dL Plt Count (140-440) 10*3/uL Immature Gran # (0.00-0.04) 10*3/uL Neutrophils # (1.80-7.70) 10*3/uL Lymphocytes # (0.90-5.00) 10*3/uL Eosinophils # (0.04-0.35) 10*3/uL ABG O2 Saturation (94-97) % Hemoglobin (13.0-17.5) gm/dL Potassium 5.2 H (3.5-5.1) mmol/L Chloride 113 H (98-107) mmol/L Carbon Dioxide 18 L (22-30) mmol/L BUN 61 H (9-20) mg/dL Creatinine 1.75 H (0.66-1.25) mg/dL Glucose 124 H (74-99) mg/dL POC Glucose (mg/dL) 139 H (70-110) mg/dL Assessment and Plan Assessment: * Altered mental status, likely due to toxic metabolic encephalopathy. Probably additional effect of propofol/precedex. Had two CT head which is negative for acute process. EEG on 05/11/2025: Moderate to severe encephalopathy but no seizure or discharges. 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 This is suggestive of genera lized cerebral dysfunction as can be seen with toxic metabolic encephalopathy or due to diffuse structural brain abnormality or medication effect as well. Clinical correlation is recommended. This EEG was performed while patient was on propofol 50 mcg/kg per minute. * Repeat EEG on 05/11/2025: Is abnormal. The background slowing is suggestive of moderate to severe encephalopathy. There is no focal slowing, epileptiform discharge or seizure on the EEG. * Recommend holding sedation for at least 24 hours for better neurological exam once patient is more stable. * Other management as per IM, critical care and other specialties. * 2-D echo revealed LVH with preserved systolic function with EF 55%. No obvious regional wall motion abnormalities. Moderate MR, [id number] TR normal left atrial size. * Repeat CT head, 05/10/2025 showed no acute bleed or mass effect. Mild atrophy. No interval change. I personally reviewed CT head again with the findings. * Discussed with nursing staff. Time with Patient: Less than 30
[2025-05-12 18:08] LABS: Glucose,Whole Blood 140 mg/dL (70-110)
[2025-05-12 23:16] LABS: Glucose,Whole Blood 136 mg/dL (70-110)
[2025-05-13 03:48] LABS: Basophils # (A) 0.03 10*3/uL (0.00-0.10); Basophils % (A) 0.1 %; Eosinophils # (A) 0.01 10*3/uL (0.04-0.35); Eosinophils % (A) 0.0 %; HCT 25.5 % (39.6-50.0); HGB 7.9 g/dL (13.0-17.0); Lymphocytes # (A) 0.41 10*3/uL (0.90-5.00); Lymphocytes % (A) 2.0 %; MCH 26.1 pg (27.0-32.0); MCHC 31.0 g/dL (32.0-37.0); MCV 84.2 fL (80.0-97.0); Monocytes # (A) 0.65 10*3/uL (0.20-1.00); Monocytes % (A) 3.1 %; Neutrophils # (A) 19.29 10*3/uL (1.80-7.70); Neutrophils % (A) 92.6 %; Platelet Count 708 10*3/uL (140-440); RBC 3.03 10*6/uL (4.40-5.60); RDW 22.3 % (11.5-14.5); WBC 20.84 10*3/uL (4.50-10.00)
[2025-05-13 04:01] LABS: African American GFR (CKD) 33 (>60 ml/min/1.73 sqM); Anion Gap 12 mmol/L; Blood Urea Nitrogen 70 mg/dL (9-20); Calcium 9.3 mg/dL (8.4-10.2); Carbon Dioxide 21 mmol/L (22-30); Chloride 108 mmol/L (98-107); Glucose 129 mg/dL (74-99); Non-African American GFR(CKD) 28 (>60 ml/min/1.73 sqM); Potassium 5.5 mmol/L (3.5-5.1); Sodium 141 mmol/L (137-145)
[2025-05-13 05:17] LABS: ABG HCO3 24 mmol/L (21-25); ABG PCO2 43 mmHg (35-45); ABG PH 7.36 (7.35-7.45); ABG PO2 101 mmHg (83-108); ABG TCO2 25 mmol/L (19-24)
[2025-05-13 05:18] LABS: Allen Test Performed? no
[2025-05-13 05:23] LABS: Glucose,Whole Blood 147 mg/dL (70-110)
--- NOTE | 2025-05-13 07:22 | XR ---
EXAMINATION TYPE: XR chest 1V portable DATE OF EXAM: 05/13/2025 5:24 AM COMPARISON: Chest radiographs from 05/12/2025 CLINICAL INDICATION: Male, 79 years old with history of Tube Placement; [facility] TECHNIQUE: XR chest 1V portable Frontal view of the chest. FINDINGS: Lungs/Pleura: There is no evidence of pleural effusion, focal consolidation, or pneumothorax. Pulmonary vascularity: Unremarkable. Heart/mediastinum: Cardiomediastinal silhouette is unremarkable. Musculoskeletal: No acute osseous pathology. Other findings: None Lines/Tubes: Endotracheal tube with distal tip 6.4 cm above the yuni. Nasogastric tube with its distal tip and side-port projecting under the diaphragm. Left central venous catheter with distal tip at the cavoatrial junction. IMPRESSION: Cardiomegaly, pulmonary vascular congestion and bilateral pleural effusions. Correlate with BNP for c ongestive heart failure. [facility], , 05/13/2025 7:19 AM
[2025-05-13] MEDS: SODIUM ZIRCONIUM CYCLOSILICATE 10 GM PACKET PO ONE (07:58)
[2025-05-13] MEDS: DEXTROSE 50% SYRINGE 50 ML IVP ONE (07:58)
[2025-05-13] MEDS: INSULIN REGULAR 100 UNIT/ML VIAL (IV) IV ONE (08:17)
--- NOTE | 2025-05-13 10:05 | P.PN ---
Subjective Progress Note Date: 05/13/25 Hospital Course: A 79-year-old male with past medical history of lung cancer status post lobect leonie, essential thrombocythemia, GAVE syndrome, [facility] , reported history of COPD, asthma, dyslipidemia, hypertension, depression, who presented for respiratory distress. reports exertional SOB for the past few weeks prior to arrival. In the ED he underwent extensive evaluation. BP 168/95, HR 105, T 97.5F, RR 19, 98% mechanically ventilated. Labs significant for WBC 19.15, RBC 3.4, Hg 9.2, Hct 29.3, Plt 655, PT 13.5, INR 1.3, bicarb 20, BUN 28, Cr 1.88, glu 256. Trop < 0.012. BNP 05645. Mag 2.2. Lactic acid 2.2-1.6. COVID, RSV, Flu neg. EKG sinus tachycardia. CXR patchy basilar infiltrates and small effusions. Brain CT no acute process. Patient is admitted to ICU for further man agement. Patient was intubated and sedated on 05/04, started on broad-spectrum antibiotics for sepsis present on admission. Patient completed antibiotics, sputum cultures showed no growth. He is continued on steroids. His hospital course complicated by acute metabolic encephalopathy, neurology consulted, patient had an EEG done that showed moderate to severe background slowing, that was done on propofol 50 mcg/kg/min. CT head was done twice and showed no acute bleed or mass effect. TTE showed EF of 55% with no obvious regional wall motion abnormalities, moderate MR, mild to moderate TR. Patient did have a sedation holiday on 05/11, did not tolerate well, was not following commands during. CT chest abdomen pelvis with oral contrast was done to evaluate for mts: moderate R and small L pleural effusions with compressive atelectasis, mildly prominent mediastinal lymph nodes, likely reactive, chlelithiasis, diffuse anasarca. 05/14: Seen and examined at bedside, intubated, sedated on Precedex. Discussed with RN, propofol has been on hold for 24 hours, patient still has no purposeful movements, does not interact and does not follow commands, On my exam patient is opening eyes, moving head,e is afebrile, heart rate in 9s, BP 131 over, on VC AC FiO2 40%, PEEP of 5. Morning lab work showed uptrending WBC 20.8, hemoglobin stable 7.9, platelet count improving 708, ABG with normal pH, pCO2 and PO2, normal sodium, potassium elevated 5.5, 1 dose of IV insulin and Lokelma ordered, BUN and creatinine rising 70 and 2.16 accordingly, glucose is controlled. X-ray with pulmonary vascular congestion Pertinent positives and negatives as discussed above, a complete review of systems was performed and all other systems are negative. Vitals Signs Reviewed. General: [Intubated and sedated Derm: [warm], [dry] Head: [atraumatic], [normocephalic], [symmetric] Eyes: [EOMI], [no lid lag], [anicteric sclera] Mouth: [no lip lesion], [mucus membranes moist] Cardiovascular: [S1S2 reg], [no murmur] Lungs: [CTA bilateral], bilateral rhonchi, diminished bibasilar breath sounds, [no accessory muscle use] Abdominal: [soft], [ nontender to palpation], [no guarding], [no appreciable organomegaly] Ext: [no gross muscle atrophy], [lower extremity edema], [no contractures] Neuro: Pupils are equal and reactive, does not follow commands Psych: [Intubated, on Precedex Assessment and Plan: Acute hypoxic respiratory failure requiring intubation COPD exacerbation Bilateral pleural effusion Sepsis present on admission History of lung cancer status post lobectomy Tobacco use disorder -Continue ICU care, vent management per division toll wire chief -IV Lasix 40 twice daily, consider decreasing dose versus holding given rising BUN and creatinine, urine output around 100 cc/h -Plan for sedation holiday as above -Continue formoterol 20 mcg twice daily, DuoNeb scheduled every 4 hour, Solu- Medrol 40 mg IV every 8 hours Acute multifactorial encephalopathy - Neurology following, appreciate recommendations -EEG CT head as above -Plan to repeat EEG, propofol stopped on 05/12AM MYNOR on CKD stage III Hyperkalemia -Insulin 10 units IV once along with D50, 1 dose of Lokelma 10 mg, repeat potassium in the afternoon and daily - Monitor BMP daily, currently on IV Lasix -Strict I's and O's -Renal ultrasound showed no hydronephrosis GAVE syndrome Essential thrombocythemia Normocytic anemia, chronic -Continue anagrelide 1 mg p.o. twice daily, Reglan 10 mg IV every 6 hours scheduled -CBC daily Depression: Continue home Lexapro 20 mg nightly Hypertension: Continue home amlodipine 10 mg daily Hyperlipidemia: Continue home atorvastatin 20 mg nightly DVT ppx: Heparin Code status: Full code Anticipated discharge place: TBD Anticipated discharge time: TBD Objective - Vital Signs Vital signs: Vital Signs Temp 97.9 F 05/13/25 08:00 Pulse 93 05/13/25 09:15 Resp 20 05/13/25 09:15 BP 131/67 05/13/25 09:15 Pulse Ox 98 05/13/25 09:15 FiO2 40 05/13/25 08:00 Intake & Output 05/12/25 05/13/25 05/13/25 18:59 06:59 18:59 Intake Total 553.880 701.713 197.725 Output Total 1425 2325 135 Balance -871.120 -1623.287 62.725 Weight 92.6 kg 85.5 kg Intake: IV 192 192 32 0.9 KVO 120 120 20 Arterial Line and CVP 72 72 12 Line Intake, IV Titration 121.880 179.713 95.725 Amount Clevidipine Butyrate 25 42.9 0 mg In Empty Bag 1 bag @ 1 MG/HR 2 mls/hr IV .Q24H [facility] Rx#:[id number] Dexmedetomidine/0.9% NaCl 48.499 179.713 95.725 (Pmx) 400 mcg In Empty Bag 1 bag @ 0.2 MCG/KG/HR 4.63 mls/hr IV .[id number] [facility]IT Rx#:[id number] propofoL 1,000 mg In 30.481 Empty Bag 1 bag @ 15 MCG/ KG/MIN 6.532 mls/hr IV . [id number] WHIT Rx#:[id number] Oral 100 Tube Feeding 140 240 40 Other 90 30 Output: Urine 1425 2325 135 Other: Voiding Method Indwelling Catheter Indwelling Catheter Indwelling Catheter ABP, PAP, CO, CI - Last Documented Arterial Blood Pressure 136/43 - Labs CBC & Chem 7: 05/13/25 03:10 05/13/25 03:10 Labs: Abnormal Lab Results - Last 24 Hours (Table) 05/12/25 05/12/25 05/12/25 Range/Units 11:22 18:07 23:15 WBC (4.50-10.00) 10*3/uL RBC (4.40-5.60) 10*6/uL Hgb (13.0-17.0) g/dL Hct (39.6-50.0) % MCH (27.0-32.0) pg MCHC (32.0-37.0) g/dL Plt Count (140-440) 10*3/uL Immature Gran # (0.00-0.04) 10*3/uL Neutrophils # (1.80-7.70) 10*3/uL Lymphocytes # (0.90-5.00) 10*3/uL Eosinophils # (0.04-0.35) 10*3/uL ABG Total CO2 (19-24) mmol/L ABG O2 Saturation (94-97) % Hemoglobin (13.0-17.5) gm/dL Potassium (3.5-5.1) mmol/L Chloride (98-107) mmol/L Carbon Dioxide (22-30) mmol/L BUN (9-20) mg/dL Creatinine (0.66-1.25) mg/dL Glucose (74-99) mg/dL POC Glucose (mg/dL) 139 H 140 H 136 H (70-110) mg/dL 05/13/25 05/13/25 05/13/25 Range/Units 03:10 03:10 05:13 WBC 20.84 H (4.50-10.00) 10*3/uL RBC 3.03 L (4.40-5.60) 10*6/uL Hgb 7.9 L (13.0-17.0) g/dL Hct 25.5 L (39.6-50.0) % MCH 26.1 L (27.0-32.0) pg MCHC 31.0 L (32.0-37.0) g/dL Plt Count 708 H (140-440) 10*3/uL Immature Gran # 0.45 H (0.00-0.04) 10*3/uL Neutrophils # 19.29 H (1.80-7.70) 10*3/uL Lymphocytes # 0.41 L (0.90-5.00) 10*3/uL Eosinophils # 0.01 L (0.04-0.35) 10*3/uL ABG Total CO2 25 H (19-24) mmol/L ABG O2 Saturation 98.3 H (94-97) % Hemoglobin 8.0 L (13.0-17.5) gm/dL Potassium 5.5 H (3.5-5.1) mmol/L Chloride 108 H (98-107) mmol/L Carbon Dioxide 21 L (22-30) mmol/L BUN 70 H (9-20) mg/dL Creatinine 2.16 H (0.66-1.25) mg/dL Glucose 129 H (74-99) mg/dL POC Glucose (mg/dL) (70-110) mg/dL 05/13/25 Range/Units 05:21 WBC (4.50-10.00) 10*3/uL RBC (4.40-5.60) 10*6/uL Hgb (13.0-17.0) g/dL Hct (39.6-50.0) % MCH (27.0-32.0) pg MCHC (32.0-37.0) g/dL Plt Count (140-440) 10*3/uL Immature Gran # (0.00-0.04) 10*3/uL Neutrophils # (1.80-7.70) 10*3/uL Lymphocytes # (0.90-5.00) 10*3/uL Eosinophils # (0.04-0.35) 10*3/uL ABG Total CO2 (19-24) mmol/L ABG O2 Saturation (94-97) % Hemoglobin (13.0-17.5) gm/dL Potassium (3.5-5.1) mmol/L Chloride (98-107) mmol/L Carbon Dioxide (22-30) mmol/L BUN (9-20) mg/dL Creatinine (0.66-1.25) mg/dL Glucose (74-99) mg/dL POC Glucose (mg/dL) 147 H (70-110) mg/dL
[2025-05-13] MEDS: MORPHINE SULFATE 2 MG/ML SYRINGE IVP STA (11:00)
[2025-05-13 11:44] LABS: Glucose,Whole Blood 117 mg/dL (70-110)
--- NOTE | 2025-05-13 13:29 | P.PN ---
Subjective Progress Note Date: 05/13/25 Patient is a 79-year-old male, evaluated by EMS yesterday. Reportedly, having severe respiratory distress and apnea. He was intubated in the field. No previous records available to review from our facility. I did call the patient's , she states he was increasingly weak for the last several days. Associated shortness of breath with exertion. She thought it was related to his anemia. She was able to provide some past medical history including lung cancer and previous lung resection at [facility], essential thrombocythemia, and GAVE syndrome. Reportedly, requires frequent blood and iron infusions. He follows at [facility] for this. Reportedly, no history of COPD, asthma. No history of heart failure per the . His medication list is not available. Workup in the emergency department including a chest x-ray which shows endotracheal tube proximal, approximately 6 cm from the yuni. Orogastric tube coursing into the stomach. Patchy bibasilar infiltrates and small effusion on the right. Left costophrenic angle was excluded from the image. CBC including a WBC count of 19.15, hemoglobin 9.2, platelets 655. CMP included sodium 142, potassium 4.8, chloride 107, serum bicarb 20, BUN 28, creatinine 1.88, glucose 256. Lactic 2.6 and down to 1.6. EKG: Sinus tachycardia, rate 104 bpm, no acute ischemic changes. Troponin less than 0.012. NT proBNP significantly elevated at 12,100. Patient currently being evaluated in the emergency department, trauma bay 2. He is intubated to the mechanical ventilator. Previous ABGs including a PaO2 of 315, pCO2 57, pH of 7.2. Previous ventilator settings were assist-control, rate 16, tidal volume 450, FiO2 100%, PEEP of 5. Since then, his rate has been increased to 20 and his tidal volume dropped to 50%. The Peak pressure averaging 38 and static airway pressure measured at 17. His endotracheal tube is a size 7. There are thick tenacious white secretions coming from the endotracheal tube. Sputum sample to be collected. Currently, patient is synchronous with the mechanical ventilator. Sedated on propofol which is infusing at 45 mcg/kg/min. He was previously fluid resuscitated with a total of 2.5 L crystalloid fluid and LR continues at 150 mL/h. Blood pressure is normotensive. Not requiring any vasopressors. An indwelling urinary catheter was placed and there is small amount of concentrated yellow urine in the col lection bag. Has remained afebrile. Previously started on empiric antibiotics in form azithromycin and Rocephin in the ED. Progress note dated May 05, 2025. This is a 79-year-old gentleman who was seen by my nurse practitioner yesterday. The patient came into the hospital with respiratory failure, thought to be secondary to pneumonia. The patient remains on volume assist-control, rate 20, tidal line 450, FiO2 40%, PEEP of 5. Blood gases this morning show pO2 118, pCO2 38, pH is 7.30. Both blood gases are consistent with mild metabolic acidosis. The patient is getting saline at 75 cc an hour, propofol at 50 mcg/kg/min, and norepinephrine at 3.7 mcg/min. The patient continues on azit hromycin and Rocephin. We will attempt a daily interruption of sedation today, plus or minus a spontaneous breathing trial. The patient's saline IV, will be converted to lactated Ringer's at 75 cc an hour. Current laboratory data includes a white count of 14.8, hemoglobin 7.6, hematocrit 24.2, and a platelet count of 570,000. Sodium 141, potassium 4.2, chloride 111, CO2 16, anion gap 14, glucose 120, BUN and creatinine were 27 and 1.76. Calcium 8.1. Blood and sputum sampling is thus far negative. X-ray shows small right-sided pleural effusion, with some bibasilar patchy airspace opacities, concerning for possible pneumonia. Progress note dated May 06, 2025. 79-year-old male seen in the intensive care unit. The patient was admitted with respiratory failure, and pneumonia. He remains on mechanical ventilation. He is on volume assist-control, rate 20, tidal volume 450, FiO2 40%, PEEP of 5. Blood gases show PO297, TWP051, pH is 7.30. The blood gas is consistent with a mild metabolic acidosis. He is on propofol at 50 mcg/kg/min, norepinephrine has been weaned off. He is on lactated Ringer's at 75 cc an hour, and saline at KVO. He is receiving vital high-protein at 40, with a goal of 45 cc an hour. He continues on azithromycin and Rocephin empirically. Will add some Solu- Medrol to his regimen. We also had some Dilaudid for pain control. White count 12.9, hemoglobin 7, hematocrit 22.8, platelet count 563,000. Sodium 142, potassium 4.1, chlorides 113, CO2 17, anion gap 12, BUN 23, creatinine 1.52. Glucose is 125. Calcium is 8.4. Sputum and blood sampling has been negative thus far. Chest x-ray shows small right pleural effusion with bibasilar patchy airspace opacities. There is evidence of pulmonary vascular congestion. Progress note dated May 07, 2025. 79-year-old male seen in the intensive care unit, room 251. The patient has a history of respiratory failure, and pneumonia, he remains on mechanical ventilator. Current vent settings include volume assist-control, rate 20, tidal volume 450, FiO2 40%, PEEP of 5. Arterial blood gases show PO2 114, PCO2 of 41, pH is 7.30. The patient is getting lactated Ringer's at 75 cc an hour, propofol at 50 mcg/kg/min. The patient is also getting saline at 10 cc an hour, and vital high-protein at 10 cc an hour. Residuals are high, so we added Reglan 10 mg every 6. He continues on azithromycin and Rocephin, and microbiologic sampling, thus far is negative. In addition, his peak airway pressures 29, with a plateau pressure of 13. His airways resistance is 13 cm water per liter per second. We will attempt a daily interruption of sedation. White count was 10.6, hemoglobin 7.1, hematocrit 23.6, platelet count 629,000. Sodium 141, potassium 4.5, chlorides 111, CO2 18, anion gap 12, BUN 28, creatinine 1.59. These electrolyte profile is consistent with a nonanion gap metabolic acidosis. Glucose is 162. Calcium is 8.8. Chest x-ray is largely unchanged, with small right-sided pleural effusion, and right basilar infiltrate. Progress note dated May 08, 2025. 79-year-old male seen today in room 251. The patient has done poorly with his daily interruptions of sedation. He is on volume assist-control, rate 20, tidal volume 450, FiO2 30%, PEEP of 5. Blood gases show PO2 102, pCO2 40, pH is 7.28. The patient is getting LR at 75 cc an hour, propofol is currently off, saline at 10 cc an hour, and vital high-protein at 40, with a goal of 45 cc an hour. Because of his agitated state, and his poor response, the patient will have an EEG, and a neurology consultation. He is currently not on any antibiotics. White count is 15.5, hemoglobin 7, hematocrit 23.1, platelet count 775,000. Sodium 139, potassium 4.9, chlorides 111, CO2 is 18, anion gap 10, BUN 37, creatinine 1.62. Glucose of 177. Calcium 8.8. Magnesium 2.2. Blood and sputum analysis is negative. Chest x-ray shows a small right-sided pleural effusion, and some mild bibasilar opacities. Progress note dated May 09, 2025. 79-year-old male seen today in room 251. He remains on the mechanical ventilator. He is on volume assist-control, rate 20, tidal volume 450, FiO2 30%, PEEP of 5. Blood gases show pO2 of 90, pCO2 of 39, pH is 7.31. The patient is getting lactated Ringer's at 75 cc an hour, propofol at 50 mcg/kg/min, vital high-protein at goal, which is 35 cc an hour. We asked neurology to see the patient yesterday. An EEG showed diffuse slowing consistent with metabolic/toxic encephalopathy. We also add some amlodipine to his regimen, for blood pressure control, at 10 mg. The patient may benefit from tracheostomy and PEG tube, if he does not improve neurologically. Will see how things go over the next few days. White count is 15.2, hemoglobin 7.4, hematocrit 24.7, platelet count 833,000. Sodium 140, potassium 5.4, chlorides 113, CO2 16, anion gap 11, BUN 45, creatinine 1.79. Glucose is 163. Calcium is 8.7. Microbiology is thus far negative. Chest x-ray is largely unchanged. Progress note dated May 10, 2025. 79-year-old male seen again in room 251. He remains on volume assist-control, rate 20, tidal volume 450, FiO2 30%, PEEP of 5. Blood gases show pO2 72, pCO2 37, pH is 7.35. He is currently on propofol at 10 mcg/kg/min, LR at 75 cc an hour, Precedex at 1.4 mcg/kg/h, Cleviprex at 3 mg an hour. The patient is also receiving vital high-protein, at goal. Current laboratory data includes a white count of 13.3, hemoglobin 8.2, hematocrit 26.5, and a platelet count of 925,000. Sodium 140, potassium 5.4, chloride 110, CO2 19, anion gap 11, BUN 54, creatinine 1.80. Calcium is 9.0. Microbiologic studies have all been negative. Chest x-ray is largely unchanged. The brain CT shows no acute bleed or mass effect, mild atrophy, and no interval change. The patient has been seen by neurology. The patient also had an EEG. On 05/11/2025, the patient is being seen in follow-up. Remains intubated and on mechanical ventilator. This morning, he is on propofol running at 75 mcg/kg/min and Precedex running at 1 mcg/kg/h. He is on assist-control mode of mechanical ventilation at rate of 20, tidal volume of 450, FiO2 40% with a PEEP of 5. Blood gas showed a pH of 7.37 and the patient has a PCO2 of 38 and PO2 of 53. Chest x-ray from today showing bilateral pleural effusion right more than left. Orotracheal tube with distal tip being at 4.5 cm above the yuni. The patient has also areas of consolidation bilaterally. Note that, the sputum sample that was collected at time of admission was negative. The patient has no fever or chills. He is not receiving any antibiotic coverage at this point. He remains on bronchodilators. He remains on IV Solu-Medrol. IV fluids are currently at KVO. Fluid balance is -1.3 L over the past 24 hours. The patient is at the subclavian left sided triple-lumen catheter. The white seconds at 13.5 with a heme of 8.5 and a platelet count of 872. BUN is 15 with a creatinine of 1.8 and a sodium levels at 142 and a potassium level is at 5.1. Serum bicarb is at 19. Anion gap is at 10. Hemodynamically stable. No pressors for now. Is known to have COPD. He is also known to haveThe patient is known to have COPD. 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 He has been treated through [facility]. Furthermore, he has undergone a lobectomy on the right for a non-small cell lung cancer and this was done approximately 2 years ago at [facility] in [place]. He has required transfusions almost every 3 we eks. He was having increased residuals. The patient will was started on IV Reglan and the patient will be started back on vital HP at a low rate. Will monitor his residuals. 05/12/2025, patient is being seen for a follow-up. The patient was given a prolonged sedation holiday. He opens his eyes and he was thrashing and he was not following any commands. He was getting progressive more asynchronous with the mechanical ventilator. Earlier this morning, the patient was on propofol at 40 mcg. This was discontinued and to restart sedation, I recommended Precedex. He is on assist-control mode of mechanical ventilation at a rate of 20, tidal volume of 450, FiO2 40% with a PEEP of 5. Blood gas showed a pH of 7.33 [id number] and PO2 of 95. He is on Cleviprex for blood pressure control running at 3 mg/h. CT scan of the abdomen and pelvis was done yesterday and the CAT scan of the chest showed a moderate-sized and small left-sided pleural effusion along with compressive atelectatic changes lung bases. Prominent mild lymph nodes within the mediastinum, probably benign, cholelithiasis, diffuse anasarca and no other intra-abdominal abnormalities. The patient is currently on vital HP at rate of 20 cc an hour. Tolerating stream reasonably well. Blood work was noted. The white cell count 13.4, hemoglobin 8.2 and platelet count of 848. BUN 61 with a creatinine of 1.7 and sodium levels at 141 and a potassium level is at 5.2. Hemoglobin has remained stable and there is no evidence of any GI bleeding. 05/13/2025, patient is being seen for a follow-up. Remains intubated on a [facility] hanical ventilator. Unfortunately, the patient is not showing neurologic recovery. He opens his eyes while off sedation. He looks around. He grimaces. He has a weak cough. Does not follow any commands. No seizure activity. Occasional thrashing. Having excessive respiratory secretions and obviously not a candidate for further weaning and extubation. He remains on Precedex which is running at 0.9 mcg/kg/h. The patient is also on Cleviprex drip for blood pressure control at 2 mg an hour. Remains on a mechanical ventilator assist- control mode with rate of 20, tidal volume of 450, FiO2 40% with a PEEP of 5. Blood gas showed a pH of 7.36 with a [id number] and PO2 of 101. Given IV Lasix and the patient is a negative fluid balance of 2.4 L over the past 24 hours. Remains on vital HP at a rate of 20 cc an hour. EEG showed moderate to severe encephalopathy. Blood work from today was noted. The white cell count is at 20.8 with him of 7.9 and a platelet count of 708. There is a rise in the white cell count. Sodium levels at 141, potassium is at 5.5, BUN 17 with a creatinine of 2.1. Bicarb is at 21. Glucose 117. Chest x-ray remains essentially unchanged with small bilateral pleural effusion and atelectatic changes lung base bilaterally. Objective - Vital Signs Vital signs: Vital Signs Temp 97.9 F 05/13/25 08:00 Pulse 115 H 05/13/25 08:15 Resp 20 05/13/25 08:15 BP 150/67 05/13/25 08:15 Pulse Ox 97 05/13/25 08:15 FiO2 40 05/13/25 08:00 Intake & Output 05/12/25 05/13/25 05/13/25 18:59 06:59 18:59 Intake Total 553.880 701.713 197.725 Output Total 1425 2325 135 Balance -871.120 -1623.287 62.725 Weight 92.6 kg 85.5 kg Intake: IV 192 192 32 0.9 KVO 120 120 20 Arterial Line and CVP 72 72 12 Line Intake, IV Titration 121.880 179.713 95.725 Amount Clevidipine Butyrate 25 42.9 0 mg In Empty Bag 1 bag @ 1 MG/HR 2 mls/hr IV .Q24H [facility] Rx#:[id number] Dexmedetomidine/0.9% NaCl 48.499 179.713 95.725 (Pmx) 400 mcg In Empty Bag 1 bag @ 0.2 MCG/KG/HR 4.63 mls/hr IV .[id number] [facility] Rx#:[id number] propofoL 1,000 mg In 30.481 Empty Bag 1 bag @ 15 MCG/ KG/MIN 6.532 mls/hr IV . [id number] [facility] Rx#:[id number] Oral 100 Tube Feeding 140 240 40 Other 90 30 Output: Urine 1425 2325 135 Other: Voiding Method Indwelling Catheter Indwelling Catheter Indwelling Catheter ABP, PAP, CO, CI - Last Documented Arterial Blood Pressure 147/55 - Exam Intubated, calm and comfortable, currently on Precedex. Orotracheal and gastric tube are both in place. HEENT examination is grossly unremarkable. Mucous membranes are moist. No oral lesions. The patient has a subclavian left-sided triple-lumen catheter. Neck supple. Full range of motion. No adenopathy thyromegaly or neck vein distention. Cardiovascular examination reveals regular rhythm rate. S1-S2 normal. No S3 or S4. No discernible murmur noted. Lungs reveal scattered bilateral expiratory rhonchi. No wheezes. No crackles. Breath sounds are equal bilaterally. There is diminished breath sound the lung bases bilaterally. Abdomen soft bowel sounds are heard. No masses or tenderness. Extremities are intact. No cyanosis clubbing or edema. Skin is without rash or lesion. Neurologic examination reveals a grimaces to painful stimulation in all 4 extremities. Patient off sedation and not following any commands. Opens his eyes. Grimaces, moves his head and withdraws to painful stimulation all 4 extremities. The patient opens his eyes spontaneously. He moves his head and occasionally thrashes. This evaluation was done while the patient on Precedex at 0.9 mcg/kg/h. - Labs CBC & Chem 7: 05/13/25 03:10 05/13/25 03:10 Labs: Abnormal Lab Results - Last 24 Hours (Table) 05/12/25 05/12/25 05/12/25 Range/Units 11:22 18:07 23:15 WBC (4.50-10.00) 10*3/uL RBC (4.40-5.60) 10*6/uL Hgb (13.0-17.0) g/dL Hct (39.6-50.0) % MCH (27.0-32.0) pg MCHC (32.0-37.0) g/dL Plt Count (140-440) 10*3/uL Immature Gran # (0.00-0.04) 10*3/uL Neutrophils # (1.80-7.70) 10*3/uL Lymphocytes # (0.90-5.00) 10*3/uL Eosinophils # (0.04-0.35) 10*3/uL ABG Total CO2 (19-24) mmol/L ABG O2 Saturation (94-97) % Hemoglobin (13.0-17.5) gm/dL Potassium (3.5-5.1) mmol/L Chloride (98-107) mmol/L Carbon Dioxide (22-30) mmol/L BUN (9-20) mg/dL Creatinine (0.66-1.25) mg/dL Glucose (74-99) mg/dL POC Glucose (mg/dL) 139 H 140 H 136 H (70-110) mg/dL 05/13/25 05/13/25 05/13/25 Range/Units 03:10 03:10 05:13 WBC 20.84 H (4.50-10.00) 10*3/uL RBC 3.03 L (4.40-5.60) 10*6/uL Hgb 7.9 L (13.0-17.0) g/dL Hct 25.5 L (39.6-50.0) % MCH 26.1 L (27.0-32.0) pg MCHC 31.0 L (32.0-37.0) g/dL Plt Count 708 H (140-440) 10*3/uL Immature Gran # 0.45 H (0.00-0.04) 10*3/uL Neutrophils # 19.29 H (1.80-7.70) 10*3/uL Lymphocytes # 0.41 L (0.90-5.00) 10*3/uL Eosinophils # 0.01 L (0.04-0.35) 10*3/uL ABG Total CO2 25 H (19-24) mmol/L ABG O2 Saturation 98.3 H (94-97) % Hemoglobin 8.0 L (13.0-17.5) gm/dL Potassium 5.5 H (3.5-5.1) mmol/L Chloride 108 H (98-107) mmol/L Carbon Dioxide 21 L (22-30) mmol/L BUN 70 H (9-20) mg/dL Creatinine 2.16 H (0.66-1.25) mg/dL Glucose 129 H (74-99) mg/dL POC Glucose (mg/dL) (70-110) mg/dL 05/13/25 Range/Units 05:21 WBC (4.50-10.00) 10*3/uL RBC (4.40-5.60) 10*6/uL Hgb (13.0-17.0) g/dL Hct (39.6-50.0) % MCH (27.0-32.0) pg MCHC (32.0-37.0) g/dL Plt Count (140-440) 10*3/uL Immature Gran # (0.00-0.04) 10*3/uL Neutrophils # (1.80-7.70) 10*3/uL Lymphocytes # (0.90-5.00) 10*3/uL Eosinophils # (0.04-0.35) 10*3/uL ABG Total CO2 (19-24) mmol/L ABG O2 Saturation (94-97) % Hemoglobin (13.0-17.5) gm/dL Potassium (3.5-5.1) mmol/L Chloride (98-107) mmol/L Carbon Dioxide (22-30) mmol/L BUN (9-20) mg/dL Creatinine (0.66-1.25) mg/dL Glucose (74-99) mg/dL POC Glucose (mg/dL) 147 H (70-110) mg/dL Assessment and Plan Plan: Acute hypoxemic and hypercapnic respiratory failure, remains intubated on mechanical ventilator. Reviewed the chest x-ray and the patient has bilateral consolidation and bilateral pleural effusions right more than left. Echocardiogram done on 05/04/2025 showed preserved LV function with an ejection fraction of 55% and the patient has a moderate degree of mitral regurgitation. No significant respiratory secretions. CT scan of the chest done on 05/11/2025 shows a moderate-sized and a small size this right and left-sided pleural effusion respectively. Maintained mechanical ventilator and repeat chest x-ray from today shows no major interval change. Currently on no antibiotics. Meanwhile, it was noted that the patient was having excessive respiratory secretions. Bronchoscopy is to be done today for therapeutic airway suctioning and a bronchial lavage. Encephalopathy, suboptimal recovery from sedation the patient was not following any commands upon receiving sedation holiday. Neurologic exam remains nonfocal. Meanwhile, CAT scan of the brain that was done on 05/10/2025 showed mild cerebral atrophy without any acute abnormalities. CAT scan of the brain that was done at time of admission on 05/04/2025 showed no acute abnormalities. EEG done on 05/08/2025 showed moderate to severe degree of slowing in the background. No evidence of any seizure activity. The patient was taken off the propofol. The patient is currently on Precedex. Unable to follow any commands. Remains unresponsive to verbal stimulation. Occasional thrashing. Continues to be encephalopathic. About underlying hypoxic encephalopathy at the time of admission. Chronic kidney disease, stage III, creatinine is stable Preserved LV function with a normal ejection fraction and moderate mitral regurgitation and mild to moderate tricuspid regurgitation, based on echo on 05/04/2025. Hypertension, currently on Cleviprex drip for blood pressure control. Acute leukocytosis and the patient is hemodynamically stable and afebrile. 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 Essential thrombocythemia, reportedly on cytoreducative therapy. lung cancer with previous lobectomy at outside facility. The patient underwent a right-sided lobectomy, probably the right upper lobe and this was done 2 years ago at [facility]. Current tobacco smoker. Plan: Continue ventilator support no ventilator changes for today CAT scan of the chest and abdomen was noted Continue bronchodilators Continue steroids The patient will undergo bronchoscopy and therapeutic airway suctioning in the BAL. The patient is on no antibiotics for now Enteral feeding with vital HP at rate of 20 cc an hour and continue the Reglan no significant residuals on today's evaluation Continue with sedation holiday and utilize Precedex for synchrony with the mechanical ventilator. Will discontinue Lasix as the patient has been in negative fluid balance Not ready for weaning or extubation as the patient continues to have altered mentation and you may not be able to protect his airways specially with the copious amount of respiratory secretions noted. Rest of the medications are essentially unchanged. Will continue the treatment and will make further recommendations based on his progress. Consider PEG and trach if the patient continues to have ongoing encephalopathy. This was discussed with the family. The was opposed to this option. Case was discussed with the family and the was at the bedside. Evaluation was done more than 30 minutes. Time with Patient: Greater than 30
--- NOTE | 2025-05-13 13:31 | P.PCN ---
Date of Procedure: 05/13/25 Preoperative Diagnosis: Acute hypoxic/hypercapnic respiratory failure with lower lobe pulmonary infiltrates and pleural effusions Postoperative Diagnosis: Same Procedure(s) Performed: Flexible bronchoscopy, therapeutic airway suctioning, BAL of the right lower lobe Anesthesia: MAC Surgeon: Dennis Marcus Estimated Blood Loss (ml): 0 Pathology: other Condition: critical Disposition: ICU Operative Findings: Procedure was done in the intensive care unit. The patient was already intubated on a mechanical ventilator. The patient is also on Precedex. A regular adapter was placed to the orotracheal tube and following that the flex bronchoscope was advanced into the lower trachea. The tip of the orotracheal tube was seen around 2 cm above the yuni. There was some loose respiratory secretions throughout the airway. The respiratory secretions were moribund in the lower lobes bilaterally especially in the right lower lobe area. Based on that, a therapeutic airway suctioning was done. A complete airway inspection was done. Right mainstem bronchus was within normal limits. Right upper lobe stump from a previous lobectomy was noted. Right middle lobe and right lower lobe bronchi in the very segments in the right were noted to be patent with some atelectatic changes in the various segments in the right lower lobe. Then the bronchoscope was moved to the left and left mainstem bronchus and the left upper lobe and the left lower lobe bronchi were inspected in addition to the 8 segments on the left. Atelectatic changes were noted in the very segments in the left lower lobe. After doing a therapeutic airway suctioning, a BAL of the right lower lobe was done. A total of 60 cc of saline was infused and 20 cc was aspirated without any major difficulties. The aspirate was nonbloody. The patient tolerated the procedure well. The patient became slightly cardiac and hypertensive post the procedure. However, he was kept sedated on Precedex and the patient was kept on a mechanical ventilator. No hemodynamic instability at this point. The BAL from the right lower lobe will be sent for Gram stain and culture. The bronchoscope was removed and the procedure was terminated. No complications.
--- NOTE | 2025-05-13 15:11 | P.PN ---
Subjective Progress Note Date: 05/13/25 I am following up with the patient and according to the nurse the IV propofol has been held since yesterday morning. The patient is on IV Precedex and 1 was on a lower dose was agitated restless. Currently he is on IV Precedex 1mcg/kg/hr. Objective - Vital Signs Vital signs: Vital Signs Temp 98.7 F 05/13/25 12:00 Pulse 94 05/13/25 14:00 Resp 20 05/13/25 14:00 BP 140/62 05/13/25 14:00 Pulse Ox 97 05/13/25 14:00 FiO2 40 05/13/25 12:00 Intake & Output 05/12/25 05/13/25 05/13/25 18:59 06:59 18:59 Intake Total 553.880 701.713 743.023 Output Total 1425 2325 380 Balance -871.120 -1623.287 363.023 Weight 92.6 kg 85.5 kg Intake: IV 192 192 128 0.9 KVO 120 120 80 Arterial Line and CVP 72 72 48 Line Intake, IV Titration 121.880 179.713 195.023 Amount Clevidipine Butyrate 25 42.9 0 9.167 mg In Empty Bag 1 bag @ 1 MG/HR 2 mls/hr IV .Q24H WHIT Rx#:[id number] Dexmedetomidine/0.9% NaCl 48.499 179.713 185.856 (Pmx) 400 mcg In Empty Bag 1 bag @ 0.2 MCG/KG/HR 4.63 mls/hr IV .[id number] WHIT Rx#:[id number] propofoL 1,000 mg In 30.481 Empty Bag 1 bag @ 15 MCG/ KG/MIN 6.532 mls/hr IV . [id number] WHIT Rx#:[id number] Oral 100 200 Tube Feeding 140 240 160 Other 90 60 Output: Urine 1425 2325 380 Other: Voiding Method Indwelling Catheter Indwelling Catheter Indwelling Catheter ABP, PAP, CO, CI - Last Documented Arterial Blood Pressure 140/47 - Exam General: Laying in bed and does not appear in acute distress. Lung: Intubated on a ventilator. Neuro: Limited. IV Propofol has been held since yesterday. Currently on IV Precedex 1mcg/kg/hr. He continues to be about the same and not following commands or verbalizing. Is severely encephalopathic He is not verbalizing or following commands. - Labs CBC & Chem 7: 05/13/25 03:10 05/13/25 03:10 Labs: Abnormal Lab Results - Last 24 Hours (Table) 05/12/25 05/12/25 05/13/25 Range/Units 18:07 23:15 03:10 WBC 20.84 H (4.50-10.00) 10*3/uL RBC 3.03 L (4.40-5.60) 10*6/uL Hgb 7.9 L (13.0-17.0) g/dL Hct 25.5 L (39.6-50.0) % MCH 26.1 L (27.0-32.0) pg MCHC 31.0 L (32.0-37.0) g/dL Plt Count 708 H (140-440) 10*3/uL Immature Gran # 0.45 H (0.00-0.04) 10*3/uL Neutrophils # 19.29 H (1.80-7.70) 10*3/uL Lymphocytes # 0.41 L (0.90-5.00) 10*3/uL Eosinophils # 0.01 L (0.04-0.35) 10*3/uL ABG Total CO2 (19-24) mmol/L ABG O2 Saturation (94-97) % Hemoglobin (13.0-17.5) gm/dL Potassium (3.5-5.1) mmol/L Chloride (98-107) mmol/L Carbon Dioxide (22-30) mmol/L BUN (9-20) mg/dL Creatinine (0.66-1.25) mg/dL Glucose (74-99) mg/dL POC Glucose (mg/dL) 140 H 136 H (70-110) mg/dL 05/13/25 05/13/25 05/13/25 Range/Units 03:10 05:13 05:21 WBC (4.50-10.00) 10*3/uL RBC (4.40-5.60) 10*6/uL Hgb (13.0-17.0) g/dL Hct (39.6-50.0) % MCH (27.0-32.0) pg MCHC (32.0-37.0) g/dL Plt Count (140-440) 10*3/uL Immature Gran # (0.00-0.04) 10*3/uL Neutrophils # (1.80-7.70) 10*3/uL Lymphocytes # (0.90-5.00) 10*3/uL Eosinophils # (0.04-0.35) 10*3/uL ABG Total CO2 25 H (19-24) mmol/L ABG O2 Saturation 98.3 H (94-97) % Hemoglobin 8.0 L (13.0-17.5) gm/dL Potassium 5.5 H (3.5-5.1) mmol/L Chloride 108 H (98-107) mmol/L Carbon Dioxide 21 L (22-30) mmol/L BUN 70 H (9-20) mg/dL Creatinine 2.16 H (0.66-1.25) mg/dL Glucose 129 H (74-99) mg/dL POC Glucose (mg/dL) 147 H (70-110) mg/dL 05/13/25 Range/Units 11:42 WBC (4.50-10.00) 10*3/uL RBC (4.40-5.60) 10*6/uL Hgb (13.0-17.0) g/dL Hct (39.6-50.0) % MCH (27.0-32.0) pg MCHC (32.0-37.0) g/dL Plt Count (140-440) 10*3/uL Immature Gran # (0.00-0.04) 10*3/uL Neutrophils # (1.80-7.70) 10*3/uL Lymphocytes # (0.90-5.00) 10*3/uL Eosinophils # (0.04-0.35) 10*3/uL ABG Total CO2 (19-24) mmol/L ABG O2 Saturation (94-97) % Hemoglobin (13.0-17.5) gm/dL Potassium (3.5-5.1) mmol/L Chloride (98-107) mmol/L Carbon Dioxide (22-30) mmol/L BUN (9-20) mg/dL Creatinine (0.66-1.25) mg/dL Glucose (74-99) mg/dL POC Glucose (mg/dL) 117 H (70-110) mg/dL Assessment and Plan Assessment: * Altered mental status, likely due to toxic metabolic encephalopathy. Probably additional effect of IV precedex. Had two CT head which is negative for acute process. EEG on 05/11/2025: Moderate to severe encephalopathy but no seizure or discharges. 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 This is suggestive of general ized cerebral dysfunction as can be seen with toxic metabolic encephalopathy or due to diffuse structural brain abnormality or medication effect as well. Clinical correlation is recommended. This EEG was performed while patient was on propofol 50 mcg/kg per minute. * Repeat EEG on 05/11/2025: Is abnormal. The background slowing is suggestive of moderate to severe encephalopathy. There is no focal slowing, epileptiform discharge or seizure on the EEG. * Recommend holding sedation for at least 24 hours for better neurological exam once patient is more stable. * Other management as per IM, critical care and other specialties. * 2-D echo revealed LVH with preserved systolic function with EF 55%. No obvious regional wall motion abnormalities. Moderate MR, [id number] TR normal left atrial size. * Repeat CT head, 05/10/2025 showed no acute bleed or mass effect. Mild atrophy. No interval change. I personally reviewed CT head again with the findings. * The overall prognosis appear poor. I discussed the with his , and states she understands of his overall condition but wants to continue with medical management until this weekend and if no improvement will consider possible withdrawal of care. * Also discussed with nursing staff. Time with Patient: Less than 30
[2025-05-13 17:50] LABS: Glucose,Whole Blood 159 mg/dL (70-110)
--- NOTE | 2025-05-13 18:52 | P.PN ---
Subjective Progress Note Date: 05/13/25 Pt seen in ICU. Remains ventilated. Pt appears agitated. WBC 20.8, hgb 7.9, plt 708 Objective - Vital Signs Vital signs: Vital Signs Temp 97.9 F 05/13/25 16:00 Pulse 98 05/13/25 18:30 Resp 20 05/13/25 18:30 BP 147/70 05/13/25 18:30 Pulse Ox 97 05/13/25 18:30 FiO2 40 05/13/25 16:00 Intake & Output 05/12/25 05/13/25 05/13/25 18:59 06:59 18:59 Intake Total 553.880 701.713 992.723 Output Total 1425 2325 985 Balance -871.120 -1623.287 7.723 Weight 92.6 kg 85.5 kg Intake: IV 192 192 192 0.9 KVO 120 120 120 Arterial Line and CVP 72 72 72 Line Intake, IV Titration 121.880 179.713 270.723 Amount Clevidipine Butyrate 25 42.9 0 9.167 mg In Empty Bag 1 bag @ 1 MG/HR 2 mls/hr IV .Q24H WHIT Rx#:[id number] Dexmedetomidine/0.9% NaCl 48.499 179.713 261.556 (Pmx) 400 mcg In Empty Bag 1 bag @ 0.2 MCG/KG/HR 4.63 mls/hr IV .[id number] WHIT Rx#:[id number] propofoL 1,000 mg In 30.481 Empty Bag 1 bag @ 15 MCG/ KG/MIN 6.532 mls/hr IV . [id number] WHIT Rx#:[id number] Oral 100 200 Tube Feeding 140 240 240 Other 90 90 Output: Urine 1425 2325 985 Other: Voiding Method Indwelling Catheter Indwelling Catheter Indwelling Catheter ABP, PAP, CO, CI - Last Documented Arterial Blood Pressure 156/51 - Constitutional General appearance: Present: mild distress - Respiratory Details: ventilated breath sounds - Cardiovascular Details: skin warm and dry - Labs CBC & Chem 7: 05/13/25 03:10 05/13/25 03:10 Labs: Abnormal Lab Results - Last 24 Hours (Table) 05/12/25 05/13/25 05/13/25 Range/Units 23:15 03:10 03:10 WBC 20.84 H (4.50-10.00) 10*3/uL RBC 3.03 L (4.40-5.60) 10*6/uL Hgb 7.9 L (13.0-17.0) g/dL Hct 25.5 L (39.6-50.0) % MCH 26.1 L (27.0-32.0) pg MCHC 31.0 L (32.0-37.0) g/dL Plt Count 708 H (140-440) 10*3/uL Immature Gran # 0.45 H (0.00-0.04) 10*3/uL Neutrophils # 19.29 H (1.80-7.70) 10*3/uL Lymphocytes # 0.41 L (0.90-5.00) 10*3/uL Eosinophils # 0.01 L (0.04-0.35) 10*3/uL ABG Total CO2 (19-24) mmol/L ABG O2 Saturation (94-97) % Hemoglobin (13.0-17.5) gm/dL Potassium 5.5 H (3.5-5.1) mmol/L Chloride 108 H (98-107) mmol/L Carbon Dioxide 21 L (22-30) mmol/L BUN 70 H (9-20) mg/dL Creatinine 2.16 H (0.66-1.25) mg/dL Glucose 129 H (74-99) mg/dL POC Glucose (mg/dL) 136 H (70-110) mg/dL 05/13/25 05/13/25 05/13/25 Range/Units 05:13 05:21 11:42 WBC (4.50-10.00) 10*3/uL RBC (4.40-5.60) 10*6/uL Hgb (13.0-17.0) g/dL Hct (39.6-50.0) % MCH (27.0-32.0) pg MCHC (32.0-37.0) g/dL Plt Count (140-440) 10*3/uL Immature Gran # (0.00-0.04) 10*3/uL Neutrophils # (1.80-7.70) 10*3/uL Lymphocytes # (0.90-5.00) 10*3/uL Eosinophils # (0.04-0.35) 10*3/uL ABG Total CO2 25 H (19-24) mmol/L ABG O2 Saturation 98.3 H (94-97) % Hemoglobin 8.0 L (13.0-17.5) gm/dL Potassium (3.5-5.1) mmol/L Chloride (98-107) mmol/L Carbon Dioxide (22-30) mmol/L BUN (9-20) mg/dL Creatinine (0.66-1.25) mg/dL Glucose (74-99) mg/dL POC Glucose (mg/dL) 147 H 117 H (70-110) mg/dL 05/13/25 Range/Units 17:49 WBC (4.50-10.00) 10*3/uL RBC (4.40-5.60) 10*6/uL Hgb (13.0-17.0) g/dL Hct (39.6-50.0) % MCH (27.0-32.0) pg MCHC (32.0-37.0) g/dL Plt Count (140-440) 10*3/uL Immature Gran # (0.00-0.04) 10*3/uL Neutrophils # (1.80-7.70) 10*3/uL Lymphocytes # (0.90-5.00) 10*3/uL Eosinophils # (0.04-0.35) 10*3/uL ABG Total CO2 (19-24) mmol/L ABG O2 Saturation (94-97) % Hemoglobin (13.0-17.5) gm/dL Potassium (3.5-5.1) mmol/L Chloride (98-107) mmol/L Carbon Dioxide (22-30) mmol/L BUN (9-20) mg/dL Creatinine (0.66-1.25) mg/dL Glucose (74-99) mg/dL POC Glucose (mg/dL) 159 H (70-110) mg/dL Assessment and Plan (1) Acute exacerbation of chronic obstructive pulmonary disease Current Visit: Yes Status: Acute Code(s): J44.1 - CHRONIC OBSTRUCTIVE PULMONARY DISEASE W (ACUTE) EXACERBATION SNOMED Code(s): 850914239 (2) Respiratory failure Current Visit: Yes Status: Acute Code(s): J96.90 - RESPIRATORY FAILURE, UNSP, UNSP W HYPOXIA OR HYPERCAPNIA SNOMED Code(s): 918509772 (3) Thrombocythemia Current Visit: Yes Status: Chronic Priority: Medium Code(s): D75.839 - THROMBOCYTOSIS, UNSPECIFIED SNOMED Code(s): 7773909 (4) GAVE (gastric antral vascular ectasia) Current Visit: No Status: Chronic Priority: Medium Code(s): K31.819 - ANGIODYSPLASIA OF STOMACH AND DUODENUM WITHOUT BLEEDING SNOMED Code(s): 83064205 Plan: Thrombocythemia Patient follows with Dr. Stone. - Patient is on treatment for the same with Agrylin - Acute condition likely exacerbating thrombocytopenia, reactive. - Patient is on DVT prophylaxis -Cont to follow plt counts GAVE syndrome -supportive care -aggressive iron supplementation when bleeding Severe reaction post transfusion -? TRALI -Supportive care to treat the same. -ICU care, Critical Care team following closely Doctor attests: I performed a history and physical examination of this patient, developed impression and plan of care. Discussed with dictator. I agree with dictators note, documented as a scribe
--- NOTE | 2025-05-13 20:05 | CDI ---
Documentation Clarification Form Date: 05/13/2025 07:09:51 PM From: Ritu More RN, CCDS Phone: [phone] Admit Date: 05/03/2025 09:13:00 PM Patient Name: Calvin Borja Visit Number: [id number] Discharge Date: ATTENTION: The Clinical Documentation Specialists (CDI) and [facility] Coding Staff appreciate your assistance in clarifying documentation. Please respond to the clarification below the line at the bottom and electronically sign. The CDI & [facility] Coding staff will review the response and follow-up if needed. Please note: Queries are made part of the Legal Health Record. If you have any questions, please contact the author of this message via ITS. Doctor.: Tammy Fitch Your patient has the documented diagnosis of CHF, Acute on chronic heart failure exacerbated by blood transfusion in the Internal Medicine progress notes starting on 05/04-05/11 Additional information regarding the type, acuity of CHF is requested. History/Risk Factors: Lung CA, GAVE syndrome, COPD Clinical Indicators: 79-year-old male [id number] for evaluation of respiratory arrest requiring intubation and mechanical ventilation 05/03 VS/Pulse OX: 168/95 105 19 97.5 98 % BVM > mechanical ventilation 05/03 BNP: 12931 05/04 Echocardiogram Results: LVH with preserves systolic function ejection fraction 55% RV enlargement with pulmonary hypertension elevated RVSP Moderate MR, Mild to moderate TR 05/03 CXR: patchy basilar infiltrates and small effusions. 05/04 CXR: Overall similar examination with diffuse interstitial prominence and right basilar airspace opacities concerning for atelectasis versus pneumonia. Similar small right pleural effusion. 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 [ ] Acute Diastolic Heart Failure (preserved EF) [x ] Acute on Chronic Diastolic Heart Failure (preserved EF) [ ] Acute on Chronic Heart Failure Systolic & Diastolic Heart Failure [ ] Other, please specify [ ] Unable to determine (Template Last Revised: November 2020) MTDD
[2025-05-14] LABS: Glucose,Whole Blood 163 mg/dL (70-110)
[2025-05-14 04:10] LABS: Basophils # (A) 0.03 10*3/uL (0.00-0.10); Basophils % (A) 0.1 %; Eosinophils # (A) 0.00 10*3/uL (0.04-0.35); Eosinophils % (A) 0.0 %; HCT 24.2 % (39.6-50.0); HGB 7.7 g/dL (13.0-17.0); Lymphocytes # (A) 0.23 10*3/uL (0.90-5.00); Lymphocytes % (A) 1.1 %; MCH 26.6 pg (27.0-32.0); MCHC 31.8 g/dL (32.0-37.0); MCV 83.7 fL (80.0-97.0); Monocytes # (A) 0.65 10*3/uL (0.20-1.00); Monocytes % (A) 3.0 %; Neutrophils # (A) 20.18 10*3/uL (1.80-7.70); Neutrophils % (A) 93.5 %; Platelet Count 501 10*3/uL (140-440); RBC 2.89 10*6/uL (4.40-5.60); RDW 22.8 % (11.5-14.5); WBC 21.59 10*3/uL (4.50-10.00)
[2025-05-14 04:23] LABS: African American GFR (CKD) 28 (>60 ml/min/1.73 sqM); Anion Gap 12 mmol/L; Blood Urea Nitrogen 77 mg/dL (9-20); Calcium 9.3 mg/dL (8.4-10.2); Carbon Dioxide 24 mmol/L (22-30); Chloride 106 mmol/L (98-107); Glucose 136 mg/dL (74-99); Non-African American GFR(CKD) 24 (>60 ml/min/1.73 sqM); Potassium 5.4 mmol/L (3.5-5.1); Sodium 142 mmol/L (137-145)
[2025-05-14 05:33] LABS: ABG HCO3 26 mmol/L (21-25); ABG PCO2 43 mmHg (35-45); ABG PH 7.40 (7.35-7.45); ABG PO2 109 mmHg (83-108); ABG TCO2 28 mmol/L (19-24)
[2025-05-14 05:35] LABS: Allen Test Performed? no
[2025-05-14 05:44] LABS: Glucose,Whole Blood 171 mg/dL (70-110)
--- NOTE | 2025-05-14 07:30 | XR ---
EXAMINATION TYPE: XR chest 1V portable DATE OF EXAM: 05/14/2025 4:34 AM COMPARISON: Chest radiograph from one day prior. CLINICAL INDICATION: Male, 79 years old with history of Mechanical ventilation; TECHNIQUE: XR chest 1V portable Frontal view of the chest. FINDINGS: Lungs/Pleura: There is no evidence of pleural effusion, focal consolidation, or pneumothorax. Pulmonary vascularity: Unremarkable. Heart/mediastinum: Cardiomediastinal silhouette is unremarkable. Musculoskeletal: No acute osseous pathology. Other findings: None Lines/Tubes: Endotracheal tube with distal tip 5.5 cm above the yuni. Nasogastric tube with its distal tip and side-port projecting under the diaphragm. Left central venous catheter with distal tip at the cavoatrial junction. IMPRESSION: Stable exam, stable line and tubes. [facility], , 05/14/2025 7:28 AM
[2025-05-14] MEDS: SODIUM CHLORIDE 0.9% 500 ML 500 ML IV ONE (10:15)
--- NOTE | 2025-05-14 10:20 | XR ---
EXAMINATION TYPE: XR chest 1V portable DATE OF EXAM: 05/14/2025 9:50 AM COMPARISON: Chest radiographs from 05/14/2025. CLINICAL INDICATION: Male, 79 years old with history of NG tube Placement; TECHNIQUE: XR chest 1V portable Frontal view of the chest. FINDINGS: Lungs/Pleura: No evidence of focal consolidation or pneumothorax. Blunting of the costophrenic angles is present. Pulmonary vascularity: Unremarkable. Heart/mediastinum: Cardiomediastinal silhouette is unremarkable. Musculoskeletal: No acute osseous pathology. Other findings: None Lines/Tubes: Interval removal of the endotracheal tube. Nasogastric tube with its distal tip and side-port projecting under the diaphragm. Left central venous catheter with distal tip at the cavoatrial junction. IMPRESSION: Nasogastric tube in satisfactory position. Bilateral pleural effusions. [facility], , 05/14/2025 10:17 AM
[2025-05-14] MEDS: METOPROLOL TARTRATE 5 MG/5 ML VIAL IVP SCH (11:38)
[2025-05-14] MEDS: SODIUM ZIRCONIUM CYCLOSILICATE 10 GM PACKET PO ONE (11:50)
--- NOTE | 2025-05-14 11:57 | P.PN ---
Subjective Progress Note Date: 05/14/25 Patient is a 79-year-old male, evaluated by EMS yesterday. Reportedly, having severe respiratory distress and apnea. He was intubated in the field. No previous records available to review from our facility. I did call the patient's , she states he was increasingly weak for the last several days. Associated shortness of breath with exertion. She thought it was related to his anemia. She was able to provide some past medical history including lung cancer and previous lung resection at [facility], essential thrombocythemia, and GAVE syndrome. Reportedly, requires frequent blood and iron infusions. He follows at [facility] for this. Reportedly, no history of COPD, asthma. No history of heart failure per the . His medication list is not available. Workup in the emergency department including a chest x-ray which shows endotracheal tube proximal, approximately 6 cm from the yuni. Orogastric tube coursing into the stomach. Patchy bibasilar infiltrates and small effusion on the right. Left costophrenic angle was excluded from the image. CBC including a WBC count of 19.15, hemoglobin 9.2, platelets 655. CMP included sodium 142, potassium 4.8, chloride 107, serum bicarb 20, BUN 28, creatinine 1.88, glucose 256. Lactic 2.6 and down to 1.6. EKG: Sinus tachycardia, rate 104 bpm, no acute ischemic changes. Troponin less than 0.012. NT proBNP significantly elevated at 12,100. Patient currently being evaluated in the emergency department, trauma bay 2. He is intubated to the mechanical ventilator. Previous ABGs including a PaO2 of 315, pCO2 57, pH of 7.2. Previous ventilator settings were assist-control, rate 16, tidal volume 450, FiO2 100%, PEEP of 5. Since then, his rate has been increased to 20 and his tidal volume dropped to 50%. The Peak pressure averaging 38 and static airway pressure measured at 17. His endotracheal tube is a size 7. There are thick tenacious white secretions coming from the endotracheal tube. Sputum sample to be collected. Currently, patient is synchronous with the mechanical ventilator. Sedated on propofol which is infusing at 45 mcg/kg/min. He was previously fluid resuscitated with a total of 2.5 L crystalloid fluid and LR continues at 150 mL/h. Blood pressure is normotensive. Not requiring any vasopressors. An indwelling urinary catheter was placed and there is small amount of concentrated yellow urine in the col lection bag. Has remained afebrile. Previously started on empiric antibiotics in form azithromycin and Rocephin in the ED. Progress note dated May 05, 2025. This is a 79-year-old gentleman who was seen by my nurse practitioner yesterday. The patient came into the hospital with respiratory failure, thought to be secondary to pneumonia. The patient remains on volume assist-control, rate 20, tidal line 450, FiO2 40%, PEEP of 5. Blood gases this morning show pO2 118, pCO2 38, pH is 7.30. Both blood gases are consistent with mild metabolic acidosis. The patient is getting saline at 75 cc an hour, propofol at 50 mcg/kg/min, and norepinephrine at 3.7 mcg/min. The patient continues on azit hromycin and Rocephin. We will attempt a daily interruption of sedation today, plus or minus a spontaneous breathing trial. The patient's saline IV, will be converted to lactated Ringer's at 75 cc an hour. Current laboratory data includes a white count of 14.8, hemoglobin 7.6, hematocrit 24.2, and a platelet count of 570,000. Sodium 141, potassium 4.2, chloride 111, CO2 16, anion gap 14, glucose 120, BUN and creatinine were 27 and 1.76. Calcium 8.1. Blood and sputum sampling is thus far negative. X-ray shows small right-sided pleural effusion, with some bibasilar patchy airspace opacities, concerning for possible pneumonia. Progress note dated May 06, 2025. 79-year-old male seen in the intensive care unit. The patient was admitted with respiratory failure, and pneumonia. He remains on mechanical ventilation. He is on volume assist-control, rate 20, tidal volume 450, FiO2 40%, PEEP of 5. Blood gases show PO297, [id number], pH is 7.30. The blood gas is consistent with a mild metabolic acidosis. He is on propofol at 50 mcg/kg/min, norepinephrine has been weaned off. He is on lactated Ringer's at 75 cc an hour, and saline at KVO. He is receiving vital high-protein at 40, with a goal of 45 cc an hour. He continues on azithromycin and Rocephin empirically. Will add some Solu- Medrol to his regimen. We also had some Dilaudid for pain control. White count 12.9, hemoglobin 7, hematocrit 22.8, platelet count 563,000. Sodium 142, potassium 4.1, chlorides 113, CO2 17, anion gap 12, BUN 23, creatinine 1.52. Glucose is 125. Calcium is 8.4. Sputum and blood sampling has been negative thus far. Chest x-ray shows small right pleural effusion with bibasilar patchy airspace opacities. There is evidence of pulmonary vascular congestion. Progress note dated May 07, 2025. 79-year-old male seen in the intensive care unit, room 251. The patient has a history of respiratory failure, and pneumonia, he remains on mechanical ventilator. Current vent settings include volume assist-control, rate 20, tidal volume 450, FiO2 40%, PEEP of 5. Arterial blood gases show PO2 114, PCO2 of 41, pH is 7.30. The patient is getting lactated Ringer's at 75 cc an hour, propofol at 50 mcg/kg/min. The patient is also getting saline at 10 cc an hour, and vital high-protein at 10 cc an hour. Residuals are high, so we added Reglan 10 mg every 6. He continues on azithromycin and Rocephin, and microbiologic sampling, thus far is negative. In addition, his peak airway pressures 29, with a plateau pressure of 13. His airways resistance is 13 cm water per liter per second. We will attempt a daily interruption of sedation. White count was 10.6, hemoglobin 7.1, hematocrit 23.6, platelet count 629,000. Sodium 141, potassium 4.5, chlorides 111, CO2 18, anion gap 12, BUN 28, creatinine 1.59. These electrolyte profile is consistent with a nonanion gap metabolic acidosis. Glucose is 162. Calcium is 8.8. Chest x-ray is largely unchanged, with small right-sided pleural effusion, and right basilar infiltrate. Progress note dated May 08, 2025. 79-year-old male seen today in room 251. The patient has done poorly with his daily interruptions of sedation. He is on volume assist-control, rate 20, tidal volume 450, FiO2 30%, PEEP of 5. Blood gases show PO2 102, pCO2 40, pH is 7.28. The patient is getting LR at 75 cc an hour, propofol is currently off, saline at 10 cc an hour, and vital high-protein at 40, with a goal of 45 cc an hour. Because of his agitated state, and his poor response, the patient will have an EEG, and a neurology consultation. He is currently not on any antibiotics. White count is 15.5, hemoglobin 7, hematocrit 23.1, platelet count 775,000. Sodium 139, potassium 4.9, chlorides 111, CO2 is 18, anion gap 10, BUN 37, creatinine 1.62. Glucose of 177. Calcium 8.8. Magnesium 2.2. Blood and sputum analysis is negative. Chest x-ray shows a small right-sided pleural effusion, and some mild bibasilar opacities. Progress note dated May 09, 2025. 79-year-old male seen today in room 251. He remains on the mechanical ventilator. He is on volume assist-control, rate 20, tidal volume 450, FiO2 30%, PEEP of 5. Blood gases show pO2 of 90, pCO2 of 39, pH is 7.31. The patient is getting lactated Ringer's at 75 cc an hour, propofol at 50 mcg/kg/min, vital high-protein at goal, which is 35 cc an hour. We asked neurology to see the patient yesterday. An EEG showed diffuse slowing consistent with metabolic/toxic encephalopathy. We also add some amlodipine to his regimen, for blood pressure control, at 10 mg. The patient may benefit from tracheostomy and PEG tube, if he does not improve neurologically. Will see how things go over the next few days. White count is 15.2, hemoglobin 7.4, hematocrit 24.7, platelet count 833,000. Sodium 140, potassium 5.4, chlorides 113, CO2 16, anion gap 11, BUN 45, creatinine 1.79. Glucose is 163. Calcium is 8.7. Microbiology is thus far negative. Chest x-ray is largely unchanged. Progress note dated May 10, 2025. 79-year-old male seen again in room 251. He remains on volume assist-control, rate 20, tidal volume 450, FiO2 30%, PEEP of 5. Blood gases show pO2 72, pCO2 37, pH is 7.35. He is currently on propofol at 10 mcg/kg/min, LR at 75 cc an hour, Precedex at 1.4 mcg/kg/h, Cleviprex at 3 mg an hour. The patient is also receiving vital high-protein, at goal. Current laboratory data includes a white count of 13.3, hemoglobin 8.2, hematocrit 26.5, and a platelet count of 925,000. Sodium 140, potassium 5.4, chloride 110, CO2 19, anion gap 11, BUN 54, creatinine 1.80. Calcium is 9.0. Microbiologic studies have all been negative. Chest x-ray is largely unchanged. The brain CT shows no acute bleed or mass effect, mild atrophy, and no interval change. The patient has been seen by neurology. The patient also had an EEG. On 05/11/2025, the patient is being seen in follow-up. Remains intubated and on mechanical ventilator. This morning, he is on propofol running at 75 mcg/kg/min and Precedex running at 1 mcg/kg/h. He is on assist-control mode of mechanical ventilation at rate of 20, tidal volume of 450, FiO2 40% with a PEEP of 5. Blood gas showed a pH of 7.37 and the patient has a PCO2 of 38 and PO2 of 53. Chest x-ray from today showing bilateral pleural effusion right more than left. Orotracheal tube with distal tip being at 4.5 cm above the yuni. The patient has also areas of consolidation bilaterally. Note that, the sputum sample that was collected at time of admission was negative. The patient has no fever or chills. He is not receiving any antibiotic coverage at this point. He remains on bronchodilators. He remains on IV Solu-Medrol. IV fluids are currently at KVO. Fluid balance is -1.3 L over the past 24 hours. The patient is at the subclavian left sided triple-lumen catheter. The white seconds at 13.5 with a heme of 8.5 and a platelet count of 872. BUN is 15 with a creatinine of 1.8 and a sodium levels at 142 and a potassium level is at 5.1. Serum bicarb is at 19. Anion gap is at 10. Hemodynamically stable. No pressors for now. Is known to have COPD. He is also known to haveThe patient is known to have COPD. 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 He has been treated through [facility]. Furthermore, he has undergone a lobectomy on the right for a non-small cell lung cancer and this was done approximately 2 years ago at [facility] in [place]. He has required transfusions almost every 3 we eks. He was having increased residuals. The patient will was started on IV Reglan and the patient will be started back on vital HP at a low rate. Will monitor his residuals. 05/12/2025, patient is being seen for a follow-up. The patient was given a prolonged sedation holiday. He opens his eyes and he was thrashing and he was not following any commands. He was getting progressive more asynchronous with the mechanical ventilator. Earlier this morning, the patient was on propofol at 40 mcg. This was discontinued and to restart sedation, I recommended Precedex. He is on assist-control mode of mechanical ventilation at a rate of 20, tidal volume of 450, FiO2 40% with a PEEP of 5. Blood gas showed a pH of 7.33 [id number] and PO2 of 95. He is on Cleviprex for blood pressure control running at 3 mg/h. CT scan of the abdomen and pelvis was done yesterday and the CAT scan of the chest showed a moderate-sized and small left-sided pleural effusion along with compressive atelectatic changes lung bases. Prominent mild lymph nodes within the mediastinum, probably benign, cholelithiasis, diffuse anasarca and no other intra-abdominal abnormalities. The patient is currently on vital HP at rate of 20 cc an hour. Tolerating stream reasonably well. Blood work was noted. The white cell count 13.4, hemoglobin 8.2 and platelet count of 848. BUN 61 with a creatinine of 1.7 and sodium levels at 141 and a potassium level is at 5.2. Hemoglobin has remained stable and there is no evidence of any GI bleeding. 05/13/2025, patient is being seen for a follow-up. Remains intubated on a [facility] hanical ventilator. Unfortunately, the patient is not showing neurologic recovery. He opens his eyes while off sedation. He looks around. He grimaces. He has a weak cough. Does not follow any commands. No seizure activity. Occasional thrashing. Having excessive respiratory secretions and obviously not a candidate for further weaning and extubation. He remains on Precedex which is running at 0.9 mcg/kg/h. The patient is also on Cleviprex drip for blood pressure control at 2 mg an hour. Remains on a mechanical ventilator assist- control mode with rate of 20, tidal volume of 450, FiO2 40% with a PEEP of 5. Blood gas showed a pH of 7.36 with a [id number] and PO2 of 101. Given IV Lasix and the patient is a negative fluid balance of 2.4 L over the past 24 hours. Remains on vital HP at a rate of 20 cc an hour. EEG showed moderate to severe encephalopathy. Blood work from today was noted. The white cell count is at 20.8 with him of 7.9 and a platelet count of 708. There is a rise in the white cell count. Sodium levels at 141, potassium is at 5.5, BUN 17 with a creatinine of 2.1. Bicarb is at 21. Glucose 117. Chest x-ray remains essentially unchanged with small bilateral pleural effusion and atelectatic changes lung base bilaterally. 05/14/2025, the patient is being seen for a follow-up. Neurologically unchanged. He opens his eyes, does not follow any commands. Moving all 4 extremities. Withdraws to painful stimulation. No fever. No neck stiffness. No seizure activity. Hemodynamically stable. Remains on Precedex at 1.4 mcg/kg/min. Remains on a mechanical ventilator assist-control mode with rate of 20, tidal volume of 450, FiO2 40% with a PEEP of 5. Fluid balance is -2.9 L over the past 24 hours and the patient's blood gas showed a pH of 7.39 with a [id number] and [id number]. Remains on vital HP at rate of 20 cc an hour. Remains on Cleviprex drip at 4 mg an hour. The white cell count is 21.5 with hemoseven 0.7 and platelet count of 501. BUN is 77 with a creatinine of 2.47. Potassium is at 5.4 with a sodium level of 142. Post bronchoscopy, therapeutic airway suctioning was done. Cultures are still pending. Respiratory secretions are much less. Chest x-ray shows some interval clearing of the right lower lobe opacity/effusion. There is a left-sided pleural effusion present. The tube is in a good location. Objective - Vital Signs Vital signs: Vital Signs Temp 98.3 F 05/14/25 08:00 Pulse 107 H 05/14/25 09:00 Resp 20 05/14/25 09:00 BP 157/74 05/14/25 09:00 Pulse Ox 97 05/14/25 09:00 FiO2 40 05/14/25 08:00 Intake & Output 05/13/25 05/14/25 05/14/25 18:59 06:59 18:59 Intake Total 1053.023 688.336 253.594 Output Total 1035 2800 350 Balance 18.023 -2111.664 -96.406 Weight 85.1 kg Intake: IV 208 176 32 0.9 KVO 130 110 20 Arterial Line and CVP 78 66 12 Line Intake, IV Titration 295.023 222.336 151.594 Amount Clevidipine Butyrate 25 9.167 43 46.300 mg In Empty Bag 1 bag @ 1 MG/HR 2 mls/hr IV .Q24H WHIT Rx#:[id number] Dexmedetomidine/0.9% NaCl 285.856 179.336 105.294 (Pmx) 400 mcg In Empty Bag 1 bag @ 0.2 MCG/KG/HR 4.63 mls/hr IV .[id number] WHIT Rx#:[id number] Oral 200 Tube Feeding 260 200 40 Other 90 90 30 Output: Urine 1035 2800 350 Other: Voiding Method Indwelling Catheter Indwelling Catheter Indwelling Catheter ABP, PAP, CO, CI - Last Documented Arterial Blood Pressure 154/54 - Exam Intubated, calm and comfortable, currently on Precedex. Orotracheal and gastric tube are both in place. HEENT examination is grossly unremarkable. Mucous membranes are moist. No oral lesions. The patient has a subclavian left-sided triple-lumen catheter. Neck supple. Full range of motion. No adenopathy thyromegaly or neck vein distention. Cardiovascular examination reveals regular rhythm rate. S1-S2 normal. No S3 or S4. No discernible murmur noted. Lungs reveal scattered bilateral expiratory rhonchi. No wheezes. No crackles. Breath sounds are equal bilaterally. There is diminished breath sound the lung bases bilaterally. Abdomen soft bowel sounds are heard. No masses or tenderness. Extremities are intact. No cyanosis clubbing or edema. Skin is without rash or lesion. Neurologic examination reveals a grimaces to painful stimulation in all 4 ext remities. Patient off sedation and not following any commands. Opens his eyes. Grimaces, moves his head and withdraws to painful stimulation all 4 extremities. The patient opens his eyes spontaneously. He moves his head and occasionally thrashes. This evaluation was done while the patient on Precedex at 0.9 mcg/kg/h. - Labs CBC & Chem 7: 05/14/25 03:42 05/14/25 03:42 Labs: Abnormal Lab Results - Last 24 Hours (Table) 05/13/25 05/13/25 05/13/25 Range/Units 11:42 17:49 23:58 WBC (4.50-10.00) 10*3/uL RBC (4.40-5.60) 10*6/uL Hgb (13.0-17.0) g/dL Hct (39.6-50.0) % MCH (27.0-32.0) pg MCHC (32.0-37.0) g/dL Plt Count (140-440) 10*3/uL Immature Gran # (0.00-0.04) 10*3/uL Neutrophils # (1.80-7.70) 10*3/uL Lymphocytes # (0.90-5.00) 10*3/uL Eosinophils # (0.04-0.35) 10*3/uL ABG pO2 (83-108) mmHg ABG HCO3 (21-25) mmol/L ABG Total CO2 (19-24) mmol/L ABG O2 Saturation (94-97) % Hemoglobin (13.0-17.5) gm/dL Potassium (3.5-5.1) mmol/L BUN (9-20) mg/dL Creatinine (0.66-1.25) mg/dL Glucose (74-99) mg/dL POC Glucose (mg/dL) 117 H 159 H 163 H (70-110) mg/dL 05/14/25 05/14/25 05/14/25 Range/Units 03:42 03:42 05:27 WBC 21.59 H (4.50-10.00) 10*3/uL RBC 2.89 L (4.40-5.60) 10*6/uL Hgb 7.7 L (13.0-17.0) g/dL Hct 24.2 L (39.6-50.0) % MCH 26.6 L (27.0-32.0) pg MCHC 31.8 L (32.0-37.0) g/dL Plt Count 501 H (140-440) 10*3/uL Immature Gran # 0.50 H (0.00-0.04) 10*3/uL Neutrophils # 20.18 H (1.80-7.70) 10*3/uL Lymphocytes # 0.23 L (0.90-5.00) 10*3/uL Eosinophils # 0.00 L (0.04-0.35) 10*3/uL ABG pO2 109 H (83-108) mmHg ABG HCO3 26 H (21-25) mmol/L ABG Total CO2 28 H (19-24) mmol/L ABG O2 Saturation 98.9 H (94-97) % Hemoglobin 7.8 L (13.0-17.5) gm/dL Potassium 5.4 H (3.5-5.1) mmol/L BUN 77 H (9-20) mg/dL Creatinine 2.47 H (0.66-1.25) mg/dL Glucose 136 H (74-99) mg/dL POC Glucose (mg/dL) (70-110) mg/dL 05/14/25 Range/Units 05:43 WBC (4.50-10.00) 10*3/uL RBC (4.40-5.60) 10*6/uL Hgb (13.0-17.0) g/dL Hct (39.6-50.0) % MCH (27.0-32.0) pg MCHC (32.0-37.0) g/dL Plt Count (140-440) 10*3/uL Immature Gran # (0.00-0.04) 10*3/uL Neutrophils # (1.80-7.70) 10*3/uL Lymphocytes # (0.90-5.00) 10*3/uL Eosinophils # (0.04-0.35) 10*3/uL ABG pO2 (83-108) mmHg ABG HCO3 (21-25) mmol/L ABG Total CO2 (19-24) mmol/L ABG O2 Saturation (94-97) % Hemoglobin (13.0-17.5) gm/dL Potassium (3.5-5.1) mmol/L BUN (9-20) mg/dL Creatinine (0.66-1.25) mg/dL Glucose (74-99) mg/dL POC Glucose (mg/dL) 171 H (70-110) mg/dL Microbiology - Last 24 Hours (Table) 05/13/25 10:15 Gram Stain - Preliminary Bronchial Washings - Left Assessment and Plan Plan: Acute hypoxemic and hypercapnic respiratory failure, remains intubated on mechanical ventilator. Reviewed the chest x-ray and the patient has bilateral consolidation and bilateral pleural effusions right more than left. Echocardiogram done on 05/04/2025 showed preserved LV function with an ejection fraction of 55% and the patient has a moderate degree of mitral regurgitation. No significant respiratory secretions. CT scan of the chest done on 05/11/2025 shows a moderate-sized and a small size this right and left-sided pleural effusion respectively. Maintained mechanical ventilator and with adequate oxygenation ventilation. The patient is post bronchoscopy done on 05/13/2025 with therapeutic airway suctioning. Cultures are still pending for now. Meanwhile, secretions are less and the patient has a cough. Encephalopathy, suboptimal recovery from sedation the patient was not following any commands upon receiving sedation holiday. Neurologic exam remains nonfocal. Meanwhile, CAT scan of the brain that was done on 05/10/2025 showed mild cerebral atrophy without any acute abnormalities. CAT scan of the brain that was done at time of admission on 05/04/2025 showed no acute abnormalities. EEG done on 05/08/2025 showed moderate to severe degree of slowing in the background. No evidence of any seizure activity. The patient is currently on Precedex. Unable to follow any commands. Remains unresponsive to verbal stimulation. Occasional thrashing. Continues to be encephalopathic. About underlying hypoxic encephalopathy at the time of admission. Neurologically unchanged and the patient remains on Precedex. Chronic kidney disease, stage III, creatinine is higher probably due to the diuresis and the patient is negative fluid balance while being on IV Lasix. Preserved LV function with a normal ejection fraction and moderate mitral regurgitation and mild to moderate tricuspid regurgitation, based on echo on 05/04/2025. Hypertension, currently on Cleviprex drip for blood pressure control. Acute leukocytosis and the patient is hemodynamically stable and afebrile. 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 Essential thrombocythemia, reportedly on cytoreducative therapy. lung cancer with previous lobectomy at outside facility. The patient underwent a right-sided lobectomy, probably the right upper lobe and this was done 2 years ago at [facility]. Current tobacco smoker. Plan: Stop the Precedex The patient may be able to protect his airways. He is post bronchoscopy and therapeutic airway suctioning was done. Chest x-ray findings are stable. Stable oxygenation. Stable ventilation. Will extubate the patient and will monitor his overall condition postextubation. Will keep him off Precedex for now. Chest x-ray from today was noted. Continue bronchodilators Continue steroids The patient is post bronchoscopy and the BAL of the right lower lobe on 05/13/2025 with therapeutic airway suctioning. The patient is on no antibiotics for now Remove the OG tube and switch it to an NG tube Monitor renal function Will discontinue Lasix as the patient has been in negative fluid balance Continue Cleviprex for blood pressure control at 4 mg an hour Utilize IV Lopressor 5 mg every 6 hours IV to control tachycardia. The patient is having some ongoing sinus tachycardia. Aspiration precautions postextubation. Keep n.p.o. Rest of the medications are essentially unchanged. Will continue the treatment and will make further recommendations based on his progress. May need reintubation if the patient fails this extubation trial. Case was discussed with the family and the was at the bedside. Evaluation was done more than 30 minutes. Time with Patient: Greater than 30
[2025-05-14 12:08] LABS: Glucose,Whole Blood 157 mg/dL (70-110)
--- NOTE | 2025-05-14 13:18 | P.PN ---
Subjective Progress Note Date: 05/14/25 Hospital Course: A 79-year-old male with past medical history of lung cancer status post lobect leonie, essential thrombocythemia, GAVE syndrome, [facility] , reported history of COPD, asthma, dyslipidemia, hypertension, depression, who presented for respiratory distress. reports exertional SOB for the past few weeks prior to arrival. In the ED he underwent extensive evaluation. BP 168/95, HR 105, T 97.5F, RR 19, 98% mechanically ventilated. Labs significant for WBC 19.15, RBC 3.4, Hg 9.2, Hct 29.3, Plt 655, PT 13.5, INR 1.3, bicarb 20, BUN 28, Cr 1.88, glu 256. Trop < 0.012. BNP 62694. Mag 2.2. Lactic acid 2.2-1.6. COVID, RSV, Flu neg. EKG sinus tachycardia. CXR patchy basilar infiltrates and small effusions. Brain CT no acute process. Patient is admitted to ICU for further man agement. Patient was intubated and sedated on 05/04, started on broad-spectrum antibiotics for sepsis present on admission. Patient completed antibiotics, sputum cultures showed no growth. He is continued on steroids. His hospital course complicated by acute metabolic encephalopathy, neurology consulted, patient had an EEG done that showed moderate to severe background slowing, that was done on propofol 50 mcg/kg/min. CT head was done twice and showed no acute bleed or mass effect. TTE showed EF of 55% with no obvious regional wall motion abnormalities, moderate MR, mild to moderate TR. Patient did have a sedation holiday on 05/11, did not tolerate well, was not following commands during. CT chest abdomen pelvis with oral contrast was done to evaluate for mts: moderate R and small L pleural effusions with compressive atelectasis, mildly prominent mediastinal lymph nodes, likely reactive, chlelithiasis, diffuse anasarca. Propofol was turned off on 05/13 in the morning. Patient has not had any purposeful movements since, he was unable to move his head, appeared agitated, did not follow any commands, did not interact. 05/14: Seen examined at bedside, on 05/13 he underwent bronchoscopy, BAL of the right lower lobe, therapeutic airway suctioning. Patient was extubated earlier this morning to nasal cannula, Precedex was turned off. Lasix discontinued. Patient's mentation is unchanged, he was sitting upright, upper extremities on restraints, patient was not opening eyes, was not following commands, withdraws to pain. Discussed with RN. Patient is tachycardic in 120s, afebrile, respiration rate from 7-17 during my evaluation, blood pressure 141/60, leukocytosis uptrending to 21.5, hemoglobin 7.7, platelet count down to 501, ABG with normal pH, PCO2, PO2 109, potassium elevated again 5.4, normal sodium, creatinine uptrending to 2.47, glucose is better controlled. Pertinent positives and negatives as discussed above, a complete review of systems was performed and all other systems are negative. Vitals Signs Reviewed. General: [Ill-appearing Derm: Warm, dry Head: Atraumatic, normocephalic, symmetric Eyes: EOMI, no lid lag, anicteric sclera Mouth: No lip lesion, mucus membranes moist Cardiovascular: S1S2 reg, no murmur Lungs: CTA bilateral, bilateral rhonchi, diminished bibasilar breath sounds, no accessory muscle use Abdominal: Soft, nontender to palpation, no guarding, no appreciable organomegaly Ext: No gross muscle atrophy, lower extremity edema, no contractures Neuro: Pupils are reactive, does not follow commands Psych: [Unable to assess, Assessment and Plan: Acute hypoxic respiratory failure requiring intubation status post extubation 05/14, bronchoscopy with BAL 05/13 COPD exacerbation Diastolic CHF exacerbation Bilateral pleural effusion Sepsis present on admission History of lung cancer status post lobectomy Tobacco use disorder -Continue ICU care, -Lasix stopped -Continue formoterol 20 mcg twice daily, DuoNeb scheduled every 4 hour, Solu- Medrol 40 mg IV every 8 hours Acute multifactorial encephalopathy - Neurology following, appreciate recommendations -EEG CT head as above -Plan to repeat EEG, propofol stopped on 05/12AM, Precedex stopped 05/14 AM -prognosis is guarded MYNOR on CKD stage III Hyperkalemia - Provided with 1 more dose of Lokelma 10 mg, repeat potassium in the afternoon and then daily - Monitor BMP daily -Strict I's and O's -Renal ultrasound showed no hydronephrosis GAVE syndrome Essential thrombocythemia Normocytic anemia, chronic -Continue anagrelide 1 mg p.o. twice daily, Reglan 10 mg IV every 6 hours scheduled -CBC daily Depression: Continue home Lexapro 20 mg nightly Hypertension: Continue home amlodipine 10 mg daily Hyperlipidemia: Continue home atorvastatin 20 mg nightly DVT ppx: Heparin Code status: Full code Anticipated discharge place: TBD Anticipated discharge time: TBD Objective - Vital Signs Vital signs: Vital Signs Temp 98.3 F 05/14/25 08:00 Pulse 124 H 05/14/25 13:00 Resp 7 L 05/14/25 13:00 BP 138/54 05/14/25 13:00 Pulse Ox 95 05/14/25 13:00 FiO2 40 05/14/25 11:58 Intake & Output 05/13/25 05/14/25 05/14/25 18:59 06:59 18:59 Intake Total 1053.023 688.336 358.687 Output Total 1035 2800 1325 Balance 18.023 -2111.664 -966.313 Weight 85.1 kg 85.1 kg Intake: IV 208 176 112 0.9 KVO 130 110 70 Arterial Line and CVP 78 66 42 Line Intake, IV Titration 295.023 222.336 156.687 Amount Clevidipine Butyrate 25 9.167 43 46.300 mg In Empty Bag 1 bag @ 1 MG/HR 2 mls/hr IV .Q24H [facility] Rx#:[id number] Dexmedetomidine/0.9% NaCl 285.856 179.336 110.387 (Pmx) 400 mcg In Empty Bag 1 bag @ 0.2 MCG/KG/HR 4.63 mls/hr IV .[id number] [facility] Rx#:[id number] Oral 200 Tube Feeding 260 200 60 Other 90 90 30 Output: Urine 1035 2800 1325 Other: Voiding Method Indwelling Catheter Indwelling Catheter Indwelling Catheter ABP, PAP, CO, CI - Last Documented Arterial Blood Pressure 137/46 - Labs CBC & Chem 7: 05/14/25 03:42 05/14/25 03:42 Labs: Abnormal Lab Results - Last 24 Hours (Table) 05/13/25 05/13/25 05/14/25 Range/Units 17:49 23:58 03:42 WBC 21.59 H (4.50-10.00) 10*3/uL RBC 2.89 L (4.40-5.60) 10*6/uL Hgb 7.7 L (13.0-17.0) g/dL Hct 24.2 L (39.6-50.0) % MCH 26.6 L (27.0-32.0) pg MCHC 31.8 L (32.0-37.0) g/dL Plt Count 501 H (140-440) 10*3/uL Immature Gran # 0.50 H (0.00-0.04) 10*3/uL Neutrophils # 20.18 H (1.80-7.70) 10*3/uL Lymphocytes # 0.23 L (0.90-5.00) 10*3/uL Eosinophils # 0.00 L (0.04-0.35) 10*3/uL ABG pO2 (83-108) mmHg ABG HCO3 (21-25) mmol/L ABG Total CO2 (19-24) mmol/L ABG O2 Saturation (94-97) % Hemoglobin (13.0-17.5) gm/dL Potassium (3.5-5.1) mmol/L BUN (9-20) mg/dL Creatinine (0.66-1.25) mg/dL Glucose (74-99) mg/dL POC Glucose (mg/dL) 159 H 163 H (70-110) mg/dL 05/14/25 05/14/25 05/14/25 Range/Units 03:42 05:27 05:43 WBC (4.50-10.00) 10*3/uL RBC (4.40-5.60) 10*6/uL Hgb (13.0-17.0) g/dL Hct (39.6-50.0) % MCH (27.0-32.0) pg MCHC (32.0-37.0) g/dL Plt Count (140-440) 10*3/uL Immature Gran # (0.00-0.04) 10*3/uL Neutrophils # (1.80-7.70) 10*3/uL Lymphocytes # (0.90-5.00) 10*3/uL Eosinophils # (0.04-0.35) 10*3/uL ABG pO2 109 H (83-108) mmHg ABG HCO3 26 H (21-25) mmol/L ABG Total CO2 28 H (19-24) mmol/L ABG O2 Saturation 98.9 H (94-97) % Hemoglobin 7.8 L (13.0-17.5) gm/dL Potassium 5.4 H (3.5-5.1) mmol/L BUN 77 H (9-20) mg/dL Creatinine 2.47 H (0.66-1.25) mg/dL Glucose 136 H (74-99) mg/dL POC Glucose (mg/dL) 171 H (70-110) mg/dL 05/14/25 Range/Units 12:07 WBC (4.50-10.00) 10*3/uL RBC (4.40-5.60) 10*6/uL Hgb (13.0-17.0) g/dL Hct (39.6-50.0) % MCH (27.0-32.0) pg MCHC (32.0-37.0) g/dL Plt Count (140-440) 10*3/uL Immature Gran # (0.00-0.04) 10*3/uL Neutrophils # (1.80-7.70) 10*3/uL Lymphocytes # (0.90-5.00) 10*3/uL Eosinophils # (0.04-0.35) 10*3/uL ABG pO2 (83-108) mmHg ABG HCO3 (21-25) mmol/L ABG Total CO2 (19-24) mmol/L ABG O2 Saturation (94-97) % Hemoglobin (13.0-17.5) gm/dL Potassium (3.5-5.1) mmol/L BUN (9-20) mg/dL Creatinine (0.66-1.25) mg/dL Glucose (74-99) mg/dL POC Glucose (mg/dL) 157 H (70-110) mg/dL Microbiology - Last 24 Hours (Table) 05/13/25 10:15 Gram Stain - Preliminary Bronchial Washings - Left Bronchial Washings Culture - Preliminary
--- NOTE | 2025-05-14 13:42 | P.PN ---
Subjective Progress Note Date: 05/14/25 I am following-up with the patient and today in the morning was maxed out on IV Precedex and that was discontinued and patient was extubated recently. Currently patient is somewhat restless, moving head side to side and moving upper extremities spontaneously. Objective - Vital Signs Vital signs: Vital Signs Temp 98.3 F 05/14/25 08:00 Pulse 124 H 05/14/25 13:00 Resp 7 L 05/14/25 13:00 BP 138/54 05/14/25 13:00 Pulse Ox 95 05/14/25 13:00 FiO2 40 05/14/25 11:58 Intake & Output 05/13/25 05/14/25 05/14/25 18:59 06:59 18:59 Intake Total 1053.023 688.336 358.687 Output Total 1035 2800 1325 Balance 18.023 -2111.664 -966.313 Weight 85.1 kg 85.1 kg Intake: IV 208 176 112 0.9 KVO 130 110 70 Arterial Line and CVP 78 66 42 Line Intake, IV Titration 295.023 222.336 156.687 Amount Clevidipine Butyrate 25 9.167 43 46.300 mg In Empty Bag 1 bag @ 1 MG/HR 2 mls/hr IV .Q24H [facility] Rx#:[id number] Dexmedetomidine/0.9% NaCl 285.856 179.336 110.387 (Pmx) 400 mcg In Empty Bag 1 bag @ 0.2 MCG/KG/HR 4.63 mls/hr IV .[id number] [facility] Rx#:[id number] Oral 200 Tube Feeding 260 200 60 Other 90 90 30 Output: Urine 1035 2800 1325 Other: Voiding Method Indwelling Catheter Indwelling Catheter Indwelling Catheter ABP, PAP, CO, CI - Last Documented Arterial Blood Pressure 137/46 - Exam General: Laying in bed and does not appear in acute distress. Neuro: Very limited. For the most part he seems somewhat restless, moving head side to side or moving uppers spontaneously. He questionably followed one simple command and that is wiggling toes. - Labs CBC & Chem 7: 05/14/25 03:42 05/14/25 03:42 Labs: Abnormal Lab Results - Last 24 Hours (Table) 05/13/25 05/13/25 05/14/25 Range/Units 17:49 23:58 03:42 WBC 21.59 H (4.50-10.00) 10*3/uL RBC 2.89 L (4.40-5.60) 10*6/uL Hgb 7.7 L (13.0-17.0) g/dL Hct 24.2 L (39.6-50.0) % MCH 26.6 L (27.0-32.0) pg MCHC 31.8 L (32.0-37.0) g/dL Plt Count 501 H (140-440) 10*3/uL Immature Gran # 0.50 H (0.00-0.04) 10*3/uL Neutrophils # 20.18 H (1.80-7.70) 10*3/uL Lymphocytes # 0.23 L (0.90-5.00) 10*3/uL Eosinophils # 0.00 L (0.04-0.35) 10*3/uL ABG pO2 (83-108) mmHg ABG HCO3 (21-25) mmol/L ABG Total CO2 (19-24) mmol/L ABG O2 Saturation (94-97) % Hemoglobin (13.0-17.5) gm/dL Potassium (3.5-5.1) mmol/L BUN (9-20) mg/dL Creatinine (0.66-1.25) mg/dL Glucose (74-99) mg/dL POC Glucose (mg/dL) 159 H 163 H (70-110) mg/dL 05/14/25 05/14/25 05/14/25 Range/Units 03:42 05:27 05:43 WBC (4.50-10.00) 10*3/uL RBC (4.40-5.60) 10*6/uL Hgb (13.0-17.0) g/dL Hct (39.6-50.0) % MCH (27.0-32.0) pg MCHC (32.0-37.0) g/dL Plt Count (140-440) 10*3/uL Immature Gran # (0.00-0.04) 10*3/uL Neutrophils # (1.80-7.70) 10*3/uL Lymphocytes # (0.90-5.00) 10*3/uL Eosinophils # (0.04-0.35) 10*3/uL ABG pO2 109 H (83-108) mmHg ABG HCO3 26 H (21-25) mmol/L ABG Total CO2 28 H (19-24) mmol/L ABG O2 Saturation 98.9 H (94-97) % Hemoglobin 7.8 L (13.0-17.5) gm/dL Potassium 5.4 H (3.5-5.1) mmol/L BUN 77 H (9-20) mg/dL Creatinine 2.47 H (0.66-1.25) mg/dL Glucose 136 H (74-99) mg/dL POC Glucose (mg/dL) 171 H (70-110) mg/dL 05/14/25 Range/Units 12:07 WBC (4.50-10.00) 10*3/uL RBC (4.40-5.60) 10*6/uL Hgb (13.0-17.0) g/dL Hct (39.6-50.0) % MCH (27.0-32.0) pg MCHC (32.0-37.0) g/dL Plt Count (140-440) 10*3/uL Immature Gran # (0.00-0.04) 10*3/uL Neutrophils # (1.80-7.70) 10*3/uL Lymphocytes # (0.90-5.00) 10*3/uL Eosinophils # (0.04-0.35) 10*3/uL ABG pO2 (83-108) mmHg ABG HCO3 (21-25) mmol/L ABG Total CO2 (19-24) mmol/L ABG O2 Saturation (94-97) % Hemoglobin (13.0-17.5) gm/dL Potassium (3.5-5.1) mmol/L BUN (9-20) mg/dL Creatinine (0.66-1.25) mg/dL Glucose (74-99) mg/dL POC Glucose (mg/dL) 157 H (70-110) mg/dL Microbiology - Last 24 Hours (Table) 05/13/25 10:15 Gram Stain - Preliminary Bronchial Washings - Left Bronchial Washings Culture - Preliminary Assessment and Plan Assessment: * Altered mental status, likely due to toxic metabolic encephalopathy. Had two CT head which is negative for acute process. EEG on 05/11/2025: Moderate to severe encephalopathy but no seizure or discharges * Acute respiratory failure, on mechanical ventilation--extubated * Suspected bilateral Pneumonia, but patient is not on antibiotics at this time * Possible exacerbation of CHF * acute kidney injury * History of GAVE syndrome with chronic anemia and thrombocythemia * history of lung cancer with previous lobectomy * Tobacco use Plan: * EEG was abnormal due to background slowing of moderate to severe degree, along with some periods of generalized suppression. This is suggestive of generalized cerebral dysfunction as can be seen with toxic metabolic encephalopathy or due to diffuse structural brain abnormality or medication effect as well. Clinical correlation is recommended. This EEG was performed while patient was on propofol 50 mcg/kg per minute. * Repeat EEG on 05/11/2025: Is abnormal. The background slowing is suggestive of moderate to severe encephalopathy. There is no focal slowing, epileptiform discharge or seizure on the EEG. * He was extubated today and recommend if possible avoiding sedation for better neurological examination. If moderate to severe agitation can use Seroquel 25mg qhs or up to 50mg qhs. * Other management as per IM, critical care and other specialties. * 2-D echo revealed LVH with preserved systolic function with EF 55%. No obvious regional wall motion abnormalities. Moderate MR, [id number] TR normal left atrial size. * Repeat CT head, 05/10/2025 showed no acute bleed or mass effect. Mild atrophy. No interval change. I personally reviewed CT head again with the findings. * The overall prognosis is guarded. I discussed with his son who is at bedside and his ICU nurse. Time with Patient: Less than 30
[2025-05-14 17:50] LABS: Glucose,Whole Blood 152 mg/dL (70-110)
[2025-05-14 23:15] LABS: Glucose,Whole Blood 157 mg/dL (70-110)
[2025-05-15 03:48] LABS: Basophils # (A) 0.05 10*3/uL (0.00-0.10); Basophils % (A) 0.2 %; Eosinophils # (A) 0.00 10*3/uL (0.04-0.35); Eosinophils % (A) 0.0 %; HCT 24.2 % (39.6-50.0); HGB 7.6 g/dL (13.0-17.0); Lymphocytes # (A) 0.36 10*3/uL (0.90-5.00); Lymphocytes % (A) 1.2 %; MCH 26.3 pg (27.0-32.0); MCHC 31.4 g/dL (32.0-37.0); MCV 83.7 fL (80.0-97.0); Monocytes # (A) 0.96 10*3/uL (0.20-1.00); Monocytes % (A) 3.2 %; Neutrophils # (A) 27.48 10*3/uL (1.80-7.70); Neutrophils % (A) 92.7 %; Platelet Count 410 10*3/uL (140-440); RBC 2.89 10*6/uL (4.40-5.60); RDW 22.9 % (11.5-14.5); WBC 29.66 10*3/uL (4.50-10.00)
[2025-05-15 04:25] LABS: African American GFR (CKD) 37 (>60 ml/min/1.73 sqM); Anion Gap 11 mmol/L; Blood Urea Nitrogen 77 mg/dL (9-20); Calcium 9.8 mg/dL (8.4-10.2); Carbon Dioxide 25 mmol/L (22-30); Chloride 108 mmol/L (98-107); Glucose 136 mg/dL (74-99); Non-African American GFR(CKD) 32 (>60 ml/min/1.73 sqM); Potassium 4.8 mmol/L (3.5-5.1); Sodium 144 mmol/L (137-145)
[2025-05-15 04:34] LABS: ABG HCO3 27 mmol/L (21-25); ABG PCO2 43 mmHg (35-45); ABG PH 7.41 (7.35-7.45); ABG PO2 98 mmHg (83-108); ABG TCO2 28 mmol/L (19-24); Allen Test Performed? Yes
[2025-05-15 05:20] LABS: Glucose,Whole Blood 173 mg/dL (70-110)
[2025-05-15 06:00] LABS: Anisocytosis (M) Present
--- NOTE | 2025-05-15 07:38 | XR ---
EXAMINATION TYPE: XR chest 1V portable DATE OF EXAM: 05/15/2025 4:30 AM COMPARISON: Chest radiograph from one day prior. CLINICAL INDICATION: Male, 79 years old with history of Mechanical ventilation; [facility] TECHNIQUE: XR chest 1V portable Frontal view of the chest. FINDINGS: Lungs/Pleura: There is no evidence of pleural effusion, focal consolidation, or pneumothorax. Pulmonary vascularity: Unremarkable. Heart/mediastinum: Cardiomediastinal silhouette is unremarkable. Musculoskeletal: No acute osseous pathology. Other findings: None Lines/Tubes: Nasogastric tube with its distal tip and side-port projecting under the diaphragm. Left internal jugular central venous catheter with distal tip at the cavoatrial junction. IMPRESSION: Stable exam with trace bilateral pleural effusions. [facility], , 05/15/2025 7:36 AM
[2025-05-15] MEDS: IPRATROPIUM-ALBUTEROL 3 ML NEB INHALATION SCH (07:50)
[2025-05-15] MEDS: METOPROLOL TARTRATE 50 MG TAB PO SCH (09:19)
--- NOTE | 2025-05-15 10:28 | P.PN ---
Subjective Progress Note Date: 05/15/25 Hospital Course: A 79-year-old male with past medical history of lung cancer status post lobect leonie, essential thrombocythemia, GAVE syndrome, [facility] , reported history of COPD, asthma, dyslipidemia, hypertension, depression, who presented for respiratory distress. reports exertional SOB for the past few weeks prior to arrival. In the ED he underwent extensive evaluation. BP 168/95, HR 105, T 97.5F, RR 19, 98% mechanically ventilated. Labs significant for WBC 19.15, RBC 3.4, Hg 9.2, Hct 29.3, Plt 655, PT 13.5, INR 1.3, bicarb 20, BUN 28, Cr 1.88, glu 256. Trop < 0.012. BNP 12725. Mag 2.2. Lactic acid 2.2-1.6. COVID, RSV, Flu neg. EKG sinus tachycardia. CXR patchy basilar infiltrates and small effusions. Brain CT no acute process. Patient is admitted to ICU for further man agement. Patient was intubated and sedated on 05/04, started on broad-spectrum antibiotics for sepsis present on admission. Patient completed antibiotics, sputum cultures showed no growth. He is continued on steroids. His hospital course complicated by acute metabolic encephalopathy, neurology consulted, patient had an EEG done that showed moderate to severe background slowing, that was done on propofol 50 mcg/kg/min. CT head was done twice and showed no acute bleed or mass effect. TTE showed EF of 55% with no obvious regional wall motion abnormalities, moderate MR, mild to moderate TR. Patient did have a sedation holiday on 05/11, did not tolerate well, was not following commands during. CT chest abdomen pelvis with oral contrast was done to evaluate for mts: moderate R and small L pleural effusions with compressive atelectasis, mildly prominent mediastinal lymph nodes, likely reactive, chlelithiasis, diffuse anasarca. Propofol was turned off on 05/13 in the morning. Patient has not had any purposeful movements since, he was unable to move his head, appeared agitated, did not follow any commands, did not interact. on 05/13 he underwent bronchoscopy, BAL of the right lower lobe, therapeutic airway suctioning. Patient was extubated on 05/14to nasal cannula, Precedex was turned off. Lasix discontinued. Patient's mentation was unchanged, he was sitting upright, upper extremities on restraints, patient was not opening eyes, was not following commands, withdraws to pain. 05/15: Patient was seen and examined at bedside, RN present during examination. Patient is sitting upright, patient lifts his arms up, not purposefully, today he started moaning on voice command, opens eyes on voice command, does not squeeze hand, does not wiggle toes. Is afebrile, heart rate improved to 100s, blood pressure stable 146/67, he was seen on BiPAP. Lungs are more clear on auscultation. Chest x-ray stable from before with bilateral pleural effusions, trace. Morning blood work showed uptrending leukocytosis 29.6, stable hemoglobin 7.6, platelet count WNL today, ABG with normal pH, pCO2 and PO2, normal sodium, potassium, bicarb, creatinine improving 1.94, glucose is controlled. Patient was started on Lopressor 50 twice daily. Pertinent positives and negatives as discussed above, a complete review of systems was performed and all other systems are negative. Vitals Signs Reviewed. General: [Ill-appearing Derm: Warm, dry Head: Atraumatic, normocephalic, symmetric Eyes: EOMI, no lid lag, anicteric sclera Mouth: No lip lesion, mucus membranes moist Cardiovascular: S1S2 reg, no murmur Lungs: CTA bilateral, bilateral rhonchi, diminished bibasilar breath sounds, no accessory muscle use Abdominal: Soft, nontender to palpation, no guarding, no appreciable organomegaly Ext: No gross muscle atrophy, no lower extremity edema, no contractures Neuro: Pupils are reactive, does not follow commands Psych: [Unable to assess, Assessment and Plan: Acute hypoxic respiratory failure requiring intubation status post extubation 05/14, bronchoscopy with BAL 05/13 COPD exacerbation Diastolic CHF exacerbation Bilateral pleural effusion Sepsis present on admission History of lung cancer status post lobectomy Tobacco use disorder -BAL cultures showed few normal respiratory mario, no Staphylococcus aureus or Pseudomonas aeruginosa -Continue ICU care, -Lasix stopped, continue holding, received bolus of IVF 500 cc on 05/14 -Continue formoterol 20 mcg twice daily, DuoNeb scheduled every 4 hour, IV steroids stopped Sinus tachycardia Hypertension -Continue home amlodipine 10 mg daily - Started on Lopressor 50 p.o. twice daily Acute multifactorial encephalopathy - Neurology following, appreciate recommendations -EEG CT head as above -Plan to repeat EEG, propofol stopped on 05/12AM, Precedex stopped 05/14 AM -prognosis is guarded MYNOR on CKD stage III Hyperkalemia, resolved -Continue holding Lasix - Monitor BMP daily -Strict I's and O's -Renal ultrasound showed no hydronephrosis GAVE syndrome Essential thrombocythemia Normocytic anemia, chronic -Continue anagrelide 1 mg p.o. twice daily, Reglan 10 mg IV every 6 hours scheduled -CBC daily Depression: Continue home Lexapro 20 mg nightly Hyperlipidemia: Continue home atorvastatin 20 mg nightly DVT ppx: Heparin Code status: Full code Anticipated discharge place: TBD Anticipated discharge time: TBD Objective - Vital Signs Vital signs: Vital Signs Temp 98.1 F 05/15/25 08:00 Pulse 97 05/15/25 10:00 Resp 10 L 05/15/25 10:00 BP 151/75 05/15/25 10:00 Pulse Ox 91 L 05/15/25 10:00 FiO2 40 05/15/25 08:00 Intake & Output 05/14/25 05/15/25 05/15/25 18:59 06:59 18:59 Intake Total 530.554 782.232 296.400 Output Total 2335 1650 570 Balance -1804.446 -867.768 -273.600 Weight 85.1 kg 69 kg Intake: IV 208 176 64 0.9 KVO 130 110 40 Arterial Line and CVP 78 66 24 Line Intake, IV Titration 232.554 126.232 42.400 Amount Clevidipine Butyrate 25 122.167 126.232 42.400 mg In Empty Bag 1 bag @ 1 MG/HR 2 mls/hr IV .Q24H [facility] Rx#:[id number] Dexmedetomidine/0.9% NaCl 110.387 (Pmx) 400 mcg In Empty Bag 1 bag @ 0.2 MCG/KG/HR 4.63 mls/hr IV .[id number] [facility] Rx#:[id number] Tube Feeding 60 390 160 Other 30 90 30 Output: Urine 2335 1650 570 Other: Voiding Method Indwelling Catheter Indwelling Catheter Indwelling Catheter ABP, PAP, CO, CI - Last Documented Arterial Blood Pressure 156/56 - Labs CBC & Chem 7: 05/15/25 03:20 05/15/25 03:20 Labs: Abnormal Lab Results - Last 24 Hours (Table) 05/14/25 05/14/25 05/14/25 Range/Units 12:07 17:48 23:14 WBC (4.50-10.00) 10*3/uL RBC (4.40-5.60) 10*6/uL Hgb (13.0-17.0) g/dL Hct (39.6-50.0) % MCH (27.0-32.0) pg MCHC (32.0-37.0) g/dL Immature Gran # (0.00-0.04) 10*3/uL Neutrophils # (1.80-7.70) 10*3/uL Lymphocytes # (0.90-5.00) 10*3/uL Eosinophils # (0.04-0.35) 10*3/uL ABG HCO3 (21-25) mmol/L ABG Total CO2 (19-24) mmol/L ABG O2 Saturation (94-97) % Hemoglobin (13.0-17.5) gm/dL Chloride (98-107) mmol/L BUN (9-20) mg/dL Creatinine (0.66-1.25) mg/dL Glucose (74-99) mg/dL POC Glucose (mg/dL) 157 H 152 H 157 H (70-110) mg/dL 05/15/25 05/15/25 05/15/25 Range/Units 03:20 03:20 04:29 WBC 29.66 H (4.50-10.00) 10*3/uL RBC 2.89 L (4.40-5.60) 10*6/uL Hgb 7.6 L (13.0-17.0) g/dL Hct 24.2 L (39.6-50.0) % MCH 26.3 L (27.0-32.0) pg MCHC 31.4 L (32.0-37.0) g/dL Immature Gran # 0.81 H (0.00-0.04) 10*3/uL Neutrophils # 27.48 H (1.80-7.70) 10*3/uL Lymphocytes # 0.36 L (0.90-5.00) 10*3/uL Eosinophils # 0.00 L (0.04-0.35) 10*3/uL ABG HCO3 27 H (21-25) mmol/L ABG Total CO2 28 H (19-24) mmol/L ABG O2 Saturation 98.3 H (94-97) % Hemoglobin 7.7 L (13.0-17.5) gm/dL Chloride 108 H (98-107) mmol/L BUN 77 H (9-20) mg/dL Creatinine 1.94 H (0.66-1.25) mg/dL Glucose 136 H (74-99) mg/dL POC Glucose (mg/dL) (70-110) mg/dL 05/15/25 Range/Units 05:18 WBC (4.50-10.00) 10*3/uL RBC (4.40-5.60) 10*6/uL Hgb (13.0-17.0) g/dL Hct (39.6-50.0) % MCH (27.0-32.0) pg MCHC (32.0-37.0) g/dL Immature Gran # (0.00-0.04) 10*3/uL Neutrophils # (1.80-7.70) 10*3/uL Lymphocytes # (0.90-5.00) 10*3/uL Eosinophils # (0.04-0.35) 10*3/uL ABG HCO3 (21-25) mmol/L ABG Total CO2 (19-24) mmol/L ABG O2 Saturation (94-97) % Hemoglobin (13.0-17.5) gm/dL Chloride (98-107) mmol/L BUN (9-20) mg/dL Creatinine (0.66-1.25) mg/dL Glucose (74-99) mg/dL POC Glucose (mg/dL) 173 H (70-110) mg/dL Microbiology - Last 24 Hours (Table) 05/13/25 10:15 Gram Stain - Final Bronchial Washings - Left Bronchial Washings Culture - Final
[2025-05-15 11:30] VITALS: BMI 23.1
[2025-05-15 11:42] LABS: Glucose,Whole Blood 150 mg/dL (70-110)
--- NOTE | 2025-05-15 12:42 | P.PN ---
Subjective Progress Note Date: 05/15/25 I am following-up with the patient and per the nurse, sedation has been held since yesterday. Today in the morning, he was on BiPAP machine and currently been off for 2 hours. His condition is about the same per the nurse. He just moves headache for most part side to side and lifts arms spontaneously. Objective - Vital Signs Vital signs: Vital Signs Temp 98.0 F 05/15/25 12:00 Pulse 105 H 05/15/25 12:00 Resp 6 L 05/15/25 12:00 BP 150/73 05/15/25 12:00 Pulse Ox 93 L 05/15/25 12:00 FiO2 40 05/15/25 08:00 Intake & Output 05/14/25 05/15/25 05/15/25 18:59 06:59 18:59 Intake Total 530.554 782.232 408.400 Output Total 2335 1650 910 Balance -1804.446 -867.768 -501.600 Weight 85.1 kg 69 kg 69 kg Intake: IV 208 176 96 0.9 KVO 130 110 60 Arterial Line and CVP 78 66 36 Line Intake, IV Titration 232.554 126.232 42.400 Amount Clevidipine Butyrate 25 122.167 126.232 42.400 mg In Empty Bag 1 bag @ 1 MG/HR 2 mls/hr IV .Q24H WHIT Rx#:[id number] Dexmedetomidine/0.9% NaCl 110.387 (Pmx) 400 mcg In Empty Bag 1 bag @ 0.2 MCG/KG/HR 4.63 mls/hr IV .[id number] WHIT Rx#:[id number] Tube Feeding 60 390 240 Other 30 90 30 Output: Urine 2335 1650 910 Other: Voiding Method Indwelling Catheter Indwelling Catheter Indwelling Catheter ABP, PAP, CO, CI - Last Documented Arterial Blood Pressure 149/80 - Exam General: Laying in bed and does not appear in acute distress. Lung: Sounds wheezy to auscultation throughout. Neuro: Very limited. For the most part he seems somewhat restless, moving head side to side or moving uppers spontaneously. He does not follow commands or verbalizes others than just moans. - Labs CBC & Chem 7: 05/15/25 03:20 05/15/25 03:20 Labs: Abnormal Lab Results - Last 24 Hours (Table) 05/14/25 05/14/25 05/15/25 Range/Units 17:48 23:14 03:20 WBC 29.66 H (4.50-10.00) 10*3/uL RBC 2.89 L (4.40-5.60) 10*6/uL Hgb 7.6 L (13.0-17.0) g/dL Hct 24.2 L (39.6-50.0) % MCH 26.3 L (27.0-32.0) pg MCHC 31.4 L (32.0-37.0) g/dL Immature Gran # 0.81 H (0.00-0.04) 10*3/uL Neutrophils # 27.48 H (1.80-7.70) 10*3/uL Lymphocytes # 0.36 L (0.90-5.00) 10*3/uL Eosinophils # 0.00 L (0.04-0.35) 10*3/uL ABG HCO3 (21-25) mmol/L ABG Total CO2 (19-24) mmol/L ABG O2 Saturation (94-97) % Hemoglobin (13.0-17.5) gm/dL Chloride (98-107) mmol/L BUN (9-20) mg/dL Creatinine (0.66-1.25) mg/dL Glucose (74-99) mg/dL POC Glucose (mg/dL) 152 H 157 H (70-110) mg/dL 05/15/25 05/15/25 05/15/25 Range/Units 03:20 04:29 05:18 WBC (4.50-10.00) 10*3/uL RBC (4.40-5.60) 10*6/uL Hgb (13.0-17.0) g/dL Hct (39.6-50.0) % MCH (27.0-32.0) pg MCHC (32.0-37.0) g/dL Immature Gran # (0.00-0.04) 10*3/uL Neutrophils # (1.80-7.70) 10*3/uL Lymphocytes # (0.90-5.00) 10*3/uL Eosinophils # (0.04-0.35) 10*3/uL ABG HCO3 27 H (21-25) mmol/L ABG Total CO2 28 H (19-24) mmol/L ABG O2 Saturation 98.3 H (94-97) % Hemoglobin 7.7 L (13.0-17.5) gm/dL Chloride 108 H (98-107) mmol/L BUN 77 H (9-20) mg/dL Creatinine 1.94 H (0.66-1.25) mg/dL Glucose 136 H (74-99) mg/dL POC Glucose (mg/dL) 173 H (70-110) mg/dL 05/15/25 Range/Units 11:41 WBC (4.50-10.00) 10*3/uL RBC (4.40-5.60) 10*6/uL Hgb (13.0-17.0) g/dL Hct (39.6-50.0) % MCH (27.0-32.0) pg MCHC (32.0-37.0) g/dL Immature Gran # (0.00-0.04) 10*3/uL Neutrophils # (1.80-7.70) 10*3/uL Lymphocytes # (0.90-5.00) 10*3/uL Eosinophils # (0.04-0.35) 10*3/uL ABG HCO3 (21-25) mmol/L ABG Total CO2 (19-24) mmol/L ABG O2 Saturation (94-97) % Hemoglobin (13.0-17.5) gm/dL Chloride (98-107) mmol/L BUN (9-20) mg/dL Creatinine (0.66-1.25) mg/dL Glucose (74-99) mg/dL POC Glucose (mg/dL) 150 H (70-110) mg/dL Microbiology - Last 24 Hours (Table) 05/13/25 10:15 Gram Stain - Final Bronchial Washings - Left Bronchial Washings Culture - Final Assessment and Plan Assessment: * Altered mental status, likely due to toxic metabolic encephalopathy. Had two CT head which is negative for acute process. EEG on 05/11/2025: Moderate to severe encephalopathy but no seizure or discharges. Even with sedation held for 24 hours no improvement in condition. 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 This is suggestive of generalized cerebral dysfunction as can be seen with toxic metabolic e ncephalopathy or due to diffuse structural brain abnormality or medication effect as well. Clinical correlation is recommended. This EEG was performed while patient was on propofol 50 mcg/kg per minute. * Repeat EEG on 05/11/2025: Is abnormal. The background slowing is suggestive of moderate to severe encephalopathy. There is no focal slowing, epileptiform discharge or seizure on the EEG. * He was extubated yesterday and recommend if possible avoiding sedation for better neurological examination. I started the patient on Seroquel 25mg qhs and if severe agitation recommend 25 qam and 50mg qhs. * Other management as per IM, critical care and other specialties. * 2-D echo revealed LVH with preserved systolic function with EF 55%. No obvious regional wall motion abnormalities. Moderate MR, [id number] TR normal left atrial size. * Repeat CT head, 05/10/2025 showed no acute bleed or mass effect. Mild atrophy. No interval change. * The overall prognosis is poor. I discussed with his who is at bedside and his ICU nurse. The states that she is aware that overall he is not improving but it seems the son wants to give him more time. Will consult Hospice and have them speak with the family. Time with Patient: Less than 30
--- NOTE | 2025-05-15 13:05 | P.PN ---
Subjective Progress Note Date: 05/15/25 Patient is a 79-year-old male, evaluated by EMS yesterday. Reportedly, having severe respiratory distress and apnea. He was intubated in the field. No previous records available to review from our facility. I did call the patient's , she states he was increasingly weak for the last several days. Associated shortness of breath with exertion. She thought it was related to his anemia. She was able to provide some past medical history including lung cancer and previous lung resection at [facility], essential thrombocythemia, and GAVE syndrome. Reportedly, requires frequent blood and iron infusions. He follows at [facility] for this. Reportedly, no history of COPD, asthma. No history of heart failure per the . His medication list is not available. Workup in the emergency department including a chest x-ray which shows endotracheal tube proximal, approximately 6 cm from the yuni. Orogastric tube coursing into the stomach. Patchy bibasilar infiltrates and small effusion on the right. Left costophrenic angle was excluded from the image. CBC including a WBC count of 19.15, hemoglobin 9.2, platelets 655. CMP included sodium 142, potassium 4.8, chloride 107, serum bicarb 20, BUN 28, creatinine 1.88, glucose 256. Lactic 2.6 and down to 1.6. EKG: Sinus tachycardia, rate 104 bpm, no acute ischemic changes. Troponin less than 0.012. NT proBNP significantly elevated at 12,100. Patient currently being evaluated in the emergency department, trauma bay 2. He is intubated to the mechanical ventilator. Previous ABGs including a PaO2 of 315, pCO2 57, pH of 7.2. Previous ventilator settings were assist-control, rate 16, tidal volume 450, FiO2 100%, PEEP of 5. Since then, his rate has been increased to 20 and his tidal volume dropped to 50%. The Peak pressure averaging 38 and static airway pressure measured at 17. His endotracheal tube is a size 7. There are thick tenacious white secretions coming from the endotracheal tube. Sputum sample to be collected. Currently, patient is synchronous with the mechanical ventilator. Sedated on propofol which is infusing at 45 mcg/kg/min. He was previously fluid resuscitated with a total of 2.5 L crystalloid fluid and LR continues at 150 mL/h. Blood pressure is normotensive. Not requiring any vasopressors. An indwelling urinary catheter was placed and there is small amount of concentrated yellow urine in the col lection bag. Has remained afebrile. Previously started on empiric antibiotics in form azithromycin and Rocephin in the ED. Progress note dated May 05, 2025. This is a 79-year-old gentleman who was seen by my nurse practitioner yesterday. The patient came into the hospital with respiratory failure, thought to be secondary to pneumonia. The patient remains on volume assist-control, rate 20, tidal line 450, FiO2 40%, PEEP of 5. Blood gases this morning show pO2 118, pCO2 38, pH is 7.30. Both blood gases are consistent with mild metabolic acidosis. The patient is getting saline at 75 cc an hour, propofol at 50 mcg/kg/min, and norepinephrine at 3.7 mcg/min. The patient continues on azit hromycin and Rocephin. We will attempt a daily interruption of sedation today, plus or minus a spontaneous breathing trial. The patient's saline IV, will be converted to lactated Ringer's at 75 cc an hour. Current laboratory data includes a white count of 14.8, hemoglobin 7.6, hematocrit 24.2, and a platelet count of 570,000. Sodium 141, potassium 4.2, chloride 111, CO2 16, anion gap 14, glucose 120, BUN and creatinine were 27 and 1.76. Calcium 8.1. Blood and sputum sampling is thus far negative. X-ray shows small right-sided pleural effusion, with some bibasilar patchy airspace opacities, concerning for possible pneumonia. Progress note dated May 06, 2025. 79-year-old male seen in the intensive care unit. The patient was admitted with respiratory failure, and pneumonia. He remains on mechanical ventilation. He is on volume assist-control, rate 20, tidal volume 450, FiO2 40%, PEEP of 5. Blood gases show PO297, XOD641, pH is 7.30. The blood gas is consistent with a mild metabolic acidosis. He is on propofol at 50 mcg/kg/min, norepinephrine has been weaned off. He is on lactated Ringer's at 75 cc an hour, and saline at KVO. He is receiving vital high-protein at 40, with a goal of 45 cc an hour. He continues on azithromycin and Rocephin empirically. Will add some Solu- Medrol to his regimen. We also had some Dilaudid for pain control. White count 12.9, hemoglobin 7, hematocrit 22.8, platelet count 563,000. Sodium 142, potassium 4.1, chlorides 113, CO2 17, anion gap 12, BUN 23, creatinine 1.52. Glucose is 125. Calcium is 8.4. Sputum and blood sampling has been negative thus far. Chest x-ray shows small right pleural effusion with bibasilar patchy airspace opacities. There is evidence of pulmonary vascular congestion. Progress note dated May 07, 2025. 79-year-old male seen in the intensive care unit, room 251. The patient has a history of respiratory failure, and pneumonia, he remains on mechanical ventilator. Current vent settings include volume assist-control, rate 20, tidal volume 450, FiO2 40%, PEEP of 5. Arterial blood gases show PO2 114, PCO2 of 41, pH is 7.30. The patient is getting lactated Ringer's at 75 cc an hour, propofol at 50 mcg/kg/min. The patient is also getting saline at 10 cc an hour, and vital high-protein at 10 cc an hour. Residuals are high, so we added Reglan 10 mg every 6. He continues on azithromycin and Rocephin, and microbiologic sampling, thus far is negative. In addition, his peak airway pressures 29, with a plateau pressure of 13. His airways resistance is 13 cm water per liter per second. We will attempt a daily interruption of sedation. White count was 10.6, hemoglobin 7.1, hematocrit 23.6, platelet count 629,000. Sodium 141, potassium 4.5, chlorides 111, CO2 18, anion gap 12, BUN 28, creatinine 1.59. These electrolyte profile is consistent with a nonanion gap metabolic acidosis. Glucose is 162. Calcium is 8.8. Chest x-ray is largely unchanged, with small right-sided pleural effusion, and right basilar infiltrate. Progress note dated May 08, 2025. 79-year-old male seen today in room 251. The patient has done poorly with his daily interruptions of sedation. He is on volume assist-control, rate 20, tidal volume 450, FiO2 30%, PEEP of 5. Blood gases show PO2 102, pCO2 40, pH is 7.28. The patient is getting LR at 75 cc an hour, propofol is currently off, saline at 10 cc an hour, and vital high-protein at 40, with a goal of 45 cc an hour. Because of his agitated state, and his poor response, the patient will have an EEG, and a neurology consultation. He is currently not on any antibiotics. White count is 15.5, hemoglobin 7, hematocrit 23.1, platelet count 775,000. Sodium 139, potassium 4.9, chlorides 111, CO2 is 18, anion gap 10, BUN 37, creatinine 1.62. Glucose of 177. Calcium 8.8. Magnesium 2.2. Blood and sputum analysis is negative. Chest x-ray shows a small right-sided pleural effusion, and some mild bibasilar opacities. Progress note dated May 09, 2025. 79-year-old male seen today in room 251. He remains on the mechanical ventilator. He is on volume assist-control, rate 20, tidal volume 450, FiO2 30%, PEEP of 5. Blood gases show pO2 of 90, pCO2 of 39, pH is 7.31. The patient is getting lactated Ringer's at 75 cc an hour, propofol at 50 mcg/kg/min, vital high-protein at goal, which is 35 cc an hour. We asked neurology to see the patient yesterday. An EEG showed diffuse slowing consistent with metabolic/toxic encephalopathy. We also add some amlodipine to his regimen, for blood pressure control, at 10 mg. The patient may benefit from tracheostomy and PEG tube, if he does not improve neurologically. Will see how things go over the next few days. White count is 15.2, hemoglobin 7.4, hematocrit 24.7, platelet count 833,000. Sodium 140, potassium 5.4, chlorides 113, CO2 16, anion gap 11, BUN 45, creatinine 1.79. Glucose is 163. Calcium is 8.7. Microbiology is thus far negative. Chest x-ray is largely unchanged. Progress note dated May 10, 2025. 79-year-old male seen again in room 251. He remains on volume assist-control, rate 20, tidal volume 450, FiO2 30%, PEEP of 5. Blood gases show pO2 72, pCO2 37, pH is 7.35. He is currently on propofol at 10 mcg/kg/min, LR at 75 cc an hour, Precedex at 1.4 mcg/kg/h, Cleviprex at 3 mg an hour. The patient is also receiving vital high-protein, at goal. Current laboratory data includes a white count of 13.3, hemoglobin 8.2, hematocrit 26.5, and a platelet count of 925,000. Sodium 140, potassium 5.4, chloride 110, CO2 19, anion gap 11, BUN 54, creatinine 1.80. Calcium is 9.0. Microbiologic studies have all been negative. Chest x-ray is largely unchanged. The brain CT shows no acute bleed or mass effect, mild atrophy, and no interval change. The patient has been seen by neurology. The patient also had an EEG. On 05/11/2025, the patient is being seen in follow-up. Remains intubated and on mechanical ventilator. This morning, he is on propofol running at 75 mcg/kg/min and Precedex running at 1 mcg/kg/h. He is on assist-control mode of mechanical ventilation at rate of 20, tidal volume of 450, FiO2 40% with a PEEP of 5. Blood gas showed a pH of 7.37 and the patient has a PCO2 of 38 and PO2 of 53. Chest x-ray from today showing bilateral pleural effusion right more than left. Orotracheal tube with distal tip being at 4.5 cm above the yuni. The patient has also areas of consolidation bilaterally. Note that, the sputum sample that was collected at time of admission was negative. The patient has no fever or chills. He is not receiving any antibiotic coverage at this point. He remains on bronchodilators. He remains on IV Solu-Medrol. IV fluids are currently at KVO. Fluid balance is -1.3 L over the past 24 hours. The patient is at the subclavian left sided triple-lumen catheter. The white seconds at 13.5 with a heme of 8.5 and a platelet count of 872. BUN is 15 with a creatinine of 1.8 and a sodium levels at 142 and a potassium level is at 5.1. Serum bicarb is at 19. Anion gap is at 10. Hemodynamically stable. No pressors for now. Is known to have COPD. He is also known to haveThe patient is known to have COPD. 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 He has been treated through [facility]. Furthermore, he has undergone a lobectomy on the right for a non-small cell lung cancer and this was done approximately 2 years ago at [facility] in [place]. He has required transfusions almost every 3 we eks. He was having increased residuals. The patient will was started on IV Reglan and the patient will be started back on vital HP at a low rate. Will monitor his residuals. 05/12/2025, patient is being seen for a follow-up. The patient was given a prolonged sedation holiday. He opens his eyes and he was thrashing and he was not following any commands. He was getting progressive more asynchronous with the mechanical ventilator. Earlier this morning, the patient was on propofol at 40 mcg. This was discontinued and to restart sedation, I recommended Precedex. He is on assist-control mode of mechanical ventilation at a rate of 20, tidal volume of 450, FiO2 40% with a PEEP of 5. Blood gas showed a pH of 7.33 [id number] and PO2 of 95. He is on Cleviprex for blood pressure control running at 3 mg/h. CT scan of the abdomen and pelvis was done yesterday and the CAT scan of the chest showed a moderate-sized and small left-sided pleural effusion along with compressive atelectatic changes lung bases. Prominent mild lymph nodes within the mediastinum, probably benign, cholelithiasis, diffuse anasarca and no other intra-abdominal abnormalities. The patient is currently on vital HP at rate of 20 cc an hour. Tolerating stream reasonably well. Blood work was noted. The white cell count 13.4, hemoglobin 8.2 and platelet count of 848. BUN 61 with a creatinine of 1.7 and sodium levels at 141 and a potassium level is at 5.2. Hemoglobin has remained stable and there is no evidence of any GI bleeding. 05/13/2025, patient is being seen for a follow-up. Remains intubated on a [facility] hanical ventilator. Unfortunately, the patient is not showing neurologic recovery. He opens his eyes while off sedation. He looks around. He grimaces. He has a weak cough. Does not follow any commands. No seizure activity. Occasional thrashing. Having excessive respiratory secretions and obviously not a candidate for further weaning and extubation. He remains on Precedex which is running at 0.9 mcg/kg/h. The patient is also on Cleviprex drip for blood pressure control at 2 mg an hour. Remains on a mechanical ventilator assist- control mode with rate of 20, tidal volume of 450, FiO2 40% with a PEEP of 5. Blood gas showed a pH of 7.36 with a [id number] and PO2 of 101. Given IV Lasix and the patient is a negative fluid balance of 2.4 L over the past 24 hours. Remains on vital HP at a rate of 20 cc an hour. EEG showed moderate to severe encephalopathy. Blood work from today was noted. The white cell count is at 20.8 with him of 7.9 and a platelet count of 708. There is a rise in the white cell count. Sodium levels at 141, potassium is at 5.5, BUN 17 with a creatinine of 2.1. Bicarb is at 21. Glucose 117. Chest x-ray remains essentially unchanged with small bilateral pleural effusion and atelectatic changes lung base bilaterally. 05/14/2025, the patient is being seen for a follow-up. Neurologically unchanged. He opens his eyes, does not follow any commands. Moving all 4 extremities. Withdraws to painful stimulation. No fever. No neck stiffness. No seizure activity. Hemodynamically stable. Remains on Precedex at 1.4 mcg/kg/min. Remains on a mechanical ventilator assist-control mode with rate of 20, tidal volume of 450, FiO2 40% with a PEEP of 5. Fluid balance is -2.9 L over the past 24 hours and the patient's blood gas showed a pH of 7.39 with a [id number] and [id number]. Remains on vital HP at rate of 20 cc an hour. Remains on Cleviprex drip at 4 mg an hour. The white cell count is 21.5 with hemoseven 0.7 and platelet count of 501. BUN is 77 with a creatinine of 2.47. Potassium is at 5.4 with a sodium level of 142. Post bronchoscopy, therapeutic airway suctioning was done. Cultures are still pending. Respiratory secretions are much less. Chest x-ray shows some interval clearing of the right lower lobe opacity/effusion. There is a left-sided pleural effusion present. The tube is in a good location. 05/15/2025 the patient is extubated, and the patient was extubated on 05/14/2025. Overnight, the patient was placed on a BiPAP pressure of 12 or 6 cm of water with an FiO2 of 40%. This morning, the patient was taken off the BiPAP and the patient is currently on 2 L of oxygen by nasal cannula with a pulse ox of 93%. He is still neurologically unchanged. He just moves his head and extremities. He is not following commands consistently. Remains profoundly weak. He has a weak cough. NG tube is in place. He is on vital HP at rate of 40 cc an hour. Fluid balance -2.6 L over the past 24 hours. Chest x-ray shows trace pleural effusion bilaterally and IV fluids are currently at KVO. The patient remains on Cleviprex 7 mg an hour. He is also on IV Lopressor for some sinus tachycardia. White cell count 29 with a heme of 7.6. BUN is 77 with a creatinine of 1.9. Potassium level is at 4.8. Noncarrier lavage that was collected earlier showed no microbial growth. The patient is being monitored very closely in the [facility] unit. Neurology remains on the case. Objective - Vital Signs Vital signs: Vital Signs Temp 98.0 F 05/15/25 12:00 Pulse 105 H 05/15/25 12:00 Resp 6 L 05/15/25 12:00 BP 150/73 05/15/25 12:00 Pulse Ox 93 L 05/15/25 12:00 FiO2 40 05/15/25 08:00 Intake & Output 05/14/25 05/15/25 05/15/25 18:59 06:59 18:59 Intake Total 530.554 782.232 446.700 Output Total 2335 1650 910 Balance -1804.446 -867.768 -463.300 Weight 85.1 kg 69 kg 69 kg Intake: IV 208 176 96 0.9 KVO 130 110 60 Arterial Line and CVP 78 66 36 Line Intake, IV Titration 232.554 126.232 80.700 Amount Clevidipine Butyrate 25 122.167 126.232 80.700 mg In Empty Bag 1 bag @ 1 MG/HR 2 mls/hr IV .Q24H WHIT Rx#:[id number] Dexmedetomidine/0.9% NaCl 110.387 (Pmx) 400 mcg In Empty Bag 1 bag @ 0.2 MCG/KG/HR 4.63 mls/hr IV .[id number] WHIT Rx#:[id number] Tube Feeding 60 390 240 Other 30 90 30 Output: Urine 2335 1650 910 Other: Voiding Method Indwelling Catheter Indwelling Catheter Indwelling Catheter ABP, PAP, CO, CI - Last Documented Arterial Blood Pressure 149/80 - Exam The patient is currently on 3 L of oxygen by nasal cannula. Awake, opens his eyes. Does not follow any commands. HEENT examination is grossly unremarkable. Mucous membranes are moist. No oral lesions. The patient has a subclavian left-sided triple-lumen catheter. Neck supple. Full range of motion. No adenopathy thyromegaly or neck vein distention. Cardiovascular examination reveals regular rhythm rate. S1-S2 normal. No S3 or S4. No discernible murmur noted. Lungs reveal scattered bilateral expiratory rhonchi. No wheezes. No crackles. Breath sounds are equal bilaterally. There is diminished breath sound the lung bases bilaterally. Abdomen soft bowel sounds are heard. No masses or tenderness. Extremities are intact. No cyanosis clubbing or edema. Skin is without rash or lesion. Neurologic examination reveals a grimaces to painful stimulation in all 4 extremities. Patient off sedation and not following any commands. Opens his eyes. Grimaces, moves his head and withdraws to painful stimulation all 4 extremities. The patient opens his eyes spontaneously. He moves his head and occasionally thrashes. Overall, neurologic condition has not been changed significantly. The patient is currently off sedation. - Labs CBC & Chem 7: 05/15/25 03:20 05/15/25 03:20 Labs: Abnormal Lab Results - Last 24 Hours (Table) 05/14/25 05/14/25 05/15/25 Range/Units 17:48 23:14 03:20 WBC 29.66 H (4.50-10.00) 10*3/uL RBC 2.89 L (4.40-5.60) 10*6/uL Hgb 7.6 L (13.0-17.0) g/dL Hct 24.2 L (39.6-50.0) % MCH 26.3 L (27.0-32.0) pg MCHC 31.4 L (32.0-37.0) g/dL Immature Gran # 0.81 H (0.00-0.04) 10*3/uL Neutrophils # 27.48 H (1.80-7.70) 10*3/uL Lymphocytes # 0.36 L (0.90-5.00) 10*3/uL Eosinophils # 0.00 L (0.04-0.35) 10*3/uL ABG HCO3 (21-25) mmol/L ABG Total CO2 (19-24) mmol/L ABG O2 Saturation (94-97) % Hemoglobin (13.0-17.5) gm/dL Chloride (98-107) mmol/L BUN (9-20) mg/dL Creatinine (0.66-1.25) mg/dL Glucose (74-99) mg/dL POC Glucose (mg/dL) 152 H 157 H (70-110) mg/dL 05/15/25 05/15/25 05/15/25 Range/Units 03:20 04:29 05:18 WBC (4.50-10.00) 10*3/uL RBC (4.40-5.60) 10*6/uL Hgb (13.0-17.0) g/dL Hct (39.6-50.0) % MCH (27.0-32.0) pg MCHC (32.0-37.0) g/dL Immature Gran # (0.00-0.04) 10*3/uL Neutrophils # (1.80-7.70) 10*3/uL Lymphocytes # (0.90-5.00) 10*3/uL Eosinophils # (0.04-0.35) 10*3/uL ABG HCO3 27 H (21-25) mmol/L ABG Total CO2 28 H (19-24) mmol/L ABG O2 Saturation 98.3 H (94-97) % Hemoglobin 7.7 L (13.0-17.5) gm/dL Chloride 108 H (98-107) mmol/L BUN 77 H (9-20) mg/dL Creatinine 1.94 H (0.66-1.25) mg/dL Glucose 136 H (74-99) mg/dL POC Glucose (mg/dL) 173 H (70-110) mg/dL 05/15/25 Range/Units 11:41 WBC (4.50-10.00) 10*3/uL RBC (4.40-5.60) 10*6/uL Hgb (13.0-17.0) g/dL Hct (39.6-50.0) % MCH (27.0-32.0) pg MCHC (32.0-37.0) g/dL Immature Gran # (0.00-0.04) 10*3/uL Neutrophils # (1.80-7.70) 10*3/uL Lymphocytes # (0.90-5.00) 10*3/uL Eosinophils # (0.04-0.35) 10*3/uL ABG HCO3 (21-25) mmol/L ABG Total CO2 (19-24) mmol/L ABG O2 Saturation (94-97) % Hemoglobin (13.0-17.5) gm/dL Chloride (98-107) mmol/L BUN (9-20) mg/dL Creatinine (0.66-1.25) mg/dL Glucose (74-99) mg/dL POC Glucose (mg/dL) 150 H (70-110) mg/dL Microbiology - Last 24 Hours (Table) 05/13/25 10:15 Gram Stain - Final Bronchial Washings - Left Bronchial Washings Culture - Final Assessment and Plan Plan: Acute hypoxemic and hypercapnic respiratory failure, remains intubated on mechanical ventilator. Reviewed the chest x-ray and the patient has bilateral consolidation and bilateral pleural effusions right more than left. Echocardiogram done on 05/04/2025 showed preserved LV function with an ejection fraction of 55% and the patient has a moderate degree of mitral regurgitation. No significant respiratory secretions. CT scan of the chest done on 05/11/2025 shows a moderate-sized and a small size this right and left-sided pleural effusion respectively. Maintained mechanical ventilator and with adequate oxygenation ventilation. The patient is post bronchoscopy done on 05/13/2025 with therapeutic airway suctioning. The bronchoalveolar lavage cultures are negative. The patient was extubated on 05/14/2025. Overnight, required BiPAP and the patient is currently on liters of oxygen by nasal cannula. Chest x-ray shows small bilateral pleural effusions. Encephalopathy, suboptimal recovery from sedation the patient was not following any commands upon receiving sedation holiday. Neurologic exam remains nonfocal. Meanwhile, CAT scan of the brain that was done on 05/10/2025 showed mild cerebral atrophy without any acute abnormalities. CAT scan of the brain that was done at time of admission on 05/04/2025 showed no acute abnormalities. EEG done on 05/08/2025 showed moderate to severe degree of slowing in the background. No evidence of any seizure activity. The patient is currently on Precedex. Unable to follow any commands. Remains unresponsive to verbal stimulation. Occasional thrashing. Continues to be encephalopathic. About underlying hypoxic encephalopathy at the time of admission. Neurologically unchanged and the patient r is extubated and patient is currently off Precedex. Chronic kidney disease, stage III, creatinine is stable and the patient is negative fluid balance. Preserved LV function with a normal ejection fraction and moderate mitral regurgitation and mild to moderate tricuspid regurgitation, based on echo on 05/04/2025. Hypertension, currently on Cleviprex drip for blood pressure control. Acute leukocytosis and the patient is hemodynamically stable and afebrile. 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 Essential thrombocythemia, reportedly on cytoreducative therapy. lung cancer with previous lobectomy at outside facility. The patient underwent a right-sided lobectomy, probably the right upper lobe and this was done 2 years ago at [facility]. Current tobacco smoker. Plan: Monitor mental status Keep the patient off sedation Neurology to reevaluate the patient The patient is extubated and the patient is currently on 3 L oxygen by nasal cannula. Chest x-ray from today was noted. Continue bronchodilators Discontinue IV Solu-Medrol Start the patient on Lopressor 50 mg p.o. twice daily. Patient is also on Norvasc 5 mg p.o. daily via NG tube. Wean off Cleviprex drip. The patient is post bronchoscopy and the BAL of the right lower lobe on 05/13/2025 with therapeutic airway suctioning. The patient is on no antibiotics for now and the bronchoalveolar lavage cultures are negative Continue enteral feeding via NG tube Monitor renal function Will discontinue Lasix as the patient has been in negative fluid balance Continue Cleviprex for blood pressure control Rest of the medications are essentially unchanged. Will continue the treatment and will make further recommendations based on his progress. May need reintubation if the patient fails this extubation trial. Case was discussed with the family and the was at the bedside. Evaluation was done more than 30 minutes. Time with Patient: Greater than 30
[2025-05-15 14:04] VITALS: BP 135/69
--- NOTE | 2025-05-15 16:48 | XR ---
EXAMINATION TYPE: XR chest 1V portable DATE OF EXAM: 05/15/2025 4:41 PM COMPARISON: Multiple radiographs, with the most recent on 05/15/2025 TECHNIQUE: XR chest 1V portable Portable AP radiograph of the chest. CLINICAL INDICATION:Male, 79 years old with history of NG Tube Placement (Pulled out); FINDINGS: Lungs/Pleura: Bibasilar patchy airspace opacities. No pneumothorax. No sizable pleural effusion. Pulmonary vascularity: Unremarkable. Heart/mediastinum: Cardiomediastinal silhouette is enlarged and stable. Atherosclerotic calcificatio ns are seen in the aorta. Musculoskeletal: No acute osseous pathology. Other findings: None Lines/Tubes: Left subclavian approach central venous catheter with distal tip at the superior cavoatrial junction. NG tube in appropriate position with tip below the diaphragm. IMPRESSION: 1. Appropriate position of NG tube and left CVC. 2. Bibasilar patchy airspace opacities concerning for pneumonia. [facility], , 05/15/2025 4:46 PM
[2025-05-15 17:15] LABS: Glucose,Whole Blood 156 mg/dL (70-110)
[2025-05-15] MEDS: QUEtiapine 25 MG TAB PO SCH (20:02)
[2025-05-16 00:12] LABS: Glucose,Whole Blood 139 mg/dL (70-110)
[2025-05-16 04:53] LABS: Basophils # (A) 0.02 10*3/uL (0.00-0.10); Basophils % (A) 0.1 %; Eosinophils # (A) 0.02 10*3/uL (0.04-0.35); Eosinophils % (A) 0.1 %; HCT 22.7 % (39.6-50.0); HGB 7.0 g/dL (13.0-17.0); Lymphocytes # (A) 0.85 10*3/uL (0.90-5.00); Lymphocytes % (A) 4.6 %; MCH 26.5 pg (27.0-32.0); MCHC 30.8 g/dL (32.0-37.0); MCV 86.0 fL (80.0-97.0); Monocytes # (A) 1.60 10*3/uL (0.20-1.00); Monocytes % (A) 8.8 %; Neutrophils # (A) 15.37 10*3/uL (1.80-7.70); Neutrophils % (A) 84.1 %; Platelet Count 292 10*3/uL (140-440); RBC 2.64 10*6/uL (4.40-5.60); RDW 22.9 % (11.5-14.5); WBC 18.28 10*3/uL (4.50-10.00)
[2025-05-16 05:04] LABS: African American GFR (CKD) 37 (>60 ml/min/1.73 sqM); Anion Gap 7 mmol/L; Blood Urea Nitrogen 75 mg/dL (9-20); Calcium 9.3 mg/dL (8.4-10.2); Carbon Dioxide 29 mmol/L (22-30); Chloride 113 mmol/L (98-107); Glucose 124 mg/dL (74-99); Magnesium 2.4 mg/dL (1.6-2.3); Non-African American GFR(CKD) 32 (>60 ml/min/1.73 sqM); Potassium 4.4 mmol/L (3.5-5.1); Sodium 149 mmol/L (137-145)
--- NOTE | 2025-05-16 07:05 | XR ---
EXAMINATION TYPE: XR chest 1V portable DATE OF EXAM: 05/16/2025 5:32 AM COMPARISON: Multiple radiographs, with the most recent on 05/15/2025 TECHNIQUE: XR chest 1V portable Portable AP radiograph of the chest. CLINICAL INDICATION:Male, 79 years old with history of post extubation; FINDINGS: Lungs/Pleura: Blunting of both costophrenic angles. Bibasilar patchy airspace opacities redemonstrate d. Diffuse interstitial prominence. No pneumothorax. Heart/mediastinum: Cardiomediastinal silhouette is prominent in size. Atherosclerotic calcifications are seen in the aorta. Musculoskeletal: No acute osseous pathology. Other findings: None Lines/Tubes: Nasogastric tube with its distal tip and side-port projecting under the diaphragm and projecting over the gastric lumen. Stable left subclavian approach central venous catheter with distal tip at the superior cavoatrial ju nction. IMPRESSION: Overall stable examination with small bilateral pleural effusions with bibasilar patchy airspace opac ities and diffuse interstitial prominence. Findings may relate to volume overload with atelectasis. [facility], , 05/16/2025 7:03 AM
--- NOTE | 2025-05-16 11:07 | P.PN ---
Subjective Progress Note Date: 05/16/25 I am following up to the patient and per the ICU nurse he is about the same. No improvement in his overall condition. He is requiring BiPAP. Objective - Vital Signs Vital signs: Vital Signs Temp 97.8 F 05/16/25 08:00 Pulse 96 05/16/25 10:30 Resp 16 05/16/25 10:30 BP 135/69 05/15/25 12:15 Pulse Ox 88 L 05/16/25 10:30 FiO2 50 05/16/25 08:00 Intake & Output 05/15/25 05/16/25 05/16/25 18:59 06:59 18:59 Intake Total 814.367 752.901 354.366 Output Total 1650 710 500 Balance -835.633 42.901 -145.634 Weight 69 kg 83.1 kg Intake: IV 192 144 64 0.9 KVO 120 90 40 Arterial Line and CVP 72 54 24 Line Intake, IV Titration 82.367 78.901 30.366 Amount Clevidipine Butyrate 25 82.367 78.901 30.366 mg In Empty Bag 1 bag @ 1 MG/HR 2 mls/hr IV .Q24H [facility] Rx#:[id number] Tube Feeding 480 440 160 Other 60 90 100 Output: Urine 1650 710 500 Other: Voiding Method Indwelling Catheter Indwelling Catheter Indwelling Catheter ABP, PAP, CO, CI - Last Documented Arterial Blood Pressure 160/54 - Exam General: Laying in bed and does not appear in acute distress. Lung: Sounds wheezy to auscultation throughout. Neuro: Very limited. For the most part he seems somewhat restless, moving head side to side or moving uppers spontaneously. He does not follow commands or verbalizes others than just moans. - Labs CBC & Chem 7: 05/16/25 04:25 05/16/25 04:25 Labs: Abnormal Lab Results - Last 24 Hours (Table) 05/15/25 05/15/25 05/16/25 Range/Units 11:41 17:14 00:10 WBC (4.50-10.00) 10*3/uL RBC (4.40-5.60) 10*6/uL Hgb (13.0-17.0) g/dL Hct (39.6-50.0) % MCH (27.0-32.0) pg MCHC (32.0-37.0) g/dL Immature Gran # (0.00-0.04) 10*3/uL Neutrophils # (1.80-7.70) 10*3/uL Lymphocytes # (0.90-5.00) 10*3/uL Monocytes # (0.20-1.00) 10*3/uL Eosinophils # (0.04-0.35) 10*3/uL Sodium (137-145) mmol/L Chloride (98-107) mmol/L BUN (9-20) mg/dL Creatinine (0.66-1.25) mg/dL Glucose (74-99) mg/dL POC Glucose (mg/dL) 150 H 156 H 139 H (70-110) mg/dL Magnesium (1.6-2.3) mg/dL 05/16/25 05/16/25 Range/Units 04:25 04:25 WBC 18.28 H (4.50-10.00) 10*3/uL RBC 2.64 L (4.40-5.60) 10*6/uL Hgb 7.0 L (13.0-17.0) g/dL Hct 22.7 L (39.6-50.0) % MCH 26.5 L (27.0-32.0) pg MCHC 30.8 L (32.0-37.0) g/dL Immature Gran # 0.42 H (0.00-0.04) 10*3/uL Neutrophils # 15.37 H (1.80-7.70) 10*3/uL Lymphocytes # 0.85 L (0.90-5.00) 10*3/uL Monocytes # 1.60 H (0.20-1.00) 10*3/uL Eosinophils # 0.02 L (0.04-0.35) 10*3/uL Sodium 149 H (137-145) mmol/L Chloride 113 H (98-107) mmol/L BUN 75 H (9-20) mg/dL Creatinine 1.96 H (0.66-1.25) mg/dL Glucose 124 H (74-99) mg/dL POC Glucose (mg/dL) (70-110) mg/dL Magnesium 2.4 H (1.6-2.3) mg/dL Microbiology - Last 24 Hours (Table) 05/13/25 10:15 Gram Stain - Final Bronchial Washings - Left Bronchial Washings Culture - Final Assessment and Plan Assessment: * Altered mental status, likely due to toxic metabolic encephalopathy. Had two CT head which is negative for acute process. EEG on 05/11/2025: Moderate to severe encephalopathy but no seizure or discharges. Even with sedation held for 24 hours no improvement in condition. 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 Will try to obtain a repeat CT of the head. I was notified by the ICU team that he is unstable for MRI of the brain. * EEG was abnormal due to background slowing of moderate to severe degree, along with some periods of generalized suppression. This is suggestive of generalized cerebral dysfunction as can be seen with toxic metabolic encephalopathy or due to diffuse structural brain abnormality or medication effect as well. Clinical correlation is recommended. This EEG was performed while patient was on propofol 50 mcg/kg per minute. * Repeat EEG on 05/11/2025: Is abnormal. The background slowing is suggestive of moderate to severe encephalopathy. There is no focal slowing, epileptiform discharge or seizure on the EEG. * He was extubated yesterday and recommend if possible avoiding sedation for better neurological examination. I started the patient on Seroquel 25mg qhs and if severe agitation recommend 25 qam and 50mg qhs. * Other management as per IM, critical care and other specialties. * 2-D echo revealed LVH with preserved systolic function with EF 55%. No obvious regional wall motion abnormalities. Moderate MR, [id number] TR normal left atrial size. * Repeat CT head, 05/10/2025 showed no acute bleed or mass effect. Mild atrophy. No interval change. * The overall prognosis is poor. Time with Patient: Less than 30
--- NOTE | 2025-05-16 11:55 | CT ---
EXAMINATION TYPE: CT brain wo con CT DLP: 1111.4 mGycm, Automated exposure control for dose reduction was used. DATE OF EXAM: 05/16/2025 11:49 AM COMPARISON: CT brain 05/10/2025 CLINICAL INDICATION:Male, 79 years old with history of mental status change, r/o CVA, mental state ch gal. rule out cva TECHNIQUE: Brain: Multiple axial CT images of the brain were obtained without IV contrast. . Coronal and sagitta l reformats reviewed. FINDINGS: Brain: Extra-axial spaces: No abnormal extra-axial fluid collections. Ventricular system: Within normal limits Cerebral parenchyma: Cerebral atrophy. No acute intraparenchymal hemorrhage or mass effect. The ding -white junction is well differentiated. Scattered hypoattenuating areas are seen within the periventr icular white matter. Cerebellum: Unremarkable. Mass effect: No evidence of midline shift. Intracranial vasculature: unremarkable Soft tissues: Normal. Calvarium/osseous structures: No depressed skull fracture. Paranasal sinuses and mastoid air cells: The mastoid air cells are clear. Scattered mild mucosal thic kening of the paranasal sinuses. Visualized orbits: Bilateral aphakia Other: Partial visualization of NG tube. IMPRESSION: 1. No acute intracranial process or significant change from prior. 2. Nonspecific mild white matter changes, likely secondary to chronic small vessel ischemic disease. [facility], , 05/16/2025 11:52 AM
[2025-05-16 12:07] LABS: Glucose,Whole Blood 110 mg/dL (70-110)
--- NOTE | 2025-05-16 12:10 | P.PN ---
Subjective Progress Note Date: 05/16/25 Patient is a 79-year-old male, evaluated by EMS yesterday. Reportedly, having severe respiratory distress and apnea. He was intubated in the field. No previous records available to review from our facility. I did call the patient's , she states he was increasingly weak for the last several days. Associated shortness of breath with exertion. She thought it was related to his anemia. She was able to provide some past medical history including lung cancer and previous lung resection at [facility], essential thrombocythemia, and GAVE syndrome. Reportedly, requires frequent blood and iron infusions. He follows at [facility] for this. Reportedly, no history of COPD, asthma. No history of heart failure per the . His medication list is not available. Workup in the emergency department including a chest x-ray which shows endotracheal tube proximal, approximately 6 cm from the yuni. Orogastric tube coursing into the stomach. Patchy bibasilar infiltrates and small effusion on the right. Left costophrenic angle was excluded from the image. CBC including a WBC count of 19.15, hemoglobin 9.2, platelets 655. CMP included sodium 142, potassium 4.8, chloride 107, serum bicarb 20, BUN 28, creatinine 1.88, glucose 256. Lactic 2.6 and down to 1.6. EKG: Sinus tachycardia, rate 104 bpm, no acute ischemic changes. Troponin less than 0.012. NT proBNP significantly elevated at 12,100. Patient currently being evaluated in the emergency department, trauma bay 2. He is intubated to the mechanical ventilator. Previous ABGs including a PaO2 of 315, pCO2 57, pH of 7.2. Previous ventilator settings were assist-control, rate 16, tidal volume 450, FiO2 100%, PEEP of 5. Since then, his rate has been increased to 20 and his tidal volume dropped to 50%. The Peak pressure averaging 38 and static airway pressure measured at 17. His endotracheal tube is a size 7. There are thick tenacious white secretions coming from the endotracheal tube. Sputum sample to be collected. Currently, patient is synchronous with the mechanical ventilator. Sedated on propofol which is infusing at 45 mcg/kg/min. He was previously fluid resuscitated with a total of 2.5 L crystalloid fluid and LR continues at 150 mL/h. Blood pressure is normotensive. Not requiring any vasopressors. An indwelling urinary catheter was placed and there is small amount of concentrated yellow urine in the col lection bag. Has remained afebrile. Previously started on empiric antibiotics in form azithromycin and Rocephin in the ED. Progress note dated May 05, 2025. This is a 79-year-old gentleman who was seen by my nurse practitioner yesterday. The patient came into the hospital with respiratory failure, thought to be secondary to pneumonia. The patient remains on volume assist-control, rate 20, tidal line 450, FiO2 40%, PEEP of 5. Blood gases this morning show pO2 118, pCO2 38, pH is 7.30. Both blood gases are consistent with mild metabolic acidosis. The patient is getting saline at 75 cc an hour, propofol at 50 mcg/kg/min, and norepinephrine at 3.7 mcg/min. The patient continues on azit hromycin and Rocephin. We will attempt a daily interruption of sedation today, plus or minus a spontaneous breathing trial. The patient's saline IV, will be converted to lactated Ringer's at 75 cc an hour. Current laboratory data includes a white count of 14.8, hemoglobin 7.6, hematocrit 24.2, and a platelet count of 570,000. Sodium 141, potassium 4.2, chloride 111, CO2 16, anion gap 14, glucose 120, BUN and creatinine were 27 and 1.76. Calcium 8.1. Blood and sputum sampling is thus far negative. X-ray shows small right-sided pleural effusion, with some bibasilar patchy airspace opacities, concerning for possible pneumonia. Progress note dated May 06, 2025. 79-year-old male seen in the intensive care unit. The patient was admitted with respiratory failure, and pneumonia. He remains on mechanical ventilation. He is on volume assist-control, rate 20, tidal volume 450, FiO2 40%, PEEP of 5. Blood gases show PO297, NBD886, pH is 7.30. The blood gas is consistent with a mild metabolic acidosis. He is on propofol at 50 mcg/kg/min, norepinephrine has been weaned off. He is on lactated Ringer's at 75 cc an hour, and saline at KVO. He is receiving vital high-protein at 40, with a goal of 45 cc an hour. He continues on azithromycin and Rocephin empirically. Will add some Solu- Medrol to his regimen. We also had some Dilaudid for pain control. White count 12.9, hemoglobin 7, hematocrit 22.8, platelet count 563,000. Sodium 142, potassium 4.1, chlorides 113, CO2 17, anion gap 12, BUN 23, creatinine 1.52. Glucose is 125. Calcium is 8.4. Sputum and blood sampling has been negative thus far. Chest x-ray shows small right pleural effusion with bibasilar patchy airspace opacities. There is evidence of pulmonary vascular congestion. Progress note dated May 07, 2025. 79-year-old male seen in the intensive care unit, room 251. The patient has a history of respiratory failure, and pneumonia, he remains on mechanical ventilator. Current vent settings include volume assist-control, rate 20, tidal volume 450, FiO2 40%, PEEP of 5. Arterial blood gases show PO2 114, PCO2 of 41, pH is 7.30. The patient is getting lactated Ringer's at 75 cc an hour, propofol at 50 mcg/kg/min. The patient is also getting saline at 10 cc an hour, and vital high-protein at 10 cc an hour. Residuals are high, so we added Reglan 10 mg every 6. He continues on azithromycin and Rocephin, and microbiologic sampling, thus far is negative. In addition, his peak airway pressures 29, with a plateau pressure of 13. His airways resistance is 13 cm water per liter per second. We will attempt a daily interruption of sedation. White count was 10.6, hemoglobin 7.1, hematocrit 23.6, platelet count 629,000. Sodium 141, potassium 4.5, chlorides 111, CO2 18, anion gap 12, BUN 28, creatinine 1.59. These electrolyte profile is consistent with a nonanion gap metabolic acidosis. Glucose is 162. Calcium is 8.8. Chest x-ray is largely unchanged, with small right-sided pleural effusion, and right basilar infiltrate. Progress note dated May 08, 2025. 79-year-old male seen today in room 251. The patient has done poorly with his daily interruptions of sedation. He is on volume assist-control, rate 20, tidal volume 450, FiO2 30%, PEEP of 5. Blood gases show PO2 102, pCO2 40, pH is 7.28. The patient is getting LR at 75 cc an hour, propofol is currently off, saline at 10 cc an hour, and vital high-protein at 40, with a goal of 45 cc an hour. Because of his agitated state, and his poor response, the patient will have an EEG, and a neurology consultation. He is currently not on any antibiotics. White count is 15.5, hemoglobin 7, hematocrit 23.1, platelet count 775,000. Sodium 139, potassium 4.9, chlorides 111, CO2 is 18, anion gap 10, BUN 37, creatinine 1.62. Glucose of 177. Calcium 8.8. Magnesium 2.2. Blood and sputum analysis is negative. Chest x-ray shows a small right-sided pleural effusion, and some mild bibasilar opacities. Progress note dated May 09, 2025. 79-year-old male seen today in room 251. He remains on the mechanical ventilator. He is on volume assist-control, rate 20, tidal volume 450, FiO2 30%, PEEP of 5. Blood gases show pO2 of 90, pCO2 of 39, pH is 7.31. The patient is getting lactated Ringer's at 75 cc an hour, propofol at 50 mcg/kg/min, vital high-protein at goal, which is 35 cc an hour. We asked neurology to see the patient yesterday. An EEG showed diffuse slowing consistent with metabolic/toxic encephalopathy. We also add some amlodipine to his regimen, for blood pressure control, at 10 mg. The patient may benefit from tracheostomy and PEG tube, if he does not improve neurologically. Will see how things go over the next few days. White count is 15.2, hemoglobin 7.4, hematocrit 24.7, platelet count 833,000. Sodium 140, potassium 5.4, chlorides 113, CO2 16, anion gap 11, BUN 45, creatinine 1.79. Glucose is 163. Calcium is 8.7. Microbiology is thus far negative. Chest x-ray is largely unchanged. Progress note dated May 10, 2025. 79-year-old male seen again in room 251. He remains on volume assist-control, rate 20, tidal volume 450, FiO2 30%, PEEP of 5. Blood gases show pO2 72, pCO2 37, pH is 7.35. He is currently on propofol at 10 mcg/kg/min, LR at 75 cc an hour, Precedex at 1.4 mcg/kg/h, Cleviprex at 3 mg an hour. The patient is also receiving vital high-protein, at goal. Current laboratory data includes a white count of 13.3, hemoglobin 8.2, hematocrit 26.5, and a platelet count of 925,000. Sodium 140, potassium 5.4, chloride 110, CO2 19, anion gap 11, BUN 54, creatinine 1.80. Calcium is 9.0. Microbiologic studies have all been negative. Chest x-ray is largely unchanged. The brain CT shows no acute bleed or mass effect, mild atrophy, and no interval change. The patient has been seen by neurology. The patient also had an EEG. On 05/11/2025, the patient is being seen in follow-up. Remains intubated and on mechanical ventilator. This morning, he is on propofol running at 75 mcg/kg/min and Precedex running at 1 mcg/kg/h. He is on assist-control mode of mechanical ventilation at rate of 20, tidal volume of 450, FiO2 40% with a PEEP of 5. Blood gas showed a pH of 7.37 and the patient has a PCO2 of 38 and PO2 of 53. Chest x-ray from today showing bilateral pleural effusion right more than left. Orotracheal tube with distal tip being at 4.5 cm above the yuni. The patient has also areas of consolidation bilaterally. Note that, the sputum sample that was collected at time of admission was negative. The patient has no fever or chills. He is not receiving any antibiotic coverage at this point. He remains on bronchodilators. He remains on IV Solu-Medrol. IV fluids are currently at KVO. Fluid balance is -1.3 L over the past 24 hours. The patient is at the subclavian left sided triple-lumen catheter. The white seconds at 13.5 with a heme of 8.5 and a platelet count of 872. BUN is 15 with a creatinine of 1.8 and a sodium levels at 142 and a potassium level is at 5.1. Serum bicarb is at 19. Anion gap is at 10. Hemodynamically stable. No pressors for now. Is known to have COPD. He is also known to haveThe patient is known to have COPD. 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 He has been treated through [facility]. Furthermore, he has undergone a lobectomy on the right for a non-small cell lung cancer and this was done approximately 2 years ago at [facility] in [place]. He has required transfusions almost every 3 we eks. He was having increased residuals. The patient will was started on IV Reglan and the patient will be started back on vital HP at a low rate. Will monitor his residuals. 05/12/2025, patient is being seen for a follow-up. The patient was given a prolonged sedation holiday. He opens his eyes and he was thrashing and he was not following any commands. He was getting progressive more asynchronous with the mechanical ventilator. Earlier this morning, the patient was on propofol at 40 mcg. This was discontinued and to restart sedation, I recommended Precedex. He is on assist-control mode of mechanical ventilation at a rate of 20, tidal volume of 450, FiO2 40% with a PEEP of 5. Blood gas showed a pH of 7.33 [id number] and PO2 of 95. He is on Cleviprex for blood pressure control running at 3 mg/h. CT scan of the abdomen and pelvis was done yesterday and the CAT scan of the chest showed a moderate-sized and small left-sided pleural effusion along with compressive atelectatic changes lung bases. Prominent mild lymph nodes within the mediastinum, probably benign, cholelithiasis, diffuse anasarca and no other intra-abdominal abnormalities. The patient is currently on vital HP at rate of 20 cc an hour. Tolerating stream reasonably well. Blood work was noted. The white cell count 13.4, hemoglobin 8.2 and platelet count of 848. BUN 61 with a creatinine of 1.7 and sodium levels at 141 and a potassium level is at 5.2. Hemoglobin has remained stable and there is no evidence of any GI bleeding. 05/13/2025, patient is being seen for a follow-up. Remains intubated on a [facility] ventilator. Unfortunately, the patient is not showing neurologic recovery. He opens his eyes while off sedation. He looks around. He grimaces. He has a weak cough. Does not follow any commands. No seizure activity. Occasional thrashing. Having excessive respiratory secretions and obviously not a candidate for further weaning and extubation. He remains on Precedex which is running at 0.9 mcg/kg/h. The patient is also on Cleviprex drip for blood pressure control at 2 mg an hour. Remains on a mechanical ventilator assist- control mode with rate of 20, tidal volume of 450, FiO2 40% with a PEEP of 5. Blood gas showed a pH of 7.36 with a USE259 and PO2 of 101. Given IV Lasix and the patient is a negative fluid balance of 2.4 L over the past 24 hours. Remains on vital HP at a rate of 20 cc an hour. EEG showed moderate to severe encephalopathy. Blood work from today was noted. The white cell count is at 20.8 with him of 7.9 and a platelet count of 708. There is a rise in the white cell count. Sodium levels at 141, potassium is at 5.5, BUN 17 with a creatinine of 2.1. Bicarb is at 21. Glucose 117. Chest x-ray remains essentially unchanged with small bilateral pleural effusion and atelectatic changes lung base bilaterally. 05/14/2025, the patient is being seen for a follow-up. Neurologically unchanged. He opens his eyes, does not follow any commands. Moving all 4 extremities. Withdraws to painful stimulation. No fever. No neck stiffness. No seizure activity. Hemodynamically stable. Remains on Precedex at 1.4 mcg/kg/min. Remains on a mechanical ventilator assist-control mode with rate of 20, tidal volume of 450, FiO2 40% with a PEEP of 5. Fluid balance is -2.9 L over the past 24 hours and the patient's blood gas showed a pH of 7.39 with a [id number] and [id number]. Remains on vital HP at rate of 20 cc an hour. Remains on Cleviprex drip at 4 mg an hour. The white cell count is 21.5 with hemoseven 0.7 and platelet count of 501. BUN is 77 with a creatinine of 2.47. Potassium is at 5.4 with a sodium level of 142. Post bronchoscopy, therapeutic airway suctioning was done. Cultures are still pending. Respiratory secretions are much less. Chest x-ray shows some interval clearing of the right lower lobe opacity/effusion. There is a left-sided pleural effusion present. The tube is in a good location. 05/15/2025 the patient is extubated, and the patient was extubated on 05/14/2025. Overnight, the patient was placed on a BiPAP pressure of 12 or 6 cm of water with an FiO2 of 40%. This morning, the patient was taken off the BiPAP and the patient is currently on 2 L of oxygen by nasal cannula with a pulse ox of 93%. He is still neurologically unchanged. He just moves his head and extremities. He is not following commands consistently. Remains profoundly weak. He has a weak cough. NG tube is in place. He is on vital HP at rate of 40 cc an hour. Fluid balance -2.6 L over the past 24 hours. Chest x-ray shows trace pleural effusion bilaterally and IV fluids are currently at KVO. The patient remains on Cleviprex 7 mg an hour. He is also on IV Lopressor for some sinus tachycardia. White cell count 29 with a heme of 7.6. BUN is 77 with a creatinine of 1.9. Potassium level is at 4.8. Noncarrier lavage that was collected earlier showed no microbial growth. The patient is being monitored very closely in the [facility] unit. Neurology remains on the case. 05/16/2025, the patient remains neurologically impaired. Neurologically unchanged. Remains very sluggishly responsive. Not following commands. At ti mes, he gets restless and thrashes around. Received Ativan overnight. This morning, he is on a BiPAP at a pressure of 4/6 with an FiO2 of 40%. Chest x-ray remains stable and unchanged. The patient remains hypertensive and remains on Cleviprex drip at 5 mg an hour. Fluid balance is -790 cc over the past 24 hours . . No significant respiratory secretions. Bronchoscopy and bronchial lavage yielded no microbial growth. Repeat CAT scan of the brain was done today upon request of neurology and the findings remained stable without any acute intracranial process. Rest of the blood work shows a white cell count of 18, hemoglobin of 7 and a platelet count of 292. BUN is 75 with a creatinine of 1.9. Sodium is at 149. Potassium level is at 4.4. No fever. No hypotension. No significant improvement in his overall condition since extubation. Objective - Vital Signs Vital signs: Vital Signs Temp 99.0 F 05/16/25 04:00 Pulse 100 05/16/25 07:00 Resp 16 05/16/25 07:00 BP 135/69 05/15/25 12:15 Pulse Ox 97 05/16/25 07:00 FiO2 50 05/16/25 04:08 Intake & Output 05/15/25 05/16/25 05/16/25 18:59 06:59 18:59 Intake Total 814.367 752.901 56 Output Total 1650 710 50 Balance -835.633 42.901 6 Weight 69 kg 83.1 kg Intake: IV 192 144 16 0.9 KVO 120 90 10 Arterial Line and CVP 72 54 6 Line Intake, IV Titration 82.367 78.901 Amount Clevidipine Butyrate 25 82.367 78.901 mg In Empty Bag 1 bag @ 1 MG/HR 2 mls/hr IV .Q24H WHIT Rx#:[id number] Tube Feeding 480 440 40 Other 60 90 Output: Urine 1650 710 50 Other: Voiding Method Indwelling Catheter Indwelling Catheter ABP, PAP, CO, CI - Last Documented Arterial Blood Pressure 170/47 - Exam The patient is currently on BiPAP at a pressure of 12 over 6 cm of water. Awake, opens his eyes. Does not follow any commands. Neurologically unchanged. HEENT examination is grossly unremarkable. Mucous membranes are moist. No oral lesions. The patient has a subclavian left-sided triple-lumen catheter. Neck supple. Full range of motion. No adenopathy thyromegaly or neck vein distention. Cardiovascular examination reveals regular rhythm rate. S1-S2 normal. No S3 or S4. No discernible murmur noted. Lungs reveal scattered bilateral expiratory rhonchi. No wheezes. No crackles. Breath sounds are equal bilaterally. There is diminished breath sound the lung bases bilaterally. Abdomen soft bowel sounds are heard. No masses or tenderness. Extremities are intact. No cyanosis clubbing or edema. Skin is without rash or lesion. Neurologic examination reveals a grimaces to painful stimulation in all 4 extr emities. Patient off sedation and not following any commands. Opens his eyes. Grimaces, moves his head and withdraws to painful stimulation all 4 extremities. The patient opens his eyes spontaneously. He moves his head and occasionally thrashes. Overall, neurologic condition has not been changed significantly. The patient is currently off sedation. - Labs CBC & Chem 7: 05/16/25 04:25 05/16/25 04:25 Labs: Abnormal Lab Results - Last 24 Hours (Table) 05/15/25 05/15/25 05/16/25 Range/Units 11:41 17:14 00:10 WBC (4.50-10.00) 10*3/uL RBC (4.40-5.60) 10*6/uL Hgb (13.0-17.0) g/dL Hct (39.6-50.0) % MCH (27.0-32.0) pg MCHC (32.0-37.0) g/dL Immature Gran # (0.00-0.04) 10*3/uL Neutrophils # (1.80-7.70) 10*3/uL Lymphocytes # (0.90-5.00) 10*3/uL Monocytes # (0.20-1.00) 10*3/uL Eosinophils # (0.04-0.35) 10*3/uL Sodium (137-145) mmol/L Chloride (98-107) mmol/L BUN (9-20) mg/dL Creatinine (0.66-1.25) mg/dL Glucose (74-99) mg/dL POC Glucose (mg/dL) 150 H 156 H 139 H (70-110) mg/dL Magnesium (1.6-2.3) mg/dL 05/16/25 05/16/25 Range/Units 04:25 04:25 WBC 18.28 H (4.50-10.00) 10*3/uL RBC 2.64 L (4.40-5.60) 10*6/uL Hgb 7.0 L (13.0-17.0) g/dL Hct 22.7 L (39.6-50.0) % MCH 26.5 L (27.0-32.0) pg MCHC 30.8 L (32.0-37.0) g/dL Immature Gran # 0.42 H (0.00-0.04) 10*3/uL Neutrophils # 15.37 H (1.80-7.70) 10*3/uL Lymphocytes # 0.85 L (0.90-5.00) 10*3/uL Monocytes # 1.60 H (0.20-1.00) 10*3/uL Eosinophils # 0.02 L (0.04-0.35) 10*3/uL Sodium 149 H (137-145) mmol/L Chloride 113 H (98-107) mmol/L BUN 75 H (9-20) mg/dL Creatinine 1.96 H (0.66-1.25) mg/dL Glucose 124 H (74-99) mg/dL POC Glucose (mg/dL) (70-110) mg/dL Magnesium 2.4 H (1.6-2.3) mg/dL Microbiology - Last 24 Hours (Table) 05/13/25 10:15 Gram Stain - Final Bronchial Washings - Left Bronchial Washings Culture - Final Assessment and Plan Plan: Acute hypoxemic and hypercapnic respiratory failure, remains intubated on mechanical ventilator. Reviewed the chest x-ray and the patient has bilateral consolidation and bilateral pleural effusions right more than left. Echocardiogram done on 05/04/2025 showed preserved LV function with an ejection fraction of 55% and the patient has a moderate degree of mitral regurgitation. No significant respiratory secretions. CT scan of the chest done on 05/11/2025 shows a moderate-sized and a small size this right and left-sided pleural effusion respectively. Maintained mechanical ventilator and with adequate oxygenation ventilation. The patient is post bronchoscopy done on 05/13/2025 with therapeutic airway suctioning. The bronchoalveolar lavage cultures are negative. The patient was extubated on 05/14/2025. Overnight, the patient was placed on the BiPAP and this morning the patient remains on BiPAP at a pressure of 12 or 6 cm of water. Mental status remains altered. No significant n eurologic recovery. Encephalopathy, suboptimal recovery from sedation the patient was not following any commands upon receiving sedation holiday. Neurologic exam remains nonfocal. Meanwhile, CAT scan of the brain that was done on 05/10/2025 showed mild cerebral atrophy without any acute abnormalities. CAT scan of the brain that was done at time of admission on 05/04/2025 showed no acute abnormalities. EEG done on 05/08/2025 showed moderate to severe degree of slowing in the background. No evidence of any seizure activity. The patient is currently on Precedex. Unable to follow any commands. Remains unresponsive to verbal stimulation. Occasional thrashing. Continues to be encephalopathic. About underlying hypoxic encephalopathy at the time of admission. Neurologically unchanged and the patient had a repeat CAT scan of the brain on 05/16/2025 that showed no significant changes. No acute intracranial abnormalities. Chronic kidney disease, stage III, creatinine is stable and the patient is negative fluid balance. Mild hyponatremia, sodium levels at 149 Preserved LV function with a normal ejection fraction and moderate mitral regurgitation and mild to moderate tricuspid regurgitation, based on echo on 05/04/2025. Hypertension, currently on Cleviprex drip for blood pressure control. Acute leukocytosis and the patient is hemodynamically stable and afebrile. 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 Essential thrombocythemia, reportedly on cytoreducative therapy. lung cancer with previous lobectomy at outside facility. The patient underwent a right-sided lobectomy, probably the right upper lobe and this was done 2 years ago at [facility]. Current tobacco smoker. Plan: Monitor mental status, follow-up CAT scan of the brain was noted Keep the patient off sedation, avoid benzodiazepine Neurology to reevaluate the patient The patient is extubated and the patient is currently on BiPAP at a pressure of 12 or 6 cm of water Chest x-ray from today was noted. Continue bronchodilators Start the patient on Lopressor 50 mg p.o. twice daily. Patient is also on Norvasc 10 mg p.o. daily via NG tube. Wean off Cleviprex drip. The patient is post bronchoscopy and the BAL of the right lower lobe on 05/13/2025 with therapeutic airway suctioning. The bronchoalveolar lavage is negative The patient is on no antibiotics for now and the bronchoalveolar lavage cultures are negative Continue enteral feeding via NG tube Monitor renal function Hold diuretics and put the patient on D5 water at rate of 50 cc an hour Rest of the medications are essentially unchanged. Will continue the treatment and will make further recommendations based on his progress. Unfortunately, no meaningful neurologic recovery at this point. Case was discussed with the family and the was at the bedside. Evaluation was done more than 30 minutes.
--- NOTE | 2025-05-16 12:21 | P.PN ---
Subjective Progress Note Date: 05/16/25 Hospital Course: A 79-year-old male with past medical history of lung cancer status post lobect leonie, essential thrombocythemia, GAVE syndrome, [facility] , reported history of COPD, asthma, dyslipidemia, hypertension, depression, who presented for respiratory distress. reports exertional SOB for the past few weeks prior to arrival. In the ED he underwent extensive evaluation. BP 168/95, HR 105, T 97.5F, RR 19, 98% mechanically ventilated. Labs significant for WBC 19.15, RBC 3.4, Hg 9.2, Hct 29.3, Plt 655, PT 13.5, INR 1.3, bicarb 20, BUN 28, Cr 1.88, glu 256. Trop < 0.012. BNP 92092. Mag 2.2. Lactic acid 2.2-1.6. COVID, RSV, Flu neg. EKG sinus tachycardia. CXR patchy basilar infiltrates and small effusions. Brain CT no acute process. Patient is admitted to ICU for further man agement. Patient was intubated and sedated on 05/04, started on broad-spectrum antibiotics for sepsis present on admission. Patient completed antibiotics, sputum cultures showed no growth. He is continued on steroids. His hospital course complicated by acute metabolic encephalopathy, neurology consulted, patient had an EEG done that showed moderate to severe background slowing, that was done on propofol 50 mcg/kg/min. CT head was done twice and showed no acute bleed or mass effect. TTE showed EF of 55% with no obvious regional wall motion abnormalities, moderate MR, mild to moderate TR. Patient did have a sedation holiday on 05/11, did not tolerate well, was not following commands during. CT chest abdomen pelvis with oral contrast was done to evaluate for mts: moderate R and small L pleural effusions with compressive atelectasis, mildly prominent mediastinal lymph nodes, likely reactive, chlelithiasis, diffuse anasarca. Propofol was turned off on 05/13 in the morning. Patient has not had any purposeful movements since, he was unable to move his head, appeared agitated, did not follow any commands, did not interact. on 05/13 he underwent bronchoscopy, BAL of the right lower lobe, therapeutic airway suctioning. BAL cultures negative patient was extubated on 05/14to nasal cannula, Precedex was turned off. Lasix discontinued. Patient's mentation was unchanged, he was sitting upright, upper extremities on restraints, patient was not opening eyes, was not following commands, withdraws to pain. 05/[address] head showed no acute process and no significant changes. Hospice met with patient's family, currently they are not ready to make decision.patient was started on Lopressor 50 twice daily, goal to wean Cleviprex. 05/16: Patient was seen and examined at bedside, RN present during examination. Patient is sitting upright, patient lifts his arms up, not purposefully, he tries to open eyes on voice command, so far no propofol neurological recovery noted. Is afebrile, heart rate 80s, blood pressure noted 164/51, he was seen on BiPAP. Chest x-ray stable from before with bilateral pleural effusions.. Morning blood work showed leukocytosis 11.2, hemoglobin 7, normal platelet count today, sodium 149 and potassium 4.4, creatinine 1.96, glucose controlled. Neuro logy Dr. Buitrago at bedside, discussed improved prognosis, need to repeat CT head, ongoing goals of care discussions. Pertinent positives and negatives as discussed above, a complete review of systems was performed and all other systems are negative. Vitals Signs Reviewed. General: [Ill-appearing Derm: Warm, dry Head: Atraumatic, normocephalic, symmetric Eyes: EOMI, no lid lag, anicteric sclera Mouth: No lip lesion, mucus membranes moist Cardiovascular: S1S2 reg, no murmur Lungs: CTA bilateral, bilateral mild rhonchi present, diminished bibasilar breath sounds, no accessory muscle use Abdominal: Soft, nontender to palpation, no guarding, no appreciable organomegaly Ext: No gross muscle atrophy, no lower extremity edema, no contractures Neuro: Pupils are reactive, does not follow commands Psych: [Unable to assess, Assessment and Plan: Acute hypoxic respiratory failure requiring intubation status post extubation 05/14, bronchoscopy with BAL 05/13 COPD exacerbation Diastolic CHF exacerbation, resolved Bilateral pleural effusion Sepsis present on admission History of lung cancer status post lobectomy Tobacco use disorder -BAL cultures showed few normal respiratory mario, no Staphylococcus aureus or Pseudomonas aeruginosa -Continue ICU care, -Lasix stopped, continue holding, -Continue formoterol 20 mcg twice daily, DuoNeb scheduled every 4 hour, IV steroids stopped Sinus tachycardia Hypertension -Continue home amlodipine 10 mg daily - Lopressor 50 p.o. twice daily Hypernatremia -Continue D5 and water at 50 cc/h, daily BMP Acute multifactorial encephalopathy - Neurology following, appreciate recommendations -EEG CT head as above - Repeat CT as above -prognosis is poor MYNOR on CKD stage III Hyperkalemia, resolved -Continue holding Lasix - Monitor BMP daily -Strict I's and O's -Renal ultrasound showed no hydronephrosis -IV fluids as above GAVE syndrome Essential thrombocythemia Normocytic anemia, chronic -Continue anagrelide 1 mg p.o. twice daily, Reglan 10 mg IV every 6 hours scheduled -CBC daily Depression: Continue home Lexapro 20 mg nightly Hyperlipidemia: Continue home atorvastatin 20 mg nightly DVT ppx: Heparin Code status: Full code Anticipated discharge place: TBD Anticipated discharge time: TBD Objective - Vital Signs Vital signs: Vital Signs Temp 97.8 F 05/16/25 08:00 Pulse 91 05/16/25 11:56 Resp 16 05/16/25 10:30 BP 135/69 05/15/25 12:15 Pulse Ox 88 L 05/16/25 10:30 FiO2 60 05/16/25 11:49 Intake & Output 05/15/25 05/16/25 05/16/25 18:59 06:59 18:59 Intake Total 814.367 752.901 354.366 Output Total 1650 710 500 Balance -835.633 42.901 -145.634 Weight 69 kg 83.1 kg Intake: IV 192 144 64 0.9 KVO 120 90 40 Arterial Line and CVP 72 54 24 Line Intake, IV Titration 82.367 78.901 30.366 Amount Clevidipine Butyrate 25 82.367 78.901 30.366 mg In Empty Bag 1 bag @ 1 MG/HR 2 mls/hr IV .Q24H [facility] Rx#:[id number] Tube Feeding 480 440 160 Other 60 90 100 Output: Urine 1650 710 500 Other: Voiding Method Indwelling Catheter Indwelling Catheter Indwelling Catheter ABP, PAP, CO, CI - Last Documented Arterial Blood Pressure 160/54 - Labs CBC & Chem 7: 05/16/25 04:25 05/16/25 04:25 Labs: Abnormal Lab Results - Last 24 Hours (Table) 05/15/25 05/16/25 05/16/25 Range/Units 17:14 00:10 04:25 WBC 18.28 H (4.50-10.00) 10*3/uL RBC 2.64 L (4.40-5.60) 10*6/uL Hgb 7.0 L (13.0-17.0) g/dL Hct 22.7 L (39.6-50.0) % MCH 26.5 L (27.0-32.0) pg MCHC 30.8 L (32.0-37.0) g/dL Immature Gran # 0.42 H (0.00-0.04) 10*3/uL Neutrophils # 15.37 H (1.80-7.70) 10*3/uL Lymphocytes # 0.85 L (0.90-5.00) 10*3/uL Monocytes # 1.60 H (0.20-1.00) 10*3/uL Eosinophils # 0.02 L (0.04-0.35) 10*3/uL Sodium (137-145) mmol/L Chloride (98-107) mmol/L BUN (9-20) mg/dL Creatinine (0.66-1.25) mg/dL Glucose (74-99) mg/dL POC Glucose (mg/dL) 156 H 139 H (70-110) mg/dL Magnesium (1.6-2.3) mg/dL 05/16/25 Range/Units 04:25 WBC (4.50-10.00) 10*3/uL RBC (4.40-5.60) 10*6/uL Hgb (13.0-17.0) g/dL Hct (39.6-50.0) % MCH (27.0-32.0) pg MCHC (32.0-37.0) g/dL Immature Gran # (0.00-0.04) 10*3/uL Neutrophils # (1.80-7.70) 10*3/uL Lymphocytes # (0.90-5.00) 10*3/uL Monocytes # (0.20-1.00) 10*3/uL Eosinophils # (0.04-0.35) 10*3/uL Sodium 149 H (137-145) mmol/L Chloride 113 H (98-107) mmol/L BUN 75 H (9-20) mg/dL Creatinine 1.96 H (0.66-1.25) mg/dL Glucose 124 H (74-99) mg/dL POC Glucose (mg/dL) (70-110) mg/dL Magnesium 2.4 H (1.6-2.3) mg/dL Microbiology - Last 24 Hours (Table) 05/13/25 10:15 Gram Stain - Final Bronchial Washings - Left Bronchial Washings Culture - Final
[2025-05-16] MEDS: DEXTROSE 5% IN WATER 1,000 ML IV SCH (13:11)
[2025-05-16 17:56] LABS: Glucose,Whole Blood 160 mg/dL (70-110)
--- NOTE | 2025-05-16 20:58 | XR ---
EXAMINATION TYPE: XR chest 1V portable DATE OF EXAM: 05/16/2025 8:50 PM COMPARISON: Multiple prior chest radiograph, most recently dated 05/16/2025. CLINICAL INDICATION: Male, 79 years old with history of respiratory distress; [facility] TECHNIQUE: XR chest 1V portable Frontal view of the chest. FINDINGS: Lungs/Pleura: Small bilateral pleural effusions, similar to most recent prior study. Adjacent lower l obe consolidative changes also similar. No appreciable pneumothorax. Pulmonary vascularity: Pulmonary vascular congestion. Heart/mediastinum: Cardiomediastinal silhouette is unremarkable. Musculoskeletal: No acute osseous pathology. Other findings: None Lines/Tubes: Enteric tube visualized in appropriate positioning with distal sidehole overlying the gastric lumen. IMPRESSION: Stable radiographic appearance of the chest compared to most recent prior study. [facility], , 05/16/2025 8:56 PM
[2025-05-16 21:14] LABS: ABG HCO3 31 mmol/L (21-25); ABG PCO2 40 mmHg (35-45); ABG PH 7.49 (7.35-7.45); ABG TCO2 32 mmol/L (19-24)
[2025-05-16 21:34] LABS: ABG PO2 52 mmHg (83-108); Allen Test Performed? No
[2025-05-16 22:00] VITALS: TEMP 98
[2025-05-16 22:04] VITALS: PULSE 103; RESP 10
[2025-05-16] MEDS ORDERED: ATROPINE OPHTH SOLN 1% 5ML BTL SUBLINGUAL PRN (22:42)
[2025-05-16] MEDS ORDERED: GLYCOPYRROLATE 0.2 MG/ML 2 ML VIAL IVP PRN (22:42)
[2025-05-16] MEDS: MORPHINE SULFATE 2 MG/ML SYRINGE IVP PRN (23:04)
[2025-05-16] MEDS: MORPHINE SULFATE 100 MG in SODIUM CHLORIDE 0.9% 90 ML IV SCH (23:18)
[2025-05-17] MEDS: SCOPOLAMINE 1 MG/72 HR PATCH TRANSDERM SCH (02:27)
--- NOTE | 2025-05-17 09:09 | P.PN ---
Subjective Progress Note Date: 05/17/25 Hospital Course: A 79-year-old male with past medical history of lung cancer status post lobect leonie, essential thrombocythemia, GAVE syndrome, [facility] , reported history of COPD, asthma, dyslipidemia, hypertension, depression, who presented for respiratory distress. reports exertional SOB for the past few weeks prior to arrival. In the ED he underwent extensive evaluation. BP 168/95, HR 105, T 97.5F, RR 19, 98% mechanically ventilated. Labs significant for WBC 19.15, RBC 3.4, Hg 9.2, Hct 29.3, Plt 655, PT 13.5, INR 1.3, bicarb 20, BUN 28, Cr 1.88, glu 256. Trop < 0.012. BNP 99159. Mag 2.2. Lactic acid 2.2-1.6. COVID, RSV, Flu neg. EKG sinus tachycardia. CXR patchy basilar infiltrates and small effusions. Brain CT no acute process. Patient is admitted to ICU for further man agement. Patient was intubated and sedated on 05/04, started on broad-spectrum antibiotics for sepsis present on admission. Patient completed antibiotics, sputum cultures showed no growth. He is continued on steroids. His hospital course complicated by acute metabolic encephalopathy, neurology consulted, patient had an EEG done that showed moderate to severe background slowing, that was done on propofol 50 mcg/kg/min. CT head was done twice and showed no acute bleed or mass effect. TTE showed EF of 55% with no obvious regional wall motion abnormalities, moderate MR, mild to moderate TR. Patient did have a sedation holiday on 05/11, did not tolerate well, was not following commands during. CT chest abdomen pelvis with oral contrast was done to evaluate for mts: moderate R and small L pleural effusions with compressive atelectasis, mildly prominent mediastinal lymph nodes, likely reactive, chlelithiasis, diffuse anasarca. Propofol was turned off on 05/13 in the morning. Patient has not had any purposeful movements since, he was unable to move his head, appeared agitated, did not follow any commands, did not interact. on 05/13 he underwent bronchoscopy, BAL of the right lower lobe, therapeutic airway suctioning. BAL cultures negative patient was extubated on 05/14to nasal cannula, Precedex was turned off. Lasix discontinued. Patient's mentation was unchanged, he was sitting upright, upper extremities on restraints, patient was not opening eyes, was not following commands, withdraws to pain. 05/[address] head showed no acute process and no significant changes. Hospice met with patient's family, currently they are not ready to make decision.patient was started on Lopressor 50 twice daily, goal to wean Cleviprex. Repeat CT head on 05/16 showed no acute abnormalities or changes. 05/17: Overnight patient was switched to comfort measures only per family request. Discussed with TRANSIT SPECIALIST, patient was taken off BiPAP to nasal cannula, hospice is following. Pertinent positives and negatives as discussed above, a complete review of systems was performed and all other systems are negative. Vitals Signs Reviewed. General: [Ill-appearing Derm: Warm, dry Head: Atraumatic, normocephalic, symmetric Mouth: No lip lesion, mucus membranes dry Assessment and Plan: Acute hypoxic respiratory failure requiring intubation status post extubation 05/14, bronchoscopy with BAL 05/13 COPD exacerbation Diastolic CHF exacerbation, resolved Bilateral pleural effusion Sepsis present on admission History of lung cancer status post lobectomy Tobacco use disorder - Comfort measures only, hospice following Sinus tachycardia Hypertension Hypernatremia Acute multifactorial encephalopathy MYNOR on CKD stage III Hyperkalemia, resolved GAVE syndrome Essential thrombocythemia Normocytic anemia, chronic - [employer]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 Depression: Continue home Lexapro 20 mg nightly Hyperlipidemia: Continue home atorvastatin 20 mg nightly Code status: DNR/DNI Anticipated discharge place: TBD Anticipated discharge time: TBD Objective - Vital Signs Vital signs: Vital Signs Temp 98.0 F 05/16/25 20:00 Pulse 103 H 05/16/25 22:00 Resp 10 L 05/16/25 22:00 BP 135/69 05/15/25 12:15 Pulse Ox 98 05/16/25 22:00 FiO2 90 05/16/25 22:00 Intake & Output 05/16/25 05/17/25 05/17/25 18:59 06:59 18:59 Intake Total 910.866 574.367 Output Total 1650 700 Balance -739.134 -125.633 Intake: IV 442 234 0.9 KVO 120 10 Arterial Line and CVP 72 24 Line Dextrose 5% in Water 1, 250 200 000 ml @ 50 mls/hr IV . Q20H [facility] Rx#:[id number] Intake, IV Titration 58.866 130.367 Amount Clevidipine Butyrate 25 58.866 98.1 mg In Empty Bag 1 bag @ 1 MG/HR 2 mls/hr IV .Q24H [facility] Rx#:[id number] Morphine Sulfate 100 mg 32.267 In Sodium Chloride 0.9% 90 ml @ 2 MG/HR 2 mls/hr IV .Q24H [facility] Rx#: [id number] Tube Feeding 280 120 Other 130 90 Output: Urine 1650 700 Other: Voiding Method Indwelling Catheter Indwelling Catheter ABP, PAP, CO, CI - Last Documented Arterial Blood Pressure 157/61 - Labs CBC & Chem 7: 05/16/25 04:25 05/16/25 04:25 Labs: Abnormal Lab Results - Last 24 Hours (Table) 05/16/25 05/16/25 Range/Units 17:55 21:12 ABG pH 7.49 H (7.35-7.45) ABG pO2 52 L* (83-108) mmHg ABG HCO3 31 H (21-25) mmol/L ABG Total CO2 32 H (19-24) mmol/L ABG O2 Saturation 88.3 L (94-97) % Hemoglobin 8.0 L (13.0-17.5) gm/dL POC Glucose (mg/dL) 160 H (70-110) mg/dL
--- NOTE | 2025-05-17 11:13 | P.PN ---
Subjective Progress Note Date: 05/17/25 Patient is a 79-year-old male, evaluated by EMS yesterday. Reportedly, having severe respiratory distress and apnea. He was intubated in the field. No previous records available to review from our facility. I did call the patient's , she states he was increasingly weak for the last several days. Associated shortness of breath with exertion. She thought it was related to his anemia. She was able to provide some past medical history including lung cancer and previous lung resection at [facility], essential thrombocythemia, and GAVE syndrome. Reportedly, requires frequent blood and iron infusions. He follows at [facility] for this. Reportedly, no history of COPD, asthma. No history of heart failure per the . His medication list is not available. Workup in the emergency department including a chest x-ray which shows endotracheal tube proximal, approximately 6 cm from the yuni. Orogastric tube coursing into the stomach. Patchy bibasilar infiltrates and small effusion on the right. Left costophrenic angle was excluded from the image. CBC including a WBC count of 19.15, hemoglobin 9.2, platelets 655. CMP included sodium 142, potassium 4.8, chloride 107, serum bicarb 20, BUN 28, creatinine 1.88, glucose 256. Lactic 2.6 and down to 1.6. EKG: Sinus tachycardia, rate 104 bpm, no acute ischemic changes. Troponin less than 0.012. NT proBNP significantly elevated at 12,100. Patient currently being evaluated in the emergency department, trauma bay 2. He is intubated to the mechanical ventilator. Previous ABGs including a PaO2 of 315, pCO2 57, pH of 7.2. Previous ventilator settings were assist-control, rate 16, tidal volume 450, FiO2 100%, PEEP of 5. Since then, his rate has been increased to 20 and his tidal volume dropped to 50%. The Peak pressure averaging 38 and static airway pressure measured at 17. His endotracheal tube is a size 7. There are thick tenacious white secretions coming from the endotracheal tube. Sputum sample to be collected. Currently, patient is synchronous with the mechanical ventilator. Sedated on propofol which is infusing at 45 mcg/kg/min. He was previously fluid resuscitated with a total of 2.5 L crystalloid fluid and LR continues at 150 mL/h. Blood pressure is normotensive. Not requiring any vasopressors. An indwelling urinary catheter was placed and there is small amount of concentrated yellow urine in the col lection bag. Has remained afebrile. Previously started on empiric antibiotics in form azithromycin and Rocephin in the ED. Progress note dated May 05, 2025. This is a 79-year-old gentleman who was seen by my nurse practitioner yesterday. The patient came into the hospital with respiratory failure, thought to be secondary to pneumonia. The patient remains on volume assist-control, rate 20, tidal line 450, FiO2 40%, PEEP of 5. Blood gases this morning show pO2 118, pCO2 38, pH is 7.30. Both blood gases are consistent with mild metabolic acidosis. The patient is getting saline at 75 cc an hour, propofol at 50 mcg/kg/min, and norepinephrine at 3.7 mcg/min. The patient continues on azit hromycin and Rocephin. We will attempt a daily interruption of sedation today, plus or minus a spontaneous breathing trial. The patient's saline IV, will be converted to lactated Ringer's at 75 cc an hour. Current laboratory data includes a white count of 14.8, hemoglobin 7.6, hematocrit 24.2, and a platelet count of 570,000. Sodium 141, potassium 4.2, chloride 111, CO2 16, anion gap 14, glucose 120, BUN and creatinine were 27 and 1.76. Calcium 8.1. Blood and sputum sampling is thus far negative. X-ray shows small right-sided pleural effusion, with some bibasilar patchy airspace opacities, concerning for possible pneumonia. Progress note dated May 06, 2025. 79-year-old male seen in the intensive care unit. The patient was admitted with respiratory failure, and pneumonia. He remains on mechanical ventilation. He is on volume assist-control, rate 20, tidal volume 450, FiO2 40%, PEEP of 5. Blood gases show PO297, WMO185, pH is 7.30. The blood gas is consistent with a mild metabolic acidosis. He is on propofol at 50 mcg/kg/min, norepinephrine has been weaned off. He is on lactated Ringer's at 75 cc an hour, and saline at KVO. He is receiving vital high-protein at 40, with a goal of 45 cc an hour. He continues on azithromycin and Rocephin empirically. Will add some Solu- Medrol to his regimen. We also had some Dilaudid for pain control. White count 12.9, hemoglobin 7, hematocrit 22.8, platelet count 563,000. Sodium 142, potassium 4.1, chlorides 113, CO2 17, anion gap 12, BUN 23, creatinine 1.52. Glucose is 125. Calcium is 8.4. Sputum and blood sampling has been negative thus far. Chest x-ray shows small right pleural effusion with bibasilar patchy airspace opacities. There is evidence of pulmonary vascular congestion. Progress note dated May 07, 2025. 79-year-old male seen in the intensive care unit, room 251. The patient has a history of respiratory failure, and pneumonia, he remains on mechanical ventilator. Current vent settings include volume assist-control, rate 20, tidal volume 450, FiO2 40%, PEEP of 5. Arterial blood gases show PO2 114, PCO2 of 41, pH is 7.30. The patient is getting lactated Ringer's at 75 cc an hour, propofol at 50 mcg/kg/min. The patient is also getting saline at 10 cc an hour, and vital high-protein at 10 cc an hour. Residuals are high, so we added Reglan 10 mg every 6. He continues on azithromycin and Rocephin, and microbiologic sampling, thus far is negative. In addition, his peak airway pressures 29, with a plateau pressure of 13. His airways resistance is 13 cm water per liter per second. We will attempt a daily interruption of sedation. White count was 10.6, hemoglobin 7.1, hematocrit 23.6, platelet count 629,000. Sodium 141, potassium 4.5, chlorides 111, CO2 18, anion gap 12, BUN 28, creatinine 1.59. These electrolyte profile is consistent with a nonanion gap metabolic acidosis. Glucose is 162. Calcium is 8.8. Chest x-ray is largely unchanged, with small right-sided pleural effusion, and right basilar infiltrate. Progress note dated May 08, 2025. 79-year-old male seen today in room 251. The patient has done poorly with his daily interruptions of sedation. He is on volume assist-control, rate 20, tidal volume 450, FiO2 30%, PEEP of 5. Blood gases show PO2 102, pCO2 40, pH is 7.28. The patient is getting LR at 75 cc an hour, propofol is currently off, saline at 10 cc an hour, and vital high-protein at 40, with a goal of 45 cc an hour. Because of his agitated state, and his poor response, the patient will have an EEG, and a neurology consultation. He is currently not on any antibiotics. White count is 15.5, hemoglobin 7, hematocrit 23.1, platelet count 775,000. Sodium 139, potassium 4.9, chlorides 111, CO2 is 18, anion gap 10, BUN 37, creatinine 1.62. Glucose of 177. Calcium 8.8. Magnesium 2.2. Blood and sputum analysis is negative. Chest x-ray shows a small right-sided pleural effusion, and some mild bibasilar opacities. Progress note dated May 09, 2025. 79-year-old male seen today in room 251. He remains on the mechanical ventilator. He is on volume assist-control, rate 20, tidal volume 450, FiO2 30%, PEEP of 5. Blood gases show pO2 of 90, pCO2 of 39, pH is 7.31. The patient is getting lactated Ringer's at 75 cc an hour, propofol at 50 mcg/kg/min, vital high-protein at goal, which is 35 cc an hour. We asked neurology to see the patient yesterday. An EEG showed diffuse slowing consistent with metabolic/toxic encephalopathy. We also add some amlodipine to his regimen, for blood pressure control, at 10 mg. The patient may benefit from tracheostomy and PEG tube, if he does not improve neurologically. Will see how things go over the next few days. White count is 15.2, hemoglobin 7.4, hematocrit 24.7, platelet count 833,000. Sodium 140, potassium 5.4, chlorides 113, CO2 16, anion gap 11, BUN 45, creatinine 1.79. Glucose is 163. Calcium is 8.7. Microbiology is thus far negative. Chest x-ray is largely unchanged. Progress note dated May 10, 2025. 79-year-old male seen again in room 251. He remains on volume assist-control, rate 20, tidal volume 450, FiO2 30%, PEEP of 5. Blood gases show pO2 72, pCO2 37, pH is 7.35. He is currently on propofol at 10 mcg/kg/min, LR at 75 cc an hour, Precedex at 1.4 mcg/kg/h, Cleviprex at 3 mg an hour. The patient is also receiving vital high-protein, at goal. Current laboratory data includes a white count of 13.3, hemoglobin 8.2, hematocrit 26.5, and a platelet count of 925,000. Sodium 140, potassium 5.4, chloride 110, CO2 19, anion gap 11, BUN 54, creatinine 1.80. Calcium is 9.0. Microbiologic studies have all been negative. Chest x-ray is largely unchanged. The brain CT shows no acute bleed or mass effect, mild atrophy, and no interval change. The patient has been seen by neurology. The patient also had an EEG. On 05/11/2025, the patient is being seen in follow-up. Remains intubated and on mechanical ventilator. This morning, he is on propofol running at 75 mcg/kg/min and Precedex running at 1 mcg/kg/h. He is on assist-control mode of mechanical ventilation at rate of 20, tidal volume of 450, FiO2 40% with a PEEP of 5. Blood gas showed a pH of 7.37 and the patient has a PCO2 of 38 and PO2 of 53. Chest x-ray from today showing bilateral pleural effusion right more than left. Orotracheal tube with distal tip being at 4.5 cm above the yuni. The patient has also areas of consolidation bilaterally. Note that, the sputum sample that was collected at time of admission was negative. The patient has no fever or chills. He is not receiving any antibiotic coverage at this point. He remains on bronchodilators. He remains on IV Solu-Medrol. IV fluids are currently at KVO. Fluid balance is -1.3 L over the past 24 hours. The patient is at the subclavian left sided triple-lumen catheter. The white seconds at 13.5 with a heme of 8.5 and a platelet count of 872. BUN is 15 with a creatinine of 1.8 and a sodium levels at 142 and a potassium level is at 5.1. Serum bicarb is at 19. Anion gap is at 10. Hemodynamically stable. No pressors for now. Is known to have COPD. He is also known to haveThe patient is known to have COPD. 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 He has been treated through [facility]. Furthermore, he has undergone a lobectomy on the right for a non-small cell lung cancer and this was done approximately 2 years ago at [facility] in [place]. He has required transfusions almost every 3 we eks. He was having increased residuals. The patient will was started on IV Reglan and the patient will be started back on vital HP at a low rate. Will monitor his residuals. 05/12/2025, patient is being seen for a follow-up. The patient was given a prolonged sedation holiday. He opens his eyes and he was thrashing and he was not following any commands. He was getting progressive more asynchronous with the mechanical ventilator. Earlier this morning, the patient was on propofol at 40 mcg. This was discontinued and to restart sedation, I recommended Precedex. He is on assist-control mode of mechanical ventilation at a rate of 20, tidal volume of 450, FiO2 40% with a PEEP of 5. Blood gas showed a pH of 7.33 [id number] and PO2 of 95. He is on Cleviprex for blood pressure control running at 3 mg/h. CT scan of the abdomen and pelvis was done yesterday and the CAT scan of the chest showed a moderate-sized and small left-sided pleural effusion along with compressive atelectatic changes lung bases. Prominent mild lymph nodes within the mediastinum, probably benign, cholelithiasis, diffuse anasarca and no other intra-abdominal abnormalities. The patient is currently on vital HP at rate of 20 cc an hour. Tolerating stream reasonably well. Blood work was noted. The white cell count 13.4, hemoglobin 8.2 and platelet count of 848. BUN 61 with a creatinine of 1.7 and sodium levels at 141 and a potassium level is at 5.2. Hemoglobin has remained stable and there is no evidence of any GI bleeding. 05/13/2025, patient is being seen for a follow-up. Remains intubated on a [facility] ventilator. Unfortunately, the patient is not showing neurologic recovery. He opens his eyes while off sedation. He looks around. He grimaces. He has a weak cough. Does not follow any commands. No seizure activity. Occasional thrashing. Having excessive respiratory secretions and obviously not a candidate for further weaning and extubation. He remains on Precedex which is running at 0.9 mcg/kg/h. The patient is also on Cleviprex drip for blood pressure control at 2 mg an hour. Remains on a mechanical ventilator assist- control mode with rate of 20, tidal volume of 450, FiO2 40% with a PEEP of 5. Blood gas showed a pH of 7.36 with a DEI220 and PO2 of 101. Given IV Lasix and the patient is a negative fluid balance of 2.4 L over the past 24 hours. Remains on vital HP at a rate of 20 cc an hour. EEG showed moderate to severe encephalopathy. Blood work from today was noted. The white cell count is at 20.8 with him of 7.9 and a platelet count of 708. There is a rise in the white cell count. Sodium levels at 141, potassium is at 5.5, BUN 17 with a creatinine of 2.1. Bicarb is at 21. Glucose 117. Chest x-ray remains essentially unchanged with small bilateral pleural effusion and atelectatic changes lung base bilaterally. 05/14/2025, the patient is being seen for a follow-up. Neurologically unchanged. He opens his eyes, does not follow any commands. Moving all 4 extremities. Withdraws to painful stimulation. No fever. No neck stiffness. No seizure activity. Hemodynamically stable. Remains on Precedex at 1.4 mcg/kg/min. Remains on a mechanical ventilator assist-control mode with rate of 20, tidal volume of 450, FiO2 40% with a PEEP of 5. Fluid balance is -2.9 L over the past 24 hours and the patient's blood gas showed a pH of 7.39 with a [id number] and [id number]. Remains on vital HP at rate of 20 cc an hour. Remains on Cleviprex drip at 4 mg an hour. The white cell count is 21.5 with hemoseven 0.7 and platelet count of 501. BUN is 77 with a creatinine of 2.47. Potassium is at 5.4 with a sodium level of 142. Post bronchoscopy, therapeutic airway suctioning was done. Cultures are still pending. Respiratory secretions are much less. Chest x-ray shows some interval clearing of the right lower lobe opacity/effusion. There is a left-sided pleural effusion present. The tube is in a good location. 05/15/2025 the patient is extubated, and the patient was extubated on 05/14/2025. Overnight, the patient was placed on a BiPAP pressure of 12 or 6 cm of water with an FiO2 of 40%. This morning, the patient was taken off the BiPAP and the patient is currently on 2 L of oxygen by nasal cannula with a pulse ox of 93%. He is still neurologically unchanged. He just moves his head and extremities. He is not following commands consistently. Remains profoundly weak. He has a weak cough. NG tube is in place. He is on vital HP at rate of 40 cc an hour. Fluid balance -2.6 L over the past 24 hours. Chest x-ray shows trace pleural effusion bilaterally and IV fluids are currently at KVO. The patient remains on Cleviprex 7 mg an hour. He is also on IV Lopressor for some sinus tachycardia. White cell count 29 with a heme of 7.6. BUN is 77 with a creatinine of 1.9. Potassium level is at 4.8. Noncarrier lavage that was collected earlier showed no microbial growth. The patient is being monitored very closely in the [facility] unit. Neurology remains on the case. 05/16/2025, the patient remains neurologically impaired. Neurologically unchanged. Remains very sluggishly responsive. Not following commands. At ti mes, he gets restless and thrashes around. Received Ativan overnight. This morning, he is on a BiPAP at a pressure of 4/6 with an FiO2 of 40%. Chest x-ray remains stable and unchanged. The patient remains hypertensive and remains on Cleviprex drip at 5 mg an hour. Fluid balance is -790 cc over the past 24 hours . . No significant respiratory secretions. Bronchoscopy and bronchial lavage yielded no microbial growth. Repeat CAT scan of the brain was done today upon request of neurology and the findings remained stable without any acute intracranial process. Rest of the blood work shows a white cell count of 18, hemoglobin of 7 and a platelet count of 292. BUN is 75 with a creatinine of 1.9. Sodium is at 149. Potassium level is at 4.4. No fever. No hypotension. No significant improvement in his overall condition since extubation. 05/17/2025. The patient is undergoing comfort care measures. Noted his condition decompensated overnight and the patient became progressive more hypoxic. Unable to clear up his respiratory secretions. He was kept on a BiPAP and subsequently a blood gas was done that showed a pH of 7.49 with a PCO2 of 40 and PO2 of 52. He was getting more restless and agitated. Family was contacted and arrived to the hospital. The patient remained unresponsive. He was not following any commands. Based on all this, the family made the decision to pro ceed with end-of-life care. Patient is currently on Robinul as needed, morphine drip and pushes on an as-needed basis and a scopolamine patch. He is also on oxygen at 10 L. Resting comfortably in bed. Family at the bedside. Will continue with comfort measures at this point. Discussed the case with the . Updated on the most recent CAT scan of the brain that showed no significant abnormalities. Objective - Vital Signs Vital signs: Vital Signs Temp 98.0 F 05/16/25 20:00 Pulse 103 H 05/16/25 22:00 Resp 10 L 05/16/25 22:00 BP 135/69 05/15/25 12:15 Pulse Ox 98 05/16/25 22:00 FiO2 90 05/16/25 22:00 Intake & Output 05/16/25 05/17/25 05/17/25 18:59 06:59 18:59 Intake Total 910.866 574.367 Output Total 1650 700 Balance -739.134 -125.633 Intake: IV 442 234 0.9 KVO 120 10 Arterial Line and CVP 72 24 Line Dextrose 5% in Water 1, 250 200 000 ml @ 50 mls/hr IV . Q20H WHIT Rx#:[id number] Intake, IV Titration 58.866 130.367 Amount Clevidipine Butyrate 25 58.866 98.1 mg In Empty Bag 1 bag @ 1 MG/HR 2 mls/hr IV .Q24H WHIT Rx#:[id number] Morphine Sulfate 100 mg 32.267 In Sodium Chloride 0.9% 90 ml @ 2 MG/HR 2 mls/hr IV .Q24H WHIT Rx#: [id number] Tube Feeding 280 120 Other 130 90 Output: Urine 1650 700 Other: Voiding Method Indwelling Catheter Indwelling Catheter ABP, PAP, CO, CI - Last Documented Arterial Blood Pressure 157/61 - Exam The patient is unresponsive, comfortable on morphine drip and 10 L/min nasal cannula HEENT examination is grossly unremarkable. Mucous membranes are moist. No oral lesions. The patient has a subclavian left-sided triple-lumen catheter. Neck supple. Full range of motion. No adenopathy thyromegaly or neck vein distention. Cardiovascular examination reveals regular rhythm rate. S1-S2 normal. No S3 or S4. No discernible murmur noted. Lungs reveal scattered bilateral expiratory rhonchi. No wheezes. No crackles. Breath sounds are equal bilaterally. There is diminished breath sound the lung bases bilaterally. Abdomen soft bowel sounds are heard. No masses or tenderness. Extremities are intact. No cyanosis clubbing or edema. Skin is without rash or lesion. Neurologic examination, unresponsive, on morphine drip - Labs CBC & Chem 7: 05/16/25 04:25 05/16/25 04:25 Labs: Abnormal Lab Results - Last 24 Hours (Table) 05/16/25 05/16/25 Range/Units 17:55 21:12 ABG pH 7.49 H (7.35-7.45) ABG pO2 52 L* (83-108) mmHg ABG HCO3 31 H (21-25) mmol/L ABG Total CO2 32 H (19-24) mmol/L ABG O2 Saturation 88.3 L (94-97) % Hemoglobin 8.0 L (13.0-17.5) gm/dL POC Glucose (mg/dL) 160 H (70-110) mg/dL Assessment and Plan Plan: Acute hypoxemic and hypercapnic respiratory failure, remains intubated on mechanical ventilator. Reviewed the chest x-ray and the patient has bilateral consolidation and bilateral pleural effusions right more than left. Echocardiogram done on 05/04/2025 showed preserved LV function with an ejection fraction of 55% and the patient has a moderate degree of mitral regurgitation. No significant respiratory secretions. CT scan of the chest done on 05/11/2025 shows a moderate-sized and a small size this right and left-sided pleural effusion respectively. Maintained mechanical ventilator and with adequate oxygenation ventilation. The patient is post bronchoscopy done on 05/13/2025 with therapeutic airway suctioning. The bronchoalveolar lavage cultures are negative. The patient was extubated on 05/14/2025. Overnight, the patient decompensated, became more hypoxic, became more short of breath. Family opted for comfort care measures. Encephalopathy, suboptimal recovery from sedation the patient was not following any commands upon receiving sedation holiday. Neurologic exam remains nonfocal. Meanwhile, CAT scan of the brain that was done on 05/10/2025 showed mild cerebral atrophy without any acute abnormalities. CAT scan of the brain that was done at time of admission on 05/04/2025 showed no acute abnormalities. EEG done on 05/08/2025 showed moderate to severe degree of slowing in the background. No evidence of any seizure activity. The patient is currently on Precedex. Unable to follow any commands. Remains unresponsive to verbal sti mulation. Occasional thrashing. Continues to be encephalopathic. About underlying hypoxic encephalopathy at the time of admission. Neurologically unchanged and the patient had a repeat CAT scan of the brain on 05/16/2025 that showed no significant changes. No acute intracranial abnormalities. Remains unresponsive on morphine drip. Chronic kidney disease, stage III, creatinine is stable and the patient is negative fluid balance. Mild hyponatremia, sodium levels at 149 Preserved LV function with a normal ejection fraction and moderate mitral regurgitation and mild to moderate tricuspid regurgitation, based on echo on 05/04/2025. Hypertension, currently on Cleviprex drip for blood pressure control. Acute leukocytosis and the patient is hemodynamically stable and afebrile. 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 Essential thrombocythemia, reportedly on cytoreducative therapy. lung cancer with previous lobectomy at outside facility. The patient underwent a right-sided lobectomy, probably the right upper lobe and this was done 2 years ago at [facility]. Current tobacco smoker. Plan: Agree and comfort care measures/end-of-life care Currently on morphine drip Scopolamine patch Robinul as needed Oxygen supplementation Family is at the bedside Case was discussed with the family and the was at the bedside. Evaluation was done more than 30 minutes. Time with Patient: Greater than 30
--- NOTE | 2025-05-17 13:02 | P.PN ---
Progress Note - Text Progress Note Date: 05/17/25 I was notified by the nursing staff, that patient is Comfort measures only. Therefore, no further neurological work-up. Will sign off. Please reconsult if needed.
--- NOTE | 2025-05-18 16:26 | P.DS ---
Providers Date of admission: 05/03/25 21:13 Expected date of discharge: 05/18/25 Attending physician: Peace Castillo MD Consults: 05/03/25 21:22 Consult Physician Routine Consulting Provider: Sadie Gayle Consult Reason/Comments: icu Do you want consulting provider notified?: Yes 05/08/25 12:18 Consult Physician Routine Consulting Provider: Alli Kerr Consult Reason/Comments: not appropriate during sedation holiday Do you want consulting provider notified?: Yes 05/11/25 11:53 Consult Physician Routine Consulting Provider: Shari Hill Consult Reason/Comments: high platelets Do you want consulting provider notified?: Yes Primary care physician: Walker Parada Hospital Course: Discharge Diagnosis: Acute hypoxic respiratory failure requiring intubation status post extubation 05/14, bronchoscopy with BAL 05/13 COPD exacerbation Diastolic CHF exacerbation Bilateral pleural effusion Sepsis present on admission History of lung cancer status post lobectomy Tobacco use disorder Sinus tachycardia Hypertension Hypernatremia Acute multifactorial encephalopathy MYNOR on CKD stage III Hyperkalemia, resolved GAVE syndrome Essential thrombocythemia Normocytic anemia, chronic Hospital Course: A 79-year-old male with past medical history of lung cancer status post lobectomy, essential thrombocythemia, GAVE syndrome, follows at [facility], reported history of COPD, asthma, dyslipidemia, hypertension, depression, who presented for respiratory distress. reports exertional SOB for the past few weeks prior to arrival. In the ED he underwent extensive evaluation. BP 168/95, HR 105, T 97.5F, RR 19, 98% mechanically ventilated. Labs significant for WBC 19.15, RBC 3.4, Hg 9.2, Hct 29.3, Plt 655, PT 13.5, INR 1.3, bicarb 20, BUN 28, Cr 1.88, glu 256. Trop < 0.012. BNP 97395. Mag 2.2. Lactic acid 2.2-1.6. COVID, RSV, Flu neg. EKG sinus tachycardia. CXR patchy basilar infiltrates and small effusions. Brain CT no acute process. Patient is admitted to ICU for further management. Patient was intubated and sedated on 05/04, started on broad-spectrum antibiotics for sepsis present on admission. Patient completed antibiotics, sputum cultures showed no growth. He is continued on steroids. His hospital course complicated by acute metabolic encephalopathy, neurology consulted, patient had an EEG done that showed moderate to severe background slowing, that was done on propofol 50 mcg/kg/min. CT head was done twice and showed no acute bleed or mass effect. TTE showed EF of 55% with no obvious regional wall motion abnormalities, moderate MR, mild to moderate TR. Patient did have a sedation holiday on 05/11, did not tolerate well, was not following commands during. CT chest abdomen pelvis with oral contrast was done to evaluate for mts: moderate R and small L pleural effusions with compressive atelectasis, mildly prominent mediastinal lymph nodes, likely reactive, chlelithiasis, diffuse anasarca. Propofol was turned off on 05/13 in the morning. Patient has not had any purposeful movements since, he was unable to move his head, appeared agitated, did not follow any commands, did not interact. on 05/13 he underwent bronchoscopy, BAL of the right lower lobe, therapeutic airway suctioning. BAL cultures negative patient was extubated on 05/14to nasal cannula, Precedex was turned off. Lasix discontinued. Patient's mentation was unchanged, he was sitting upright, upper extremities on restraints, patient was not opening eyes, was not following commands, withdraws to pain. 05/[address] head showed no acute process and no significant changes. Hospice met with patient's family, currently they are not ready to make decision.patient was started on Lopressor 50 twice daily, goal to wean Cleviprex. Repeat CT head on 05/16 showed no acute abnormalities or changes. 05/17: Overnight patient was switched to comfort measures only per family request. Discussed with FLOOR CARE TECHNICIAN, patient was taken off BiPAP to nasal cannula, hospice is following. Patient on 05/17/2025 at 1112. Plan - Discharge Summary New Discharge Prescriptions: No Action Escitalopram [Lexapro] 20 mg PO HS Anagrelide HCl [Agrylin] 1 mg PO BID Metoprolol Succinate (ER) [Toprol Xl] 100 mg PO HS Simvastatin 40 mg PO HS Esomeprazole Magnesium 20 mg PO BID Multivitamin [Multivitamins Adult Gummies] 1 tab PO DAILY amLODIPine [Norvasc] 5 mg PO HS Discharge Medication List Anagrelide HCl [Agrylin] 1 mg PO BID 05/04/25 [History] Escitalopram [Lexapro] 20 mg PO HS 05/04/25 [History] Esomeprazole Magnesium 20 mg PO BID 05/04/25 [History] Metoprolol Succinate (ER) [Toprol Xl] 100 mg PO HS 05/04/25 [History] Multivitamin [Multivitamins Adult Gummies] 1 tab PO DAILY 05/04/25 [History] Simvastatin 40 mg PO HS 05/04/25 [History] amLODIPine [Norvasc] 5 mg PO HS 05/04/25 [History] Follow up Appointment(s)/Referral(s): [facility] [NON-STAFF] - 1 Week Walker Parada MD [Primary Care Provider] - 1-2 days Discharge Disposition: - Preliminary Cause of Preliminary Cause of : copd
--- NOTE | 2025-05-18 22:25 | CDI ---
Documentation Clarification Form Date: 05/18/2025 10:04:30 PM From: Arlette Jeffers Phone: Admit Date: 05/03/2025 09:13:00 PM Patient Name: Calvin Borja Visit Number: [id number] Discharge Date: 05/17/2025 01:32:00 PM ATTENTION: The Clinical Documentation Specialists (CDI) and [facility] Coding Staff appreciate your assistance in clarifying documentation. Please respond to the clarification below the line at the bottom and electronically sign. The CDI & [facility] Coding staff will review the response and follow-up if needed. Please note: Queries are made part of the Legal Health Record. If you have any questions, please contact the author of this message via ITS. Doctor/Provider: Lloyd Woodard The patient has MYNOR and PNA per Progress Notes. Based on this information and the findings below, is there an additional diagnosis that is clinically appropriate for this patient? History/Risk Factors: 79yoM, AHRF, AECOPD, ACDHF, heath pleural effusion, sepsis, sinus tachy, HTN, hyponatremia, acute met/tox enceph, MYNOR, CKD III, hyperkalemia, GAVE syndrome, anemia, thrombocythemia, smoker, Hx lung Cx sp lobectomy Clinical Indicators: WBC: 19.15 Lactic acid: 2.2 Vitals signs: 05/03/2507/03/2507 19:34 19:39 19:44 T 97.5 RI 105 93 RR 19 21 BP168/95 113/83 O2 Sat 98 100 Fraction of 100 05/03/250703/2507 20:17 20:33 21:24 RI 76 71 RR 22 21 BP88/65 109/70 O2 Sat 100 98 Fraction of 50 05/03/2507/03/2507 22:06 23:00 23:18 RI 72 64 RR 18 20 BP113/75 90/58 O2 Sat 96 100 Fraction of 50 05/04/250704/2507 00:00 02:00 03:00 RI 68 68 67 RR 20 17 20 BP102/70 109/71 101/66 O2 Sat 100 100 98 Treatment: Rocephin 2g IV QD + Azithromycin 500 mg IV QD. Pro-jose elias 1.82.Obtain Sputum Cx + Legionella Ag + BCx. NS at 75 cc/hr. Aspiration precautions + elevate HOB. Is there an additional diagnosis that is clinically appropriate for this patient? [ x] Severe Sepsis with organ failure [ ] Septic Shock [ ] No additional diagnosis/not clinically significant [ ] Other, please specify [ ] Unable to determine SIRS Criteria: 2 or more of the following may indicate SIRS Temperature < 96.8F (36C) or > 101.0F (38.3C) Heart Rate > 90 bpm Respiratory Rate > 20 breaths/min or PaCO2 < 32 mmHg White Blood Cell Count > 12,000 or < 4,000 cells/mm3 or > 10% bands (Template Last Reviewed: October 2022) MTDD
--- NOTE | 2025-05-19 09:28 | CDI ---
Documentation Clarification Form Date: 05/19/2025 09:01:57 AM From: Arlette Jeffers Phone: Admit Date: 05/03/2025 09:13:00 PM Patient Name: Calvin Borja Visit Number: [id number] Discharge Date: 05/17/2025 01:32:00 PM ATTENTION: The Clinical Documentation Specialists (CDI) and [facility] Coding Staff appreciate your assistance in clarifying documentation. Please respond to the clarification below the line at the bottom and electronically sign. The CDI & [facility] Coding staff will review the response and follow-up if needed. Please note: Queries are made part of the Legal Health Record. If you have any questions, please contact the author of this message via ITS. Doctor/Provider: Lloyd ANAND is documented per Consult Note 05/11 and Progress Note 05/13 which may lack sufficient clinical evidence/support in the medical record. Additional clarification is requested. History/Risk Factors: 79yoM,AHRF,AECOPD, ACDHF, bilpleural effusion,sepsis, sinus tachy,HTN,hyponatremia, acute met/tox enceph,MYNOR,CKD III, hyperkalemia,GAVEsyndrome requiring routine bloodtransfusions,anemia,thrombocythemia,smoker, Hx lung Cx sp lobectomy Clinical Indicators: BNP: 06235 Recent bloodtransfusions. Per 05/04 Progress notes (Prior to 05/03 IP admission (No date provided)) CXR: 05/03 ETT is 6 cm from the yuni.NG tubeis seen coursing into the stomach. Patchy basilarinfiltratesand smalleffusions. 05/04 1.Overall similar examination with diffuse interstitial prominence and right basilar airspaceopacitiesconcerning foratelectasisversuspneumonia. 2. Similar small rightpleural effusion. Vitals signs: 05/03/2507/03/2507 19:34 19:39 19:44 T 97.5 ID 105 93 RR 19 21 BP168/95 113/83 O2 Sat 98 100 Fraction of 100 05/03/2507/03/2507 20:17 20:33 21:24 ID 76 71 RR 22 21 BP88/65 109/70 O2 Sat 100 98 Fraction of 50 05/03/2507 22:06 23:00 23:18 ID 72 64 RR 18 20 BP113/75 90/58 O2 Sat 96 100 Fraction of 50 05/04/250704/2507 00:00 02:00 03:00 ID 68 68 67 RR 20 17 20 BP102/70 109/71 101/66 O2 Sat 100 100 98 Treatment: Supportive care to treat the same. ICU care, Critical Care team following closely . Pt made DNR/comfort care and passed. Please clarify if TRALI is a valid diagnosis? [ ] Transfusion-related acute lung injury (TRALI) [ ] Transfusion associated circulatory overload [ ] Other (please specify diagnosis) [ x ] Unable to determine (Template Last Revised: March 2024) MTDD
--- NOTE | 2025-05-20 13:44 | CDI ---
Documentation Clarification Form Date: 05/20/2025 01:15:04 PM From: Alexus Murphy RN, CCDS Email: [email or web address] Admit Date: 05/03/2025 09:13:00 PM Patient Name: Calvin Borja Visit Number: [id number] Discharge Date: 05/17/2025 01:32:00 PM ATTENTION: The Clinical Documentation Specialists (CDI) and [facility] Coding Staff appreciate your assistance in clarifying documentation. Please respond to the clarification below the line at the bottom and electronically sign. The CDI & [facility] Coding staff will review the response and follow-up if needed. Please note: Queries are made part of the Legal Health Record. If you have any questions, please contact the author of this message via ITS. Manish Gooden LICENSED PROSTHETIST/ORTHOTIST, The patient was receiving IV Norepinephrine on 05/05. Please clarify what condition/diagnosis was being treated. History/Risk Factors: From the 05/03 H&P: "79-year-old male with severe COPD and history of lung surgery who was brought to the hospital by EMS due to respiratory arrest. Patient was having severe shortness of breath and coughing, described as 'something like an asthma attack.' Patient notified EMS and subsequently had a respiratory arrest upon their arrival. Patient arrived at the hospital intubated." Admitted with sepsis 2/2 pneumonia. Clinical indicators: 05/04 IM: "Hypertension: Hold Metoprolol and Amlodipine due to borderline hypotension." 05/04 Op note: "Procedure: Left subclavian triple-lumen catheter. Postoperative diagnosis: Administration of fluids and pressors. Indication: Hemodynamic monitoring/Intravenous access." 05/05 BP: 90/53-96/50-111/57-136/74-126/68 05/05 MAP: 94-57-40-107-69-90 Treatment: 05/05 IV Norepinephrine titrate for MAP>65; 1L 0.9 NS IV bolus x2 on 05/03; 1L 0.9 NS IV bolus x1 on 05/05 What diagnosis were you treating with IV Norepinephrine? [ x ] Shock [ ] Hypovolemic Shock [ ] Other Shock, please specify [ ] No additional diagnosis [ ] Other, please specify [ ] Unable to determine MTDD
== END 2025-05-17 13:32 | disposition expired | DRG 870 ==
LOC: EC 19:25 → 2SICU 21:13
PROVIDERS: ADMIT Internal Medicine; ATTEND Internal Medicine
PROC: 5A1935Z Respiratory Ventilation, Less than 24 Consecutive Hours (ICD-10-PCS; 2025-05-03)
PROC: 5A1955Z Respiratory Ventilation, Greater than 96 Consecutive Hours (ICD-10-PCS; principal; 2025-05-04)
PROC: 0BH17EZ Insertion of Endotracheal Airway into Trachea, Via Natural or Artificial Opening (ICD-10-PCS; 2025-05-04)
PROC: 03HY32Z Insertion of Monitoring Device into Upper Artery, Percutaneous Approach (ICD-10-PCS; 2025-05-04)
PROC: 4A133B1 Monitoring of Arterial Pressure, Peripheral, Percutaneous Approach (ICD-10-PCS; 2025-05-04)
PROC: 4A133J1 Monitoring of Arterial Pulse, Peripheral, Percutaneous Approach (ICD-10-PCS; 2025-05-04)
PROC: 02HV33Z Insertion of Infusion Device into Superior Vena Cava, Percutaneous Approach (ICD-10-PCS; 2025-05-04)
PROC: 3E043XZ Introduction of Vasopressor into Central Vein, Percutaneous Approach (ICD-10-PCS; 2025-05-04)
PROC: 0B9F8ZX Drainage of Right Lower Lung Lobe, Via Natural or Artificial Opening Endoscopic, Diagnostic (ICD-10-PCS; 2025-05-13)
PROC: 0B9B8ZZ Drainage of Left Lower Lobe Bronchus, Via Natural or Artificial Opening Endoscopic (ICD-10-PCS; 2025-05-13)
PROC: 0B968ZZ Drainage of Right Lower Lobe Bronchus, Via Natural or Artificial Opening Endoscopic (ICD-10-PCS; 2025-05-13)
PROC: 5A09357 Assistance with Respiratory Ventilation, Less than 24 Consecutive Hours, Continuous Positive Airway Pressure (ICD-10-PCS; 2025-05-15)
DX: A41.9 Sepsis, unspecified organism (principal); G92.8 Other toxic encephalopathy; I50.33 Acute on chronic diastolic (congestive) heart failure; K31.811 Angiodysplasia of stomach and duodenum with bleeding; J18.9 Pneumonia, unspecified organism; J96.01 Acute respiratory failure with hypoxia; R57.9 Shock, unspecified; E87.20 Acidosis, unspecified; I13.0 Hypertensive heart and chronic kidney disease with heart failure and stage 1 through stage 4 chronic kidney disease, or unspecified chronic kidney disease; J44.1 Chronic obstructive pulmonary disease with (acute) exacerbation; I27.22 Pulmonary hypertension due to left heart disease; N18.30 Chronic kidney disease, stage 3 unspecified; D63.1 Anemia in chronic kidney disease; F32.A Depression, unspecified; I08.1 Rheumatic disorders of both mitral and tricuspid valves; J44.0 Chronic obstructive pulmonary disease with (acute) lower respiratory infection; E87.0 Hyperosmolality and hypernatremia; N17.9 Acute kidney failure, unspecified; D47.3 Essential (hemorrhagic) thrombocythemia; R65.20 Severe sepsis without septic shock; Z51.5 Encounter for palliative care; Z66 Do not resuscitate; E87.5 Hyperkalemia; D75.838 Other thrombocytosis; E78.5 Hyperlipidemia, unspecified; R00.1 Bradycardia, unspecified; F17.200 Nicotine dependence, unspecified, uncomplicated; T41.295A Adverse effect of other general anesthetics, initial encounter; T42.75XA Adverse effect of unspecified antiepileptic and sedative-hypnotic drugs, initial encounter; T50.995A Adverse effect of other drugs, medicaments and biological substances, initial encounter; K80.20 Calculus of gallbladder without cholecystitis without obstruction; Z90.2 Acquired absence of lung [part of]; Z78.1 Physical restraint status; Z79.899 Other long term (current) drug therapy; Z85.46 Personal history of malignant neoplasm of prostate; Z85.118 Personal history of other malignant neoplasm of bronchus and lung
CPT/HCPCS: 36415; 36600; 70450; 71045; 71250; 74150; 76770; 80048; 80053; 82805; 83036; 83605; 83735; 83880; 84100; 84132; 84145; 84484; 85025; 85027; 85610; 85730; 87040; 87070; 87205; 87636; 88108; 88305; 93005; 93306; 94002; 94003; 94640; 94660; 95822; 96361; 96365; 96366; 96367; 96368; 96375; 99291